=== PATIENT | male | born 1945 | race Caucasian/White ===

== ENCOUNTER 2017-11-17 19:54 | Inpatient (IN) | payer OTHER, MEDICARE ==
[2017-11-17] VITALS (7 sets, daily range): BP systolic 123–179; BP diastolic 75–122; PULSE 99–112; RESP 16–20; TEMP 97.8; O2SAT 90–100
[~2017-11-17] VITALS: Ht 172.7 cm; Wt 58.2 kg
[2017-11-17] MEDS ORDERED: SILD20TA11 PO (20:11)
--- NOTE | 2017-11-17 20:11 | PD ---
HPI Chief Complaint: Psychiatric Symptoms Time Seen by Provider: 19:58 Travel History International Travel<30 days: No Contact w/Intl Traveler<30days: No Traveled to known affect area: No History of Present Illness HPI The patient is a 72-year-old male who presents to the emergency department via EMS after an accidental overdose. According to EMS the patient took 8 her cassette 5 mg tablets at home earlier today and then an unknown amount of Suboxone from his roommate. The patient was then found lying in the bathroom on the ground, unresponsive, was administered Narcan 0.4 mg intravenously. Per EMS the patient awakened and was alert. He does admit to taking Percocet, however, states he did not take any Suboxone. The patient denies any suicidal ideation, states he was trying to obtain a bus from the [place]. He does have a history of chronic opiate use. Upon awakening the patient did ask EMS for more Percocet. Upon arrival the patient does complain of shortness of breath, does have a history of COPD and is on oxygen at home 1 L via nasal cannula. 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 He is a somewhat limited historian secondary to his shortness of breath. A Robbins act was not present upon arrival from the police who were "sidetracked "according to EMS. PFSH Past Medical History Narrative Medical CVA, chronic opiate use Past Surgical History Narrative Surgical Right arm surgery Social History Tobacco Use: Yes Substance Use: Yes Allergies-Medications (Allergen,Severity, Reaction): Coded Allergies: No Known Allergies (Unverified , 11/17/17) Reported Meds & Prescriptions Reported Meds & Active Scripts Active Reported Sildenafil 20 Mg Tab 20 Mg PO TID Review of Systems ROS Limitations: Poor Historian Except as stated in HPI: all other systems reviewed are Neg Cardiovascular: No: Chest Pain or Discomfort Respiratory: Positive: Cough, Shortness of Breath Gastrointestinal: Positive: Nausea, No: Vomiting, Abdominal Pain Musculoskeletal: Positive: Weakness Neurologic: Positive: Focal Abnormalities (Left upper extremity weakness from previous CVA) Physical Exam Narrative GENERAL: Awake, alert, 72-year-old male appears his stated age and appears in moderate respiratory distress. Thin and cachectic. SKIN: Focused skin assessment warm/dry. HEAD: Atraumatic. Normocephalic. EYES: Pupils equal and round. There is purulent drainage from the left eye with injection of the left conjunctival. ENT: No nasal bleeding or discharge. Dry mucous membranes. NECK: Trachea midline. No JVD. CARDIOVASCULAR: Regular, tachycardic with a heart rate of 110. RESPIRATORY: Tachypnea with a respiratory rate of 40. Rhonchi in all 4 lung dunn. GASTROINTESTINAL: Abdomen soft, non-tender, nondistended. No rebound tenderness. MUSCULOSKELETAL: Atrophy noted of the left upper extremity Genitourinary: Uncircumcised phallus. The patient had urinated on himself prior to arrival. NEUROLOGICAL: Awake and alert. Weakness with inability to move the left upper extremity. Limited range of motion of lower extremities bilaterally. He is able to raise his right upper extremity. Well-healed scar over the right forearm. PSYCHIATRIC: Appears slightly anxious. Data Data Last Documented VS Vital Signs Date Time Temp Pulse Resp B/P (MAP) Pulse Ox O2 Delivery O2 Flow Rate FiO2 11/17/17 21:30 97 100 11/17/17 21:25 Venturi Mask 15.00 11/17/17 20:06 110 11/17/17 20:06 97.8 11/17/17 20:00 20 Orders Orders Electrocardiogram (11/17/17 20:05) Complete Blood Count With Diff (11/17/17 20:05) Comprehensive Metabolic Panel (11/17/17 20:05) Prothrombin Time / Inr (Pt) (11/17/17 20:05) Act Partial Throm Time (Ptt) (11/17/17 20:05) Urinalysis - C+S If Indicated (11/17/17 20:05) Chest, Single Ap (11/17/17 20:05) Arterial Blood Gas (Abg) (11/17/17 20:05) Iv Access Insert/Monitor (11/17/17 20:05) Ecg Monitoring (11/17/17 20:05) Oximetry (11/17/17 20:05) Psych Screen (11/17/17 20:05) Sodium Chloride 0.9% Flush (Ns Flush) (11/17/17 20:15) Call Poison Control (11/17/17 20:05) Drug Screen, Random Urine (11/17/17 20:05) Alcohol (Ethanol) (11/17/17 20:05) Salicylates (Aspirin) (11/17/17 20:05) Tylenol (Acetaminophen) (11/17/17 20:05) Albuterol-Ipratropium Neb (Duoneb Neb) (11/17/17 20:15) Troponin I (11/17/17 20:05) Creatine Kinase (Cpk) (11/17/17 20:05) Cefepime Inj (Maxipime Inj) (11/17/17 20:30) Azithromycin Inj (Zithromax Inj) (11/17/17 20:30) B-Type Natriuretic Peptide (11/17/17 20:21) Ct Thorax/ Chest Wo Iv Contras (11/17/17 ) CKMB (11/17/17 20:03) CKMB% (11/17/17 20:03) Etomidate Inj (Amidate Inj) (11/17/17 21:17) Etomidate Inj (Amidate Inj) (11/17/17 21:30) Succinylcholine Inj (Quelicin Inj) (11/17/17 21:30) Propofol 1000 Mg/100 Ml Inj (Diprivan 10 (11/17/17 21:30) ^ Infusion (11/17/17 21:17) Propofol 500 Mg/50 Ml Inj (Diprivan 500 (11/17/17 21:18) Chest, Single Ap (11/17/17 ) Blood Culture (11/17/17 21:36) Lactic Acid (11/17/17 21:36) Sodium Chlor 0.9% 1000 Ml Inj (Ns 1000 M (11/17/17 21:45) Aspirin Supp (Aspirin Supp) (11/17/17 21:45) Labs Laboratory Tests Test 11/17/17 20:03 11/17/17 20:12 White Blood Count 13.4 TH/MM3 Red Blood Count 4.98 MIL/MM3 Hemoglobin 15.6 GM/DL Hematocrit 45.4 % Mean Corpuscular Volume 91.2 FL Mean Corpuscular Hemoglobin 31.4 PG Mean Corpuscular Hemoglobin Concent 34.4 % Red Cell Distribution Width 14.8 % Platelet Count 260 TH/MM3 Mean Platelet Volume 9.0 FL Neutrophils (%) (Auto) 87.4 % Lymphocytes (%) (Auto) 2.3 % Monocytes (%) (Auto) 9.8 % Eosinophils (%) (Auto) 0.3 % Basophils (%) (Auto) 0.2 % Neutrophils # (Auto) 11.7 TH/MM3 Lymphocytes # (Auto) 0.3 TH/MM3 Monocytes # (Auto) 1.3 TH/MM3 Eosinophils # (Auto) 0.0 TH/MM3 Basophils # (Auto) 0.0 TH/MM3 CBC Comment AUTO DIFF Differential Total Cells Counted 100 Neutrophils % (Manual) 85 % Band Neutrophils % 1 % Lymphocytes % 1 % Monocytes % 11 % Neutrophils # (Manual) 11.8 TH/MM3 Promyelocytes 2 % Differential Comment FINAL DIFF MANUAL Toxic Vacuolation PRESENT Platelet Estimate NORMAL Platelet Morphology Comment ENLARGED Prothrombin Time 12.3 SEC Prothromb Time International Ratio 1.2 RATIO Activated Partial Thromboplast Time 25.4 SEC Blood Urea Nitrogen 44 MG/DL Creatinine 0.91 MG/DL Random Glucose 124 MG/DL Total Protein 7.9 GM/DL Albumin 3.4 GM/DL Calcium Level 10.0 MG/DL Alkaline Phosphatase 122 U/L Aspartate Amino Transf (AST/SGOT) 320 U/L Alanine Aminotransferase (ALT/SGPT) 418 U/L Total Bilirubin 1.8 MG/DL Sodium Level 132 MEQ/L Potassium Level 3.3 MEQ/L Chloride Level 93 MEQ/L Carbon Dioxide Level 28.3 MEQ/L Anion Gap 11 MEQ/L Estimat Glomerular Filtration Rate 82 ML/MIN Total Creatine Kinase 1020 U/L Creatine Kinase MB 8.1 NG/ML Creatine Kinase MB % 0.8 % Troponin I 0.17 NG/ML B-Type Natriuretic Peptide 380 PG/ML Salicylates Level LESS THAN 1.7 MG/DL Acetaminophen Level LESS THAN 2.0 MCG/ML Ethyl Alcohol Level LESS THAN 3 MG/DL Blood Gas Puncture Site RT RADIAL Blood Gas Patient Temperature 98.6 Blood Gas HCO3 28 mmol/L Blood Gas Base Excess 4.7 mmol/L Blood Gas Oxygen Saturation 89 % Arterial Blood pH 7.49 Arterial Blood Partial Pressure CO2 37 mmHg Arterial Blood Partial Pressure O2 60 mmHG Arterial Blood Oxygen Content 20.0 Vol % Arterial Blood Carboxyhemoglobin 1.8 % Arterial Blood Methemoglobin 0.5 % Blood Gas Hemoglobin 16.0 G/DL Oxygen Delivery Device NASAL CANNULA Blood Gas Liter Flow 2 L/M MDM Medical Decision Making Medical Screen Exam Complete: Yes Emergency Medical Condition: Yes Medical Record Reviewed: Yes Interpretation(s) EKG reveals sinus tachycardia with a heart rate of 109. Left ventricular hypertrophy by voltage. Last Impressions Chest X-Ray 11/17/172004 Signed Impressions: Service Date/Time: Friday, November 17, 2017 20:11 - CONCLUSION: 1. Right-sided pneumonia, especially upper lobe. 2. Indeterminate radiopaque structure at the level of the thoracic inlet as above. Please correlate visually as to whether this may be overlying the patient. Otherwise, a coin or other foreign object may be in the esophagus. Aman Bermeo MD Chest CT 11/17/17 Signed Impressions: Service Date/Time: Friday, November 17, 2017 20:57 - CONCLUSION: 1. Foreign body at the level of the thoracic inlet, appears to be a coin within the esophagus. 2. Bilateral pneumonia. Please see above. Aman Bermeo MD Laboratory Tests Test 11/17/17 20:03 11/17/17 20:12 White Blood Count 13.4 TH/MM3 Red Blood Count 4.98 MIL/MM3 Hemoglobin 15.6 GM/DL Hematocrit 45.4 % Mean Corpuscular Volume 91.2 FL Mean Corpuscular Hemoglobin 31.4 PG Mean Corpuscular Hemoglobin Concent 34.4 % Red Cell Distribution Width 14.8 % Platelet Count 260 TH/MM3 Mean Platelet Volume 9.0 FL Neutrophils (%) (Auto) 87.4 % Lymphocytes (%) (Auto) 2.3 % Monocytes (%) (Auto) 9.8 % Eosinophils (%) (Auto) 0.3 % Basophils (%) (Auto) 0.2 % Neutrophils # (Auto) 11.7 TH/MM3 Lymphocytes # (Auto) 0.3 TH/MM3 Monocytes # (Auto) 1.3 TH/MM3 Eosinophils # (Auto) 0.0 TH/MM3 Basophils # (Auto) 0.0 TH/MM3 CBC Comment AUTO DIFF Differential Total Cells Counted 100 Neutrophils % (Manual) 85 % Band Neutrophils % 1 % Lymphocytes % 1 % Monocytes % 11 % Neutrophils # (Manual) 11.8 TH/MM3 Promyelocytes 2 % Differential Comment FINAL DIFF MANUAL Toxic Vacuolation PRESENT Platelet Estimate NORMAL Platelet Morphology Comment ENLARGED Prothrombin Time 12.3 SEC Prothromb Time International Ratio 1.2 RATIO Activated Partial Thromboplast Time 25.4 SEC Blood Urea Nitrogen 44 MG/DL Creatinine 0.91 MG/DL Random Glucose 124 MG/DL Total Protein 7.9 GM/DL Albumin 3.4 GM/DL Calcium Level 10.0 MG/DL Alkaline Phosphatase 122 U/L Aspartate Amino Transf (AST/SGOT) 320 U/L Alanine Aminotransferase (ALT/SGPT) 418 U/L Total Bilirubin 1.8 MG/DL Sodium Level 132 MEQ/L Potassium Level 3.3 MEQ/L Chloride Level 93 MEQ/L Carbon Dioxide Level 28.3 MEQ/L Anion Gap 11 MEQ/L Estimat Glomerular Filtration Rate 82 ML/MIN Total Creatine Kinase 1020 U/L Creatine Kinase MB 8.1 NG/ML Creatine Kinase MB % 0.8 % Troponin I 0.17 NG/ML Salicylates Level LESS THAN 1.7 MG/DL Acetaminophen Level LESS THAN 2.0 MCG/ML Ethyl Alcohol Level LESS THAN 3 MG/DL Blood Gas Puncture Site RT RADIAL Blood Gas Patient Temperature 98.6 Blood Gas HCO3 28 mmol/L Blood Gas Base Excess 4.7 mmol/L Blood Gas Oxygen Saturation 89 % Arterial Blood pH 7.49 Arterial Blood Partial Pressure CO2 37 mmHg Arterial Blood Partial Pressure O2 60 mmHG Arterial Blood Oxygen Content 20.0 Vol % Arterial Blood Carboxyhemoglobin 1.8 % Arterial Blood Methemoglobin 0.5 % Blood Gas Hemoglobin 16.0 G/DL Oxygen Delivery Device NASAL CANNULA Blood Gas Liter Flow 2 L/M Differential Diagnosis Differential diagnosis includes accidental overdose, intentional overdose, aspiration, pneumonia, pulmonary edema, congestive heart failure, bronchitis, COPD exacerbation, Tylenol toxicity. Narrative Course IV was established, labs are drawn and sent, and the patient was placed on cardiac telemetry monitoring and continuous pulse oximetry monitoring. The patient was administered duo nebs 2. ABG was obtained. Chest x-ray was obtained. EKG was ordered and interpreted. Chest x-ray reveals pneumonia in the right lung, possibly aspiration. A foreign body was also noted at the thoracic inlet, unsure if this was esophageal or tracheal. Therefore, CT of the thorax was obtained revealing a esophageal foreign body. I discussed the patient with the occupational therapy professor, Dr. Camilo. After discussion it was agreed the patient would be intubated prior to gastroenterology evaluation as he is having tachypnea, hypoxia, and is high risk patient with chronic COPD and oxygen dependency. Therefore, the patient was intubated using rapid sequence intubation with etomidate and succinylcholine. An 8.5 endotracheal tube was placed. The patient will be admitted to the intensive care unit, will require foreign body removal as well as treatment for the aspiration pneumonia and once he is extubated and stable with need psychiatry evaluation as he is a Robbins act. The patient did have what appeared to be aspiration pneumonia with hypoxia, however, he does have COPD and tracheal foreign body. I do not believe the patient is truly septic, he did have elevated troponin and CPK, CPK was greater than 1000 consistent with rhabdomyolysis. Blood culture and lactic acid were ordered. The patient was covered for pneumonia with cefepime and Zithromax. Patient will be admitted to the intensive care unit. The patient also received aspirin 300 mg suppository. Gastroenterology was paged at 10:46 PM in regards to esophageal foreign body. I am unsure if this is a coin versus some type of metallic battery. Therefore, GI was paged. I discussed the patient with Dr. Latham at 10:50 PM. Critical Care Narrative Aggregate critical care time was 45 minutes. Time to perform other separately billable procedures was not included in the critical care time. My time did not include minutes spent treating any other patients simultaneously or on activities that did not directly contribute to the patient's treatment. The services I provided to this patient were to treat and/or prevent clinically significant deterioration that could result in: Anoxia, hypoxia, aspiration, arrhythmia, . I provided critical care services requiring my management, as noted below: Chart data review, documentation time, medication orders and management, vital sign assessments/reviewing monitor data, ordering and reviewing lab tests, ordering and interpreting/reviewing x-rays and diagnostic studies, care of the patient and discussion of the patient with the admitting physicians. Procedures Procedure Narrative The patient was put in optimal position for the procedure. Rapid sequence intubation was initiated by me using 20 milligrams of etomidate IV and 100 milligrams of succinylcholine IV. The patient was intubated with a 8.5 cuffed endotracheal tube. Tube placement was confirmed by visualization of the tube and balloon passing through the cords, capnometry and subsequent chest x-ray. Breath sounds were equal and well aerated bilaterally postintubation. No breath sounds over stomach. Patient tolerated procedure well. Physician Communication Physician Communication I discussed the patient Dr. Camilo who agrees with admission to the intensive care unit. Diagnosis Primary Impression: Pneumonia Qualified Codes: J18.9 - Pneumonia, unspecified organism Additional Impressions: Hypoxia Rhabdomyolysis Qualified Codes: M62.82 - Rhabdomyolysis Esophageal foreign body Qualified Codes: T18.108A - Unspecified foreign body in esophagus causing other injury, initial encounter Admitting Information Admitting Physician Requests: Admit Condition: Serious Joe Zhu MD Nov 17, 2017 20:11
[2017-11-17] MEDS ORDERED: RESP: ALBUTEROL 2.5 MG/IPRATROPIUM 0.5 MG NEB (SCH) NEB ONE (20:15)
[2017-11-17] MEDS ORDERED: SODIUM CHLORIDE 0.9% FLUSH 10 ML FLUSH IVF PRN (20:15)
[2017-11-17] MEDS ORDERED: AZITHROMYCIN INJ 500 MG in SODIUM CHLOR 0.9% 250 ML INJ 250 ML IV ONE (20:30)
[2017-11-17] MEDS ORDERED: CEFEPIME INJ 2,000 MG in SODIUM CHLORIDE 0.9% INJ 100 ML IV ONE (20:30)
--- NOTE | 2017-11-17 20:30 | RADRPT ---
EXAM DATE/TIME: 11/17/2017 20:11 [facility] COMPARISON: No previous studies available for comparison. INDICATIONS : Pt brought in due to possible OD. Pt unresponsive but alert. MEDICAL HISTORY : None. SURGICAL HISTORY : None. ENCOUNTER: Initial ACUITY: 1 day PAIN SCORE: Non-responsive. LOCATION: Bilateral Stomach FINDINGS: There is diffuse infiltrate on the right, most severe in the upper lobe. Mild basilar atelectasis on the left. No definite pleural effusion or pneumothorax on either side. Heart size upper limits of normal. 2.1 cm densely opaque round structure projects over the central thoracic inlet region. It appears to be left of the trachea, could be in the esophagus. CONCLUSION: 1. Right-sided pneumonia, especially upper lobe. 2. Indeterminate radiopaque structure at the level of the thoracic inlet as above. Please correlate v isually as to whether this may be overlying the patient. Otherwise, a coin or other foreign object ma y be in the esophagus. Aman Bermeo MD on November 17, 2017 at 20:25 Board Certified Radiologist. This report was verified electronically.
[2017-11-17 20:51] LABS: AUTOMATED NEUTROPHIL # 11.7 TH/MM3 (1.8-7.7); BASOPHIL % 0.2 % (0.0-2.0); EOSINOPHIL % 0.3 % (0.0-4.0); HEMATOCRIT 45.4 % (39.0-51.0); HEMOGLOBIN 15.6 GM/DL (13.0-17.0); LYMPH % 2.3 % (9.0-44.0); LYMPHOCYTE # 0.3 TH/MM3 (1.0-4.8); MEAN CELL VOLUME 91.2 FL (80.0-100.0); MEAN CORPUSCULAR HEMOGLOBIN 31.4 PG (27.0-34.0); MEAN CORPUSCULAR HGB CONC 34.4 % (32.0-36.0); MONO % 9.8 % (0.0-8.0); MONOCYTE # 1.3 TH/MM3 (0-0.9); NEUT % 87.4 % (16.0-70.0); PLATELET COUNT 260 TH/MM3 (150-450); RED BLOOD COUNT 4.98 MIL/MM3 (4.50-5.90); RED CELL DISTRIBUTION WIDTH 14.8 % (11.6-17.2); WHITE BLOOD COUNT 13.4 TH/MM3 (4.0-11.0)
[2017-11-17 20:53] LABS: ALBUMIN 3.4 GM/DL (3.4-5.0); ALT (GPT) 418 U/L (12-78); AST (GOT) 320 U/L (15-37); BICARBONATE 28.3 MEQ/L (21.0-32.0); BLOOD UREA NITROGEN 44 MG/DL (7-18); CHLORIDE 93 MEQ/L (98-107); CREATININE 0.91 MG/DL (0.60-1.30); GLOMERULAR FILTRATION RATE 82 ML/MIN (>89); GLUCOSE,RANDOM 124 MG/DL (74-106); SODIUM (NA) 132 MEQ/L (136-145)
[2017-11-17 20:56] LABS: ACETAMINOPHEN LESS THAN 2.0 MCG/ML (10.0-30.0)
[2017-11-17 21:05] LABS: ALKALINE PHOSPHATASE 122 U/L (45-117); INTERNATIONAL NORMALIZED RATIO 1.2 RATIO; PROTHROMBIN TIME - PATIENT 12.3 SEC (9.8-11.6); TOTAL BILIRUBIN ADULT 1.8 MG/DL (0.2-1.0); TOTAL PROTEIN 7.9 GM/DL (6.4-8.2); TROPONIN I 0.17 NG/ML (0.02-0.05)
[2017-11-17] MEDS ORDERED: ETOMIDATE 40 MG/20 ML VIAL ONE (21:17)
[2017-11-17] MEDS ORDERED: PROPOFOL 500 MG/50 ML INJ 50 ML ONE (21:18)
--- NOTE | 2017-11-17 21:21 | RADRPT ---
EXAM DATE/TIME: 11/17/2017 20:57 [facility] COMPARISON: No previous studies available for comparison. INDICATIONS : Short of breath, evaluate for pneumonia. RADIATION DOSE: 8.64 CTDIvol (mGy) MEDICAL HISTORY : Chronic obstructive pulmonary disease. Cerebrovascular disease. SURGICAL HISTORY : Non-responsive. ENCOUNTER: Initial ACUITY: 1 day PAIN SCALE: Non-responsive LOCATION: chest TECHNIQUE: Volumetric scanning of the chest was performed. Using automated exposure control and adjustment of t he mA and/or kV according to patient size, radiation dose was kept as low as reasonably achievable to obtain optimal diagnostic quality images. DICOM format image data is available electronically for r eview and comparison. Follow-up recommendations for detected pulmonary nodules are based at a minimum on nodule size and pa tient risk factors according to Fleischner Society Guidelines. FINDINGS: Metallic foreign body seen at the level of the thoracic inlet and appears to be in the esophagus. Thi s is presumably a coin. Patchy diffuse pneumonia of both lungs, right worse than left. More extensive consolidation is seen i n the right upper lobe and also the superior segment of the right lower lobe. There is mild emphysema . No pleural effusion. No pneumothorax. Heart size within normal limits. No adenopathy demonstrated. CONCLUSION: 1. Foreign body at the level of the thoracic inlet, appears to be a coin within the esophagus. 2. Bilateral pneumonia. Please see above. Aman Bermeo MD on November 17, 2017 at 21:13 Board Certified Radiologist. This report was verified electronically.
[2017-11-17 21:27] LABS: BANDS 1 % (0-6); LYMPHOCYTES 1 % (9-44); MONOCYTES 11 % (0-8); NEUTROPHIL # MANUAL DIFF 11.8 TH/MM3 (1.8-7.7); POLYS (SEG NEUTROPHILS) 85 % (16-70); PROMYELOCYTES 2 % (0-0); TOXIC VACUOLATION PRESENT (NONE SEEN)
[2017-11-17] MEDS ORDERED: PROPOFOL 1000 MG/100 ML INJ 100 ML IV PRN (21:30)
[2017-11-17] MEDS ORDERED: SUCCINYLCHOLINE CHLORIDE 100 MG/5 ML SYRINGE IV PUSH ONE (21:30)
[2017-11-17] MEDS ORDERED: ETOMIDATE 20 MG/10 ML VIAL IV PUSH ONE (21:30)
[2017-11-17] MEDS ORDERED: SODIUM CHLOR 0.9% 1000 ML INJ 1,000 ML IV ONE (21:45)
[2017-11-17] MEDS ORDERED: ASPIRIN 300 MG SUPP RECTAL ONE (21:45)
--- NOTE | 2017-11-17 22:08 | RADRPT ---
EXAM DATE/TIME: 11/17/2017 21:36 [facility] COMPARISON: CT THORAX W/O CONTRAST, November 17, 2017, 20:57. CHEST SINGLE AP, November 17, 2017, 20:11. INDICATIONS : Post intubation. MEDICAL HISTORY : Unresponsive. SURGICAL HISTORY : Unresponsive. ENCOUNTER: Initial ACUITY: 1 day PAIN SCORE: Non-responsive. LOCATION: Bilateral chest FINDINGS: Patient is now intubated. Endotracheal tube tip is approximately 4 cm above the tuan. Patchy bilateral pneumonia again seen, most conspicuous in the right upper lobe. No large effusion de monstrated. No perceptible pneumothorax. Heart size stable, within normal limits. Disc shaped metallic foreign body at the level of the thoracic inlet unchanged. CONCLUSION: Endotracheal tube is appropriately positioned. Bilateral pneumonia persists. Foreign body in the esop hagus at the level of the thoracic inlet persists. Aman Bermeo MD on November 17, 2017 at 22:04 Board Certified Radiologist. This report was verified electronically.
[2017-11-17] MEDS ORDERED: ACETAMINOPHEN 325 MG TAB PO PRN (22:45)
[2017-11-17] MEDS ORDERED: RESP: ALBUTEROL 2.5 MG/IPRATROPIUM 0.5 MG NEB (PRN) INH (22:45)
[2017-11-17] MEDS ORDERED: CHLORHEXIDINE GLUCONATE 2 % 1 PACK (2 CLOTHS) TOP PRN (22:45)
[2017-11-17] MEDS ORDERED: LACTULOSE SYRUP 20 GM/30 ML CUP PO PRN (22:45)
[2017-11-17] MEDS ORDERED: ONDANSETRON HCL 4 MG/2 ML VIAL IV PUSH PRN (22:45)
[2017-11-17] MEDS ORDERED: BISACODYL 10 MG SUPP RECTAL PRN (22:45)
[2017-11-17] MEDS ORDERED: SODIUM CHLORIDE 0.9% FLUSH 10 ML FLUSH IV FLUSH PRN (22:45)
[2017-11-17] MEDS ORDERED: NURSING INFORMATION XX SCH (22:45)
[2017-11-17] MEDS ORDERED: MAGNESIUM HYDROXIDE SUSP 30 ML CUP PO PRN (22:45)
[2017-11-17] MEDS ORDERED: SENNOSIDES 8.6 MG TAB PO PRN (22:45)
[2017-11-17] MEDS ORDERED: MORPHINE SULFATE 2 MG/ML SYRINGE IV PUSH PRN (22:45)
[2017-11-17 23:12] LABS: AMORPHOUS SEDIMENT, URINE RARE; BILIRUBIN, URINE NEG (NEG); BLOOD, URINE MOD (NEG); GLUCOSE,URINE NEG (NEG); KETONE, URINE 10 mg/dL (NEG); MUCUS URINE FEW /lpf (OCC); NITRITE,URINE NEG (NEG); PH, URINE 5.5 (5.0-8.5); URINE COLOR LIGHT-YELLOW (YELLW/STRAW); URINE LEUKOCYTE ESTERASE NEG (NEG)
[2017-11-17] MEDS: SODIUM CHLOR 0.9% 1000 ML INJ 1,000 ML IV SCH (23:13)
[2017-11-17] MEDS: MIDAZOLAM HCL 2 MG/2 ML VIAL IV PUSH PRN (23:20)
--- NOTE | 2017-11-17 23:23 | EKG ---
Date Performed: 11/17/2017 Time Performed: 20:07:58 PTAGE: 72 years EKG: SINUS TACHYCARDIA RIGHT ATRIAL ENLARGEMENT POSSIBLE LEFT ATRIAL ENLARGEMENT POSSIBLE LEFT V ENTRICULAR HYPERTROPHY ABNORMAL ECG NO PREVIOUS TRACING DOCTOR: Sammy Bourgeois Interpretating Date/Time 11/17/2017 23:22:41
--- NOTE | 2017-11-17 23:28 | HHI.HP ---
HPI Service Critical Care Medicine Primary Care Physician Unknown Admission Diagnosis Aspiration pneumonia, hypoxia, rhabdomyolysis, tracheal foreign body Diagnosis: Travel History International Travel<30 Days: No Contact w/Intl Traveler <30 Da: No Traveled to Known Affected Are: No History of Present Illness 72-year-old male presents to the emergency department via EMS after an accidental overdose. According to EMS the patient took 8 Percocet 5 mg tablets at home earlier today and then an unknown amount of Suboxone from his roommate. The patient was then found lying in the bathroom on the ground, unresponsive, was administered Narcan 0.4 mg intravenously. Per EMS the patient awakened and was alert. In the emergency department he did admit to taking Percocet, however, states he did not take any Suboxone. The patient denies any suicidal ideation, states he was trying to obtain a buzz from the Percocet. He does have a history of chronic opiate use. Upon awakening the patient did ask EMS for more Percocet. Upon arrival the patient does complain of shortness of breath, does have a history of COPD and is on oxygen at home 1 L via nasal cannula. 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 In the emergency department he remained short of breath and the CT of the chest was obtained. This showed severe aspiration pneumonia and the foreign body, coin-like, in the esophagus. The patient was intubated for airway protection by ED attending with a GI consultation in place for upper endoscopy and foreign body removal. Review of Systems ROS Unobtainable patient sedated and intubated Past Family Social History Allergies: Coded Allergies: No Known Allergies (Unverified , 11/17/17) Past Medical History CVA Opioid abuse Past Surgical History None Reported Medications Reported Meds & Active Scripts Active Reported Sildenafil 20 Mg Tab 20 Mg PO TID Active Ordered Medications Current Medications Medications (Trade) Dose Ordered Sig/Nataly Route PRN Reason Start Time Stop Time Status Last Admin Dose Admin Sodium Chloride (NS Flush) 2 ml UNSCH PRN IVF FLUSH AFTER USING IV ACCESS 11/17/17 20:15 Sodium Chloride 1,000 ml @ 84 mls/hr [id number] IV 11/17/17 22:40 11/17/17 23:13 Sodium Chloride (NS Flush) 2 ml UNSCH PRN IV FLUSH FLUSH AFTER USING IV ACCESS 11/17/17 22:45 Sodium Chloride (NS Flush) 2 ml BID IV FLUSH 11/18/17 09:00 Acetaminophen (Tylenol) 650 mg Q6H PRN PO PAIN 1-5 AND/OR FEVER >101F 11/17/17 22:45 Morphine Sulfate (Morphine Inj) 2 mg Q2H PRN IV PUSH PAIN SCALE 6 TO 10 11/17/17 22:45 Famotidine (Pepcid Inj) 20 mg Q12HR IV PUSH 11/18/17 09:00 Famotidine (Pepcid) 20 mg Q12HR PO 11/18/17 09:00 Midazolam HCl (Versed Inj) 2 mg Q1H PRN IV PUSH SEDATION 11/17/17 22:45 Artificial Tears (Tears Naturale Opth Soln) 1 drop TID EACH EYE 11/18/17 09:00 Ondansetron HCl (Zofran Inj) 4 mg Q6H PRN IV PUSH NAUSEA OR VOMITING 11/17/17 22:45 Albuterol/ Ipratropium (Duoneb Neb) 1 ampule Q2HR NEB PRN INH WHEEZING 11/17/17 22:45 Miscellaneous Information ([facility] [place] [facility] [place] 1 [id number] XX 11/17/17 22:45 Chlorhexidine Gluconate (Chlorhexidine 2% Cloth) 3 pack Taper DAILY@04 TOP 11/18/17 04:00 11/14/18 03:59 Chlorhexidine Gluconate (Chlorhexidine 2% Cloth) 3 pack UNSCH PRN TOP HYGIENIC CARE 11/17/17 22:45 Senna/Docusate Sodium (Luisa-Colace) 1 tab BID PO 11/18/17 09:00 Magnesium Hydroxide (Milk Of Magnesia Liq) 30 ml Q12H PRN PO Mild constipation 11/17/17 22:45 Sennosides (Senokot) 17.2 mg Q12H PRN PO Moderate constipation 11/17/17 22:45 Bisacodyl (Dulcolax Supp) 10 mg DAILY PRN RECTAL SEVERE CONSITIPATION/ IF NPO 11/17/17 22:45 Lactulose (Lactulose Liq) 30 ml DAILY PRN PO SEVERE CONSITIPATION/ IF PO 11/17/17 22:45 Chlorhexidine Gluconate (Peridex 0.12% Liq) 15 ml BID@08,20 MT 11/18/17 08:00 Propofol 100 ml @ 1.53 mls/hr TITRATE PRN IV SEDATION 11/17/17 22:45 Family History Unobtainable patient sedated and intubated Social History Known history of opioid abuse, unable to obtain tobacco and alcohol status Physical Exam Vital Signs Vital Signs Date Time Temp Pulse Resp B/P (MAP) Pulse Ox O2 Delivery O2 Flow Rate FiO2 11/17/17 23:06 99 16 123/75 (91) 100 Ventilator 10.80 99 11/17/17 22:15 111 16 162/102 (122) 100 Ventilator 10.80 99 11/17/17 21:30 97 100 11/17/17 21:25 90 Venturi Mask 15.00 11/17/17 20:22 93 Nasal Cannula 3.00 11/17/17 20:06 110 179/122 (141) 11/17/17 20:06 97.8 11/17/17 20:00 112 20 90 Physical Exam GENERAL: Sedated and intubated, 72-year-old male appears his stated age and appears in moderate respiratory distress. Thin and cachectic. SKIN: Focused skin assessment warm/dry. HEAD: Atraumatic. Normocephalic. EYES: Pupils equal and round. There is purulent drainage from the left eye with injection of the left conjunctival. ENT: No nasal bleeding or discharge. Dry mucous membranes. NECK: Trachea midline. No JVD. CARDIOVASCULAR: Regular, tachycardic with a heart rate of 110. RESPIRATORY: Tachypnea with a respiratory rate of 40. Rhonchi in all 4 lung dunn. GASTROINTESTINAL: Abdomen soft, non-tender, nondistended. No rebound tenderness. MUSCULOSKELETAL: Atrophy noted of the left upper extremity Genitourinary: Uncircumcised phallus. The patient had urinated on himself prior to arrival. NEUROLOGICAL: Follows commands off sedation. Weakness with inability to move the left upper extremity. Limited range of motion of lower extremities bilaterally. He is able to raise his right upper extremity. Well-healed scar over the right forearm. Laboratory Laboratory Tests Test 11/17/17 20:00 11/17/17 20:03 11/17/17 20:12 11/17/17 22:59 Urine Color LIGHT-YELLOW Urine Turbidity CLEAR Urine pH 5.5 Urine Specific [place] 1.015 Urine Protein 30 Urine Glucose (UA) NEG Urine Ketones 10 Urine Occult Blood MOD Urine Nitrite NEG Urine Bilirubin NEG Urine Urobilinogen LESS THAN 2.0 Urine Leukocyte Esterase NEG Urine RBC 1 Urine WBC LESS THAN 1 Urine Amorphous Sediment RARE Urine Mucus FEW Microscopic Urinalysis Comment CULT NOT INDICATED Urine Opiates Screen NEG Urine Barbiturates Screen NEG Urine Amphetamines Screen NEG Urine Benzodiazepines Screen POS Urine Cocaine Screen POS Urine Cannabinoids Screen NEG White Blood Count 13.4 Red Blood Count 4.98 Hemoglobin 15.6 Hematocrit 45.4 Mean Corpuscular Volume 91.2 Mean Corpuscular Hemoglobin 31.4 Mean Corpuscular Hemoglobin Concent 34.4 Red Cell Distribution Width 14.8 Platelet Count 260 Mean Platelet Volume 9.0 Neutrophils (%) (Auto) 87.4 Lymphocytes (%) (Auto) 2.3 Monocytes (%) (Auto) 9.8 Eosinophils (%) (Auto) 0.3 Basophils (%) (Auto) 0.2 Neutrophils # (Auto) 11.7 Lymphocytes # (Auto) 0.3 Monocytes # (Auto) 1.3 Eosinophils # (Auto) 0.0 Basophils # (Auto) 0.0 CBC Comment AUTO DIFF Differential Total Cells Counted 100 Neutrophils % (Manual) 85 Band Neutrophils % 1 Lymphocytes % 1 Monocytes % 11 Neutrophils # (Manual) 11.8 Promyelocytes 2 Differential Comment FINAL DIFF MANUAL Toxic Vacuolation PRESENT Platelet Estimate NORMAL Platelet Morphology Comment ENLARGED Prothrombin Time 12.3 Prothromb Time International Ratio 1.2 Activated Partial Thromboplast Time 25.4 Blood Urea Nitrogen 44 Creatinine 0.91 Random Glucose 124 Total Protein 7.9 Albumin 3.4 Calcium Level 10.0 Alkaline Phosphatase 122 Aspartate Amino Transf (AST/SGOT) 320 Alanine Aminotransferase (ALT/SGPT) 418 Total Bilirubin 1.8 Sodium Level 132 Potassium Level 3.3 Chloride Level 93 Carbon Dioxide Level 28.3 Anion Gap 11 Estimat Glomerular Filtration Rate 82 Total Creatine Kinase 1020 Creatine Kinase MB 8.1 Creatine Kinase MB % 0.8 Troponin I 0.17 B-Type Natriuretic Peptide 380 Salicylates Level LESS THAN 1.7 Acetaminophen Level LESS THAN 2.0 Ethyl Alcohol Level LESS THAN 3 Blood Gas Puncture Site RT RADIAL Blood Gas Patient Temperature 98.6 Blood Gas HCO3 28 Blood Gas Base Excess 4.7 Blood Gas Oxygen Saturation 89 Arterial Blood pH 7.49 Arterial Blood Partial Pressure CO2 37 Arterial Blood Partial Pressure O2 60 Arterial Blood Oxygen Content 20.0 Arterial Blood Carboxyhemoglobin 1.8 Arterial Blood Methemoglobin 0.5 Blood Gas Hemoglobin 16.0 Oxygen Delivery Device NASAL CANNULA Blood Gas Liter Flow 2 Date/Time Source Procedure Growth Status 11/17/17 22:00 Blood Peripheral Aerobic Blood Culture Pending Received 11/17/17 22:00 Blood Peripheral Anaerobic Blood Culture Pending Received Result Diagram: 11/17/17200211/17/172002 Imaging Last 24 hours Impressions Chest X-Ray 11/17/172004 Signed Impressions: Service Date/Time: Friday, November 17, 2017 20:11 - CONCLUSION: 1. Right-sided pneumonia, especially upper lobe. 2. Indeterminate radiopaque structure at the level of the thoracic inlet as above. Please correlate visually as to whether this may be overlying the patient. Otherwise, a coin or other foreign object may be in the esophagus. Aman Bermeo MD Chest X-Ray 11/17/17 0000 Signed Impressions: Service Date/Time: Friday, November 17, 2017 21:36 - CONCLUSION: Endotracheal tube is appropriately positioned. Bilateral pneumonia persists. Foreign body in the esophagus at the level of the thoracic inlet persists. Aman Bermeo MD Chest CT 11/17/17 0000 Signed Impressions: Service Date/Time: Friday, November 17, 2017 20:57 - CONCLUSION: 1. Foreign body at the level of the thoracic inlet, appears to be a coin within the esophagus. 2. Bilateral pneumonia. Please see above. MD Zia Gardner VTE Risk Assessment Caprini VTE Risk Assessment: Mod/High Risk (score >= 2) Caprini Risk Assessment Model Point Value = 1 Point Value = 2 Point Value = 3 Point Value = 5 Age 41-60 Minor surgery BMI > 25 kg/m2 Swollen legs Varicose veins or History of unexplained or recurrent spontaneous Oral contraceptives or hormone replacement Sepsis (< 1 month) Serious lung disease, including pneumonia (< 1 month) Abnormal pulmonary function Acute myocardial infarction Congestive heart failure (< 1 month) History of inflammatory bowel disease Medical patient at bed rest Age 61-74 Arthroscopic surgery Major open surgery (> 45 min) Laparoscopic surgery (> 45 min) Malignancy Confined to bed (> 72 hours) Immobilizing plaster cast Central venous access Age >= 75 History of VTE Family history of VTE Factor V Leiden Prothrombin [id number] Lupus anticoagulant Anticardiolipin antibodies Elevated serum homocysteine Heparin-induced thrombocytopenia Other congenital or acquired thrombophilia Stroke (< 1 month) Elective arthroplasty Hip, pelvis, or leg fracture Acute spinal cord injury (< 1 month) Prophylaxis Regimen Total Risk Factor Score Risk Level Prophylaxis Regimen 0-1 Low Early ambulation 2 Moderate Order ONE of the following: *Sequential Compression Device (SCD) *Heparin 5000 units SQ BID 3-4 Higher Order ONE of the following medications: *Heparin 5000 units SQ TID *Enoxaparin/Lovenox 40 mg SQ daily (WT < 150 kg, CrCl > 30 mL/min) *Enoxaparin/Lovenox 30 mg SQ daily (WT < 150 kg, CrCl > 10-29 mL/min) *Enoxaparin/Lovenox 30 mg SQ BID (WT < 150 kg, CrCl > 30 mL/min) AND/OR *Sequential Compression Device (SCD) 5 or more Highest Order ONE of the following medications: *Heparin 5000 units SQ TID (Preferred with Epidurals) *Enoxaparin/Lovenox 40 mg SQ daily (WT < 150 kg, CrCl > 30 mL/min) *Enoxaparin/Lovenox 30 mg SQ daily (WT < 150 kg, CrCl > 10-29 mL/min) *Enoxaparin/Lovenox 30 mg SQ BID (WT < 150 kg, CrCl > 30 mL/min) AND *Sequential Compression Device (SCD) Assessment and Plan Assessment and Plan Respiratory failure -Intubated for airway protection -Attempt SBT and extubate post GI procedure -DuoNeb scheduled and as needed -Underlying severe emphysema Aspiration pneumonia/pneumatosis -No antibiotics at this time -DuoNeb scheduled and as needed -Wean off the vent as tolerated Foreign body in esophagus -GI consultation Percocet overdose -Supportive care -Intubated for airway protection -Monitor for withdrawal Elevated CPK -IV fluid hydration -Repeat level in a.m. DVT GI prophylaxis -Giovany's and SCDs -Early aggressive mobilization when extubated -Regular diet when extubated Critical Care: The total critical care time was 35 minutes. Time to perform other separately billable procedures was not included in the critical care time. Sivakumar Camilo MD Nov 17, 2017 11:28 pm
[2017-11-17] MEDS ORDERED: POTASSIUM CHLORIDE 25 MEQ EFFERVESCENT TAB PO PRN (23:30)
[2017-11-17] MEDS ORDERED: POTASSIUM CHLOR 40 MEQ PREMIX 100 ML IV PRN (23:30)
[2017-11-17] MEDS ORDERED: POTASSIUM PHOSPHATE MONOBASIC 500 MG TAB PO/TUBE PRN (23:30)
[2017-11-17] MEDS ORDERED: POTASSIUM PHOSPHATE INJ 30 MMOL in SODIUM CHLOR 0.9% 250 ML INJ 250 ML IV PRN (23:30)
[2017-11-17] MEDS ORDERED: MAGNESIUM SULFATE INJ 4 GM in SODIUM CHLORIDE 0.9% INJ 92 ML IV PRN (23:30)
[2017-11-17] MEDS ORDERED: MAGNESIUM OXIDE 400 MG TAB PO PRN (23:30)
[2017-11-17] MEDS ORDERED: SODIUM PHOSPHATE INJ 30 MMOL in SODIUM CHLOR 0.9% 250 ML INJ 240 ML IV PRN (23:30)
[2017-11-17] MEDS ORDERED: MAGNESIUM SULFATE INJ 2 GM in SODIUM CHLORIDE 0.9% INJ 96 ML IV PRN (23:30)
[2017-11-18] VITALS (18 sets, daily range): BP systolic 125–171; BP diastolic 68–90; PULSE 77–104; RESP 16–35; TEMP 97.8–99; O2SAT 98–100
[2017-11-18] MEDS ORDERED: OXYC1TAB13 PO (00:05)
[2017-11-18] MEDS: PROPOFOL 1000 MG/100 ML INJ 100 ML IV PRN ×2 (00:55→09:19)
[2017-11-18] MEDS: SODIUM CHLOR 0.9% 1000 ML INJ 1,000 ML IV SCH ×3 (01:01→11:07)
[2017-11-18] MEDS: POTASSIUM CHLOR 20 MEQ PREMIX 100 ML IV PRN ×2 (01:15→03:20)
[2017-11-18] MEDS: CHLORHEXIDINE GLUCONATE 2 % 1 PACK (2 CLOTHS) TOP SCH (04:00)
[2017-11-18 04:58] LABS: AUTOMATED NEUTROPHIL # 13.2 TH/MM3 (1.8-7.7); BASOPHIL % 0.3 % (0.0-2.0); EOSINOPHIL % 0.1 % (0.0-4.0); HEMATOCRIT 40.5 % (39.0-51.0); HEMOGLOBIN 13.7 GM/DL (13.0-17.0); LYMPH % 4.1 % (9.0-44.0); LYMPHOCYTE # 0.6 TH/MM3 (1.0-4.8); MEAN CELL VOLUME 92.7 FL (80.0-100.0); MEAN CORPUSCULAR HEMOGLOBIN 31.3 PG (27.0-34.0); MEAN CORPUSCULAR HGB CONC 33.8 % (32.0-36.0); MONO % 9.9 % (0.0-8.0); MONOCYTE # 1.5 TH/MM3 (0-0.9); NEUT % 85.6 % (16.0-70.0); PLATELET COUNT 222 TH/MM3 (150-450); RED BLOOD COUNT 4.36 MIL/MM3 (4.50-5.90); RED CELL DISTRIBUTION WIDTH 14.9 % (11.6-17.2); WHITE BLOOD COUNT 15.5 TH/MM3 (4.0-11.0)
--- NOTE | 2017-11-18 04:58 | RADRPT ---
EXAM DATE/TIME: 11/18/2017 03:31 [facility] COMPARISON: CHEST SINGLE AP, November 17, 2017, 20:11. CHEST SINGLE AP, November 17, 2017, 21:36. INDICATIONS : Shortness of breath, possible pulmonary disease. MEDICAL HISTORY : None. SURGICAL HISTORY : None. ENCOUNTER: Subsequent ACUITY: 2 days PAIN SCORE: Non-responsive. LOCATION: Bilateral chest FINDINGS: ET tube tip well above the tuan. Increasing patchy infiltrates in the right upper lobe. Stable el evation left hemidiaphragm and patchy left lower lung infiltrates. Heart size is normal. CONCLUSION: Increasing right upper lobe infiltrates and stable patchy infiltrates in the left lower lung. Oswaldo Alicea MD on November 18, 2017 at 4:55 Board Certified Radiologist. This report was verified electronically.
[2017-11-18 05:03] LABS: INTERNATIONAL NORMALIZED RATIO 1.2 RATIO; PROTHROMBIN TIME - PATIENT 12.3 SEC (9.8-11.6)
[2017-11-18 05:09] LABS: ALBUMIN 2.6 GM/DL (3.4-5.0); ALT (GPT) 321 U/L (12-78); AST (GOT) 217 U/L (15-37); BICARBONATE 25.9 MEQ/L (21.0-32.0); BLOOD UREA NITROGEN 36 MG/DL (7-18); CALCIUM 8.4 MG/DL (8.5-10.1); CHLORIDE 103 MEQ/L (98-107); CREATININE 0.85 MG/DL (0.60-1.30); GLOMERULAR FILTRATION RATE 89 ML/MIN (>89); GLUCOSE,RANDOM 87 MG/DL (74-106); MAGNESIUM 1.9 MG/DL (1.5-2.5); PHOSPHORUS 3.1 MG/DL (2.5-4.9); SODIUM (NA) 140 MEQ/L (136-145)
[2017-11-18 05:11] LABS: ALKALINE PHOSPHATASE 89 U/L (45-117); TOTAL BILIRUBIN ADULT 1.5 MG/DL (0.2-1.0); TOTAL PROTEIN 6.2 GM/DL (6.4-8.2)
[2017-11-18 05:45] LABS: BANDS 5 % (0-6); LYMPHOCYTES 2 % (9-44); MONOCYTES 9 % (0-8); NEUTROPHIL # MANUAL DIFF 13.8 TH/MM3 (1.8-7.7); POLYS (SEG NEUTROPHILS) 84 % (16-70)
[2017-11-18] MEDS ORDERED: AMPICILLIN-SULBACTAM INJ 3 GM VIAL IM SCH (06:30)
[2017-11-18] MEDS: RESP: ALBUTEROL 2.5 MG/IPRATROPIUM 0.5 MG NEB (SCH) NEB ×3 (08:08→19:50)
--- NOTE | 2017-11-18 08:46 | HHI.CCPN ---
Subjective Remarks/Hospital Course 11/17: 72-year-old male presents to the emergency department via EMS after an accidental overdose. According to EMS the patient took 8 Percocet 5 mg tablets at home earlier today and then an unknown amount of Suboxone from his roommate. The patient was then found lying in the bathroom on the ground, unresponsive, was administered Narcan 0.4 mg intravenously. Per EMS the patient awakened and was alert. In the emergency department he did admit to taking Percocet, however, states he did not take any Suboxone. The patient denies any suicidal ideation, states he was trying to obtain a buzz from the Percocet. He does have a history of chronic opiate use. Upon awakening the patient did ask EMS for more Percocet. Upon arrival the patient does complain of shortness of breath, does have a history of COPD and is on oxygen at home 1 L via nasal cannula. 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 In the emergency department he remained short of breath and the CT of the chest was obtained. This showed severe aspiration pneumonia and the foreign body, coin-like, in the esophagus. The patient was intubated for airway protection by ED attending with a GI consultation in place for upper endoscopy and foreign body removal. 11/18: No events overnight. Patient has been afebrile. Currently, he is intubated and sedated, on mechanical ventilation. No family present at bedside. ROS: Unobtainable, patient is intubated Objective Vital Signs Date Time Temp Pulse Resp B/P (MAP) Pulse Ox O2 Delivery O2 Flow Rate FiO2 11/18/17 06:00 87 11/18/17 04:00 98.8 25 126/73 (90) 100 11/18/17 04:00 40 11/17/17 23:06 Ventilator 10.80 Intake and Output 11/18/17 11/18/17 11/19/17 08:00 16:00 00:00 Intake Total 3123 ml Output Total 400 ml Balance 2723 ml Result Diagram: 11/18/17 0410 11/18/17 0410 Other Results Laboratory Tests Test 11/17/17 20:12 11/18/17 05:46 Blood Gas Puncture Site RT RADIAL RT RADIAL Blood Gas Patient Temperature 98.6 98.6 Blood Gas HCO3 28 mmol/L (22-26) 27 mmol/L (22-26) Blood Gas Base Excess 4.7 mmol/L (-2-2) 3.4 mmol/L (-2-2) Blood Gas Oxygen Saturation 89 % (90-100) 95 % (90-100) Arterial Blood pH 7.49 (7.380-7.420) 7.44 (7.380-7.420) Arterial Blood Partial Pressure CO2 37 mmHg (38-42) 40 mmHg (38-42) Arterial Blood Partial Pressure O2 60 mmHG (61-120) 99 mmHg (61-120) Arterial Blood Oxygen Content 20.0 Vol % (12.0-20.0) 17.0 Vol % (12.0-20.0) Arterial Blood Carboxyhemoglobin 1.8 % (0-4) 1.0 % (0-4) Arterial Blood Methemoglobin 0.5 % (0-2) 1.2 % (0-2) Blood Gas Hemoglobin 16.0 G/DL (12.0-16.0) 12.6 G/DL (12.0-16.0) Oxygen Delivery Device NASAL CANNULA VENTILATOR Blood Gas Liter Flow 2 L/M Blood Gas Ventilator Setting SEE COMMENTS Blood Gas Inspired Oxygen 40 % Imaging Last 24 hours Impressions Chest X-Ray 11/18/17 Signed Impressions: Service Date/Time: Saturday, November 18, 2017 03:31 - CONCLUSION: Increasing right upper lobe infiltrates and stable patchy infiltrates in the left lower lung. Oswaldo Alicea MD Chest X-Ray 11/17/172004 Signed Impressions: Service Date/Time: Friday, November 17, 2017 20:11 - CONCLUSION: 1. Right-sided pneumonia, especially upper lobe. 2. Indeterminate radiopaque structure at the level of the thoracic inlet as above. Please correlate visually as to whether this may be overlying the patient. Otherwise, a coin or other foreign object may be in the esophagus. Aman Bermeo MD Last 24 hours Impressions Chest X-Ray 11/17/172004 Signed Impressions: Service Date/Time: Friday, November 17, 2017 20:11 - CONCLUSION: 1. Right-sided pneumonia, especially upper lobe. 2. Indeterminate radiopaque structure at the level of the thoracic inlet as above. Please correlate visually as to whether this may be overlying the patient. Otherwise, a coin or other foreign object may be in the esophagus. Aman Bermeo MD Chest X-Ray 11/17/17 0000 Signed Impressions: Service Date/Time: Friday, November 17, 2017 21:36 - CONCLUSION: Endotracheal tube is appropriately positioned. Bilateral pneumonia persists. Foreign body in the esophagus at the level of the thoracic inlet persists. Aman Bermeo MD Chest CT 11/17/17 0000 Signed Impressions: Service Date/Time: Friday, November 17, 2017 20:57 - CONCLUSION: 1. Foreign body at the level of the thoracic inlet, appears to be a coin within the esophagus. 2. Bilateral pneumonia. Please see above. Aman Bermeo MD Objective Remarks GENERAL: Elderly gentleman, cachectic, intubated and sedated, ill-appearing. SKIN: Warm and dry. No rashes appreciated. HEAD: Atraumatic. Normocephalic. EYES: Pupils equal, small, sluggishly reactive. ENT: No nasal bleeding or discharge. Dry mucous membranes. Orally intubated NECK: Trachea midline. No JVD. CARDIOVASCULAR: Regular heart sounds no murmurs appreciated. RESPIRATORY: Coarse breath sounds bilateral. Good air entry. No wheezes. GASTROINTESTINAL: Abdomen soft, non-tender, nondistended. No rebound tenderness. Bowel sounds present. No hepatomegaly and no splenomegaly. MUSCULOSKELETAL: Atrophy noted of the left upper extremity. No edema. Peripheral pulses are present. Warm and well-perfused. NEUROLOGICAL: Intubated and sedated. Grimaces to pain. Does not open eyes to voice stimuli and he does not follow commands. A/P Assessment and Plan 1. Percocet overdose 2. Aspiration pneumonia 3. Acute respiratory failure, intubated for airway protection 4. Foreign body in the esophagus 5. Elevated CPK 6. Elevated liver enzymes 7. History of emphysema on home O2 1. Continue PRVC mode of ventilation at current settings. PIP is 19, patient is synchronized with the ventilator, no auto PEEP 2. Vent bundle and bronchodilators 3. GI consultation. Patient needs emergent EGD due to foreign body and risk for perforation. There is no family available for consent 4. Continue sedation with propofol and would perform sedation vacation postprocedure, with hope we can extubate patient today 5. Start Unasyn 6. Repeat acetaminophen level 7. Acute hepatitis profile. If liver enzymes will not trend down with check liver ultrasound 8. Psychiatry consult postextubation 9. Continue IV hydration but decrease rate to 125 mL's per hour 10. GI and DVT prophylaxis No family present at bedside. Addendum: patient was assessed multiple times post procedure, off sedation, very lethargic, difficult to arouse, tolerating CPAP 02/25. If more awake, we will extubate him tonight, if not in AM. Chance Wild MD Nov 18, 2017 08:46
[2017-11-18] MEDS: ARTIFICIAL TEARS OPTH SOLN 15 ML BTL EACH EYE SCH ×3 (09:00→16:38)
[2017-11-18] MEDS: SODIUM CHLORIDE 0.9% FLUSH 10 ML FLUSH IV FLUSH SCH ×2 (09:00→21:50)
[2017-11-18] MEDS ORDERED: FAMOTIDINE 20 MG TAB PO SCH (09:00)
[2017-11-18] MEDS: DOCUSATE SODIUM 50 MG/SENNA 8.6 MG TAB PO SCH ×2 (09:00→21:00)
[2017-11-18] MEDS: AMPICILLIN/SULBAC 3 GM/NS 100 ML IV SCH ×6 (09:20→17:35)
[2017-11-18] MEDS: FAMOTIDINE 20 MG/2 ML VIAL IV PUSH SCH ×2 (09:21→21:50)
[2017-11-18] MEDS: CHLORHEXIDINE 0.12% (ORAL KIT) 15 ML CUP MT SCH ×2 (09:22→21:50)
[2017-11-18] MEDS ORDERED: ROCURONIUM INJ 50 MG/5 ML SYRINGE IV PUSH ONE (12:00)
[2017-11-18] MEDS ORDERED: DO NOT ADM ANY ANTICOAGULANT DRUGS PRN (12:30)
--- NOTE | 2017-11-18 13:08 | PD.CONS ---
HPI History of Present Illness This is a 72 year old male was admitted to the hospital on 11/17/2017 with a possible accidental overdose. Drug screen was done on admission which was positive for benzos and cocaine. According to the record patient was found unresponsive in his bathroom and was given Narcan in the field. Patient did awaken and was alert and round to the hospital but does note a history of chronic opiate use. Chest CT was obtained secondary to shortness of breath noted in the emergency room and there seemed to be a coin like foreign body in the distal esophagus area. Patient was intubated to protect his airway and is currently being managed in the intensive care setting. Current hemoglobin 13.7 , WBC count 15.5, alkaline phosphatase now normal at 89. Bilirubin 1.5, initial LFTs noted was AST 320, ALT 418, now AST has decreased to 217, and ALT decreased to 322 on 11/18/2017. GI was consulted to evaluate foreign body in the esophagus area. Currently there is no family available most of the information being obtained is from the record. PFSH Past Medical History COPD Chronic opioid use History of CVA with left-sided weakness Past Surgical History According to the record right arm surgery Coded Allergies: No Known Allergies (Unverified , 11/17/17) Medications Administered Medications Medications (Trade) Dose Ordered Sig/Nataly Route PRN Reason Start Time Stop Time Status Last Admin Dose Admin Sodium Chloride 1,000 ml @ 125 mls/hr Q8H IV 11/17/17 22:40 11/18/17 11:07 Famotidine (Pepcid Inj) 20 mg Q12HR IV PUSH 11/18/17 09:00 11/18/17 09:21 Midazolam HCl (Versed Inj) 2 mg Q1H PRN IV PUSH SEDATION 11/17/17 22:45 11/17/17 23:20 Miscellaneous Information ([facility]) 1 [id number] XX 11/17/17 22:45 11/18/17 00:59 Chlorhexidine Gluconate (Chlorhexidine 2% Cloth) 3 pack Taper DAILY@04 TOP 11/18/17 04:00 11/14/18 03:59 11/18/17 04:00 Chlorhexidine Gluconate (Peridex 0.12% Liq) 15 ml BID@08,20 MT 11/18/17 08:00 11/18/17 09:22 Propofol 100 ml @ 1.53 mls/hr TITRATE PRN IV SEDATION 11/17/17 22:45 11/18/17 09:19 Albuterol/ Ipratropium (Duoneb Neb) 1 ampule Q6HR WHILE AWAKE NEB NEB 11/18/17 08:00 11/18/17 12:56 Potassium Chloride 100 ml @ 50 mls/hr Q2H PRN IV For Potassium 3.3 - 3.5 mEq/L 11/17/17 23:30 11/18/17 03:20 Ampicillin Sodium/ Sulbactam Sodium 3 gm/Sodium Chloride 100 ml @ 200 mls/hr Q6H IV 11/18/17 07:00 11/18/17 09:20 Family History Unknown Social History According to the record positive for tobacco and illicit drugs GI Exam Vitals I&O Vital Signs Date Time Temp Pulse Resp B/P (MAP) Pulse Ox O2 Delivery O2 Flow Rate FiO2 11/18/17 12:56 98 35 11/18/17 10:00 82 11/18/17 09:05 100 35 11/18/17 08:00 99.0 84 24 131/81 (98) 100 11/18/17 08:00 35 11/18/17 08:00 84 11/18/17 06:00 87 11/18/17 04:00 98.8 92 25 126/73 (90) 100 11/18/17 04:00 92 11/18/17 04:00 40 11/18/17 03:24 100 45 11/18/17 02:00 94 11/18/17 00:28 100 60 11/18/17 00:00 100 100 11/18/17 00:00 97.8 104 30 125/81 (96) 100 11/18/17 00:00 60 11/18/17 00:00 104 11/17/17 23:06 99 16 123/75 (91) 100 Ventilator 10.80 99 11/17/17 22:15 111 16 162/102 (122) 100 Ventilator 10.80 99 11/17/17 21:30 97 100 11/17/17 21:25 90 Venturi Mask 15.00 11/17/17 20:22 93 Nasal Cannula 3.00 11/17/17 20:06 110 179/122 (141) 11/17/17 20:06 97.8 11/17/17 20:00 112 20 90 I/O 11/17/17 11/17/17 11/17/17 11/18/17 11/18/17 11/18/17 07:00 15:00 23:00 07:00 15:00 23:00 Intake Total 3123 ml 728 ml Output Total 400 ml Balance 2723 ml 728 ml Intake Oral 0 ml IV Total 3123 ml 728 ml Output Urine Total 400 ml # Bowel Movements 0 Imaging Last Impressions Chest X-Ray 11/18/17 0000 Signed Impressions: Service Date/Time: Saturday, November 18, 2017 03:31 - CONCLUSION: Increasing right upper lobe infiltrates and stable patchy infiltrates in the left lower lung. Oswaldo Alicea MD Chest CT 11/17/17 0000 Signed Impressions: Service Date/Time: Friday, November 17, 2017 20:57 - CONCLUSION: 1. Foreign body at the level of the thoracic inlet, appears to be a coin within the esophagus. 2. Bilateral pneumonia. Please see above. Aman Bermeo MD Laboratory Test 11/17/17 20:00 11/17/17 20:03 11/17/17 20:12 11/17/17 22:59 Urine Color LIGHT-YELLOW Urine Turbidity CLEAR Urine pH 5.5 Urine Specific [place] 1.015 Urine Protein 30 mg/dL Urine Glucose (UA) NEG mg/dL Urine Ketones 10 mg/dL Urine Occult Blood MOD Urine Nitrite NEG Urine Bilirubin NEG Urine Urobilinogen LESS THAN 2.0 MG/DL Urine Leukocyte Esterase NEG Urine RBC 1 /hpf Urine WBC LESS THAN 1 /hpf Urine Amorphous Sediment RARE Urine Mucus FEW /lpf Microscopic Urinalysis Comment CULT NOT INDICATED Urine Opiates Screen NEG Urine Barbiturates Screen NEG Urine Amphetamines Screen NEG Urine Benzodiazepines Screen POS Urine Cocaine Screen POS Urine Cannabinoids Screen NEG White Blood Count 13.4 TH/MM3 Red Blood Count 4.98 MIL/MM3 Hemoglobin 15.6 GM/DL Hematocrit 45.4 % Mean Corpuscular Volume 91.2 FL Mean Corpuscular Hemoglobin 31.4 PG Mean Corpuscular Hemoglobin Concent 34.4 % Red Cell Distribution Width 14.8 % Platelet Count 260 TH/MM3 Mean Platelet Volume 9.0 FL Neutrophils (%) (Auto) 87.4 % Lymphocytes (%) (Auto) 2.3 % Monocytes (%) (Auto) 9.8 % Eosinophils (%) (Auto) 0.3 % Basophils (%) (Auto) 0.2 % Neutrophils # (Auto) 11.7 TH/MM3 Lymphocytes # (Auto) 0.3 TH/MM3 Monocytes # (Auto) 1.3 TH/MM3 Eosinophils # (Auto) 0.0 TH/MM3 Basophils # (Auto) 0.0 TH/MM3 CBC Comment AUTO DIFF Differential Total Cells Counted 100 Neutrophils % (Manual) 85 % Band Neutrophils % 1 % Lymphocytes % 1 % Monocytes % 11 % Neutrophils # (Manual) 11.8 TH/MM3 Promyelocytes 2 % Differential Comment FINAL DIFF MANUAL Toxic Vacuolation PRESENT Platelet Estimate NORMAL Platelet Morphology Comment ENLARGED Prothrombin Time 12.3 SEC Prothromb Time International Ratio 1.2 RATIO Activated Partial Thromboplast Time 25.4 SEC Blood Urea Nitrogen 44 MG/DL Creatinine 0.91 MG/DL Random Glucose 124 MG/DL Total Protein 7.9 GM/DL Albumin 3.4 GM/DL Calcium Level 10.0 MG/DL Alkaline Phosphatase 122 U/L Aspartate Amino Transf (AST/SGOT) 320 U/L Alanine Aminotransferase (ALT/SGPT) 418 U/L Total Bilirubin 1.8 MG/DL Sodium Level 132 MEQ/L Potassium Level 3.3 MEQ/L Chloride Level 93 MEQ/L Carbon Dioxide Level 28.3 MEQ/L Anion Gap 11 MEQ/L Estimat Glomerular Filtration Rate 82 ML/MIN Phosphorus Level 3.4 MG/DL Total Creatine Kinase 1020 U/L Creatine Kinase MB 8.1 NG/ML Creatine Kinase MB % 0.8 % Troponin I 0.17 NG/ML B-Type Natriuretic Peptide 380 PG/ML Salicylates Level LESS THAN 1.7 MG/DL Acetaminophen Level LESS THAN 2.0 MCG/ML Ethyl Alcohol Level LESS THAN 3 MG/DL Blood Gas Puncture Site RT RADIAL Blood Gas Patient Temperature 98.6 Blood Gas HCO3 28 mmol/L Blood Gas Base Excess 4.7 mmol/L Blood Gas Oxygen Saturation 89 % Arterial Blood pH 7.49 Arterial Blood Partial Pressure CO2 37 mmHg Arterial Blood Partial Pressure O2 60 mmHG Arterial Blood Oxygen Content 20.0 Vol % Arterial Blood Carboxyhemoglobin 1.8 % Arterial Blood Methemoglobin 0.5 % Blood Gas Hemoglobin 16.0 G/DL Oxygen Delivery Device NASAL CANNULA Blood Gas Liter Flow 2 L/M Lactic Acid Level 1.4 mmol/L Test 4/28/18 00:00 11/18/17 04:10 11/18/17 05:46 11/18/17 07:10 Nasal Screen MRSA (PCR) MRSA NOT DETECTED White Blood Count 15.5 TH/MM3 Red Blood Count 4.36 MIL/MM3 Hemoglobin 13.7 GM/DL Hematocrit 40.5 % Mean Corpuscular Volume 92.7 FL Mean Corpuscular Hemoglobin 31.3 PG Mean Corpuscular Hemoglobin Concent 33.8 % Red Cell Distribution Width 14.9 % Platelet Count 222 TH/MM3 Mean Platelet Volume 9.0 FL Neutrophils (%) (Auto) 85.6 % Lymphocytes (%) (Auto) 4.1 % Monocytes (%) (Auto) 9.9 % Eosinophils (%) (Auto) 0.1 % Basophils (%) (Auto) 0.3 % Neutrophils # (Auto) 13.2 TH/MM3 Lymphocytes # (Auto) 0.6 TH/MM3 Monocytes # (Auto) 1.5 TH/MM3 Eosinophils # (Auto) 0.0 TH/MM3 Basophils # (Auto) 0.0 TH/MM3 CBC Comment AUTO DIFF Differential Total Cells Counted 100 Neutrophils % (Manual) 84 % Band Neutrophils % 5 % Lymphocytes % 2 % Monocytes % 9 % Neutrophils # (Manual) 13.8 TH/MM3 Differential Comment FINAL DIFF MANUAL Platelet Estimate NORMAL Platelet Morphology Comment NORMAL Basophilic Stippling FAINT Prothrombin Time 12.3 SEC Prothromb Time International Ratio 1.2 RATIO Activated Partial Thromboplast Time 25.2 SEC Blood Urea Nitrogen 36 MG/DL Creatinine 0.85 MG/DL Random Glucose 87 MG/DL Total Protein 6.2 GM/DL Albumin 2.6 GM/DL Calcium Level 8.4 MG/DL Phosphorus Level 3.1 MG/DL Magnesium Level 1.9 MG/DL Alkaline Phosphatase 89 U/L Aspartate Amino Transf (AST/SGOT) 217 U/L Alanine Aminotransferase (ALT/SGPT) 321 U/L Total Bilirubin 1.5 MG/DL Sodium Level 140 MEQ/L Potassium Level 3.6 MEQ/L Chloride Level 103 MEQ/L Carbon Dioxide Level 25.9 MEQ/L Anion Gap 11 MEQ/L Estimat Glomerular Filtration Rate 89 ML/MIN Total Creatine Kinase 451 U/L Creatine Kinase MB 4.2 NG/ML Creatine Kinase MB % 0.9 % Blood Gas Puncture Site RT RADIAL Blood Gas Patient Temperature 98.6 Blood Gas HCO3 27 mmol/L Blood Gas Base Excess 3.4 mmol/L Blood Gas Oxygen Saturation 95 % Arterial Blood pH 7.44 Arterial Blood Partial Pressure CO2 40 mmHg Arterial Blood Partial Pressure O2 99 mmHg Arterial Blood Oxygen Content 17.0 Vol % Arterial Blood Carboxyhemoglobin 1.0 % Arterial Blood Methemoglobin 1.2 % Blood Gas Hemoglobin 12.6 G/DL Oxygen Delivery Device VENTILATOR Blood Gas Ventilator Setting SEE COMMENTS Blood Gas Inspired Oxygen 40 % Acetaminophen Level LESS THAN 2.0 MCG/ML Test 11/18/17 10:28 Potassium Level 4.0 MEQ/L Date/Time Source Procedure Growth Status 11/17/17 22:00 Blood Peripheral Aerobic Blood Culture - Preliminary NO GROWTH IN 1 DAY Resulted 11/17/17 22:00 Blood Peripheral Anaerobic Blood Culture - Preliminary NO GROWTH IN 1 DAY Resulted 11/18/17 06:00 Sputum Endotracheal Gram Stain Pending Received 11/18/17 06:00 Sputum Endotracheal Sputum Culture Pending Received Physical Examination HEENT normocephalic; atraumatic; pale NECK: Neck is supple, intubated CHEST: Chest diminished breath sounds mild rhonchi, ET tube intubated CARDIAC: Regular rate and rhythm ABDOMEN: Soft, nondistended, round, bowel sounds are present in all four quadrants. EXTREMITIES: Sedated for now, no obvious edema SKIN: Normal; no rash; no jaundice. 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 Patient does have a history of CVA with left-sided weakness. In the emergency room patient became short of breath CT of the chest was obtained and coin-like foreign body was seen in the distal esophagus area. GI was consulted for upper endoscopy and foreign body removal. Drug screen was positive for benzos and cocaine. Patient remains intubated to protect his airway until foreign body is removed. Plan EGD today for foreign body esophageal removal of possible coin, consent, GI lab notified PPI Monitor labs Monitor for any acute bleeding Further recommendations as follows Patient was seen per myself and Dr. Ng, note was written on his behalf Problem Qualifiers (1) Esophageal foreign body: Qualified Codes: T18.108A - Unspecified foreign body in esophagus causing other injury, initial encounter Pattie Stewart Nov 18, 2017 13:08
[2017-11-18] MEDS: MIDAZOLAM HCL 2 MG/2 ML VIAL IV PUSH PRN (23:17)
[2017-11-19] VITALS (17 sets, daily range): BP systolic 153–190; BP diastolic 83–100; PULSE 84–100; RESP 25–37; TEMP 98.4–99.4; O2SAT 92–100
[2017-11-19] MEDS: SODIUM CHLOR 0.9% 1000 ML INJ 1,000 ML IV SCH ×3 (00:59→18:00)
[2017-11-19] MEDS: AMPICILLIN/SULBAC 3 GM/NS 100 ML IV SCH ×8 (00:59→18:14)
[2017-11-19] MEDS: CHLORHEXIDINE 0.12% (ORAL KIT) 15 ML CUP MT SCH (08:00)
[2017-11-19] MEDS: RESP: ALBUTEROL 2.5 MG/IPRATROPIUM 0.5 MG NEB (SCH) NEB ×3 (08:20→19:29)
[2017-11-19] MEDS: DOCUSATE SODIUM 50 MG/SENNA 8.6 MG TAB PO SCH (08:56)
[2017-11-19] MEDS: ARTIFICIAL TEARS OPTH SOLN 15 ML BTL EACH EYE SCH ×3 (08:56→17:00)
--- NOTE | 2017-11-19 08:58 | HHI.CCPN ---
Subjective Remarks/Hospital Course 11/17: 72-year-old male presents to the emergency department via EMS after an accidental overdose. According to EMS the patient took 8 Percocet 5 mg tablets at home earlier today and then an unknown amount of Suboxone from his roommate. The patient was then found lying in the bathroom on the ground, unresponsive, was administered Narcan 0.4 mg intravenously. Per EMS the patient awakened and was alert. In the emergency department he did admit to taking Percocet, however, states he did not take any Suboxone. The patient denies any suicidal ideation, states he was trying to obtain a buzz from the Percocet. He does have a history of chronic opiate use. Upon awakening the patient did ask EMS for more Percocet. Upon arrival the patient does complain of shortness of breath, does have a history of COPD and is on oxygen at home 1 L via nasal cannula. 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 In the emergency department he remained short of breath and the CT of the chest was obtained. This showed severe aspiration pneumonia and the foreign body, coin-like, in the esophagus. The patient was intubated for airway protection by ED attending with a GI consultation in place for upper endoscopy and foreign body removal. 11/18: No events overnight. Patient has been afebrile. Currently, he is intubated and sedated, on mechanical ventilation. No family present at bedside. 11/19: Patient underwent EGD yesterday and per verbal report, he was found to have a nickel in his esophagus. Over the night, patient afebrile, with a T-max of 98.9 and adequate urine output. This a.m. he is off sedation, arousable, appropriate, following commands tolerating CPAP trial. ROS: Unobtainable, patient is intubated Objective Vital Signs Date Time Temp Pulse Resp B/P (MAP) Pulse Ox O2 Delivery O2 Flow Rate FiO2 11/19/17 08:22 97 Nasal Cannula 2.00 11/19/17 06:00 89 11/19/17 04:25 35 11/19/17 04:00 98.8 25 175/96 (122) Intake and Output 11/19/17 11/19/17 11/20/17 08:00 16:00 00:00 Intake Total 1318 ml Output Total 1350 ml Balance -32 ml Result Diagram: 11/18/17 0410 11/18/17 1028 Other Results Blood cultures and sputum culture pending Imaging Last 24 hours Impressions Chest X-Ray 11/18/17 0000 Signed Impressions: Service Date/Time: Saturday, November 18, 2017 03:31 - CONCLUSION: Increasing right upper lobe infiltrates and stable patchy infiltrates in the left lower lung. Oswaldo Alicea MD Chest X-Ray 11/17/172004 Signed Impressions: Service Date/Time: Friday, November 17, 2017 20:11 - CONCLUSION: 1. Right-sided pneumonia, especially upper lobe. 2. Indeterminate radiopaque structure at the level of the thoracic inlet as above. Please correlate visually as to whether this may be overlying the patient. Otherwise, a coin or other foreign object may be in the esophagus. Aman Bermeo MD Last 24 hours Impressions Chest X-Ray 11/17/172004 Signed Impressions: Service Date/Time: Friday, November 17, 2017 20:11 - CONCLUSION: 1. Right-sided pneumonia, especially upper lobe. 2. Indeterminate radiopaque structure at the level of the thoracic inlet as above. Please correlate visually as to whether this may be overlying the patient. Otherwise, a coin or other foreign object may be in the esophagus. Aman Bermeo MD Chest X-Ray 11/17/17 0000 Signed Impressions: Service Date/Time: Friday, November 17, 2017 21:36 - CONCLUSION: Endotracheal tube is appropriately positioned. Bilateral pneumonia persists. Foreign body in the esophagus at the level of the thoracic inlet persists. Aman Bermeo MD Chest CT 11/17/17 0000 Signed Impressions: Service Date/Time: Friday, November 17, 2017 20:57 - CONCLUSION: 1. Foreign body at the level of the thoracic inlet, appears to be a coin within the esophagus. 2. Bilateral pneumonia. Please see above. Aman Bermeo MD Objective Remarks General - elderly gentleman, intubated, easily arousable, in no distress HEENT - pupils equal, reactive, sclerae anicteric, neck supple, no nuchal rigidity, neck veins not distended, no carotid bruit, orally intubated CV - regular S1, S2, no murmurs Chest - clear b/l, good air entry, no wheezes Abdomen - soft, non-tender, non-distended, BS present, no hepatomegaly, no splenomegaly Skin - no rashes, no cyanosis Extremities - warm and well perfused, no edema, + peripheral pulses, no clubbing Neuro - arousable, follows commands, so extremities except left upper extremity which is chronically weak A/P Assessment and Plan 1. Percocet overdose 2. Aspiration pneumonia 3. Acute respiratory failure, intubated for airway protection -tolerated CPAP trial 4. Foreign body in the esophagus -extracted 5. Elevated CPK -resolving 6. Elevated liver enzymes -found to have hepatitis C 7. History of emphysema on home O2 1. Extubate 2. Appreciate GI consultation 3. Continue Unasyn for now 4. Psych consult 5. Swallow evaluation and advance diet as tolerated 6. IV hydration 7. GI and DVT prophylaxis 8. Check labs this a.m. No family present at bedside. Patient will do well postextubation we will transition his care to the hospitalist service. Please call back with any questions or if additional help is needed. Chance Wild MD Nov 19, 2017 08:58
[2017-11-19] MEDS: SODIUM CHLORIDE 0.9% FLUSH 10 ML FLUSH IV FLUSH SCH (09:00)
[2017-11-19] MEDS: FAMOTIDINE 20 MG/2 ML VIAL IV PUSH SCH (09:00)
[2017-11-19] MEDS: ENOXAPARIN SODIUM 40 MG/0.4 ML SYRINGE SQ SCH (09:01)
[2017-11-19 09:28] LABS: AUTOMATED NEUTROPHIL # 6.1 TH/MM3 (1.8-7.7); BASOPHIL # 0.1 TH/MM3 (0-0.2); BASOPHIL % 1.8 % (0.0-2.0); EOSINOPHIL # 0.1 TH/MM3 (0-0.4); EOSINOPHIL % 1.4 % (0.0-4.0); HEMATOCRIT 39.1 % (39.0-51.0); HEMOGLOBIN 13.2 GM/DL (13.0-17.0); LYMPH % 7.1 % (9.0-44.0); LYMPHOCYTE # 0.5 TH/MM3 (1.0-4.8); MEAN CORPUSCULAR HEMOGLOBIN 31.4 PG (27.0-34.0); MEAN CORPUSCULAR HGB CONC 33.7 % (32.0-36.0); MONO % 9.9 % (0.0-8.0); MONOCYTE # 0.8 TH/MM3 (0-0.9); NEUT % 79.8 % (16.0-70.0); PLATELET COUNT 218 TH/MM3 (150-450); RED CELL DISTRIBUTION WIDTH 15.2 % (11.6-17.2); WHITE BLOOD COUNT 7.6 TH/MM3 (4.0-11.0)
[2017-11-19 09:50] LABS: BICARBONATE 30.7 MEQ/L (21.0-32.0); CALCIUM 8.4 MG/DL (8.5-10.1); CREATININE 0.64 MG/DL (0.60-1.30); MAGNESIUM 1.7 MG/DL (1.5-2.5)
[2017-11-19] MEDS: POTASSIUM CHLOR 20 MEQ PREMIX 100 ML IV PRN ×5 (10:04→18:12)
[2017-11-19 10:15] LABS: BANDS 8 % (0-6); LYMPHOCYTES 13 % (9-44); METAMYELOCYTES 1 % (0-1); MONOCYTES 8 % (0-8); POLYS (SEG NEUTROPHILS) 70 % (16-70)
--- NOTE | 2017-11-19 12:15 | HHI.GIFU ---
Subjective Remarks Pt resting in bed. tolerating diet. Objective Vitals I&O Vital Signs Date Time Temp Pulse Resp B/P (MAP) Pulse Ox O2 Delivery O2 Flow Rate FiO2 11/19/17 10:00 84 11/19/17 08:22 97 Nasal Cannula 2.00 11/19/17 08:21 97 Nasal Cannula 2 11/19/17 08:20 95 Nasal Cannula 3.00 11/19/17 08:00 98.5 87 25 190/100 (130) 100 11/19/17 08:00 87 11/19/17 08:00 35 11/19/17 06:00 89 11/19/17 04:25 100 35 11/19/17 04:00 89 11/19/17 04:00 35 11/19/17 04:00 98.8 89 25 175/96 (122) 98 11/19/17 02:00 88 11/19/17 00:55 100 35 11/19/17 00:00 98.4 88 27 175/90 (118) 100 11/19/17 00:00 35 11/19/17 00:00 88 11/18/17 22:00 98 11/18/17 20:00 97.9 99 35 143/76 (98) 100 11/18/17 20:00 35 11/18/17 20:00 99 11/18/17 19:50 99 35 11/18/17 18:00 95 11/18/17 16:30 100 35 11/18/17 16:00 35 11/18/17 16:00 77 11/18/17 16:00 98.9 77 21 128/68 (88) 98 11/18/17 14:30 35 11/18/17 14:22 35 11/18/17 14:00 86 11/18/17 12:56 98 35 I/O 11/18/17 11/18/17 11/18/17 11/19/17 11/19/17 11/19/17 07:00 15:00 23:00 07:00 15:00 23:00 Intake Total 3123 ml 782 ml 1208 ml 1318 ml 90 ml Output Total 400 ml 750 ml 1350 ml Balance 2723 ml 782 ml 458 ml -32 ml 90 ml Intake Oral 0 ml IV Total 3123 ml 782 ml 1208 ml 1318 ml 90 ml Output Urine Total 400 ml 750 ml 1350 ml Stool Total 0 ml # Bowel Movements 0 Laboratory Laboratory Tests Test 11/19/17 03:24 11/19/17 08:50 Total Creatine Kinase 157 Hepatitis A IgM Antibody NONREACTIVE Hepatitis B Surface Antigen NONREACTIVE Hepatitis B Core IgM Antibody NONREACTIVE Hepatitis C IgG Antibody REACTIVE White Blood Count 7.6 Red Blood Count 4.20 Hemoglobin 13.2 Hematocrit 39.1 Mean Corpuscular Volume 93.0 Mean Corpuscular Hemoglobin 31.4 Mean Corpuscular Hemoglobin Concent 33.7 Red Cell Distribution Width 15.2 Platelet Count 218 Mean Platelet Volume 9.0 Neutrophils (%) (Auto) 79.8 Lymphocytes (%) (Auto) 7.1 Monocytes (%) (Auto) 9.9 Eosinophils (%) (Auto) 1.4 Basophils (%) (Auto) 1.8 Neutrophils # (Auto) 6.1 Lymphocytes # (Auto) 0.5 Monocytes # (Auto) 0.8 Eosinophils # (Auto) 0.1 Basophils # (Auto) 0.1 CBC Comment AUTO DIFF Differential Total Cells Counted 100 Neutrophils % (Manual) 70 Band Neutrophils % 8 Lymphocytes % 13 Monocytes % 8 Neutrophils # (Manual) 6.0 Metamyelocytes 1 Differential Comment FINAL DIFF MANUAL Platelet Estimate NORMAL Platelet Morphology Comment NORMAL Blood Urea Nitrogen 17 Creatinine 0.64 Random Glucose 79 Calcium Level 8.4 Magnesium Level 1.7 Sodium Level 144 Potassium Level 3.0 Chloride Level 105 Carbon Dioxide Level 30.7 Anion Gap 8 Estimat Glomerular Filtration Rate 123 Date/Time Source Procedure Growth Status 11/17/17 22:00 Blood Peripheral Aerobic Blood Culture - Preliminary NO GROWTH IN 2 DAYS Resulted 11/17/17 22:00 Blood Peripheral Anaerobic Blood Culture - Preliminary NO GROWTH IN 2 DAYS Resulted 11/18/17 06:00 Sputum Endotracheal Gram Stain - Final Resulted 11/18/17 06:00 Sputum Endotracheal Sputum Culture Pending Resulted Imaging Last Impressions Chest X-Ray 11/18/17 0000 Signed Impressions: Service Date/Time: Saturday, November 18, 2017 03:31 - CONCLUSION: Increasing right upper lobe infiltrates and stable patchy infiltrates in the left lower lung. Oswaldo Alicea MD Chest CT 11/17/17 0000 Signed Impressions: Service Date/Time: Friday, November 17, 2017 20:57 - CONCLUSION: 1. Foreign body at the level of the thoracic inlet, appears to be a coin within the esophagus. 2. Bilateral pneumonia. Please see above. Aman Bermeo MD Physical Exam HEENT: PERRL; normocephalic; atraumatic; no jaundice. CHEST: CTA, respirations shallow CARDIAC: RRR ABDOMEN: Soft, nondistended, nontender; no hepatosplenomegaly; bowel sounds are present in all four quadrants. EXTREMITIES: No clubbing, cyanosis, or edema. SKIN: Normal; no rash; no jaundice. 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 Patient does have a history of CVA with left-sided weakness. In the emergency room patient became short of breath CT of the chest was obtained and coin-like foreign body was seen in the distal esophagus area. GI was consulted for upper endoscopy and foreign body removal. Drug screen was positive for benzos and cocaine. Patient remains intubated to protect his airway until foreign body is removed. 11/19/17 s/p EGD and removal of lobito, revealed esophagitis, stricture. pt tolerating diet. Plan - diet per HAY STACKER and attending - BID protonix - do not swallow coins - GI will sign off. please reconsult if needed Patient was seen per myself and Dr. Ng, note was written on his behalf Problem Qualifiers (1) Esophageal foreign body: Qualified Codes: T18.108A - Unspecified foreign body in esophagus causing other injury, initial encounter Rosana Garcia Nov 19, 2017 12:15
[2017-11-20] VITALS (21 sets, daily range): BP systolic 109–189; BP diastolic 71–107; PULSE 81–111; RESP 20–38; TEMP 97.2–98.8; O2SAT 94–100
[2017-11-20] MEDS: DOCUSATE SODIUM 50 MG/SENNA 8.6 MG TAB PO SCH ×3 (00:37→20:32)
[2017-11-20] MEDS: PANTOPRAZOLE SOD 40 MG DELAYED RELEASE TAB PO SCH ×3 (00:37→20:32)
[2017-11-20] MEDS: SODIUM CHLOR 0.9% 1000 ML INJ 1,000 ML IV SCH ×4 (00:37→20:32)
[2017-11-20] MEDS: AMPICILLIN/SULBAC 3 GM/NS 100 ML IV SCH ×8 (00:38→17:41)
[2017-11-20] MEDS: SODIUM CHLORIDE 0.9% FLUSH 10 ML FLUSH IV FLUSH SCH ×3 (00:38→20:32)
[2017-11-20] MEDS: POTASSIUM CHLOR 20 MEQ PREMIX 100 ML IV PRN ×4 (05:46→12:21)
[2017-11-20] MEDS: CHLORHEXIDINE 0.12% (ORAL KIT) 15 ML CUP MT SCH ×2 (07:42→20:00)
[2017-11-20] MEDS: ARTIFICIAL TEARS OPTH SOLN 15 ML BTL EACH EYE SCH ×3 (07:43→15:02)
[2017-11-20 07:44] LABS: AUTOMATED NEUTROPHIL # 7.7 TH/MM3 (1.8-7.7); BASOPHIL % 0.3 % (0.0-2.0); EOSINOPHIL % 0.4 % (0.0-4.0); HEMATOCRIT 39.6 % (39.0-51.0); HEMOGLOBIN 13.6 GM/DL (13.0-17.0); LYMPH % 7.4 % (9.0-44.0); LYMPHOCYTE # 0.7 TH/MM3 (1.0-4.8); MEAN CELL VOLUME 91.8 FL (80.0-100.0); MEAN CORPUSCULAR HEMOGLOBIN 31.5 PG (27.0-34.0); MEAN CORPUSCULAR HGB CONC 34.3 % (32.0-36.0); MEAN PLATELET VOLUME 8.8 FL (7.0-11.0); MONO % 9.1 % (0.0-8.0); MONOCYTE # 0.8 TH/MM3 (0-0.9); NEUT % 82.8 % (16.0-70.0); PLATELET COUNT 214 TH/MM3 (150-450); RED BLOOD COUNT 4.32 MIL/MM3 (4.50-5.90); RED CELL DISTRIBUTION WIDTH 15.1 % (11.6-17.2); WHITE BLOOD COUNT 9.3 TH/MM3 (4.0-11.0)
[2017-11-20] MEDS: RESP: ALBUTEROL 2.5 MG/IPRATROPIUM 0.5 MG NEB (SCH) NEB ×3 (08:05→19:45)
[2017-11-20 08:10] LABS: ALBUMIN 2.5 GM/DL (3.4-5.0); AST (GOT) 94 U/L (15-37); BLOOD UREA NITROGEN 7 MG/DL (7-18); CALCIUM 8.1 MG/DL (8.5-10.1); CHLORIDE 93 MEQ/L (98-107); CREATININE 0.58 MG/DL (0.60-1.30); GLOMERULAR FILTRATION RATE 138 ML/MIN (>89); GLUCOSE,RANDOM 106 MG/DL (74-106); MAGNESIUM 1.3 MG/DL (1.5-2.5); SODIUM (NA) 134 MEQ/L (136-145)
[2017-11-20 08:14] LABS: ALKALINE PHOSPHATASE 80 U/L (45-117); ALT (GPT) 198 U/L (12-78); PHOSPHORUS 1.5 MG/DL (2.5-4.9); TOTAL BILIRUBIN ADULT 1.4 MG/DL (0.2-1.0); TOTAL PROTEIN 6.3 GM/DL (6.4-8.2)
[2017-11-20 08:29] LABS: BANDS 1 % (0-6); LYMPHOCYTES 7 % (9-44); MONOCYTES 9 % (0-8); MYELOCYTES 1 % (0-0); NEUTROPHIL # MANUAL DIFF 7.8 TH/MM3 (1.8-7.7); POLYS (SEG NEUTROPHILS) 82 % (16-70)
[2017-11-20 08:30] LABS: TOXIC GRANULATION 1+ (NORMAL)
[2017-11-20] MEDS: ENOXAPARIN SODIUM 40 MG/0.4 ML SYRINGE SQ SCH (09:00)
[2017-11-20] MEDS ORDERED: POTASSIUM CHLORIDE 20 MEQ CONTROLLED RELEASE TAB PO ONE (09:15)
[2017-11-20] MEDS: MAGNESIUM SULFATE 1 GM PREMIX 100 ML IV SCH ×2 (09:15→10:15)
[2017-11-20] MEDS: POTASSIUM PHOSPHATE MONOBASIC 500 MG TAB PO PRN ×2 (10:26→14:59)
--- NOTE | 2017-11-20 12:37 | PD.PSY.CON ---
Provisional Diagnosis Admission Date Nov 17, 2017 at 21:41 [place] I. Adjustment disorder with depressed mood vs substance-induced mood disorder vs major depressive disorder, recurrent, severe, cocaine use disorder [place]. Deferred History of Present Illness Service Psychiatry Consult Requested By Critical care Reason for Consult Suicidal attempt Primary Care Physician Unknown HPI The patient is a 72-year-old man, domiciled with a roommate in [facility], unknown psychiatric history, who presents to the emergency department via EMS after an accidental overdose. According to EMS the patient took 8 Percocet 5 mg tablets at home earlier today and then an unknown amount of Suboxone from his roommate. The patient was then found lying in the bathroom on the ground, unresponsive, was administered Narcan 0.4 mg intravenously. Per EMS the patient awakened and was alert. In the emergency department he did admit to taking Percocet, however, states he did not take any Suboxone. The patient denies any suicidal ideation, states he was trying to obtain a buzz from the Percocet. He does have a history of chronic opiate use. Upon awakening the patient did ask EMS for more Percocet. Upon arrival the patient does complain of shortness of breath, does have a history of COPD and is on oxygen at home 1 L via nasal cannula. 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 In the emergency department he remained short of breath and the CT of the chest was obtained. This showed severe aspiration pneumonia and the foreign body, coin-like, in the esophagus. The patient was intubated for airway protection by ED attending with a GI consultation in place for upper endoscopy and foreign body removal. Consulted to psychiatry to address suicidal attempt. However, on psychiatric evaluation the patient is poorly cooperative, he seems to be quite resistant and oppositional and no making much sense. Selectively answers some of my questions. For example, he tells me that he is domiciled in [facility] with a roommate. But does not answer if he tried to commit suicide and remain quiet and 100% silent when I asking about circumstances of recent overdose. Unfortunately, there is no collateral information available at this moment. The patient seems to be just oriented in person, disoriented in time and place. The patient is positive for benzodiazepines and cocaine which might indicate a potential substance-induced mood disorder. Review of Systems Psychiatric: COMPLAINS OF: Confusion, Suicidal Ideation Past Family Social History Coded Allergies: No Known Allergies (Unverified , 11/17/17) Reported Medications Oxycodone (Roxicodone) 5 Mg Tab, 5 MG PO Q4H, TAB 0 Refills 11/18/17 Sildenafil (Sildenafil) 20 Mg Tab, 20 MG PO TID for Pulm. arterial hypertension , #90 TAB 0 Refills 11/17/17 Current Medications Medications (Trade) Dose Ordered Sig/Nataly Route Start Time Stop Time Status Last Admin (NS Flush) 2 ml UNSCH PRN IVF 11/17/17 20:15 Sodium Chloride 1,000 ml @ 125 mls/hr Q8H IV 11/17/17 22:40 11/20/17 10:00 (NS Flush) 2 ml UNSCH PRN IV FLUSH 11/17/17 22:45 (NS Flush) 2 ml BID IV FLUSH 11/18/17 09:00 11/20/17 09:00 (Tylenol) 650 mg Q6H PRN PO 11/17/17 22:45 (Morphine Inj) 2 mg Q2H PRN IV PUSH 11/17/17 22:45 (Versed Inj) 2 mg Q1H PRN IV PUSH 11/17/17 22:45 11/18/17 23:17 (Tears Naturale Opth Soln) 1 drop TID EACH EYE 11/18/17 09:00 (Zofran Inj) 4 mg Q6H PRN IV PUSH 11/17/17 22:45 (Duoneb Neb) 1 ampule Q2HR NEB PRN INH 11/17/17 22:45 ([facility] Information) 1 Q361D XX 11/17/17 22:45 11/18/17 00:59 (Chlorhexidine 2% Cloth) 3 pack Taper DAILY@04 TOP 11/18/17 04:00 11/14/18 03:59 11/18/17 04:00 (Chlorhexidine 2% Cloth) 3 pack UNSCH PRN TOP 11/17/17 22:45 (Luisa-Colace) 1 tab BID PO 11/18/17 09:00 11/20/17 09:00 (Milk Of Magnesia Liq) 30 ml Q12H PRN PO 11/17/17 22:45 (Senokot) 17.2 mg Q12H PRN PO 11/17/17 22:45 (Dulcolax Supp) 10 mg DAILY PRN RECTAL 11/17/17 22:45 (Lactulose Liq) 30 ml DAILY PRN PO 11/17/17 22:45 (Peridex 0.12% Liq) 15 ml BID@08,20 MT 11/18/17 08:00 11/18/17 21:50 Propofol 100 ml @ 1.53 mls/hr TITRATE PRN IV 11/17/17 22:45 11/18/17 09:19 (Duoneb Neb) 1 ampule Q6HR WHILE AWAKE NEB NEB 11/18/17 08:00 11/20/17 08:05 Potassium Chloride 100 ml @ 50 mls/hr Q2H PRN IV 11/17/17 23:30 Potassium Chloride 100 ml @ 50 mls/hr Q2H PRN IV 11/17/17 23:30 11/20/17 12:21 (K-Lyte Cl Eff) 50 meq UNSCH PRN PO 11/17/17 23:30 Potassium Chloride 100 ml @ 25 mls/hr UNSCH PRN IV 11/17/17 23:30 Potassium Chloride 100 ml @ 50 mls/hr Q2H PRN IV 11/17/17 23:30 11/18/17 03:20 Magnesium Sulfate 4 gm/Sodium Chloride 100 ml @ 50 mls/hr UNSCH PRN IV 11/17/17 23:30 (Mag-Ox) 800 mg UNSCH PRN PO 11/17/17 23:30 Magnesium Sulfate 2 gm/Sodium Chloride 100 ml @ 50 mls/hr UNSCH PRN IV 11/17/17 23:30 (K-Phos) 2,000 mg Q4H PRN PO 11/17/17 23:30 11/20/17 10:26 Sodium Phosphate 30 mmol/Sodium Chloride 250 ml @ 42 mls/hr UNSCH PRN IV 11/17/17 23:30 (K-Phos) 2,000 mg UNSCH PRN PO/TUBE 11/17/17 23:30 Potassium Phosphate 30 mmol/ Sodium Chloride 260 ml @ 42 mls/hr UNSCH PRN IV 11/17/17 23:30 Ampicillin Sodium/ Sulbactam Sodium 3 gm/Sodium Chloride 100 ml @ 200 mls/hr Q6H IV 11/18/17 07:00 11/20/17 12:21 (Lovenox Inj) 40 mg Q24H SQ 11/19/17 09:00 11/20/17 09:00 (Protonix) 40 mg Q12HR PO 11/19/17 21:00 11/20/17 09:00 Physical Exam Vital Signs Vital Signs Date Time Temp Pulse Resp B/P (MAP) Pulse Ox O2 Delivery O2 Flow Rate FiO2 11/20/17 10:00 87 11/20/17 08:05 96 Nasal Cannula 2.00 11/20/17 08:00 98.1 33 162/96 (118) 11/19/17 08:00 35 I/O 11/20/17 11/20/17 11/21/17 08:00 16:00 00:00 Intake Total 1673 ml 1284 ml Output Total 5525 ml 1350 ml Balance -3852 ml -66 ml Lab Results Test 11/19/17 23:50 11/20/17 04:10 Potassium Level 3.1 MEQ/L 2.9 MEQ/L White Blood Count 9.3 TH/MM3 Red Blood Count 4.32 MIL/MM3 Hemoglobin 13.6 GM/DL Hematocrit 39.6 % Mean Corpuscular Volume 91.8 FL Mean Corpuscular Hemoglobin 31.5 PG Mean Corpuscular Hemoglobin Concent 34.3 % Red Cell Distribution Width 15.1 % Platelet Count 214 TH/MM3 Mean Platelet Volume 8.8 FL Neutrophils (%) (Auto) 82.8 % Lymphocytes (%) (Auto) 7.4 % Monocytes (%) (Auto) 9.1 % Eosinophils (%) (Auto) 0.4 % Basophils (%) (Auto) 0.3 % Neutrophils # (Auto) 7.7 TH/MM3 Lymphocytes # (Auto) 0.7 TH/MM3 Monocytes # (Auto) 0.8 TH/MM3 Eosinophils # (Auto) 0.0 TH/MM3 Basophils # (Auto) 0.0 TH/MM3 CBC Comment AUTO DIFF Differential Total Cells Counted 100 Neutrophils % (Manual) 82 % Band Neutrophils % 1 % Lymphocytes % 7 % Monocytes % 9 % Neutrophils # (Manual) 7.8 TH/MM3 Myelocytes 1 % Differential Comment FINAL DIFF MANUAL Toxic Granulation 1+ Platelet Estimate NORMAL Platelet Morphology Comment ENLARGED Blood Urea Nitrogen 7 MG/DL Creatinine 0.58 MG/DL Random Glucose 106 MG/DL Total Protein 6.3 GM/DL Albumin 2.5 GM/DL Calcium Level 8.1 MG/DL Phosphorus Level 1.5 MG/DL Magnesium Level 1.3 MG/DL Alkaline Phosphatase 80 U/L Aspartate Amino Transf (AST/SGOT) 94 U/L Alanine Aminotransferase (ALT/SGPT) 198 U/L Total Bilirubin 1.4 MG/DL Sodium Level 134 MEQ/L Chloride Level 93 MEQ/L Carbon Dioxide Level 31.0 MEQ/L Anion Gap 10 MEQ/L Estimat Glomerular Filtration Rate 138 ML/MIN Total Creatine Kinase 150 U/L Date/Time Source Procedure Growth Status 11/17/17 22:00 Blood Peripheral Aerobic Blood Culture - Preliminary NO GROWTH IN 3 DAYS Resulted 11/17/17 22:00 Blood Peripheral Anaerobic Blood Culture - Preliminary NO GROWTH IN 3 DAYS Resulted 11/18/17 06:00 Sputum Endotracheal Gram Stain - Final Resulted 11/18/17 06:00 Sputum Culture - Preliminary Klebsiella Oxytoca Staphylococcus Aureus Resulted Mental Status Examination Appearance: Appropriate Consciousness: Clouded Orientation: Person Motor Activity: Abnormal gait Language: Adequate Fund of Knowledge: Inadequate Attention and Concentration: Easily Distracted Memory: Impaired Mood: Oppositional Affect: Irritable Thought Process & Associations: Loose associations, Disorganized Suicidal Ideation: Yes Suicidal Plan: Yes Insight: Poor Judgment: Poor Assessment & Plan Problem List: (1) Adjustment disorder with depressed mood ICD Codes: F43.21 - Adjustment disorder with depressed mood Assessment & Plan: On psychiatric evaluation the patient is oppositional, irritable and resistant to answer questions regarding recent suicidal attempt. Patient seems to be quite confused, just oriented in person. He does not elaborate about circumstances and emotions behind recent suicidal attempt. There is no documentation of previous psychiatric history, hospitalization or suicide attempts. There is no collateral information available at this moment. At this moment is unclear if the patient overdosed accidentally or intentionally. Patient will remain on the [place] act until a full psychiatric evaluation will be performed. 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 Low dose of Haldol, 0.5 mg twice daily can be used for symptoms of delirium, Haldol 2 mg IM every 8 hours as needed aggressive behavior and agitation. Once patient is medically stable, please transfer to psychiatry. I will follow-up. Assessment & Plan Estimated LOS: Efren Hubbard MD Nov 20, 2017 12:37
[2017-11-20] MEDS ORDERED: HALOPERIDOL LACTATE 5 MG/ML AMP IM PRN (13:00)
[2017-11-20] MEDS ORDERED: LORazepam 2 MG TAB PO PRN (13:00)
[2017-11-20] MEDS: THIAMINE HCL 100 MG TAB PO SCH (13:00)
[2017-11-20] MEDS ORDERED: ONDANSETRON HCL 4 MG/2 ML VIAL IV PUSH PRN (13:00)
[2017-11-20] MEDS ORDERED: FLUMAZENIL 0.5 MG/5 ML VIAL IV PUSH PRN (13:00)
[2017-11-20] MEDS ORDERED: SODIUM CHLORIDE 0.9% FLUSH 10 ML FLUSH IV FLUSH PRN (13:00)
[2017-11-20] MEDS ORDERED: LORazepam 2 MG/ML VIAL IV PUSH PRN ×4 (13:00)
[2017-11-20] MEDS: MULTIVITAMINS/MINERALS THERAPEUTIC TAB PO SCH (13:00)
[2017-11-20] MEDS ORDERED: cloNIDine HCL 0.1 MG TAB PO PRN (13:00)
[2017-11-20] MEDS ORDERED: LORazepam 1 MG TAB PO PRN (13:00)
[2017-11-20] MEDS: FOLIC ACID 1 MG TAB PO SCH (13:00)
[2017-11-20] MEDS ORDERED: levETIRAcetam INJ 500 MG in SODIUM CHLORIDE 0.9% INJ 100 ML IV ONE ×2 (14:00→15:00)
--- NOTE | 2017-11-20 15:11 | MB ---
cc: Yuriy Land MD DATE: 11/20/2017 HISTORY OF PRESENT ILLNESS: A 72-year-old man came in with an accidental overdose, took 8 Percocet and Suboxone from his roommate, was found in the bathroom on the ground, unresponsive. Narcan was used and he woke up. He denied any suicide ideation. He does use chronic opiates. He asked for more Percocet from EMS when he woke up. He has a history of COPD and he is on 1 liter of nasal cannula oxygen at home. He has a history of previous stroke with left-sided weakness, mainly in the arm. He had aspiration pneumonia on a CT of the chest and a foreign body coin-like in the esophagus. He was subsequently intubated. He has since been extubated. MEDICINES AT HOME: Sildenafil. Today, he had some shaking, where he seemed to go into a grand mal seizure in the intensive care unit. EEG showed some right-sided sharps, and he has been started on Keppra. REVIEW OF SYSTEMS: He denies any seizure, but really, he is a little bit groggy and likely postictal and unable to give an adequate history, as he denied any stroke also. CURRENT MEDICATIONS: He is on the Keppra, folic acid, thiamine, Catapres, p.r.n. Ativan, Protonix, Lovenox, ampicillin, some potassium occasionally p.r.n., Versed p.r.n. PHYSICAL EXAMINATION: VITAL SIGNS: Afebrile, 86, 33, 148/85. NECK: There were no carotid bruits. HEART: Regular rhythm. I did not detect a murmur. NEUROLOGIC: Pupils are equal. He could see well to the right, not so well to the left. Face moves symmetrically. Tongue was midline. He is 0/5 in the left upper. He can move the left off the bed. The right lower extremity moves off the bed and he has normal strength in the right upper extremity. Toes are downgoing bilaterally. He had about 4 beats of left ankle clonus, 1 beat on the right down. He awakens, but is groggy. He is not aphasic. LABORATORY DATA: CBC essentially normal. Urine drug screen was positive for cocaine. Hep C IgG has been positive. UA was negative. Today's basic metabolic profile was normal except for a potassium of 2.9, sodium is 134. LFTs are elevated with ALT of 198 and AST of 94, but that is down as initially, it was 418. CPK is normal. Albumin is low at 2.5. Coags were normal. ABG has been essentially normal. IMPRESSION: New onset seizure, likely from the old stroke. He has been started on Keppra 1000 twice a day. We will check an MRI of the brain, a B12 level, thyroid, put him on seizure precautions. I will be following with you in the hospital. MD KURTIS Angel/GERSON , 02:52 PM , 03:11 PM
--- NOTE | 2017-11-20 16:26 | HHI.PR ---
Subjective Remarks 11/17: 72-year-old male presents to the emergency department via EMS after an accidental overdose. According to EMS the patient took 8 Percocet 5 mg tablets at home earlier today and then an unknown amount of Suboxone from his roommate. The patient was then found lying in the bathroom on the ground, unresponsive, was administered Narcan 0.4 mg intravenously. Per EMS the patient awakened and was alert. In the emergency department he did admit to taking Percocet, however, states he did not take any Suboxone. The patient denies any suicidal ideation, states he was trying to obtain a buzz from the Percocet. He does have a history of chronic opiate use. Upon awakening the patient did ask EMS for more Percocet. Upon arrival the patient does complain of shortness of breath, does have a history of COPD and is on oxygen at home 1 L via nasal cannula. 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 In the emergency department he remained short of breath and the CT of the chest was obtained. This showed severe aspiration pneumonia and the foreign body, coin-like, in the esophagus. The patient was intubated for airway protection by ED attending with a GI consultation in place for upper endoscopy and foreign body removal. 11/18: No events overnight. Patient has been afebrile. Currently, he is intubated and sedated, on mechanical ventilation. No family present at bedside. 11/19: Patient underwent EGD yesterday and per verbal report, he was found to have a nickel in his esophagus. Over the night, patient afebrile, with a T-max of 98.9 and adequate urine output. This a.m. he is off sedation, arousable, appropriate, following commands tolerating CPAP trial. 11-20 PATIENT NOTED TO HAVE SEIZURE ACTIVITY- SEEN BY RN- WILL LOAD KEPPRA AND GET MRIS HAS HAD EEG AND CONSULT WITH NEUROLOGY ALREADY MP RN AND PT PATIENT IS A POOR HISTORIAN MONITOR ICU [facility] NEUROLOGY FOR MRIS INCREASE ACTIVITY SEIZURE PRECAUTIONS Objective Vitals Vital Signs Date Time Temp Pulse Resp B/P (MAP) Pulse Ox O2 Delivery O2 Flow Rate FiO2 11/20/17 15:00 93 11/20/17 14:00 87 11/20/17 12:00 96 Nasal Cannula 4.00 11/20/17 12:00 86 11/20/17 12:00 97.2 86 33 148/85 (106) 94 11/20/17 10:00 87 11/20/17 08:05 96 Nasal Cannula 2.00 11/20/17 08:00 84 11/20/17 08:00 98.1 84 33 162/96 (118) 98 11/20/17 07:00 98 Room Air 11/20/17 06:00 81 11/20/17 04:00 89 11/20/17 04:00 97.9 97 24 109/71 (84) 98 11/20/17 02:00 88 11/20/17 00:00 101 11/20/17 00:00 98.8 93 30 183/85 (117) 96 11/19/17 22:00 100 11/19/17 20:00 100 11/19/17 20:00 93 Nasal Cannula 3.00 11/19/17 19:29 98 Nasal Cannula 2.00 11/19/17 18:00 89 I/O 11/19/17 11/19/17 11/19/17 11/20/17 11/20/17 11/20/17 07:00 15:00 23:00 07:00 15:00 23:00 Intake Total 1318 ml 196 ml 1396 ml 1573 ml 1889 ml Output Total 1350 ml 1518 ml 5525 ml 1650 ml Balance -32 ml 196 ml -122 ml -3952 ml 239 ml Intake Oral 600 ml 100 ml 400 ml IV Total 1318 ml 196 ml 796 ml 1473 ml 1489 ml Output Urine Total 1350 ml 1517 ml 5525 ml 1650 ml Stool Total 1 ml Result Diagram: 11/20/17 0410 11/20/17 0410 Other Results Laboratory Tests Test 11/17/17 20:00 11/17/17 20:03 11/17/17 20:12 11/17/17 22:59 Urine Color LIGHT-YELLOW Urine Turbidity CLEAR Urine pH 5.5 Urine Specific [place] 1.015 Urine Protein 30 mg/dL Urine Glucose (UA) NEG mg/dL Urine Ketones 10 mg/dL Urine Occult Blood MOD Urine Nitrite NEG Urine Bilirubin NEG Urine Urobilinogen LESS THAN 2.0 MG/DL Urine Leukocyte Esterase NEG Urine RBC 1 /hpf Urine WBC LESS THAN 1 /hpf Urine Amorphous Sediment RARE Urine Mucus FEW /lpf Microscopic Urinalysis Comment CULT NOT INDICATED Urine Opiates Screen NEG Urine Barbiturates Screen NEG Urine Amphetamines Screen NEG Urine Benzodiazepines Screen POS Urine Cocaine Screen POS Urine Cannabinoids Screen NEG White Blood Count 13.4 TH/MM3 Red Blood Count 4.98 MIL/MM3 Hemoglobin 15.6 GM/DL Hematocrit 45.4 % Mean Corpuscular Volume 91.2 FL Mean Corpuscular Hemoglobin 31.4 PG Mean Corpuscular Hemoglobin Concent 34.4 % Red Cell Distribution Width 14.8 % Platelet Count 260 TH/MM3 Mean Platelet Volume 9.0 FL Neutrophils (%) (Auto) 87.4 % Lymphocytes (%) (Auto) 2.3 % Monocytes (%) (Auto) 9.8 % Eosinophils (%) (Auto) 0.3 % Basophils (%) (Auto) 0.2 % Neutrophils # (Auto) 11.7 TH/MM3 Lymphocytes # (Auto) 0.3 TH/MM3 Monocytes # (Auto) 1.3 TH/MM3 Eosinophils # (Auto) 0.0 TH/MM3 Basophils # (Auto) 0.0 TH/MM3 CBC Comment AUTO DIFF Differential Total Cells Counted 100 Neutrophils % (Manual) 85 % Band Neutrophils % 1 % Lymphocytes % 1 % Monocytes % 11 % Neutrophils # (Manual) 11.8 TH/MM3 Promyelocytes 2 % Differential Comment FINAL DIFF MANUAL Toxic Vacuolation PRESENT Platelet Estimate NORMAL Platelet Morphology Comment ENLARGED Prothrombin Time 12.3 SEC Prothromb Time International Ratio 1.2 RATIO Activated Partial Thromboplast Time 25.4 SEC Blood Urea Nitrogen 44 MG/DL Creatinine 0.91 MG/DL Random Glucose 124 MG/DL Total Protein 7.9 GM/DL Albumin 3.4 GM/DL Calcium Level 10.0 MG/DL Alkaline Phosphatase 122 U/L Aspartate Amino Transf (AST/SGOT) 320 U/L Alanine Aminotransferase (ALT/SGPT) 418 U/L Total Bilirubin 1.8 MG/DL Sodium Level 132 MEQ/L Potassium Level 3.3 MEQ/L Chloride Level 93 MEQ/L Carbon Dioxide Level 28.3 MEQ/L Anion Gap 11 MEQ/L Estimat Glomerular Filtration Rate 82 ML/MIN Phosphorus Level 3.4 MG/DL Total Creatine Kinase 1020 U/L Creatine Kinase MB 8.1 NG/ML Creatine Kinase MB % 0.8 % Troponin I 0.17 NG/ML B-Type Natriuretic Peptide 380 PG/ML Salicylates Level LESS THAN 1.7 MG/DL Acetaminophen Level LESS THAN 2.0 MCG/ML Ethyl Alcohol Level LESS THAN 3 MG/DL Blood Gas Puncture Site RT RADIAL Blood Gas Patient Temperature 98.6 Blood Gas HCO3 28 mmol/L Blood Gas Base Excess 4.7 mmol/L Blood Gas Oxygen Saturation 89 % Arterial Blood pH 7.49 Arterial Blood Partial Pressure CO2 37 mmHg Arterial Blood Partial Pressure O2 60 mmHG Arterial Blood Oxygen Content 20.0 Vol % Arterial Blood Carboxyhemoglobin 1.8 % Arterial Blood Methemoglobin 0.5 % Blood Gas Hemoglobin 16.0 G/DL Oxygen Delivery Device NASAL CANNULA Blood Gas Liter Flow 2 L/M Lactic Acid Level 1.4 mmol/L Test 11/18/17 00:00 11/18/17 04:10 11/18/17 05:46 11/18/17 07:10 Nasal Screen MRSA (PCR) MRSA NOT DETECTED White Blood Count 15.5 TH/MM3 Red Blood Count 4.36 MIL/MM3 Hemoglobin 13.7 GM/DL Hematocrit 40.5 % Mean Corpuscular Volume 92.7 FL Mean Corpuscular Hemoglobin 31.3 PG Mean Corpuscular Hemoglobin Concent 33.8 % Red Cell Distribution Width 14.9 % Platelet Count 222 TH/MM3 Mean Platelet Volume 9.0 FL Neutrophils (%) (Auto) 85.6 % Lymphocytes (%) (Auto) 4.1 % Monocytes (%) (Auto) 9.9 % Eosinophils (%) (Auto) 0.1 % Basophils (%) (Auto) 0.3 % Neutrophils # (Auto) 13.2 TH/MM3 Lymphocytes # (Auto) 0.6 TH/MM3 Monocytes # (Auto) 1.5 TH/MM3 Eosinophils # (Auto) 0.0 TH/MM3 Basophils # (Auto) 0.0 TH/MM3 CBC Comment AUTO DIFF Differential Total Cells Counted 100 Neutrophils % (Manual) 84 % Band Neutrophils % 5 % Lymphocytes % 2 % Monocytes % 9 % Neutrophils # (Manual) 13.8 TH/MM3 Differential Comment FINAL DIFF MANUAL Platelet Estimate NORMAL Platelet Morphology Comment NORMAL Basophilic Stippling FAINT Prothrombin Time 12.3 SEC Prothromb Time International Ratio 1.2 RATIO Activated Partial Thromboplast Time 25.2 SEC Blood Urea Nitrogen 36 MG/DL Creatinine 0.85 MG/DL Random Glucose 87 MG/DL Total Protein 6.2 GM/DL Albumin 2.6 GM/DL Calcium Level 8.4 MG/DL Phosphorus Level 3.1 MG/DL Magnesium Level 1.9 MG/DL Alkaline Phosphatase 89 U/L Aspartate Amino Transf (AST/SGOT) 217 U/L Alanine Aminotransferase (ALT/SGPT) 321 U/L Total Bilirubin 1.5 MG/DL Sodium Level 140 MEQ/L Potassium Level 3.6 MEQ/L Chloride Level 103 MEQ/L Carbon Dioxide Level 25.9 MEQ/L Anion Gap 11 MEQ/L Estimat Glomerular Filtration Rate 89 ML/MIN Total Creatine Kinase 451 U/L Creatine Kinase MB 4.2 NG/ML Creatine Kinase MB % 0.9 % Blood Gas Puncture Site RT RADIAL Blood Gas Patient Temperature 98.6 Blood Gas HCO3 27 mmol/L Blood Gas Base Excess 3.4 mmol/L Blood Gas Oxygen Saturation 95 % Arterial Blood pH 7.44 Arterial Blood Partial Pressure CO2 40 mmHg Arterial Blood Partial Pressure O2 99 mmHg Arterial Blood Oxygen Content 17.0 Vol % Arterial Blood Carboxyhemoglobin 1.0 % Arterial Blood Methemoglobin 1.2 % Blood Gas Hemoglobin 12.6 G/DL Oxygen Delivery Device VENTILATOR Blood Gas Ventilator Setting SEE COMMENTS Blood Gas Inspired Oxygen 40 % Acetaminophen Level LESS THAN 2.0 MCG/ML Test 11/18/17 10:28 11/19/17 03:24 11/19/17 08:50 11/19/17 23:50 Potassium Level 4.0 MEQ/L 3.0 MEQ/L 3.1 MEQ/L Total Creatine Kinase 157 U/L Hepatitis A IgM Antibody NONREACTIVE Hepatitis B Surface Antigen NONREACTIVE Hepatitis B Core IgM Antibody NONREACTIVE Hepatitis C IgG Antibody REACTIVE White Blood Count 7.6 TH/MM3 Red Blood Count 4.20 MIL/MM3 Hemoglobin 13.2 GM/DL Hematocrit 39.1 % Mean Corpuscular Volume 93.0 FL Mean Corpuscular Hemoglobin 31.4 PG Mean Corpuscular Hemoglobin Concent 33.7 % Red Cell Distribution Width 15.2 % Platelet Count 218 TH/MM3 Mean Platelet Volume 9.0 FL Neutrophils (%) (Auto) 79.8 % Lymphocytes (%) (Auto) 7.1 % Monocytes (%) (Auto) 9.9 % Eosinophils (%) (Auto) 1.4 % Basophils (%) (Auto) 1.8 % Neutrophils # (Auto) 6.1 TH/MM3 Lymphocytes # (Auto) 0.5 TH/MM3 Monocytes # (Auto) 0.8 TH/MM3 Eosinophils # (Auto) 0.1 TH/MM3 Basophils # (Auto) 0.1 TH/MM3 CBC Comment AUTO DIFF Differential Total Cells Counted 100 Neutrophils % (Manual) 70 % Band Neutrophils % 8 % Lymphocytes % 13 % Monocytes % 8 % Neutrophils # (Manual) 6.0 TH/MM3 Metamyelocytes 1 % Differential Comment FINAL DIFF MANUAL Platelet Estimate NORMAL Platelet Morphology Comment NORMAL Blood Urea Nitrogen 17 MG/DL Creatinine 0.64 MG/DL Random Glucose 79 MG/DL Calcium Level 8.4 MG/DL Magnesium Level 1.7 MG/DL Sodium Level 144 MEQ/L Chloride Level 105 MEQ/L Carbon Dioxide Level 30.7 MEQ/L Anion Gap 8 MEQ/L Estimat Glomerular Filtration Rate 123 ML/MIN Test 11/20/17 04:10 White Blood Count 9.3 TH/MM3 Red Blood Count 4.32 MIL/MM3 Hemoglobin 13.6 GM/DL Hematocrit 39.6 % Mean Corpuscular Volume 91.8 FL Mean Corpuscular Hemoglobin 31.5 PG Mean Corpuscular Hemoglobin Concent 34.3 % Red Cell Distribution Width 15.1 % Platelet Count 214 TH/MM3 Mean Platelet Volume 8.8 FL Neutrophils (%) (Auto) 82.8 % Lymphocytes (%) (Auto) 7.4 % Monocytes (%) (Auto) 9.1 % Eosinophils (%) (Auto) 0.4 % Basophils (%) (Auto) 0.3 % Neutrophils # (Auto) 7.7 TH/MM3 Lymphocytes # (Auto) 0.7 TH/MM3 Monocytes # (Auto) 0.8 TH/MM3 Eosinophils # (Auto) 0.0 TH/MM3 Basophils # (Auto) 0.0 TH/MM3 CBC Comment AUTO DIFF Differential Total Cells Counted 100 Neutrophils % (Manual) 82 % Band Neutrophils % 1 % Lymphocytes % 7 % Monocytes % 9 % Neutrophils # (Manual) 7.8 TH/MM3 Myelocytes 1 % Differential Comment FINAL DIFF MANUAL Toxic Granulation 1+ Platelet Estimate NORMAL Platelet Morphology Comment ENLARGED Blood Urea Nitrogen 7 MG/DL Creatinine 0.58 MG/DL Random Glucose 106 MG/DL Total Protein 6.3 GM/DL Albumin 2.5 GM/DL Calcium Level 8.1 MG/DL Phosphorus Level 1.5 MG/DL Magnesium Level 1.3 MG/DL Alkaline Phosphatase 80 U/L Aspartate Amino Transf (AST/SGOT) 94 U/L Alanine Aminotransferase (ALT/SGPT) 198 U/L Total Bilirubin 1.4 MG/DL Sodium Level 134 MEQ/L Potassium Level 2.9 MEQ/L Chloride Level 93 MEQ/L Carbon Dioxide Level 31.0 MEQ/L Anion Gap 10 MEQ/L Estimat Glomerular Filtration Rate 138 ML/MIN Total Creatine Kinase 150 U/L Imaging Last Impressions Chest X-Ray 11/18/17 0000 Signed Impressions: Service Date/Time: Saturday, November 18, 2017 03:31 - CONCLUSION: Increasing right upper lobe infiltrates and stable patchy infiltrates in the left lower lung. Oswaldo Alicea MD Chest CT 11/17/17 0000 Signed Impressions: Service Date/Time: Friday, November 17, 2017 20:57 - CONCLUSION: 1. Foreign body at the level of the thoracic inlet, appears to be a coin within the esophagus. 2. Bilateral pneumonia. Please see above. Aman Bermeo MD Objective Remarks GENERAL: AWAKE AND ALERT CURRENTLY--IN NO ACUTE DISTRESS AT THIS TIME SKIN: Warm and dry. HEAD: Atraumatic. Normocephalic. EYES: Pupils equal and round. No scleral icterus. No injection or drainage. ENT: No nasal bleeding or discharge. Mucous membranes pink and moist.TONGUE MIDLINE NECK: Trachea midline. No JVD. SUPPLE CARDIOVASCULAR: Regular rate and rhythm. S1, S2 NO S3 OR S4 RESPIRATORY: No accessory muscle use. Clear to auscultation. Breath sounds equal bilaterally. GASTROINTESTINAL: Abdomen soft, non-tender, nondistended. Hepatic and splenic margins not palpable. MUSCULOSKELETAL: Extremities without clubbing, cyanosis, or edema. No obvious deformities. NEUROLOGICAL: Awake and alert. No obvious cranial nerve deficits. Motor grossly within normal limits. 4 out of 5 muscle strength in the arms and legs. Normal speech. LEFT UPPER EXTREMITY IS FLACCID PSYCHIATRIC: INAppropriate mood and affect; insight and judgment ABnormal. Procedures EEG Medications and IVs Current Medications Sodium Chloride (NS Flush) 2 ml UNSCH PRN IVF FLUSH AFTER USING IV ACCESS; Start 11/17/17 at 20:15 Albuterol/ Ipratropium (Duoneb Neb) 2 ampule ONCE ONCE NEB Last administered on 11/17/17at 20:22; Start 11/17/17 at 20:15; Stop 11/17/17 at 20:16; Status DC Cefepime HCl 2000 mg/Sodium Chloride 100 ml @ 200 mls/hr ONCE ONCE IV Last administered on 11/17/17 23:12; Start 11/17/17 at 20:30; Stop 11/17/17 at 20:59 ; Status DC Azithromycin 500 mg/Sodium Chloride 250 ml @ 250 mls/hr ONCE ONCE IV Last administered on 11/17/17at 22:13; Start 11/17/17 at 20:30; Stop 11/17/17 at 21:29 ; Status DC Etomidate (Amidate Inj) 40 mg STK-MED ONCE .ROUTE Last administered on at 21:47; Start 11/17/17 at 21:17; Stop 11/17/17 at 21:18; Status DC Etomidate (Amidate Inj) 20 mg ONCE ONCE IV PUSH Last administered on at 22:11; Start 11/17/17 at 21:30; Stop 11/17/17 at 21:31; Status DC Succinylcholine Chloride (Quelicin Inj) 100 mg ONCE ONCE IV PUSH Last administered on 11/17/17at 22:14; Start 11/17/17 at 21:30; Stop 11/17/17 at 21:31 ; Status DC Propofol 100 ml @ 0 mls/hr TITRATE PRN IV SEDATION Last administered on at 21:42; Start 11/17/17 at 21:30; Stop 11/17/17 at 22:55; Status DC Propofol 50 ml @ As Directed STK-MED ONCE .ROUTE ; Start 11/17/17 at 21:18; Stop 11/17/17 at 21:19; Status DC Sodium Chloride 1,000 ml @ 999 mls/hr BOLUS ONCE IV Last administered on 11/17at 22:10; Start 11/17/17 at 21:45; Stop 11/17/17 at 22:45; Status DC Aspirin (Aspirin Supp) 300 mg ONCE ONCE RECTAL Last administered on 11/17/17at 22:06; Start 11/17/17 at 21:45; Stop 11/17/17 at 21:46; Status DC Sodium Chloride 1,000 ml @ 125 mls/hr Q8H IV Last administered on 11/20/17at 14 :42; Start 11/17/17 at 22:40 Sodium Chloride (NS Flush) 2 ml UNSCH PRN IV FLUSH FLUSH AFTER USING IV ACCESS ; Start 11/17/17 at 22:45 Sodium Chloride (NS Flush) 2 ml BID IV FLUSH Last administered on 11/20/17at 09: 00; Start 11/18/17 at 09:00 Acetaminophen (Tylenol) 650 mg Q6H PRN PO PAIN 1-5 AND/OR FEVER >101F; Start at 22:45 Morphine Sulfate (Morphine Inj) 2 mg Q2H PRN IV PUSH PAIN SCALE 6 TO 10; Start 11/17/17 at 22:45 Famotidine (Pepcid Inj) 20 mg Q12HR IV PUSH Last administered on 11/19/17at 09: 00; Start 11/18/17 at 09:00; Stop 11/19/17 at 12:14; Status DC Famotidine (Pepcid) 20 mg Q12HR PO ; Start 11/18/17 at 09:00; Stop 11/18/17 at 09:00; Status DC Midazolam HCl (Versed Inj) 2 mg Q1H PRN IV PUSH SEDATION Last administered on at 23:17; Start 11/17/17 at 22:45 Artificial Tears (Tears Naturale Opth Soln) 1 drop TID EACH EYE ; Start at 09:00 Ondansetron HCl (Zofran Inj) 4 mg Q6H PRN IV PUSH NAUSEA OR VOMITING; Start at 22:45 Albuterol/ Ipratropium (Duoneb Neb) 1 ampule Q2HR NEB PRN INH WHEEZING; Start 11/17/17 at 22:45 Miscellaneous Information ([facility]) 1 [id number] Last administered on 11/18/17at 00:59; Start 11/17/17 at 22:45 Chlorhexidine Gluconate (Chlorhexidine 2% Cloth) 3 pack Taper DAILY@04 TOP Last administered on 11/18/17at 04:00; Start 11/18/17 at 04:00; Stop 11/14/18 at 03:59 Chlorhexidine Gluconate (Chlorhexidine 2% Cloth) 3 pack UNSCH PRN TOP HYGIENIC CARE; Start 11/17/17 at 22:45 Senna/Docusate Sodium (Luisa-Colace) 1 tab BID PO Last administered on at 09:00; Start 11/18/17 at 09:00 Magnesium Hydroxide (Milk Of Magnesia Liq) 30 ml Q12H PRN PO Mild constipation ; Start 11/17/17 at 22:45 Sennosides (Senokot) 17.2 mg Q12H PRN PO Moderate constipation; Start 11/17/17 at 22:45 Bisacodyl (Dulcolax Supp) 10 mg DAILY PRN RECTAL SEVERE CONSITIPATION/ IF NPO ; Start 11/17/17 at 22:45 Lactulose (Lactulose Liq) 30 ml DAILY PRN PO SEVERE CONSITIPATION/ IF PO; Start 11/17/17 at 22:45 Chlorhexidine Gluconate (Peridex 0.12% Liq) 15 ml BID@08,20 MT Last administered on 11/18/17at 21:50; Start 11/18/17 at 08:00 Propofol 100 ml @ 1.53 mls/hr TITRATE PRN IV SEDATION Last administered on at 09:19; Start 11/17/17 at 22:45 Albuterol/ Ipratropium (Duoneb Neb) 1 ampule Q6HR WHILE AWAKE NEB NEB Last administered on 11/20/17at 14:32; Start 11/18/17 at 08:00 Potassium Chloride 100 ml @ 50 mls/hr Q2H PRN IV For Potassium 2.8 - 3.2 mEq/L ; Start 11/17/17 at 23:30 Potassium Chloride 100 ml @ 50 mls/hr Q2H PRN IV For Potassium 2.8 - 3.2 mEq/ L Last administered on 11/20/17at 12:21; Start 11/17/17 at 23:30 Potassium Bicarb/ Potassium Chloride (K-Lyte Cl Eff) 50 meq UNSCH PRN PO For Potassium 3.3 - 3.5 mEq/L; Start 11/17/17 at 23:30 Potassium Chloride 100 ml @ 25 mls/hr UNSCH PRN IV For Potassium 3.3 - 3.5 mEq /L; Start 11/17/17 at 23:30 Potassium Chloride 100 ml @ 50 mls/hr Q2H PRN IV For Potassium 3.3 - 3.5 mEq/ L Last administered on 11/18/17at 03:20; Start 11/17/17 at 23:30 Magnesium Sulfate 4 gm/Sodium Chloride 100 ml @ 50 mls/hr UNSCH PRN IV For Magnesium 0.9 - 1.1 mg/dL; Start 11/17/17 at 23:30 Magnesium Oxide (Mag-Ox) 800 mg UNSCH PRN PO For Magnesium 1.2 - 1.6 mg/dL; Start 11/17/17 at 23:30 Magnesium Sulfate 2 gm/Sodium Chloride 100 ml @ 50 mls/hr UNSCH PRN IV For Magnesium 1.2 - 1.6 mg/dL; Start 11/17/17 at 23:30 Potassium Phosphate (K-Phos) 2,000 mg Q4H PRN PO For Phosphorus < 2.5 mg/dL Last administered on 11/20/17at 14:59; Start 11/17/17 at 23:30 Sodium Phosphate 30 mmol/Sodium Chloride 250 ml @ 42 mls/hr UNSCH PRN IV For Phosphorus < 2.5 mg/dL; Start 11/17/17 at 23:30 Potassium Phosphate (K-Phos) 2,000 mg UNSCH PRN PO/TUBE SEE LABEL COMMENTS; Start 11/17/17 at 23:30 Potassium Phosphate 30 mmol/ Sodium Chloride 260 ml @ 42 mls/hr UNSCH PRN IV SEE LABEL COMMENTS; Start 11/17/17 at 23:30 Ampicillin Sodium/ Sulbactam Sodium (Unasyn Inj) 3 gm Q6H IM ; Start 11/18/17 at 06:30; Status Cancel Ampicillin Sodium/ Sulbactam Sodium 3 gm/Sodium Chloride 100 ml @ 200 mls/hr Q6H IV Last administered on 11/20/17at 12:21; Start 11/18/17 at 07:00 Enoxaparin Sodium (Lovenox Inj) 40 mg Q24H SQ Last administered on 11/20/17at 09 :00; Start 11/19/17 at 09:00 Miscellaneous Information ([facility] [place] [facility]) ALL NURSING DEPARTME... UNSCH PRN .XX SEE LABEL COMMENTS; Start 11/18/17 at 12:30; Stop 11/19/17 at 12: 29; Status DC Pantoprazole Sodium (Protonix) 40 mg Q12HR PO Last administered on 11/20/17at 09 :00; Start 11/19/17 at 21:00 Magnesium Sulfate/ Dextrose 100 ml @ 100 mls/hr Q1H IV Last administered on at 10:15; Start 11/20/17 at 09:15; Stop 11/20/17 at 11:14; Status DC Potassium Chloride (KCl) 80 meq ONCE ONCE PO ; Start 11/20/17 at 09:15; Stop at 09:16; Status DC Sodium Chloride (NS Flush) 2 ml UNSCH PRN IV FLUSH FLUSH AFTER USING IV ACCESS ; Start 11/20/17 at 13:00; Status UNV Sodium Chloride (NS Flush) 2 ml BID IV FLUSH ; Start 11/20/17 at 21:00; Status UNV Folic Acid (Folate) 1 mg DAILY PO ; Start 11/20/17 at 13:00; Stop 11/25/17 at 12: 59 Thiamine HCl (Vitamin B1) 100 mg DAILY PO ; Start 11/20/17 at 13:00 Multivitamins/ Minerals Therapeutic (Theragran M Tab) 1 tab DAILY PO ; Start at 13:00; Stop 11/25/17 at 12:59 Ondansetron HCl (Zofran Inj) 4 mg Q6H PRN IV PUSH NAUSEA OR VOMITING; Start at 13:00; Status UNV Famotidine (Pepcid) 20 mg BID PO ; Start 11/20/17 at 21:00; Status UNV Clonidine (Catapres) 0.1 mg Q6H PRN PO SEE LABEL COMMENTS; Start 11/20/17 at 13 :00 Flumazenil (Romazicon Inj) 0.2 mg Q1M PRN IV PUSH SEE LABEL COMMENTS; Start at 13:00 Lorazepam (Ativan) 1 mg Q4H PRN PO CIWA 8 - 10; Start 11/20/17 at 13:00 Lorazepam (Ativan Inj) 1 mg Q4H PRN IV PUSH CIWA 8 - 10; Start 11/20/17 at 13: 00 Lorazepam (Ativan) 2 mg Q2H PRN PO CIWA 11-14; Start 11/20/17 at 13:00 Lorazepam (Ativan Inj) 2 mg Q2H PRN IV PUSH CIWA 11-14; Start 11/20/17 at 13:00 Lorazepam (Ativan Inj) 2 mg Q1H PRN IV PUSH CIWA 15-20; Start 11/20/17 at 13:00 Lorazepam (Ativan Inj) 2 mg Q15M PRN IV PUSH CIWA > 20; Start 11/20/17 at 13:00 Haloperidol Lactate (Haldol Inj) 2 mg Q15M PRN IM SEE LABEL COMMENTS; Start at 13:00 Rocuronium [place] (Zemuron Inj) 50 mg STK-MED ONCE IV PUSH ; Start 11/18/17 at 12:00; Stop 11/20/17 at 13:06; Status DC Levetriacetam 500 mg/Sodium Chloride 105 ml @ 420 mls/hr BOLUS ONCE IV Last administered on 11/20/17at 14:00; Start 11/20/17 at 14:00; Stop 11/20/17 at 14:14 ; Status DC Levetriacetam 500 mg/Sodium Chloride 105 ml @ 420 mls/hr Q12HR IV ; Start 11/20 at 21:00 Levetriacetam 500 mg/Sodium Chloride 105 ml @ 420 mls/hr BOLUS ONCE IV Last administered on 11/20/17at 15:00; Start 11/20/17 at 15:00; Stop 11/20/17 at 15:14 ; Status DC A/P Assessment and Plan 1. Percocet overdose 2. Aspiration pneumonia 3. Acute respiratory failure, intubated for airway protection -tolerated CPAP trial 4. Foreign body in the esophagus -extracted A PING 5. Elevated CPK -resolving 6. Elevated liver enzymes -found to have hepatitis C 7. History of emphysema on home O2 SEIZURE- SEEN ON EEG ALSO- LOAD AND START TAYLOR- MP RN AND PT AND NEUROLOGY HYPOKALEMIA WILL REPLACE HYPOMAGNESIA WILL REPLACE 1. Extubate 2. Appreciate GI consultation 3. Continue Unasyn for now 4. Psych consult 5. Swallow evaluation and advance diet as tolerated 6. IV hydration 7. GI and DVT prophylaxis 8. Check labs this kathleen VAZQUEZ FOR SEIZURE- MRIS DW RN AND PT PT AND OT AND [facility] Discharge Planning INCREASE ACTIVITY FOR MRIS Ho Vargas DO Nov 20, 2017 16:26
--- NOTE | 2017-11-20 19:23 | MG ---
cc: Yuriy Land MD EEG NUMBER: [id number] History of stroke and seizure. Recording does show some focal slowing over the right central head region with some sharp waves in that same region at the beginning, and that asymmetry continues throughout much of the recording. At times, some 5-6 Hz slowing is seen over that head region, though it really is more central than temporal. I do not see any spikes. No prolonged seizure activity is seen. Photic stimulation and hyperventilation were not performed. IMPRESSION: Some right central slowing and at times, some sharply contoured theta waves there, could be a seizure focus for the patient. MD KURTIS Angel/GERSON , 07:12 PM , 07:22 PM
[2017-11-20] MEDS ORDERED: MORPHINE SULFATE 4 MG/ML INJ IV PUSH PRN (20:15)
[2017-11-20] MEDS: levETIRAcetam INJ 500 MG in SODIUM CHLORIDE 0.9% INJ 100 ML IV SCH (20:32)
[2017-11-20 20:42] LABS: PHOSPHORUS 2.4 MG/DL (2.5-4.9)
[2017-11-20 20:49] LABS: FREE T4 0.98 NG/DL (0.76-1.46)
[2017-11-20] MEDS ORDERED: SODIUM CHLORIDE 0.9% FLUSH 10 ML FLUSH IV FLUSH SCH (21:00)
[2017-11-20] MEDS ORDERED: FAMOTIDINE 20 MG TAB PO SCH (21:00)
[2017-11-21] VITALS (21 sets, daily range): BP systolic 124–197; BP diastolic 74–99; PULSE 91–113; RESP 16–36; TEMP 98.4–100.6; O2SAT 94–100
[2017-11-21] MEDS: CHLORHEXIDINE GLUCONATE 2 % 1 PACK (2 CLOTHS) TOP SCH (01:28)
[2017-11-21] MEDS: AMPICILLIN/SULBAC 3 GM/NS 100 ML IV SCH ×6 (01:28→13:27)
[2017-11-21 03:53] LABS: AUTOMATED NEUTROPHIL # 9.8 TH/MM3 (1.8-7.7); BASOPHIL # 0.1 TH/MM3 (0-0.2); BASOPHIL % 0.6 % (0.0-2.0); EOSINOPHIL % 0.4 % (0.0-4.0); HEMATOCRIT 41.9 % (39.0-51.0); HEMOGLOBIN 14.2 GM/DL (13.0-17.0); LYMPH % 7.7 % (9.0-44.0); LYMPHOCYTE # 0.9 TH/MM3 (1.0-4.8); MEAN CELL VOLUME 90.8 FL (80.0-100.0); MEAN CORPUSCULAR HEMOGLOBIN 30.7 PG (27.0-34.0); MEAN CORPUSCULAR HGB CONC 33.8 % (32.0-36.0); MEAN PLATELET VOLUME 8.3 FL (7.0-11.0); MONO % 6.6 % (0.0-8.0); MONOCYTE # 0.8 TH/MM3 (0-0.9); NEUT % 84.7 % (16.0-70.0); PLATELET COUNT 251 TH/MM3 (150-450); RED BLOOD COUNT 4.62 MIL/MM3 (4.50-5.90); RED CELL DISTRIBUTION WIDTH 15.1 % (11.6-17.2); WHITE BLOOD COUNT 11.6 TH/MM3 (4.0-11.0)
[2017-11-21 04:34] LABS: ALBUMIN 2.6 GM/DL (3.4-5.0); ALKALINE PHOSPHATASE 80 U/L (45-117); ALT (GPT) 176 U/L (12-78); AST (GOT) 95 U/L (15-37); BICARBONATE 26.6 MEQ/L (21.0-32.0); BLOOD UREA NITROGEN 9 MG/DL (7-18); CALCIUM 7.7 MG/DL (8.5-10.1); CHLORIDE 93 MEQ/L (98-107); CREATININE 0.67 MG/DL (0.60-1.30); FREE T4 1.04 NG/DL (0.76-1.46); GLOMERULAR FILTRATION RATE 117 ML/MIN (>89); GLUCOSE,RANDOM 101 MG/DL (74-106); MAGNESIUM 1.5 MG/DL (1.5-2.5); PHOSPHORUS 3.5 MG/DL (2.5-4.9); SODIUM (NA) 131 MEQ/L (136-145); TOTAL BILIRUBIN ADULT 1.3 MG/DL (0.2-1.0); TOTAL PROTEIN 6.8 GM/DL (6.4-8.2)
[2017-11-21] MEDS: SODIUM CHLOR 0.9% 1000 ML INJ 1,000 ML IV SCH ×2 (04:44→18:00)
[2017-11-21] MEDS: POTASSIUM CHLOR 20 MEQ PREMIX 100 ML IV PRN (05:02)
[2017-11-21] MEDS ORDERED: POTASSIUM CHLORIDE INJ 20 MEQ in SODIUM CHLORIDE 0.9% INJ 100 ML IV PRN (05:30)
--- NOTE | 2017-11-21 07:29 | HHI.PR ---
Subjective Remarks obtunded Objective Vital Signs Date Time Temp Pulse Resp B/P (MAP) Pulse Ox O2 Delivery O2 Flow Rate FiO2 11/21/17 06:00 101 11/21/17 05:00 99 36 157/94 (115) 95 11/21/17 04:30 108 34 170/97 (121) 94 11/21/17 04:00 109 11/21/17 04:00 100.6 109 36 149/92 (111) 97 11/21/17 03:30 111 34 146/96 (113) 96 11/21/17 03:00 106 35 144/85 (104) 96 11/21/17 02:30 109 34 155/95 (115) 96 11/21/17 02:00 112 34 163/96 (118) 97 11/21/17 02:00 112 11/21/17 01:30 109 35 165/96 (119) 96 11/21/17 01:00 112 35 163/99 (120) 97 11/21/17 00:30 99.0 110 36 172/99 (123) 97 11/21/17 00:00 107 35 168/98 (121) 96 11/21/17 00:00 107 11/20/17 23:30 111 35 178/107 (130) 95 11/20/17 23:00 104 33 166/98 (120) 94 11/20/17 23:00 107 11/20/17 22:30 109 37 177/102 (127) 96 11/20/17 22:00 109 11/20/17 22:00 109 38 176/103 (127) 96 11/20/17 21:30 108 37 180/105 (130) 96 11/20/17 21:00 104 37 189/97 (127) 95 11/20/17 20:30 104 34 96 11/20/17 20:00 103 11/20/17 20:00 98.8 103 35 175/98 (123) 100 11/20/17 19:45 97 Nasal Cannula 3.00 11/20/17 19:00 96 Nasal Cannula 4.00 11/20/17 18:00 91 11/20/17 16:00 98.2 83 20 140/78 (98) 99 11/20/17 16:00 83 11/20/17 15:00 93 11/20/17 14:00 87 11/20/17 12:00 96 Nasal Cannula 4.00 11/20/17 12:00 86 11/20/17 12:00 97.2 86 33 148/85 (106) 94 11/20/17 10:00 87 11/20/17 08:05 96 Nasal Cannula 2.00 11/20/17 08:00 84 11/20/17 08:00 98.1 84 33 162/96 (118) 98 I/O 11/20/17 11/20/17 11/20/17 11/21/17 11/21/17 11/21/17 07:00 15:00 23:00 07:00 15:00 23:00 Intake Total 1573 ml 1889 ml 2074 ml 1647 ml Output Total 5525 ml 1650 ml 2150 ml Balance -3952 ml 239 ml 2074 ml -503 ml Intake Oral 100 ml 400 ml 0 ml IV Total 1473 ml 1489 ml 2074 ml 1647 ml Output Urine Total 5525 ml 1650 ml 2150 ml # Voids 4 # Bowel Movements 2 0 Result Diagram: 11/21/17 0322 11/21/17 0322 Objective Remarks obtunded sp 4mg ativan inc rr eyes to r Assessment and Plan Assessment and Plan imp check cxr abg dc sedatives mri recheck eeg notify med team of changes Yuriy Land MD November 21, 2017 07:28
[2017-11-21] MEDS ORDERED: FUROSEMIDE 40 MG/4 ML VIAL ONE (07:50)
[2017-11-21] MEDS: RESP: ALBUTEROL 2.5 MG/IPRATROPIUM 0.5 MG NEB (SCH) NEB ×3 (08:00→23:53)
[2017-11-21] MEDS: CHLORHEXIDINE 0.12% (ORAL KIT) 15 ML CUP MT SCH ×3 (08:00→20:50)
[2017-11-21] MEDS: levETIRAcetam INJ 500 MG in SODIUM CHLORIDE 0.9% INJ 100 ML IV SCH ×3 (08:44→20:50)
[2017-11-21] MEDS ORDERED: FUROSEMIDE 40 MG/4 ML VIAL IV PUSH ONE (08:45)
[2017-11-21] MEDS: SODIUM CHLORIDE 0.9% FLUSH 10 ML FLUSH IV FLUSH SCH ×2 (08:49→21:00)
[2017-11-21] MEDS: FOLIC ACID 1 MG TAB PO SCH (09:00)
[2017-11-21] MEDS: DOCUSATE SODIUM 50 MG/SENNA 8.6 MG TAB PO SCH ×3 (09:00→20:51)
[2017-11-21] MEDS: MULTIVITAMINS/MINERALS THERAPEUTIC TAB PO SCH (09:00)
[2017-11-21] MEDS: THIAMINE HCL 100 MG TAB PO SCH (09:00)
[2017-11-21] MEDS: PANTOPRAZOLE SOD 40 MG DELAYED RELEASE TAB PO SCH ×2 (09:00→20:50)
[2017-11-21] MEDS: ARTIFICIAL TEARS OPTH SOLN 15 ML BTL EACH EYE SCH ×5 (09:00→18:00)
--- NOTE | 2017-11-21 10:07 | RADRPT ---
EXAM DATE/TIME: 11/21/2017 09:45 [facility] COMPARISON: No previous studies available for comparison. INDICATIONS : Clear for MRI MEDICAL HISTORY : Chronic obstructive pulmonary disease. Chronic obstructive pulmonary disease. CVA SURGICAL HISTORY : unobtainable ENCOUNTER: Subsequent ACUITY: 1 day PAIN SCORE: Non-responsive. LOCATION: Bilateral abdomen FINDINGS: Supine view of the abdomen was performed. The abdominal bowel gas pattern is normal. No abnormal ma sses, calcifications, or organomegaly is seen. Solitary hemoclip in the left hypogastric region. Va scular calcifications in the right pelvis. Mild curvature of the lumbar spine convex to the right.. CONCLUSION: No contraindication to MRI seen. Oswaldo Alicea MD on November 21, 2017 at 10:04 Board Certified Radiologist. This report was verified electronically.
--- NOTE | 2017-11-21 10:09 | RADRPT ---
EXAM DATE/TIME: 11/21/2017 09:47 [facility] COMPARISON: No previous studies available for comparison. INDICATIONS : Clear for MRI MEDICAL HISTORY : Chronic obstructive pulmonary disease. Emphysema. CVA SURGICAL HISTORY : unobtainable ENCOUNTER: Subsequent ACUITY: 1 day PAIN SCORE: Non-responsive. LOCATION: Bilateral skull FINDINGS: A two view examination of the skull demonstrates no evidence of fracture. The pituitary fossa is nor mal in configuration. No radiopaque foreign bodies are seen. CONCLUSION: No contraindication to MRI seen. Oswaldo Alicea MD on November 21, 2017 at 10:07 Board Certified Radiologist. This report was verified electronically.
--- NOTE | 2017-11-21 10:09 | RADRPT ---
EXAM DATE/TIME: 11/21/2017 09:40 [facility] COMPARISON: CHEST SINGLE AP, November 18, 2017, 3:31. INDICATIONS : Short of breath. MEDICAL HISTORY : Emphysema. Chronic obstructive pulmonary disease. CVA. SURGICAL HISTORY : Unable to obtain. ENCOUNTER: Subsequent ACUITY: 4 - 6 days PAIN SCORE: Non-responsive. LOCATION: chest FINDINGS: Persistent but slightly improved interstitial infiltrates in the right upper and left lower lung. No new infiltrates seen. The heart is normal in size. Mild elevation left hemidiaphragm. On the late ral view, there is mild blunting of the posterior costophrenic angle on the left side suggesting poss ible pleural effusion. CONCLUSION: Improving interstitial infiltrates. Possible small left pleural effusion. Oswaldo Alicea MD on November 21, 2017 at 10:06 Board Certified Radiologist. This report was verified electronically.
[2017-11-21] MEDS ORDERED: GADODIAMIDE PF 287 MG/ML 20 ML VIAL (for RAD MRI) IVCONTRAST ONE (10:30)
[2017-11-21] MEDS ORDERED: GADODIAMIDE PF 287 MG/ML 5 ML VIAL (for RAD MRI) IVCONTRAST ONE (10:31)
[2017-11-21] MEDS ORDERED: LABETALOL HCL 100 MG/20 ML VIAL IV PUSH PRN (10:45)
[2017-11-21] MEDS ORDERED: LEVOTHYROXINE SODIUM 100 MCG VIAL IV PUSH ONE (10:45)
[2017-11-21] MEDS ORDERED: ENALAPRILAT 1.25 MG/ML VIAL IV PUSH PRN (10:45)
--- NOTE | 2017-11-21 10:52 | RADRPT ---
EXAM DATE/TIME: 11/21/2017 10:11 [facility] COMPARISON: No previous studies available for comparison. INDICATIONS : Altered mental status. Patient found down with possible OD. CONTRAST: 12 cc Omniscan (gadodiamide) IV MEDICAL HISTORY : Prior CVA SURGICAL HISTORY : coil removed from throat ENCOUNTER: Subsequent ACUITY: 4-6 days PAIN SCORE: Nonresponsive. LOCATION: cranial TECHNIQUE: Multiplanar, multisequence MRI of the brain was performed both prior to and following the administrat ion of paramagnetic contrast. FINDINGS: The examination is abnormal demonstrating a prominent right sided subdural hematoma extending from lo w convexity to right convexity and frontal to parietal region, measuring up to 1.4 cm in width. Ther e is mixed signal within this hematoma having areas of T2 shortening and prolongation, with the predo minant component of T2 shortening. There is effacement of the adjacent sulci and there is midline sh ift towards the left measuring 8 mm. There are scattered areas of T2 prolongation in the supratentorial white matter. On the postcontrast images, no abnormal areas of intra-axial enhancement. No focal areas of restricted diffusion in the supratentorial brain. In the left central cerebellum, there is a small focal area of restricted dif fusion without signal abnormality on the other pulse sequences. There is some enhancement of the dur a along the surface of the right hemisphere. The posterior fossa structures are grossly intact. CONCLUSION: 1. Evidence of chronic subdural hematoma on the right side measuring up to 1.4 cm in width and with 8 mm midline shift towards the left. 2. Scattered nonspecific white matter signal change. No focal abnormal areas of enhancement. 3. Small focal area of restricted diffusion in the left posterior medial cerebellar hemisphere sugges ting an acute infarction; however, no signal abnormality is seen in this area on any of the other pul se sequences. Oswaldo Alicea MD on November 21, 2017 at 10:43 Board Certified Radiologist. This report was verified electronically.
[2017-11-21] MEDS ORDERED: MANNITOL INJ 100 ML ONE (11:59)
[2017-11-21] MEDS ORDERED: ETOMIDATE 40 MG/20 ML VIAL ONE (11:59)
[2017-11-21] MEDS ORDERED: LACTATED RINGER'S 1000 ML INJ 1,000 ML IV ONE (12:00)
[2017-11-21] MEDS ORDERED: LIDOCAINE HCL 1% PF 5 ML SYRINGE OTHER ONE (12:00)
[2017-11-21] MEDS ORDERED: MANNITOL 12.5 GM/50 ML VIAL IV ONE (12:00)
[2017-11-21] MEDS ORDERED: ROCURONIUM INJ 50 MG/5 ML VIAL IV ONE (12:00)
[2017-11-21] MEDS ORDERED: ROCURONIUM INJ 50 MG/5 ML SYRINGE IV PUSH ONE (12:00)
[2017-11-21] MEDS ORDERED: EPINEPHrine HCL (1:1000) 1 MG/ML VIAL IV ONE (12:00)
[2017-11-21] MEDS ORDERED: PHENYLEPHRINE HCL 10 MG/ML VIAL IV ONE (12:00)
[2017-11-21] MEDS ORDERED: DEXAMETHASONE SOD PHOS 4 MG/ML VIAL IV ONE (12:00)
[2017-11-21] MEDS ORDERED: SUCCINYLCHOLINE CHLORIDE 200 MG/10 ML VIAL ONE (12:00)
[2017-11-21] MEDS ORDERED: NORMOSOL R INJ 1,000 ML IV ONE (12:00)
[2017-11-21] MEDS: THIAMINE INJ 100 MG in SODIUM CHLORIDE 0.9% INJ 100 ML IV SCH (12:00)
[2017-11-21] MEDS ORDERED: PROPOFOL 200 MG/20 ML AMP IV ONE (12:00)
[2017-11-21] MEDS ORDERED: PHENYLEPH/NS 1000 MCG/10 ML SYR IV ONE (12:00)
[2017-11-21] MEDS ORDERED: SODIUM CHLOR 0.9% 250 ML INJ 250 ML IV ONE (12:00)
[2017-11-21] MEDS ORDERED: ePHEDrine/NS 25 MG/5 ML SYRINGE IV ONE (12:00)
[2017-11-21] MEDS ORDERED: ETOMIDATE 20 MG/10 ML VIAL IV PUSH ONE (12:00)
[2017-11-21] MEDS ORDERED: SUCCINYLCHOLINE CHLORIDE 100 MG/5 ML SYRINGE IV PUSH ONE ×2 (12:00→13:15)
[2017-11-21] MEDS ORDERED: PROPOFOL 500 MG/50 ML INJ 50 ML ONE (12:05)
--- NOTE | 2017-11-21 12:21 | PD.PROCEDR ---
Procedure Note Procedure Endotracheal Intubation Diagnosis: Altered mental status/encephalopathy Indications: Altered mental status Consent: Emergent Anesthesia: See Mar Description of the Procedure: The patient was positioned in the sniffing position. Pre-oxygenation was performed using a 100% BVM. Anesthesia was induced via rapid sequence. A glide scope 4 was used for laryngoscopy and a Grade 2 view was obtained. A 8.0 cuffed endotracheal tube was inserted atraumatically through the vocal cords. Confirmation of correct endotracheal tube placement was made by equal and bilateral breath sounds and colorimetric CO2 detection. The endotracheal tube was secured at 20 cm at the teeth. There were no immediate complications noted. The patient remained hemodynamically stable throughout the procedure. A chest x-ray has been ordered. I personally performed the procedure. Anamika Griggs MD November 21, 2017 12:21
[2017-11-21] MEDS ORDERED: MICROFIBRILLAR COLLAGEN HEMOSTAT 70 X 35 MM BANDAGE ONE (12:27)
[2017-11-21] MEDS ORDERED: ceFAZolin INJ 1,000 MG VIAL ONE (12:28)
[2017-11-21] MEDS ORDERED: GELFOAM SIZE 100 ONE ×2 (12:28→12:29)
[2017-11-21] MEDS ORDERED: THROMBIN (TOPICAL) 5,000 UNIT VIAL ONE (12:28)
[2017-11-21] MEDS ORDERED: LIDOCAINE 1%/EPINEPHrine 1:100,000 SOLN 30 ML VIAL ONE (12:28)
[2017-11-21] MEDS ORDERED: GENTAMICIN SULFATE 80 MG/2 ML VIAL ONE (12:29)
--- NOTE | 2017-11-21 12:38 | RADRPT ---
EXAM DATE/TIME: 11/21/2017 12:19 [facility] COMPARISON: CHEST PA & LAT, November 21, 2017, 9:40. CHEST SINGLE AP, November 18, 2017, 3:31. INDICATIONS : Status post intubation. Respiratory failure.. MEDICAL HISTORY : prior CVA SURGICAL HISTORY : coil removed from his throat. ENCOUNTER: Initial ACUITY: 4 - 6 days PAIN SCORE: Non-responsive. LOCATION: Bilateral chest FINDINGS: A single AP supine portable view of the chest was obtained and demonstrates interval placement of an endotracheal tube with the tip approximately 5 cm above the tuan. A nasogastric tube has been place d and the tip is in the mid stomach. Mild hazy opacity remains in the right upper lobe which appears mildly improved. There are no new confluent infiltrates or effusions. The heart size remains at the u pper limits of normal with no perihilar edema. There is mild blunting of left costophrenic angle agai n noted. The patient is rotated to the left and there are multiple overlying electrocardiogram leads. CONCLUSION: 1. Interval intubation and placement of nasogastric tube. 2. Mild improvement in right upper lobe infiltrate. Lenin Kelley MD on November 21, 2017 at 12:35 Board Certified Radiologist. This report was verified electronically.
[2017-11-21] MEDS ORDERED: SODIUM CHLOR 0.9% 250 ML INJ 250 ML ONE (12:42)
[2017-11-21] MEDS ORDERED: VANCOMYCIN HCL 1000 MG VIAL ONE (12:42)
[2017-11-21] MEDS ORDERED: ceFAZolin 2 GM PREMIX 50 ML ONE (12:42)
--- NOTE | 2017-11-21 12:55 | HHI.CCPN ---
Subjective Remarks/Hospital Course 11/17: 72-year-old male presents to the emergency department via EMS after an accidental overdose. According to EMS the patient took 8 Percocet 5 mg tablets at home earlier today and then an unknown amount of Suboxone from his roommate. The patient was then found lying in the bathroom on the ground, unresponsive, was administered Narcan 0.4 mg intravenously. Per EMS the patient awakened and was alert. In the emergency department he did admit to taking Percocet, however, states he did not take any Suboxone. The patient denies any suicidal ideation, states he was trying to obtain a buzz from the Percocet. He does have a history of chronic opiate use. Upon awakening the patient did ask EMS for more Percocet. Upon arrival the patient does complain of shortness of breath, does have a history of COPD and is on oxygen at home 1 L via nasal cannula. 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 In the emergency department he remained short of breath and the CT of the chest was obtained. This showed severe aspiration pneumonia and the foreign body, coin-like, in the esophagus. The patient was intubated for airway protection by ED attending with a GI consultation in place for upper endoscopy and foreign body removal. 11/18: No events overnight. Patient has been afebrile. Currently, he is intubated and sedated, on mechanical ventilation. No family present at bedside. 11/19: Patient underwent EGD yesterday and per verbal report, he was found to have a nickel in his esophagus. Over the night, patient afebrile, with a T-max of 98.9 and adequate urine output. This a.m. he is off sedation, arousable, appropriate, following commands tolerating CPAP trial. Reconsult [facility] 11/21: Patient completely obtunded not responding to commands. Contacted by neurology secondary to brain imaging studies revealing chronic subdural with a midline shift and an acute infarct. Patient emergently intubated, see procedure note. 25 g of mannitol given. Chest x-ray pending. Objective Vital Signs Date Time Temp Pulse Resp B/P (MAP) Pulse Ox O2 Delivery O2 Flow Rate FiO2 11/21/17 10:00 94 Nasal Cannula 2.00 11/21/17 06:00 101 11/21/17 05:00 36 157/94 (115) 11/21/17 04:00 100.6 11/19/17 08:00 35 Intake and Output 11/21/17 11/21/17 11/22/17 08:00 16:00 00:00 Intake Total 1647 ml Output Total 2150 ml Balance -503 ml Result Diagram: 11/21/17 0322 11/21/17 0322 Imaging Last 24 hours Impressions Chest X-Ray 11/18/17 Signed Impressions: Service Date/Time: Saturday, November 18, 2017 03:31 - CONCLUSION: Increasing right upper lobe infiltrates and stable patchy infiltrates in the left lower lung. Oswaldo Alicea MD Chest X-Ray 11/17/172004 Signed Impressions: Service Date/Time: Friday, November 17, 2017 20:11 - CONCLUSION: 1. Right-sided pneumonia, especially upper lobe. 2. Indeterminate radiopaque structure at the level of the thoracic inlet as above. Please correlate visually as to whether this may be overlying the patient. Otherwise, a coin or other foreign object may be in the esophagus. Aman Bermeo MD Last 24 hours Impressions Chest X-Ray 11/17/172004 Signed Impressions: Service Date/Time: Friday, November 17, 2017 20:11 - CONCLUSION: 1. Right-sided pneumonia, especially upper lobe. 2. Indeterminate radiopaque structure at the level of the thoracic inlet as above. Please correlate visually as to whether this may be overlying the patient. Otherwise, a coin or other foreign object may be in the esophagus. Aman Bermeo MD Chest X-Ray 11/17/17 Signed Impressions: Service Date/Time: Friday, November 17, 2017 21:36 - CONCLUSION: Endotracheal tube is appropriately positioned. Bilateral pneumonia persists. Foreign body in the esophagus at the level of the thoracic inlet persists. Aman Bermeo MD Chest CT 11/17/17 Signed Impressions: Service Date/Time: Friday, November 17, 2017 20:57 - CONCLUSION: 1. Foreign body at the level of the thoracic inlet, appears to be a coin within the esophagus. 2. Bilateral pneumonia. Please see above. Aman Bermeo MD Objective Remarks General -Critically ill-appearing elderly gentleman, clearly obtunded, nonresponsive HEENT - pupils equal, reactive, sclerae anicteric, neck supple, no nuchal rigidity, neck veins not distended, no carotid bruit CV - regular S1, S2, no murmurs Chest - B/L chest excursion, good air entry, no wheezes. Bilateral breath sounds clear to auscultation Abdomen - soft, non-tender, non-distended, BS present, no hepatomegaly, no splenomegaly Skin - no rashes, no cyanosis Extremities - warm and well perfused, no edema, + peripheral pulses, no clubbing Neuro -patient obtunded nonresponsive immediately prior to intubation Urinary Catheter: Yes A/P Problem List: (1) Acute respiratory failure with hypoxia and hypercapnia ICD Code: J96.01 - Acute respiratory failure with hypoxia; J96.02 - Acute respiratory failure with hypercapnia (2) Subdural hematoma ICD Code: I62.00 - Nontraumatic subdural hemorrhage, unspecified Assessment and Plan Assessment This is a 72-year-old male with a chronic subdural hematoma with progressive encephalopathy and deterioration in mental status. In mid imaging studies performed this a.m. revealed chronic subdural hematoma on the right with 8 mm midline shift , and acute left posterior cerebellar infarct. Discussed with Dr. Land plan for emergent right craniotomy with Dr. Rose for right frontal temporal parietal craniotomy with evacuation of subdural hematoma. Plan by systems: Neurologic: Right chronic subdural hematoma with 8 mm midline shift Acute left posterior side cerebellar acute infarct Percocet overdose Neuro checks per ICU protocol Propofol infusion to maintain ventilator synchrony Initial GCS upon presentation less than 8, intubated emergently secondary to increased intracranial pressure and protection of airway Minimize sedation 25 g mannitol IV now Initiate 2% normal saline at 20 cc/ hr Neurology following-Dr. Land Neurosurgery consulted- Dr. Rose Plan for right craniotomy with evacuation of subdural hematoma Respiratory: Acute hypoxemic and hypercarbic respiratory failure Home O2 dependent Maintain O2 sat greater than 92 % Continuous monitoring of end-tidal CO2 to 30 mm Hg Ventilator bundle Duo nebs every 6 hours scheduled, and every 2 hours as needed Cardiovascular: Maintain MAP greater than 65mm HG Telemetry sinus rhythm/sinus tach Renal: Maintain kinney -- Strict I/Os FEN/GI: Electrolyte abnormality Elevated liver enzymes Rhabdomyolysis Maintain n.p.o. except meds Insert OGT Protonix GI prophylaxis Bowel regimen Zofran for nausea Monitor creatinine kinase levels Noted sodium level is 134->131 today initiate 2% normal saline IVF's Heme/ID: Aspiration pneumonia Hepatitis C Monitor CBC, liver enzyme Obtain cultures if clinically indicated Type and screen Obtain you Unasyn for now Endocrine: Glucose monitoring per ICU protocol, low-dose regimen -- SSI Prophylaxis: GI Prophylaxis Protonix DVT Prophylaxis -- SCDs Hold anticoagulation patient scheduled for surgery defer to neurosurgery with resumption of anticoagulation Lines: Peripheral IVs 2. Central line if indicated Dispo: my billing statement This patient remains critically ill with one or more organ systems which are or may become a threat to life. I have spent in excess of 37 minutes discontinuously in the care and management of this patient. This time is exclusive of procedures, and includes, but is not limited to, evaluation of the patient, review of the medical record, discussions with family, consultants, nursing staff, or respiratory therapy, and documentation in the medical record. Unable to contact family patient is scheduled for emergent craniotomy with evacuation of subdural hematoma. Social work consult to locate family. Physician Anamika Prasad MD November 21, 2017 12:55
[2017-11-21] MEDS: MULTIVITAMIN INJ 10 ML, FOLIC ACID INJ 1 MG in SODIUM CHLORID 0.9% 500 ML INJ 500 ML IV SCH (13:00)
[2017-11-21] MEDS ORDERED: RESP: ALBUTEROL 2.5 MG/IPRATROPIUM 0.5 MG NEB (PRN) INH (13:00)
[2017-11-21] MEDS ORDERED: levETIRAcetam 500 MG/5 ML VIAL IV ONE (13:15)
[2017-11-21] MEDS: SODIUM CHLORIDE 23.4% INJ 188 MEQ in SODIUM CHLOR 0.9% 1000 ML INJ 1,000 ML IV SCH (13:20)
[2017-11-21] MEDS: PROPOFOL 1000 MG/100 ML INJ 100 ML IV PRN (13:28)
--- NOTE | 2017-11-21 13:46 | PD.CONS ---
(Rodríguez Rose MD) HPI Consult Requested By Primary Care Physician Unknown History of Present Illness This is a 72-year-old male presents to the emergency department via EMS after an accidental overdose. According to EMS the patient took 8 Percocet 5 mg tablets at home earlier today and then an unknown amount of Suboxone from his roommate. The patient was then found lying in the bathroom on the ground, unresponsive, was administered Narcan. Per EMS the patient awakened and was alert. In the emergency department he did admit to taking Percocet, however, states he did not take any Suboxone. The patient denies any suicidal ideation, states he was trying to obtain a buzz from the Percocet. He does have a history of chronic opiate use. Upon awakening the patient did ask EMS for more Percocet. Upon arrival the patient does complain of shortness of breath, does have a history of COPD and is on oxygen at home 1 L via nasal cannula. 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 In the emergency department he remained short of breath and the CT of the chest was obtained. This showed severe aspiration pneumonia and the foreign body, coin-like, in the esophagus. The patient was intubated for airway protection. He underwent an upper endoscopy and foreign body removal. Today the patient was comatose, minimally responsive. MRI showed a large subdural hematoma with mass effect and midline shift (Rodríguez Rose MD) Service Neurosurgery Consult Requested By Dr. aLnd Reason for Consult Subdural Hematoma History of Present Illness Mr. Dalton 72-year-old male who had presented to the emergency department via EMS after an accidental overdose of Percocet on 11/17/17. The patient was then found lying in the bathroom on the ground, unresponsive, was administered Narcan 0.4 mg intravenously. Per EMS the patient awakened and was alert. He has a history of chronic opiate use. 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 He was also found with severe aspiration pneumonia and a foreign body in the esophagus removed by GI. This morning he became completely obtunded and not responding to commands. 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 Patient now intubated, 25 g of mannitol has been given. Emergent neurosurgical evaluation requested. (Trisha Carlisle) Review of Systems Unobtainable patient sedated and intubated (Rodríguez Rose MD) ROS Limitations: Intubated (Trisha Carlisle) Past Family Social History Allergies: Coded Allergies: No Known Allergies (Unverified , 11/17/17) Past Medical History Unobtainable patient sedated and intubated Past Surgical History Unobtainable patient sedated and intubated Active Ordered Medications Current Medications Sodium Chloride (NS Flush) 2 ml UNSCH PRN IVF FLUSH AFTER USING IV ACCESS; Start 11/17/17 at 20:15 Albuterol/ Ipratropium (Duoneb Neb) 2 ampule ONCE ONCE NEB Last administered on 11/17/17at 20:22; Start 11/17/17 at 20:15; Stop 11/17/17 at 20:16; Status DC Cefepime HCl 2000 mg/Sodium Chloride 100 ml @ 200 mls/hr ONCE ONCE IV Last administered on 11/17/17at 23:12; Start 11/17/17 at 20:30; Stop 11/17/17 at 20:59 ; Status DC Azithromycin 500 mg/Sodium Chloride 250 ml @ 250 mls/hr ONCE ONCE IV Last administered on 11/17/17at 22:13; Start 11/17/17 at 20:30; Stop 11/17/17 at 21:29 ; Status DC Etomidate (Amidate Inj) 40 mg STK-MED ONCE .ROUTE Last administered on at 21:47; Start 11/17/17 at 21:17; Stop 11/17/17 at 21:18; Status DC Etomidate (Amidate Inj) 20 mg ONCE ONCE IV PUSH Last administered on at 22:11; Start 11/17/17 at 21:30; Stop 11/17/17 at 21:31; Status DC Succinylcholine Chloride (Quelicin Inj) 100 mg ONCE ONCE IV PUSH Last administered on 11/17/17at 22:14; Start 11/17/17 at 21:30; Stop 11/17/17 at 21:31 ; Status DC Propofol 100 ml @ 0 mls/hr TITRATE PRN IV SEDATION Last administered on at 21:42; Start 11/17/17 at 21:30; Stop 11/17/17 at 22:55; Status DC Propofol 50 ml @ As Directed STK-MED ONCE .ROUTE ; Start 11/17/17 at 21:18; Stop 11/17/17 at 21:19; Status DC Sodium Chloride 1,000 ml @ 999 mls/hr BOLUS ONCE IV Last administered on 11/17at 22:10; Start 11/17/17 at 21:45; Stop 11/17/17 at 22:45; Status DC Aspirin (Aspirin Supp) 300 mg ONCE ONCE RECTAL Last administered on 11/17/17at 22:06; Start 11/17/17 at 21:45; Stop 11/17/17 at 21:46; Status DC Sodium Chloride 1,000 ml @ 125 mls/hr Q8H IV Last administered on 11/21/17at 04: 44; Start 11/17/17 at 22:40 Sodium Chloride (NS Flush) 2 ml UNSCH PRN IV FLUSH FLUSH AFTER USING IV ACCESS ; Start 11/17/17 at 22:45 Sodium Chloride (NS Flush) 2 ml BID IV FLUSH Last administered on 11/21/17at 08: 49; Start 11/18/17 at 09:00 Acetaminophen (Tylenol) 650 mg Q6H PRN PO PAIN 1-5 AND/OR FEVER >101F; Start at 22:45 Morphine Sulfate (Morphine Inj) 2 mg Q2H PRN IV PUSH PAIN SCALE 6 TO 10; Start 11/17/17 at 22:45; Stop 11/20/17 at 20:07; Status DC Famotidine (Pepcid Inj) 20 mg Q12HR IV PUSH Last administered on 11/19/17at 09: 00; Start 11/18/17 at 09:00; Stop 11/19/17 at 12:14; Status DC Famotidine (Pepcid) 20 mg Q12HR PO ; Start 11/18/17 at 09:00; Stop 11/18/17 at 09:00; Status DC Midazolam HCl (Versed Inj) 2 mg Q1H PRN IV PUSH SEDATION Last administered on at 23:17; Start 11/17/17 at 22:45; Stop 11/21/17 at 07:28; Status DC Artificial Tears (Tears Naturale Opth Soln) 1 drop TID EACH EYE ; Start at 09:00 Ondansetron HCl (Zofran Inj) 4 mg Q6H PRN IV PUSH NAUSEA OR VOMITING; Start at 22:45 Albuterol/ Ipratropium (Duoneb Neb) 1 ampule Q2HR NEB PRN INH WHEEZING; Start 11/17/17 at 22:45 Miscellaneous Information ([facility] [place] [facility]) 1 Q361D XX Last administered on 11/18/17at 00:59; Start 11/17/17 at 22:45 Chlorhexidine Gluconate (Chlorhexidine 2% Cloth) 3 pack Taper DAILY@04 TOP Last administered on 11/21/17at 01:28; Start 11/18/17 at 04:00; Stop 11/14/18 at 03:59 Chlorhexidine Gluconate (Chlorhexidine 2% Cloth) 3 pack UNSCH PRN TOP HYGIENIC CARE; Start 11/17/17 at 22:45 Senna/Docusate Sodium (Luisa-Colace) 1 tab BID PO Last administered on at 09:00; Start 11/18/17 at 09:00 Magnesium Hydroxide (Milk Of Magnesia Liq) 30 ml Q12H PRN PO Mild constipation ; Start 11/17/17 at 22:45 Sennosides (Senokot) 17.2 mg Q12H PRN PO Moderate constipation; Start 11/17/17 at 22:45 Bisacodyl (Dulcolax Supp) 10 mg DAILY PRN RECTAL SEVERE CONSITIPATION/ IF NPO ; Start 11/17/17 at 22:45 Lactulose (Lactulose Liq) 30 ml DAILY PRN PO SEVERE CONSITIPATION/ IF PO; Start 11/17/17 at 22:45 Chlorhexidine Gluconate (Peridex 0.12% Liq) 15 ml BID@08,20 MT Last administered on 11/18/17at 21:50; Start 11/18/17 at 08:00 Propofol 100 ml @ 1.53 mls/hr TITRATE PRN IV SEDATION Last administered on 11/21at 13:28; Start 11/17/17 at 22:45; Stop 11/21/17 at 15:52; Status DC Albuterol/ Ipratropium (Duoneb Neb) 1 ampule Q6HR WHILE AWAKE NEB NEB Last administered on 11/21/17at 11:23; Start 11/18/17 at 08:00; Stop 11/21/17 at 17:59; Status DC Potassium Chloride 100 ml @ 50 mls/hr Q2H PRN IV For Potassium 2.8 - 3.2 mEq/L ; Start 11/17/17 at 23:30 Potassium Chloride 100 ml @ 50 mls/hr Q2H PRN IV For Potassium 2.8 - 3.2 mEq/ L Last administered on 11/20/17at 12:21; Start 11/17/17 at 23:30 Potassium Bicarb/ Potassium Chloride (K-Lyte Cl Eff) 50 meq UNSCH PRN PO For Potassium 3.3 - 3.5 mEq/L; Start 11/17/17 at 23:30 Potassium Chloride 100 ml @ 25 mls/hr UNSCH PRN IV For Potassium 3.3 - 3.5 mEq /L; Start 11/17/17 at 23:30 Potassium Chloride 100 ml @ 50 mls/hr Q2H PRN IV For Potassium 3.3 - 3.5 mEq/ L Last administered on 11/21/17at 05:02; Start 11/17/17 at 23:30; Stop 11/21/17 at 05:24; Status DC Magnesium Sulfate 4 gm/Sodium Chloride 100 ml @ 50 mls/hr UNSCH PRN IV For Magnesium 0.9 - 1.1 mg/dL; Start 11/17/17 at 23:30 Magnesium Oxide (Mag-Ox) 800 mg UNSCH PRN PO For Magnesium 1.2 - 1.6 mg/dL; Start 11/17/17 at 23:30 Magnesium Sulfate 2 gm/Sodium Chloride 100 ml @ 50 mls/hr UNSCH PRN IV For Magnesium 1.2 - 1.6 mg/dL Last administered on 11/21/17at 11:54; Start 11/17/17 at 23:30 Potassium Phosphate (K-Phos) 2,000 mg Q4H PRN PO For Phosphorus < 2.5 mg/dL Last administered on 11/20/17at 14:59; Start 11/17/17 at 23:30 Sodium Phosphate 30 mmol/Sodium Chloride 250 ml @ 42 mls/hr UNSCH PRN IV For Phosphorus < 2.5 mg/dL Last administered on 11/20/17at 21:44; Start 11/17/17 at 23:30 Potassium Phosphate (K-Phos) 2,000 mg UNSCH PRN PO/TUBE SEE LABEL COMMENTS; Start 11/17/17 at 23:30 Potassium Phosphate 30 mmol/ Sodium Chloride 260 ml @ 42 mls/hr UNSCH PRN IV SEE LABEL COMMENTS; Start 11/17/17 at 23:30 Ampicillin Sodium/ Sulbactam Sodium (Unasyn Inj) 3 gm Q6H IM ; Start 11/18/17 at 06:30; Status Cancel Ampicillin Sodium/ Sulbactam Sodium 3 gm/Sodium Chloride 100 ml @ 200 mls/hr Q6H IV Last administered on 11/21/17at 13:27; Start 11/18/17 at 07:00; Stop at 17:59; Status DC Enoxaparin Sodium (Lovenox Inj) 40 mg Q24H SQ Last administered on 11/20/17at 09 :00; Start 11/19/17 at 09:00; Stop 11/21/17 at 13:31; Status DC Miscellaneous Information ([facility] [place] [facility]) ALL NURSING DEPARTME... UNSCH PRN .XX SEE LABEL COMMENTS; Start 11/18/17 at 12:30; Stop 11/19/17 at 12: 29; Status DC Pantoprazole Sodium (Protonix) 40 mg Q12HR PO Last administered on 11/20/17at 09 :00; Start 11/19/17 at 21:00 Magnesium Sulfate/ Dextrose 100 ml @ 100 mls/hr Q1H IV Last administered on at 10:15; Start 11/20/17 at 09:15; Stop 11/20/17 at 11:14; Status DC Potassium Chloride (KCl) 80 meq ONCE ONCE PO ; Start 11/20/17 at 09:15; Stop at 09:16; Status DC Sodium Chloride (NS Flush) 2 ml UNSCH PRN IV FLUSH FLUSH AFTER USING IV ACCESS ; Start 11/20/17 at 13:00; Status UNV Sodium Chloride (NS Flush) 2 ml BID IV FLUSH ; Start 11/20/17 at 21:00; Status UNV Folic Acid (Folate) 1 mg DAILY PO ; Start 11/20/17 at 13:00; Stop 11/25/17 at 12: 59 Thiamine HCl (Vitamin B1) 100 mg DAILY PO ; Start 11/20/17 at 13:00 Multivitamins/ Minerals Therapeutic (Theragran M Tab) 1 tab DAILY PO ; Start at 13:00; Stop 11/25/17 at 12:59 Ondansetron HCl (Zofran Inj) 4 mg Q6H PRN IV PUSH NAUSEA OR VOMITING; Start at 13:00; Status UNV Famotidine (Pepcid) 20 mg BID PO ; Start 11/20/17 at 21:00; Status UNV Clonidine (Catapres) 0.1 mg Q6H PRN PO SEE LABEL COMMENTS; Start 11/20/17 at 13 :00 Flumazenil (Romazicon Inj) 0.2 mg Q1M PRN IV PUSH SEE LABEL COMMENTS; Start at 13:00 Lorazepam (Ativan) 1 mg Q4H PRN PO CIWA 8 - 10; Start 11/20/17 at 13:00; Stop 11/21/17 at 07:28; Status DC Lorazepam (Ativan Inj) 1 mg Q4H PRN IV PUSH CIWA 8 - 10; Start 11/20/17 at 13: 00; Stop 11/21/17 at 07:28; Status DC Lorazepam (Ativan) 2 mg Q2H PRN PO CIWA 11-14; Start 11/20/17 at 13:00; Stop at 07:28; Status DC Lorazepam (Ativan Inj) 2 mg Q2H PRN IV PUSH CIWA 11-14 Last administered on at 18:47; Start 11/20/17 at 13:00; Stop 11/21/17 at 07:28; Status DC Lorazepam (Ativan Inj) 2 mg Q1H PRN IV PUSH CIWA 15-20 Last administered on at 17:42; Start 11/20/17 at 13:00; Stop 11/21/17 at 07:28; Status DC Lorazepam (Ativan Inj) 2 mg Q15M PRN IV PUSH CIWA > 20; Start 11/20/17 at 13:00 ; Stop 11/21/17 at 07:28; Status DC Haloperidol Lactate (Haldol Inj) 2 mg Q15M PRN IM SEE LABEL COMMENTS; Start at 13:00; Stop 11/21/17 at 07:28; Status DC Rocuronium [place] (Zemuron Inj) 50 mg STK-MED ONCE IV PUSH ; Start 11/18/17 at 12:00; Stop 11/20/17 at 13:06; Status DC Levetriacetam 500 mg/Sodium Chloride 105 ml @ 420 mls/hr BOLUS ONCE IV Last administered on 11/20/17at 14:00; Start 11/20/17 at 14:00; Stop 11/20/17 at 14:14 ; Status DC Levetriacetam 500 mg/Sodium Chloride 105 ml @ 420 mls/hr Q12HR IV Last administered on 11/21/17at 08:44; Start 11/20/17 at 21:00 Levetriacetam 500 mg/Sodium Chloride 105 ml @ 420 mls/hr BOLUS ONCE IV Last administered on 11/20/17at 15:00; Start 11/20/17 at 15:00; Stop 11/20/17 at 15:14 ; Status DC Morphine Sulfate (Morphine Inj) 2 mg Q2H PRN IV PUSH PAIN SCALE 6 TO 10; Start 11/20/17 at 20:15; Stop 11/21/17 at 07:28; Status DC Potassium Chloride 20 meq/ Sodium Chloride 110 ml @ 50 mls/hr Q2H PRN IV For Potassium 3.3 - 3.5 mEq/L Last administered on 11/21/17at 06:43; Start 11/21/17 at 05:30 Furosemide (Lasix Inj) 40 mg STK-MED ONCE .ROUTE ; Start 11/21/17 at 07:50; Stop 11/21/17 at 07:51; Status DC Furosemide (Lasix Inj) 40 mg NOW ONCE IV PUSH Last administered on 11/21/17at 08 :45; Start 11/21/17 at 08:45; Stop 11/21/17 at 08:46; Status DC Gadodiamide (Omniscan Pf Inj) 20 ml STK-MED ONCE IVCONTRAST ; Start 11/21/17 at 10:30; Stop 11/21/17 at 10:31; Status DC Gadodiamide (Omniscan Pf Inj) 12 ml STK-MED ONCE IVCONTRAST ; Start 11/21/17 at 10:31; Stop 11/21/17 at 10:32; Status DC Levothyroxine Sodium (Synthroid Inj) 25 mcg ONCE ONCE IV PUSH ; Start 11/21/17 at 10:45; Stop 11/21/17 at 11:54; Status DC Levothyroxine Sodium (Synthroid Inj) 25 mcg DAILY@06 IV PUSH ; Start 11/22/17 at 06:00 Multivitamins 10 ml/Folic Acid 1 mg/Sodium Chloride 510.2 ml @ 125 mls/hr Q24H IV ; Start 11/21/17 at 13:00; Stop 11/26/17 at 12:59 Thiamine HCl 100 mg/Sodium Chloride 101 ml @ 100 mls/hr Q24H IV ; Start at 12:00; Stop 11/24/17 at 11:59 Enalaprilat (Vasotec Inj) 1.25 mg Q6H PRN IV PUSH SEE LABEL COMMENTS; Start 11/21/17 at 10:45 Labetalol HCl (Trandate Inj) 10 mg Q6H PRN IV PUSH SEE LABEL COMMENTS; Start at 10:45 Hydralazine HCl (Apresoline Inj) 10 mg Q6H PRN IV PUSH SEE LABEL COMMENTS; Start 11/21/17 at 10:45 Mannitol 100 ml @ As Directed STK-MED ONCE .ROUTE ; Start 11/21/17 at 11:59; Stop 11/21/17 at 12:00; Status DC Etomidate (Amidate Inj) 40 mg STK-MED ONCE .ROUTE ; Start 11/21/17 at 11:59; Stop 11/21/17 at 12:00; Status DC Succinylcholine Chloride (Quelicin Inj) 200 mg STK-MED ONCE .ROUTE ; Start at 12:00; Stop 11/21/17 at 12:01; Status DC Etomidate (Amidate Inj) 20 mg ONCE ONCE IV PUSH Last administered on 11/21/17at 12:00; Start 11/21/17 at 12:00; Stop 11/21/17 at 13:00; Status DC Succinylcholine Chloride (Quelicin Inj) 120 mg ONCE ONCE IV PUSH ; Start at 12:00; Stop 11/21/17 at 12:01; Status Cancel Rocuronium Avoca (Zemuron Inj) 50 mg BOLUS ONCE IV ; Start 11/21/17 at 12:00; Stop 11/21/17 at 13:00; Status DC Propofol 100 ml @ 1.815 mls/ hr TITRATE PRN IV SEDATION; Start 11/21/17 at 12: 00 Mannitol (Mannitol Inj) 25 gm ONCE ONCE IV Last administered on 11/21/17at 12:30 ; Start 11/21/17 at 12:00; Stop 11/21/17 at 13:00; Status DC Fentanyl Citrate (fentaNYL INJ) 100 mcg ONCE ONCE IV PUSH Last administered on 11/21/17at 12:00; Start 11/21/17 at 12:00; Stop 11/21/17 at 13:00; Status DC Propofol 50 ml @ As Directed STK-MED ONCE .ROUTE ; Start 11/21/17 at 12:05; Stop 11/21/17 at 12:06; Status DC Fentanyl Citrate (fentaNYL INJ) 100 mcg STK-MED ONCE .ROUTE ; Start 11/21/17 at 12:09; Stop 11/21/17 at 12:10; Status DC Microfibriller Collagen Hemostat (Avitene Bandage) 1 bandage STK-MED ONCE .ROUTE Last administered on 11/21/17at 15:04; Start 11/21/17 at 12:27; Stop at 12:28; Status DC Lidocaine/ Epinephrine (Xylocaine-Epi 1%-1:100,000 Inj) 30 ml STK-MED ONCE .ROUTE Last administered on 11/21/17at 15:04; Start 11/21/17 at 12:28; Stop at 12:29; Status DC Cefazolin Sodium (Ancef Inj) 1,000 mg STK-MED ONCE .ROUTE ; Start 11/21/17 at 12: 28; Stop 11/21/17 at 12:29; Status DC Thrombin (Thrombin Top Soln) 10,000 units STK-MED ONCE .ROUTE Last administered on 11/21/17at 15:04; Start 11/21/17 at 12:28; Stop 11/21/17 at 12:29; Status DC Gelatin (Gelfoam 100 Top) 1 foam STK-MED ONCE .ROUTE Last administered on at 15:04; Start 11/21/17 at 12:28; Stop 11/21/17 at 12:29; Status DC Gentamicin Sulfate (Gentamicin Inj) 240 mg STK-MED ONCE .ROUTE Last administered on 11/21/17at 15:04; Start 11/21/17 at 12:29; Stop 11/21/17 at 12:30; Status DC Gelatin (Gelfoam 100 Top) 1 foam STK-MED ONCE .ROUTE ; Start 11/21/17 at 12:29; Stop 11/21/17 at 12:30; Status DC Vancomycin HCl (Vancomycin Inj) 1,000 mg STK-MED ONCE .ROUTE Last administered on 11/21/17at 14:55; Start 11/21/17 at 12:42; Stop 11/21/17 at 12:43; Status DC Cefazolin Sodium/ Dextrose 50 ml @ As Directed STK-MED ONCE .ROUTE ; Start at 12:42; Stop 11/21/17 at 12:43; Status DC Sodium Chloride 250 ml @ As Directed STK-MED ONCE .ROUTE ; Start 11/21/17 at 12: 42; Stop 11/21/17 at 12:43; Status DC Sodium Chloride 188 meq/Sodium Chloride 1,047 ml @ 20 mls/hr Q24H IV Last administered on 11/21/17at 13:20; Start 11/21/17 at 13:00 Fentanyl Citrate 250 ml @ 5 mls/hr TITRATE PRN IV SEDATION; Start 11/21/17 at 13 :00 Artificial Tears (Tears Naturale Opth Soln) 1 drop TID EACH EYE ; Start 11/21/17 at 13:00 Albuterol/ Ipratropium (Duoneb Neb) 1 ampule Q6HR NEB INH Last administered on 11/21/17at 16:00; Start 11/21/17 at 16:00; Stop 11/21/17 at 18:48; Status DC Albuterol/ Ipratropium (Duoneb Neb) 1 ampule Q2HR NEB PRN INH WHEEZING; Start 11/21/17 at 13:00 Senna/Docusate Sodium (Luisa-Colace) 1 tab BID PO ; Start 11/21/17 at 21:00 Succinylcholine Chloride (Quelicin Inj) 120 mg ONCE ONCE IV PUSH Last administered on 11/21/17at 12:00; Start 11/21/17 at 13:15; Stop 11/21/17 at 13:19; Status DC Chlorhexidine Gluconate (Peridex 0.12% Liq) 15 ml BID@08,20 MT ; Start 11/21/17 at 20:00 Levetriacetam (Keppra Inj) 1,000 mg STK-MED ONCE IV ; Start 11/21/17 at 13:15; Stop 11/21/17 at 13:16; Status DC Potassium Chloride/Sodium Chloride 1,000 ml @ 100 mls/hr Q10H IV ; Start at 15:00 Cefazolin Sodium/ Dextrose 50 ml @ 100 mls/hr Q8H IV ; Start 11/21/17 at 16:00; Stop 11/21/17 at 18:52; Status DC Levetriacetam 500 mg/Sodium Chloride 105 ml @ 400 mls/hr Q12H IV Last administered on 11/21/17at 18:28; Start 11/21/17 at 18:00 Bisacodyl (Dulcolax Supp) 10 mg DAILY PRN RECTAL CONSTIPATION; Start 11/21/17 at 15:00 Docusate Sodium (Colace) 100 mg BID PO ; Start 11/21/17 at 21:00 Pantoprazole Sodium (Protonix) 40 mg DAILY PO ; Start 11/22/17 at 09:00 Pantoprazole Sodium (Protonix Inj) 40 mg DAILY IVP ; Start 11/22/17 at 09:00 Ondansetron HCl (Zofran Inj) 4 mg Q6H PRN IV PUSH NAUSEA OR VOMITING; Start 11/21/17 at 15:00 Calcium Gluconate (Calcium Gluconate Inj) 1 gm UNSCH PRN IV SEE LABEL COMMENTS ; Start 11/21/17 at 15:00 Potassium Chloride 100 ml @ 50 mls/hr UNSCH PRN IV POTASSIUM LESS THAN 4; Start 11/21/17 at 15:00 Magnesium Sulfate 4 gm/Sodium Chloride 108 ml @ 108 mls/hr UNSCH PRN IV MAGNESIUM LESS THAN 2; Start 11/21/17 at 15:00 Acetaminophen/ Hydrocodone Bitart (Temple 10-325 Mg) 1 tab Q4H PRN PO PAIN SCALE 1 TO 5; Start 11/21/17 at 15:00 Acetaminophen/ Hydrocodone Bitart (Temple 10-325 Mg) 2 tab Q4H PRN PO PAIN SCALE 6 TO 10; Start 11/21/17 at 15:00 Morphine Sulfate (Morphine Inj) 2 mg Q2H PRN IV PUSH PAIN SCALE 1 TO 6; Start 11/21/17 at 15:00 Morphine Sulfate (Morphine Inj) 4 mg Q2H PRN IV PUSH PAIN SCALE 7 TO 10; Start 11/21/17 at 15:00 Acetaminophen (Tylenol) 650 mg Q4H PRN PO TEMPERATURE > 101.5 F; Start 11/21/17 at 15:00 Bacitracin (Baciguent Oint) 15 applic STK-MED ONCE .ROUTE ; Start 11/21/17 at 15: 56; Stop 11/21/17 at 15:57; Status DC Phenylephrine HCl (Neosynephrine Inj) 40 mg STK-MED ONCE .ROUTE ; Start 11/21/17 at 16:34; Stop 11/21/17 at 16:35; Status DC Phenylephrine HCl (Neosynephrine Inj) 30 mg STK-MED ONCE .ROUTE ; Start 11/21/17 at 16:40; Stop 11/21/17 at 16:41; Status DC Midazolam HCl (Versed Inj) 2 mg STK-MED ONCE .ROUTE ; Start 11/21/17 at 16:58; Stop 11/21/17 at 16:59; Status DC Fentanyl Citrate (fentaNYL INJ) 200 mcg STK-MED ONCE .ROUTE ; Start 11/21/17 at 16:58; Stop 11/21/17 at 16:59; Status DC Miscellaneous Information ([facility] [place] [facility]) ALL NURSING DEPARTME... UNSCH PRN .XX SEE LABEL COMMENTS; Start 11/21/17 at 16:29; Stop 11/22/17 at 16:28 Cefepime HCl 2000 mg/Sodium Chloride 100 ml @ 200 mls/hr Q12H IV ; Start at 21:00 Albuterol/ Ipratropium (Duoneb Neb) 1 ampule Q6HR WHILE AWAKE NEB NEB ; Start 11/21/17 at 20:00 Ceftriaxone Sodium 2000 mg/ Sodium Chloride 100 ml @ 200 mls/hr Q24H IV ; Start 11/21/17 at 20:00 Family History Unobtainable patient sedated and intubated Social History Unobtainable patient sedated and intubated (Rodríguez Rose MD) Past Medical History Per EMR CVA Opioid abuse Past Surgical History None Reported Medications per EMR Active Ordered Medications Current Medications Medications (Trade) Dose Ordered Sig/Nataly Route PRN Reason Start Time Stop Time Status Last Admin Dose Admin Sodium Chloride (NS Flush) 2 ml UNSCH PRN IVF FLUSH AFTER USING IV ACCESS 11/17/17 20:15 Sodium Chloride 1,000 ml @ 125 mls/hr Q8H IV 11/17/17 22:40 11/21/17 04:44 Sodium Chloride (NS Flush) 2 ml UNSCH PRN IV FLUSH FLUSH AFTER USING IV ACCESS 11/17/17 22:45 Sodium Chloride (NS Flush) 2 ml BID IV FLUSH 11/18/17 09:00 11/21/17 08:49 Acetaminophen (Tylenol) 650 mg Q6H PRN PO PAIN 1-5 AND/OR FEVER >101F 11/17/17 22:45 Artificial Tears (Tears Naturale Opth Soln) 1 drop TID EACH EYE 11/18/17 09:00 Ondansetron HCl (Zofran Inj) 4 mg Q6H PRN IV PUSH NAUSEA OR VOMITING 11/17/17 22:45 Albuterol/ Ipratropium (Duoneb Neb) 1 ampule Q2HR NEB PRN INH WHEEZING 11/17/17 22:45 Miscellaneous Information ([facility] [facility]) 1 Q361D XX 11/17/17 22:45 11/18/17 00:59 Chlorhexidine Gluconate (Chlorhexidine 2% Cloth) 3 pack Taper DAILY@04 TOP 11/18/17 04:00 11/14/18 03:59 11/21/17 01:28 Chlorhexidine Gluconate (Chlorhexidine 2% Cloth) 3 pack UNSCH PRN TOP HYGIENIC CARE 11/17/17 22:45 Senna/Docusate Sodium (Luisa-Colace) 1 tab BID PO 11/18/17 09:00 11/20/17 09:00 Magnesium Hydroxide (Milk Of Magnesia Liq) 30 ml Q12H PRN PO Mild constipation 11/17/17 22:45 Sennosides (Senokot) 17.2 mg Q12H PRN PO Moderate constipation 11/17/17 22:45 Bisacodyl (Dulcolax Supp) 10 mg DAILY PRN RECTAL SEVERE CONSITIPATION/ IF NPO 11/17/17 22:45 Lactulose (Lactulose Liq) 30 ml DAILY PRN PO SEVERE CONSITIPATION/ IF PO 11/17/17 22:45 Chlorhexidine Gluconate (Peridex 0.12% Liq) 15 ml BID@08,20 MT 11/18/17 08:00 11/18/17 21:50 Albuterol/ Ipratropium (Duoneb Neb) 1 ampule Q6HR WHILE AWAKE NEB NEB 11/18/17 08:00 11/21/17 11:23 Potassium Chloride 100 ml @ 50 mls/hr Q2H PRN IV For Potassium 2.8 - 3.2 mEq/L 11/17/17 23:30 Potassium Chloride 100 ml @ 50 mls/hr Q2H PRN IV For Potassium 2.8 - 3.2 mEq/L 11/17/17 23:30 11/20/17 12:21 Potassium Bicarb/ Potassium Chloride (K-Lyte Cl Eff) 50 meq UNSCH PRN PO For Potassium 3.3 - 3.5 mEq/L 11/17/17 23:30 Potassium Chloride 100 ml @ 25 mls/hr UNSCH PRN IV For Potassium 3.3 - 3.5 mEq/L 11/17/17 23:30 Magnesium Sulfate 4 gm/Sodium Chloride 100 ml @ 50 mls/hr UNSCH PRN IV For Magnesium 0.9 - 1.1 mg/dL 11/17/17 23:30 Magnesium Oxide (Mag-Ox) 800 mg UNSCH PRN PO For Magnesium 1.2 - 1.6 mg/dL 11/17/17 23:30 Magnesium Sulfate 2 gm/Sodium Chloride 100 ml @ 50 mls/hr UNSCH PRN IV For Magnesium 1.2 - 1.6 mg/dL 11/17/17 23:30 11/21/17 11:54 Potassium Phosphate (K-Phos) 2,000 mg Q4H PRN PO For Phosphorus < 2.5 mg/dL 11/17/17 23:30 11/20/17 14:59 Sodium Phosphate 30 mmol/Sodium Chloride 250 ml @ 42 mls/hr UNSCH PRN IV For Phosphorus < 2.5 mg/dL 11/17/17 23:30 11/20/17 21:44 Potassium Phosphate (K-Phos) 2,000 mg UNSCH PRN PO/TUBE SEE LABEL COMMENTS 11/17/17 23:30 Potassium Phosphate 30 mmol/ Sodium Chloride 260 ml @ 42 mls/hr UNSCH PRN IV SEE LABEL COMMENTS 11/17/17 23:30 Ampicillin Sodium/ Sulbactam Sodium 3 gm/Sodium Chloride 100 ml @ 200 mls/hr Q6H IV 11/18/17 07:00 11/21/17 13:27 Pantoprazole Sodium (Protonix) 40 mg Q12HR PO 11/19/17 21:00 11/20/17 09:00 Folic Acid (Folate) 1 mg DAILY PO 11/20/17 13:00 11/25/17 12:59 Thiamine HCl (Vitamin B1) 100 mg DAILY PO 11/20/17 13:00 Multivitamins/ Minerals Therapeutic (Theragran M Tab) 1 tab DAILY PO 11/20/17 13:00 11/25/17 12:59 Clonidine (Catapres) 0.1 mg Q6H PRN PO SEE LABEL COMMENTS 11/20/17 13:00 Flumazenil (Romazicon Inj) 0.2 mg Q1M PRN IV PUSH SEE LABEL COMMENTS 11/20/17 13:00 Levetriacetam 500 mg/Sodium Chloride 105 ml @ 420 mls/hr Q12HR IV 11/20/17 21:00 11/21/17 08:44 Potassium Chloride 20 meq/ Sodium Chloride 110 ml @ 50 mls/hr Q2H PRN IV For Potassium 3.3 - 3.5 mEq/L 11/21/17 05:30 11/21/17 06:43 Levothyroxine Sodium (Synthroid Inj) 25 mcg DAILY@06 IV PUSH 11/22/17 06:00 Multivitamins 10 ml/Folic Acid 1 mg/Sodium Chloride 510.2 ml @ 125 mls/hr Q24H IV 11/21/17 13:00 11/26/17 12:59 Thiamine HCl 100 mg/Sodium Chloride 101 ml @ 100 mls/hr Q24H IV 11/21/17 12:00 11/24/17 11:59 Enalaprilat (Vasotec Inj) 1.25 mg Q6H PRN IV PUSH SEE LABEL COMMENTS 11/21/17 10:45 Labetalol HCl (Trandate Inj) 10 mg Q6H PRN IV PUSH SEE LABEL COMMENTS 11/21/17 10:45 Hydralazine HCl (Apresoline Inj) 10 mg Q6H PRN IV PUSH SEE LABEL COMMENTS 11/21/17 10:45 Propofol 100 ml @ 1.815 mls/ hr TITRATE PRN IV SEDATION 11/21/17 12:00 Sodium Chloride 188 meq/Sodium Chloride 1,047 ml @ 20 mls/hr Q24H IV 11/21/17 13:00 11/21/17 13:20 Fentanyl Citrate 250 ml @ 5 mls/hr TITRATE PRN IV SEDATION 11/21/17 13:00 Artificial Tears (Tears Naturale Opth Soln) 1 drop TID EACH EYE 11/21/17 13:00 Albuterol/ Ipratropium (Duoneb Neb) 1 ampule Q6HR NEB INH 11/21/17 16:00 Albuterol/ Ipratropium (Duoneb Neb) 1 ampule Q2HR NEB PRN INH WHEEZING 11/21/17 13:00 Senna/Docusate Sodium (Luisa-Colace) 1 tab BID PO 11/21/17 21:00 Chlorhexidine Gluconate (Peridex 0.12% Liq) 15 ml BID@08,20 MT 11/21/17 20:00 Potassium Chloride/Sodium Chloride 1,000 ml @ 100 mls/hr Q10H IV 11/21/17 15:00 Cefazolin Sodium/ Dextrose 50 ml @ 100 mls/hr Q8H IV 11/21/17 15:00 11/22/17 07:29 UNV Levetriacetam 500 mg/Sodium Chloride 105 ml @ 400 mls/hr Q12H IV 11/21/17 18:00 Bisacodyl (Dulcolax Supp) 10 mg DAILY PRN RECTAL CONSTIPATION 11/21/17 15:00 Docusate Sodium (Colace) 100 mg BID PO 11/21/17 21:00 Pantoprazole Sodium (Protonix) 40 mg DAILY PO 11/22/17 09:00 Pantoprazole Sodium (Protonix Inj) 40 mg DAILY IVP 11/22/17 09:00 Ondansetron HCl (Zofran Inj) 4 mg Q6H PRN IV PUSH NAUSEA OR VOMITING 11/21/17 15:00 Calcium Gluconate (Calcium Gluconate Inj) 1 gm UNSCH PRN IV SEE LABEL COMMENTS 11/21/17 15:00 Potassium Chloride 100 ml @ 50 mls/hr UNSCH PRN IV POTASSIUM LESS THAN 4 11/21/17 15:00 Magnesium Sulfate 4 gm/Sodium Chloride 108 ml @ 108 mls/hr UNSCH PRN IV MAGNESIUM LESS THAN 2 11/21/17 15:00 Acetaminophen/ Hydrocodone Bitart (Temple 10-325 Mg) 1 tab Q4H PRN PO PAIN SCALE 1 TO 5 11/21/17 15:00 Acetaminophen/ Hydrocodone Bitart (Temple 10-325 Mg) 2 tab Q4H PRN PO PAIN SCALE 6 TO 10 11/21/17 15:00 Morphine Sulfate (Morphine Inj) 2 mg Q2H PRN IV PUSH PAIN SCALE 1 TO 6 11/21/17 15:00 Morphine Sulfate (Morphine Inj) 4 mg Q2H PRN IV PUSH PAIN SCALE 7 TO 10 11/21/17 15:00 Acetaminophen (Tylenol) 650 mg Q4H PRN PO TEMPERATURE > 101.5 F 11/21/17 15:00 Family History cannot obtain, pt intubated Social History cannot obtain, but reports of opioid abuse (Trisha Carlisle) Physical Exam Vital Signs Vital Signs Date Time Temp Pulse Resp B/P (MAP) Pulse Ox O2 Delivery O2 Flow Rate FiO2 11/21/17 10:00 94 Nasal Cannula 2.00 11/21/17 06:00 101 11/21/17 05:00 99 36 157/94 (115) 95 11/21/17 04:30 108 34 170/97 (121) 94 11/21/17 04:00 109 11/21/17 04:00 100.6 109 36 149/92 (111) 97 11/21/17 03:30 111 34 146/96 (113) 96 11/21/17 03:00 106 35 144/85 (104) 96 11/21/17 02:30 109 34 155/95 (115) 96 11/21/17 02:00 112 34 163/96 (118) 97 11/21/17 02:00 112 11/21/17 01:30 109 35 165/96 (119) 96 11/21/17 01:00 112 35 163/99 (120) 97 11/21/17 00:30 99.0 110 36 172/99 (123) 97 11/21/17 00:00 107 35 168/98 (121) 96 11/21/17 00:00 107 11/20/17 23:30 111 35 178/107 (130) 95 11/20/17 23:00 104 33 166/98 (120) 94 11/20/17 23:00 107 11/20/17 22:30 109 37 177/102 (127) 96 11/20/17 22:00 109 11/20/17 22:00 109 38 176/103 (127) 96 11/20/17 21:30 108 37 180/105 (130) 96 11/20/17 21:00 104 37 189/97 (127) 95 11/20/17 20:30 104 34 96 11/20/17 20:00 103 11/20/17 20:00 98.8 103 35 175/98 (123) 100 11/20/17 19:45 97 Nasal Cannula 3.00 11/20/17 19:00 96 Nasal Cannula 4.00 11/20/17 18:00 91 11/20/17 16:00 98.2 83 20 140/78 (98) 99 11/20/17 16:00 83 11/20/17 15:00 93 11/20/17 14:00 87 Physical Exam The patient is intubated and sedated. Minimally responsive to painful stimulii Cranial Nerves: Pupils equal, round, reactive to light. Eyes appear conjugated. There was no nystagmus, no papilledema. Face musculature appeared symmetrical at rest. Face sensation, olfaction, visual dunn, and hearing cannot be adequately assessed due to his neurological condition. The patient has a corneal reflex. He has a gag reflex. The sternocleidomastoid and trapezius are symmetrical. Cervical Spine: His neck is soft, supple, without nuchal rigidity. Motor: Minimal response to pain Reflexes: Deep tendon reflexes are 1+ and symmetrical in the biceps, triceps, and brachioradialis, bilaterally, in the upper extremities. In the lower extremities, the patellar and ankles are 1+, bilaterally. There is a bilateral plantar flexion response. There is no clonus Sensory: On examination there is minimal response to painful stimuli Cerebellar: Examination cannot be adequately assessed due to the patient's neurological condition. Lungs clear heart. regular rhythm and rate Abdomen soft, benign Skin warm and dry Laboratory Laboratory Tests Test 11/20/17 19:23 11/21/17 03:22 11/21/17 12:27 Potassium Level 4.8 3.4 4.5 Phosphorus Level 2.4 3.5 White Blood Count 11.6 Red Blood Count 4.62 Hemoglobin 14.2 Hematocrit 41.9 Mean Corpuscular Volume 90.8 Mean Corpuscular Hemoglobin 30.7 Mean Corpuscular Hemoglobin Concent 33.8 Red Cell Distribution Width 15.1 Platelet Count 251 Mean Platelet Volume 8.3 Neutrophils (%) (Auto) 84.7 Lymphocytes (%) (Auto) 7.7 Monocytes (%) (Auto) 6.6 Eosinophils (%) (Auto) 0.4 Basophils (%) (Auto) 0.6 Neutrophils # (Auto) 9.8 Lymphocytes # (Auto) 0.9 Monocytes # (Auto) 0.8 Eosinophils # (Auto) 0.0 Basophils # (Auto) 0.1 CBC Comment DIFF FINAL Differential Comment Erythrocyte Sedimentation Rate 28 Blood Urea Nitrogen 9 Creatinine 0.67 Random Glucose 101 Total Protein 6.8 Albumin 2.6 Calcium Level 7.7 Magnesium Level 1.5 Alkaline Phosphatase 80 Aspartate Amino Transf (AST/SGOT) 95 Alanine Aminotransferase (ALT/SGPT) 176 Total Bilirubin 1.3 Sodium Level 131 Chloride Level 93 Carbon Dioxide Level 26.6 Anion Gap 11 Estimat Glomerular Filtration Rate 117 Total Creatine Kinase 97 Free Thyroxine 1.04 Thyroid Stimulating Hormone 3rd Gen 13.800 Rapid Plasma Reagin NON-REACTIVE Date/Time Source Procedure Growth Status 11/17/17 22:00 Blood Peripheral Aerobic Blood Culture - Preliminary NO GROWTH IN 4 DAYS Resulted 11/17/17 22:00 Blood Peripheral Anaerobic Blood Culture - Preliminary NO GROWTH IN 4 DAYS Resulted 11/18/17 06:00 Sputum Endotracheal Gram Stain - Final Complete 11/18/17 06:00 Sputum Culture - Final Klebsiella Oxytoca Staphylococcus Aureus Complete (Rodríguez Rose MD) Result Diagram: 11/21/17 0322 11/21/17 1227 Attending Statement I reviewed his radiological studies Brain MRI 11/21/17 8310 Signed Impressions: Service Date/Time: Tuesday, November 21, 2017 10:11 - CONCLUSION: 1. 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 2. Scattered nonspecific white matter signal change. No focal abnormal areas of enhancement. 3. Small focal area of restricted diffusion in the left posterior medial cerebellar hemisphere suggesting an acute infarction; however, no signal abnormality is seen in this area on any of the other pulse sequences. Oswaldo Alicea MD Skull X-Ray 11/21/17 0000 Signed Impressions: Service Date/Time: Tuesday, November 21, 2017 09:47 - CONCLUSION: No contraindication to MRI seen. Oswaldo Alicea MD Chest X-Ray 11/21/17 0000 Signed Impressions: Service Date/Time: Tuesday, November 21, 2017 12:19 - CONCLUSION: 1. Interval intubation and placement of nasogastric tube. 2. Mild improvement in right upper lobe infiltrate. Lenin Kelley MD Chest X-Ray 11/21/17 Signed Impressions: Service Date/Time: Tuesday, November 21, 2017 09:40 - CONCLUSION: Improving interstitial infiltrates. Possible small left pleural effusion. Oswaldo Alicea MD Abdomen X-Ray 11/21/17 0000 Signed Impressions: Service Date/Time: Tuesday, November 21, 2017 09:45 - CONCLUSION: No contraindication to MRI seen. Oswaldo Alicea MD Severe traumatic brain injury, neuro checks in a serial fashion. An emergency decompressive craniotomy is indicated in attempt to save his life. A follow-up CT of the head will be obtained in 24-48 hours. Placement of an intracranial pressure monitor via ventriculostomy is indicated as recommended by the [place] [employer] of neurological surgeons. This patient is in a truly critical condition at risk for neurological deterioration. If he developed worsening, he may need to go to the operating room for an emergency surgical intervention in an attempt to save his life Hyperosmolar treatment with hyperosmotic solutions Keppra for seizure prophylaxis Monitor end tidal PCO2 He is at a very debilitated condition and at very high surgical risk. no family available for counseling Full mechanical ventilation. Aggressive pulmonary toilette, nasotracheal suction , and breathing treatments with nebulizers. Nutrition. NPO Renal. monitor closely urine output, BUN and creatinine Wasserman in place. Monitor intake and output. Monitor electrolyte. Replace electrolytes as indicate per ICU electrolyte replacement protocol. HEME: Monitor CBC ENDO: Acute hyperglycemia Monitor glucose every 6 hours and administer low-dose insulin sliding scale as needed No family contact available. Patient is critically ill with severe TBI requiring emergent therapy for intracerebral hypertension to prevent herniation Point Value = 1 Point Value = 2 Point Value = 3 Point Value = 5 Age 41-60 Minor surgery BMI > 25 kg/m2 Swollen legs Varicose veins or History of unexplained or recurrent spontaneous Oral contraceptives or hormone replacement Sepsis (< 1 month) Serious lung disease, including pneumonia (< 1 month) Abnormal pulmonary function Acute myocardial infarction Congestive heart failure (< 1 month) History of inflammatory bowel disease Medical patient at bed rest Age 61-74 Arthroscopic surgery Major open surgery (> 45 min) Laparoscopic surgery (> 45 min) Malignancy Confined to bed (> 72 hours) Immobilizing plaster cast Central venous access Age >= 75 History of VTE Family history of VTE Factor V Leiden Prothrombin [id number] Lupus anticoagulant Anticardiolipin antibodies Elevated serum homocysteine Heparin-induced thrombocytopenia Other congenital or acquired thrombophilia Stroke (< 1 month) Elective arthroplasty Hip, pelvis, or leg fracture Acute spinal cord injury (< 1 month) Giovany manley and SCD's for DVT prophylaxis. Further recommendations will depend on his clinical evaluation and radiological studies (Rodríguez Rose MD) Rodríguez Rose MD November 21, 2017 13:46 Trisha Carlisle November 21, 2017 16:52
[2017-11-21] MEDS ORDERED: CALCIUM GLUCONATE 10% 1 GM/10 ML VIAL IV PRN (15:00)
[2017-11-21] MEDS ORDERED: MAGNESIUM SULFATE INJ 4 GM in SODIUM CHLORIDE 0.9% INJ 100 ML IV PRN (15:00)
[2017-11-21] MEDS ORDERED: MORPHINE SULFATE 4 MG/ML INJ IV PUSH PRN ×2 (15:00)
[2017-11-21] MEDS ORDERED: ONDANSETRON HCL 4 MG/2 ML VIAL IV PUSH PRN (15:00)
[2017-11-21] MEDS: NS + KCL 20 MEQ INJ 1,000 ML IV SCH (15:00)
[2017-11-21] MEDS ORDERED: ACETAMINOPHEN 325 MG TAB PO PRN (15:00)
[2017-11-21] MEDS ORDERED: BISACODYL 10 MG SUPP RECTAL PRN (15:00)
[2017-11-21] MEDS ORDERED: POTASSIUM CHLOR 20 MEQ PREMIX 100 ML IV PRN (15:00)
[2017-11-21] MEDS ORDERED: BACITRACIN TOP OINT 15 GM TUBE ONE (15:56)
[2017-11-21] MEDS ORDERED: RESP: ALBUTEROL 2.5 MG/IPRATROPIUM 0.5 MG NEB (SCH) INH (16:00)
[2017-11-21] MEDS ORDERED: ceFAZolin 2 GM PREMIX 50 ML IV SCH (16:00)
--- NOTE | 2017-11-21 16:27 | PD.OP ---
Operative Report Date of Surgery: November 21, 2017 Preoperative Diagnosis: Right hemispheric acute subdural hematoma Postoperative Diagnosis: Right hemispheric acute subdural hematoma Procedure: Right frontaltemporalparietal craniotomy with evacuation of subdural hematoma Anesthesia: general endotracheal Surgeon: Rodríguez Rose Tinsmith Helper(s): Cassia Warner Operation and Findings: INDICATIONS FOR THE PROCEDURE mr Dalton is an 72 year old adult male who was brought to [facility] and developed acute mental status changes. MRI brain showed a large right sided acute subdural hematoma with mass effect, midline shift of 0.8cm and radiological evidence of herniation A surgical decompression was indicated as recommended by the Trauma Comm[employer] of [place] [employer]geon[employer] in an attempt to save the patient 's life DETAILS OF THE SURGICAL PROCEDURE The patient was endotracheally intubated and mechanically ventilated. A Wasserman catheter, bilateral RENEE hose and sequential compression devices were placed and kept throughout the procedure. The patient was positioned supine on a 3080 table over a soft mattress. The eyes were tapped shut after ointment was applied by the anesthesiologist to prevent corneal abrasion. A Ramiro hug kell was placed over the exposed lower body to maintain control of the core body temperature. The head was placed on a gel doughnut. All pressure points were carefully padded with egg crate mattress. The frontotemporal parietal area was shaved, prepped and draped in the usual sterile fashion. A standard inverted question masoud incision was outlined on the scalp and infiltrated with 1% lidocaine with epinephrine. The skin incision was made with a #10 blade down to the level of the periosteum in the right frontoparietal region and to the temporalis fascia in the temporal region. Sebastian clips were applied to the scalp. Using a Bovie, the temporalis fascia and muscle were incised and a subperiosteal dissection was performed reflecting the scalp flap anteriorly. The scalp was covered with a moist sponge and held in position using fish hooks. The TPS drill was brought to the field and a bur hole was made in the temporal region using the craniotome attachment. Then, using the footplate attachment, a large frontotemporoparietal craniotomy flap was elevated. The dura was bulging, very tense with severe pressure and an underlying dark coloration related to the acute subdural hematoma. The dura was opened with a 15 blade and metzembaun scissors and a large subdural hematoma was found, causing significant mass effect. The hematoma was evacuated by gentle irrigation and sent to the lab for histologic analysis. The bleeding was controlled using the bipolar private investigator surveillance. Then the incision was irrigated with saline solution. The dural edges were tacked to the bone. The craniotomy flap was then repositioned and secured in place using Striker plates and screws. A 7 millimeter Miguel Angel-Ramsay drain was then left in the subdural and one in the subgaleal space and externalized through a separate stab incision. The incision was then closed in layers. 0 Vicryl in interrupted sutures were used to close the temporalis fascia. The galea was closed with interrupted 3- 0 Vicryl. Jackson were applied to the skin. The drains were secured with a 3- 0 nylon. At the end of the procedure, the sponge, needle and instrument counts were all correct. Estimated blood loss was less than 70 cc. No blood transfusion was given. No intraoperative complications occurred. The patient received prophylactic antibiotics. The patient was then transferred to the recovery room in stable condition. Rodríguez Rose MD November 21, 2017 16:27
[2017-11-21] MEDS ORDERED: DO NOT ADM ANY ANTICOAGULANT DRUGS PRN (16:29)
--- NOTE | 2017-11-21 16:29 | PD.OP ---
Operative Report Date of Surgery: November 21, 2017 Preoperative Diagnosis: Right acute subdural hematoma Postoperative Diagnosis: Right acute subdural hematoma Procedure: Left frontal bur hole with placement of an intracranial pressure monitor. Anesthesia: general Surgeon: Rodríguez Rose Clinical Informatics Spec(s): CODI Operation and Findings: INDICATIONS FOR THE PROCEDURE Mr Dalton is an 72 year old adult male who was brought to [facility] and developed acute mental status changes. MRI brain showed a large right sided acute subdural hematoma with mass effect, midline shift of 0.8cm and radiological evidence of herniation A surgical decompression was indicated as recommended by the Trauma Commitee of [place] [employer] of Neurological Surgeonbs in an attempt to save the patient 's life DETAILS OF THE SURGICAL PROCEDURE The left frontal area was shaved, prepped and draped in the usual sterile fashion. An entry point was selected behind the hairline, approximately 30 mm lateral to the midline. The incision was infiltrated with 1% lidocaine with epinephrine 1:100,000 dilution. A small incision was made with a 15 blade down to the level of the periosteum. Using a twist drill a ash hole was made. The dura was opened with a blunt stylet, and a [place] bolt was secured to the bone. A fiberoptic transducer was calibrated according to the laundry agent's instructions, and advanced into the parenchyma of the frontal lobe through the bolt. An intracranial pressure of 5 mmHg was achieved with a good waveform. A Betadine sterile dressing was applied. The patient tolerated the procedure well. There were no intraoperative complications. Blood loss was minimal. Rodríguez Rose MD November 21, 2017 16:29
[2017-11-21] MEDS ORDERED: PHENYLEPHRINE HCL 10 MG/ML VIAL ONE ×2 (16:34→16:40)
[2017-11-21] MEDS ORDERED: MIDAZOLAM HCL 2 MG/2 ML VIAL ONE (16:58)
[2017-11-21 17:22] LABS: AUTOMATED NEUTROPHIL # 12.7 TH/MM3 (1.8-7.7); EOSINOPHIL % 0.2 % (0.0-4.0); HEMATOCRIT 37.9 % (39.0-51.0); HEMOGLOBIN 12.8 GM/DL (13.0-17.0); LYMPH % 6.9 % (9.0-44.0); MEAN CELL VOLUME 92.2 FL (80.0-100.0); MEAN CORPUSCULAR HGB CONC 33.6 % (32.0-36.0); MEAN PLATELET VOLUME 8.2 FL (7.0-11.0); MONO % 7.5 % (0.0-8.0); MONOCYTE # 1.1 TH/MM3 (0-0.9); NEUT % 85.4 % (16.0-70.0); PLATELET COUNT 260 TH/MM3 (150-450); RED BLOOD COUNT 4.11 MIL/MM3 (4.50-5.90); WHITE BLOOD COUNT 14.9 TH/MM3 (4.0-11.0)
--- NOTE | 2017-11-21 17:35 | RADRPT ---
EXAM DATE/TIME: 11/21/2017 16:55 [place] COMPARISON: CHEST SINGLE AP, November 21, 2017, 12:19. INDICATIONS : Central line placement. MEDICAL HISTORY : None. SURGICAL HISTORY : None. ENCOUNTER: Subsequent ACUITY: 1 week PAIN SCORE: 0/10 LOCATION: Bilateral chest FINDINGS: Stable ETT and NGT. Interval placement of left subclavian central line with tip at the caval junction . There is a new small subpulmonic pneumothorax on the left. Persistent right upper lobe infiltrate. Cardiomediastinal contours are stable. Remainder of the exam is unchanged. CONCLUSION: 1. Left subclavian central line in good position. 2. New left-sided small subpulmonic pneumothorax. 3. Persistent right upper lobe infiltrate. Nolan Alva MD on November 21, 2017 at 17:31 Board Certified Radiologist. This report was verified electronically.
[2017-11-21 17:45] LABS: BICARBONATE 27.9 MEQ/L (21.0-32.0); CALCIUM 6.9 MG/DL (8.5-10.1); CREATININE 0.84 MG/DL (0.60-1.30)
[2017-11-21 18:03] LABS: CALCIUM-PROTEIN CORRECTED 7.5 MG/DL (8.5-10.1); TOTAL PROTEIN 5.9 GM/DL (6.4-8.2)
--- NOTE | 2017-11-21 18:05 | MB ---
cc: Yuriy Land MD DATE: 11/21/2017 Repeat EEG. Right subdural with history of seizures. Recording shows some left hemisphere 3 Hz slowing, what could be described as some attenuation of the background on the right. No seizure activity is seen. No epileptiform activity is noted. Photic stimulation is performed without significant posterior driving. IMPRESSION: Some slowing in the left hemisphere. No seizure activity was noted. MD KURTIS Angel/GERSON , 05:57 PM , 06:05 PM
[2017-11-21 18:16] LABS: BANDS 3 % (0-6); LYMPHOCYTES 9 % (9-44); METAMYELOCYTES 1 % (0-1); MONOCYTES 1 % (0-8); NEUTROPHIL # MANUAL DIFF 13.4 TH/MM3 (1.8-7.7); POLYS (SEG NEUTROPHILS) 83 % (16-70); PROMYELOCYTES 3 % (0-0); TOXIC GRANULATION 1+ (NORMAL)
[2017-11-21 18:42] LABS: HEMOGLOBIN A1C 5.5 % (4.3-6.0)
[2017-11-21] MEDS: CEFEPIME INJ 2,000 MG in SODIUM CHLORIDE 0.9% INJ 100 ML IV SCH (20:50)
[2017-11-21] MEDS: cefTRIAXone INJ 2,000 MG in SODIUM CHLORIDE 0.9% INJ 100 ML IV SCH (20:50)
[2017-11-21] MEDS: DOCUSATE SODIUM 100 MG CAP PO SCH (20:51)
[2017-11-22] VITALS (18 sets, daily range): BP systolic 102–146; BP diastolic 54–65; PULSE 56–105; RESP 18–22; TEMP 97.6–98.8; O2SAT 97–100
[2017-11-22] MEDS: PROPOFOL 1000 MG/100 ML INJ 100 ML IV PRN (00:26)
[2017-11-22] MEDS: NS + KCL 20 MEQ INJ 1,000 ML IV SCH ×2 (01:00→20:53)
[2017-11-22] MEDS: fentaNYL DRIP 250 ML IV PRN ×2 (01:05→22:05)
[2017-11-22] MEDS: SODIUM CHLOR 0.9% 1000 ML INJ 1,000 ML IV SCH ×2 (02:00→10:00)
[2017-11-22] MEDS: CHLORHEXIDINE GLUCONATE 2 % 1 PACK (2 CLOTHS) TOP SCH (04:00)
[2017-11-22 05:17] LABS: AUTOMATED NEUTROPHIL # 14.6 TH/MM3 (1.8-7.7); BASOPHIL % 0.1 % (0.0-2.0); HEMOGLOBIN 12.4 GM/DL (13.0-17.0); LYMPH % 4.4 % (9.0-44.0); LYMPHOCYTE # 0.7 TH/MM3 (1.0-4.8); MEAN CELL VOLUME 91.7 FL (80.0-100.0); MEAN CORPUSCULAR HEMOGLOBIN 30.7 PG (27.0-34.0); MEAN CORPUSCULAR HGB CONC 33.5 % (32.0-36.0); MEAN PLATELET VOLUME 8.5 FL (7.0-11.0); MONO % 6.8 % (0.0-8.0); MONOCYTE # 1.1 TH/MM3 (0-0.9); NEUT % 88.7 % (16.0-70.0); PLATELET COUNT 246 TH/MM3 (150-450); RED BLOOD COUNT 4.03 MIL/MM3 (4.50-5.90); RED CELL DISTRIBUTION WIDTH 14.8 % (11.6-17.2); WHITE BLOOD COUNT 16.5 TH/MM3 (4.0-11.0)
[2017-11-22 05:40] LABS: ALBUMIN 2.2 GM/DL (3.4-5.0); ALT (GPT) 153 U/L (12-78); AST (GOT) 104 U/L (15-37); BICARBONATE 25.1 MEQ/L (21.0-32.0); BLOOD UREA NITROGEN 22 MG/DL (7-18); CALCIUM 7.6 MG/DL (8.5-10.1); CHLORIDE 107 MEQ/L (98-107); CREATININE 0.74 MG/DL (0.60-1.30); GLOMERULAR FILTRATION RATE 104 ML/MIN (>89); GLUCOSE,RANDOM 131 MG/DL (74-106); PHOSPHORUS 3.3 MG/DL (2.5-4.9); SODIUM (NA) 140 MEQ/L (136-145)
[2017-11-22 05:42] LABS: ALKALINE PHOSPHATASE 61 U/L (45-117); TOTAL BILIRUBIN ADULT 0.6 MG/DL (0.2-1.0)
[2017-11-22] MEDS: levETIRAcetam INJ 500 MG in SODIUM CHLORIDE 0.9% INJ 100 ML IV SCH ×4 (06:00→18:22)
[2017-11-22] MEDS: LEVOTHYROXINE SODIUM 100 MCG VIAL IV PUSH SCH (06:30)
[2017-11-22 06:43] LABS: BANDS 2 % (0-6); LYMPHOCYTES 1 % (9-44); METAMYELOCYTES 2 % (0-1); MONOCYTES 4 % (0-8); MYELOCYTES 1 % (0-0); NEUTROPHIL # MANUAL DIFF 15.7 TH/MM3 (1.8-7.7); POLYS (SEG NEUTROPHILS) 90 % (16-70)
--- NOTE | 2017-11-22 07:41 | HHI.PR ---
Subjective Remarks post op intubated fully sedated with bolt Objective Vital Signs Date Time Temp Pulse Resp B/P (MAP) Pulse Ox O2 Delivery O2 Flow Rate FiO2 11/22/17 06:00 72 11/22/17 04:00 98.8 70 18 118/65 (82) 100 11/22/17 04:00 86 11/22/17 04:00 60 11/22/17 03:14 100 40 11/22/17 02:00 86 11/22/17 00:00 60 11/22/17 00:00 105 11/22/17 00:00 98.8 105 22 146/57 (86) 99 11/21/17 23:53 100 50 11/21/17 22:00 91 11/21/17 20:00 98.5 91 20 137/74 (95) 100 11/21/17 20:00 60 11/21/17 20:00 91 11/21/17 19:00 95 Mechanical Ventilator 60 11/21/17 18:00 98.4 96 16 124/81 (95) 98 11/21/17 18:00 98.4 96 16 124/81 (95) 98 11/21/17 18:00 96 11/21/17 17:30 96 50 11/21/17 17:00 97.9 93 16 145/81 (102) 98 Mechanical Ventilator 100 11/21/17 16:45 99 14 101/65 (77) 98 Mechanical Ventilator 100 11/21/17 16:40 93 145/81 11/21/17 16:34 94 100/61 11/21/17 16:29 97.9 94 14 100/61 (74) 94 Mechanical Ventilator 100 11/21/17 12:16 98 100 11/21/17 12:00 99.8 113 35 142/85 (104) 94 11/21/17 12:00 113 11/21/17 11:45 100 11/21/17 10:00 94 Nasal Cannula 2.00 11/21/17 10:00 103 11/21/17 08:00 100.1 105 35 197/99 (131) 95 11/21/17 08:00 105 11/21/17 08:00 95 2.00 I/O 11/21/17 11/21/17 11/21/17 11/22/17 11/22/17 11/22/17 07:00 15:00 23:00 07:00 15:00 23:00 Intake Total 1647 ml 1300 ml 30 ml Output Total 2150 ml 2600 ml 700 ml 1225 ml Balance -503 ml -2600 ml 600 ml -1195 ml Intake Oral 0 ml IV Total 1647 ml Other 1300 ml 30 ml Output Urine Total 2150 ml 2600 ml 900 ml Drainage Total 250 ml 325 ml Estimated Blood Loss 50 ml Other 400 ml # Bowel Movements 0 0 Result Diagram: 11/22/17 04411/[id number]/17439 Objective Remarks was moving ble acc to nurse eyes rolled back bilat Assessment and Plan Assessment and Plan imp mri large subdural with midline shift now postop defer to [facility] on Yuriy Meadows MD November 22, 2017 07:41
[2017-11-22] MEDS: CHLORHEXIDINE 0.12% (ORAL KIT) 15 ML CUP MT SCH ×4 (08:00→20:55)
[2017-11-22] MEDS: RESP: ALBUTEROL 2.5 MG/IPRATROPIUM 0.5 MG NEB (SCH) NEB ×3 (08:46→20:53)
[2017-11-22] MEDS: ARTIFICIAL TEARS OPTH SOLN 15 ML BTL EACH EYE SCH ×6 (09:00→18:22)
[2017-11-22] MEDS: PANTOPRAZOLE SOD 40 MG DELAYED RELEASE TAB PO SCH ×3 (09:00→20:55)
[2017-11-22] MEDS: DOCUSATE SODIUM 50 MG/SENNA 8.6 MG TAB PO SCH ×4 (09:00→21:00)
[2017-11-22] MEDS: DOCUSATE SODIUM 100 MG CAP PO SCH ×2 (09:00→20:55)
[2017-11-22] MEDS: MULTIVITAMINS/MINERALS THERAPEUTIC TAB PO SCH (09:11)
[2017-11-22] MEDS: THIAMINE HCL 100 MG TAB PO SCH (09:11)
[2017-11-22] MEDS: FOLIC ACID 1 MG TAB PO SCH (09:11)
[2017-11-22] MEDS: CEFEPIME INJ 2,000 MG in SODIUM CHLORIDE 0.9% INJ 100 ML IV SCH ×2 (09:16→22:05)
[2017-11-22] MEDS: PANTOPRAZOLE SODIUM 40 MG VIAL IVP SCH (09:16)
[2017-11-22] MEDS: SODIUM CHLORIDE 0.9% FLUSH 10 ML FLUSH IV FLUSH SCH ×2 (09:16→20:55)
--- NOTE | 2017-11-22 10:13 | HHI.NSPN ---
(Trisha Carlisle) Note Status Status: Progress Note (Trisha Carlisle) Interval History Interval History Mr. Dalton 72-year-old male who had presented to the emergency department via EMS after an accidental overdose of Percocet on 11/17/17. The patient was then found lying in the bathroom on the ground, unresponsive, was administered Narcan 0.4 mg intravenously. Per EMS the patient awakened and was alert. He has a history of chronic opiate use. 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 He was also found with severe aspiration pneumonia and a foreign body in the esophagus removed by GI. This morning he became completely obtunded and not responding to commands. 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 Patient now intubated, 25 g of mannitol has been given. Emergent neurosurgical evaluation requested. 11/22: Status post emergent right frontotemporoparietal craniotomy for evacuation of subdural hematoma, with placement of intracranial pressure monitor yesterday. Patient currently is intubated and sedated. ICPs low. (Trisha Carlisle) Labs, Micro, & Vital Signs Results Date Time Temp Pulse Resp B/P (MAP) Pulse Ox O2 Delivery O2 Flow Rate FiO2 11/22/17 08:46 99 30 11/22/17 06:00 72 11/22/17 04:00 98.8 70 18 118/65 (82) 100 11/22/17 04:00 86 11/22/17 04:00 60 11/22/17 03:14 100 40 11/22/17 02:00 86 11/22/17 00:00 60 11/22/17 00:00 105 11/22/17 00:00 98.8 105 22 146/57 (86) 99 11/21/17 23:53 100 50 11/21/17 22:00 91 11/21/17 20:00 98.5 91 20 137/74 (95) 100 11/21/17 20:00 60 11/21/17 20:00 91 11/21/17 19:00 95 Mechanical Ventilator 60 11/21/17 18:00 98.4 96 16 124/81 (95) 98 11/21/17 18:00 98.4 96 16 124/81 (95) 98 11/21/17 18:00 96 11/21/17 17:30 96 50 11/21/17 17:00 97.9 93 16 145/81 (102) 98 Mechanical Ventilator 100 11/21/17 16:45 99 14 101/65 (77) 98 Mechanical Ventilator 100 11/21/17 16:40 93 145/81 11/21/17 16:34 94 100/61 11/21/17 16:29 97.9 94 14 100/61 (74) 94 Mechanical Ventilator 100 11/21/17 12:16 98 100 11/21/17 12:00 99.8 113 35 142/85 (104) 94 11/21/17 12:00 113 11/21/17 11:45 100 11/23/17 07:00 Intake Total 100 ml Balance 100 ml Constitutional Vital Signs Date Time Temp Pulse Resp B/P (MAP) Pulse Ox O2 Delivery O2 Flow Rate FiO2 11/22/17 08:46 99 30 11/22/17 06:00 72 11/22/17 04:00 98.8 70 18 118/65 (82) 100 11/22/17 04:00 86 11/22/17 04:00 60 11/22/17 03:14 100 40 11/22/17 02:00 86 11/22/17 00:00 60 11/22/17 00:00 105 11/22/17 00:00 98.8 105 22 146/57 (86) 99 11/21/17 23:53 100 50 11/21/17 22:00 91 11/21/17 20:00 98.5 91 20 137/74 (95) 100 11/21/17 20:00 60 11/21/17 20:00 91 11/21/17 19:00 95 Mechanical Ventilator 60 11/21/17 18:00 98.4 96 16 124/81 (95) 98 11/21/17 18:00 98.4 96 16 124/81 (95) 98 11/21/17 18:00 96 11/21/17 17:30 96 50 11/21/17 17:00 97.9 93 16 145/81 (102) 98 Mechanical Ventilator 100 11/21/17 16:45 99 14 101/65 (77) 98 Mechanical Ventilator 100 11/21/17 16:40 93 145/81 11/21/17 16:34 94 100/61 11/21/17 16:29 97.9 94 14 100/61 (74) 94 Mechanical Ventilator 100 11/21/17 12:16 98 100 11/21/17 12:00 99.8 113 35 142/85 (104) 94 11/21/17 12:00 113 11/21/17 11:45 100 11/23/17 07:00 Intake Total 100 ml Balance 100 ml (Trisha Carlisle) Physical Exam Mr. Dalton is intubated and sedated. Incision clean and dry with head dressing in place. FRITZ drains 2 with moderate serosanguineous drainage. Left ICP monitor, ICPs -15 Cranial Nerves: Pupils equal. Slight upward gaze. Cervical Spine: soft, supple, without nuchal rigidity. Motor: No response to upper extremities, mild withdrawals to both feet with stimuli Reflexes: Bilateral Babinski response Cerebellar: cannot be adequately assessed due to the patient's clinical condition (Trisha Carlisle) Medications Current Medications Current Medications Medications (Trade) Dose Ordered Sig/Nataly Route PRN Reason Start Time Stop Time Status Last Admin Dose Admin Sodium Chloride (NS Flush) 2 ml UNSCH PRN IVF FLUSH AFTER USING IV ACCESS 11/17/17 20:15 Sodium Chloride 1,000 ml @ 125 mls/hr Q8H IV 11/17/17 22:40 11/21/17 04:44 Sodium Chloride (NS Flush) 2 ml UNSCH PRN IV FLUSH FLUSH AFTER USING IV ACCESS 11/17/17 22:45 Sodium Chloride (NS Flush) 2 ml BID IV FLUSH 11/18/17 09:00 11/22/17 09:16 Acetaminophen (Tylenol) 650 mg Q6H PRN PO PAIN 1-5 AND/OR FEVER >101F 11/17/17 22:45 Artificial Tears (Tears Naturale Opth Soln) 1 drop TID EACH EYE 11/18/17 09:00 Ondansetron HCl (Zofran Inj) 4 mg Q6H PRN IV PUSH NAUSEA OR VOMITING 11/17/17 22:45 Albuterol/ Ipratropium (Duoneb Neb) 1 ampule Q2HR NEB PRN INH WHEEZING 11/17/17 22:45 Miscellaneous Information ([facility] [place] Nursing Information) 1 [id number] XX 11/17/17 22:45 11/18/17 00:59 Chlorhexidine Gluconate (Chlorhexidine 2% Cloth) 3 pack Taper DAILY@04 TOP 11/18/17 04:00 11/14/18 03:59 11/22/17 04:00 Chlorhexidine Gluconate (Chlorhexidine 2% Cloth) 3 pack UNSCH PRN TOP HYGIENIC CARE 11/17/17 22:45 Senna/Docusate Sodium (Luisa-Colace) 1 tab BID PO 11/18/17 09:00 11/22/17 09:11 Magnesium Hydroxide (Milk Of Magnesia Liq) 30 ml Q12H PRN PO Mild constipation 11/17/17 22:45 Sennosides (Senokot) 17.2 mg Q12H PRN PO Moderate constipation 11/17/17 22:45 Bisacodyl (Dulcolax Supp) 10 mg DAILY PRN RECTAL SEVERE CONSITIPATION/ IF NPO 11/17/17 22:45 Lactulose (Lactulose Liq) 30 ml DAILY PRN PO SEVERE CONSITIPATION/ IF PO 11/17/17 22:45 Chlorhexidine Gluconate (Peridex 0.12% Liq) 15 ml BID@08,20 MT 11/18/17 08:00 11/21/17 20:00 Potassium Chloride 100 ml @ 50 mls/hr Q2H PRN IV For Potassium 2.8 - 3.2 mEq/L 11/17/17 23:30 Potassium Chloride 100 ml @ 50 mls/hr Q2H PRN IV For Potassium 2.8 - 3.2 mEq/L 11/17/17 23:30 11/20/17 12:21 Potassium Bicarb/ Potassium Chloride (K-Lyte Cl Eff) 50 meq UNSCH PRN PO For Potassium 3.3 - 3.5 mEq/L 11/17/17 23:30 Potassium Chloride 100 ml @ 25 mls/hr UNSCH PRN IV For Potassium 3.3 - 3.5 mEq/L 11/17/17 23:30 Magnesium Sulfate 4 gm/Sodium Chloride 100 ml @ 50 mls/hr UNSCH PRN IV For Magnesium 0.9 - 1.1 mg/dL 11/17/17 23:30 Magnesium Oxide (Mag-Ox) 800 mg UNSCH PRN PO For Magnesium 1.2 - 1.6 mg/dL 11/17/17 23:30 Magnesium Sulfate 2 gm/Sodium Chloride 100 ml @ 50 mls/hr UNSCH PRN IV For Magnesium 1.2 - 1.6 mg/dL 11/17/17 23:30 11/21/17 11:54 Potassium Phosphate (K-Phos) 2,000 mg Q4H PRN PO For Phosphorus < 2.5 mg/dL 11/17/17 23:30 11/20/17 14:59 Sodium Phosphate 30 mmol/Sodium Chloride 250 ml @ 42 mls/hr UNSCH PRN IV For Phosphorus < 2.5 mg/dL 11/17/17 23:30 11/20/17 21:44 Potassium Phosphate (K-Phos) 2,000 mg UNSCH PRN PO/TUBE SEE LABEL COMMENTS 11/17/17 23:30 Potassium Phosphate 30 mmol/ Sodium Chloride 260 ml @ 42 mls/hr UNSCH PRN IV SEE LABEL COMMENTS 11/17/17 23:30 Pantoprazole Sodium (Protonix) 40 mg Q12HR PO 11/19/17 21:00 11/21/17 20:50 Folic Acid (Folate) 1 mg DAILY PO 11/20/17 13:00 11/25/17 12:59 11/22/17 09:11 Thiamine HCl (Vitamin B1) 100 mg DAILY PO 11/20/17 13:00 11/22/17 09:11 Multivitamins/ Minerals Therapeutic (Theragran M Tab) 1 tab DAILY PO 11/20/17 13:00 11/25/17 12:59 11/22/17 09:11 Clonidine (Catapres) 0.1 mg Q6H PRN PO SEE LABEL COMMENTS 11/20/17 13:00 Flumazenil (Romazicon Inj) 0.2 mg Q1M PRN IV PUSH SEE LABEL COMMENTS 11/20/17 13:00 Levetriacetam 500 mg/Sodium Chloride 105 ml @ 420 mls/hr Q12HR IV 11/20/17 21:00 11/21/17 20:50 Potassium Chloride 20 meq/ Sodium Chloride 110 ml @ 50 mls/hr Q2H PRN IV For Potassium 3.3 - 3.5 mEq/L 11/21/17 05:30 11/21/17 06:43 Levothyroxine Sodium (Synthroid Inj) 25 mcg DAILY@06 IV PUSH 11/22/17 06:00 11/22/17 06:30 Multivitamins 10 ml/Folic Acid 1 mg/Sodium Chloride 510.2 ml @ 125 mls/hr Q24H IV 11/21/17 13:00 11/26/17 12:59 Thiamine HCl 100 mg/Sodium Chloride 101 ml @ 100 mls/hr Q24H IV 11/21/17 12:00 11/24/17 11:59 Enalaprilat (Vasotec Inj) 1.25 mg Q6H PRN IV PUSH SEE LABEL COMMENTS 11/21/17 10:45 Labetalol HCl (Trandate Inj) 10 mg Q6H PRN IV PUSH SEE LABEL COMMENTS 11/21/17 10:45 Hydralazine HCl (Apresoline Inj) 10 mg Q6H PRN IV PUSH SEE LABEL COMMENTS 11/21/17 10:45 Propofol 100 ml @ 1.815 mls/ hr TITRATE PRN IV SEDATION 11/21/17 12:00 11/22/17 00:26 Sodium Chloride 188 meq/Sodium Chloride 1,047 ml @ 20 mls/hr Q24H IV 11/21/17 13:00 11/21/17 13:20 Fentanyl Citrate 250 ml @ 5 mls/hr TITRATE PRN IV SEDATION 11/21/17 13:00 11/22/17 01:05 Artificial Tears (Tears Naturale Opth Soln) 1 drop TID EACH EYE 11/21/17 13:00 11/22/17 09:00 Albuterol/ Ipratropium (Duoneb Neb) 1 ampule Q2HR NEB PRN INH WHEEZING 11/21/17 13:00 Senna/Docusate Sodium (Luisa-Colace) 1 tab BID PO 11/21/17 21:00 Chlorhexidine Gluconate (Peridex 0.12% Liq) 15 ml BID@08,20 MT 11/21/17 20:00 11/22/17 08:52 Potassium Chloride/Sodium Chloride 1,000 ml @ 100 mls/hr Q10H IV 11/21/17 15:00 11/22/17 01:00 Levetriacetam 500 mg/Sodium Chloride 105 ml @ 400 mls/hr Q12H IV 11/21/17 18:00 11/22/17 06:29 Bisacodyl (Dulcolax Supp) 10 mg DAILY PRN RECTAL CONSTIPATION 11/21/17 15:00 Docusate Sodium (Colace) 100 mg BID PO 11/21/17 21:00 Pantoprazole Sodium (Protonix) 40 mg DAILY PO 11/22/17 09:00 Pantoprazole Sodium (Protonix Inj) 40 mg DAILY IVP 11/22/17 09:00 11/22/17 09:16 Ondansetron HCl (Zofran Inj) 4 mg Q6H PRN IV PUSH NAUSEA OR VOMITING 11/21/17 15:00 Calcium Gluconate (Calcium Gluconate Inj) 1 gm UNSCH PRN IV SEE LABEL COMMENTS 11/21/17 15:00 Potassium Chloride 100 ml @ 50 mls/hr UNSCH PRN IV POTASSIUM LESS THAN 4 11/21/17 15:00 Magnesium Sulfate 4 gm/Sodium Chloride 108 ml @ 108 mls/hr UNSCH PRN IV MAGNESIUM LESS THAN 2 11/21/17 15:00 Acetaminophen/ Hydrocodone Bitart ([place] 10-325 Mg) 1 tab Q4H PRN PO PAIN SCALE 1 TO 5 11/21/17 15:00 Acetaminophen/ Hydrocodone Bitart ([place] 10-325 Mg) 2 tab Q4H PRN PO PAIN SCALE 6 TO 10 11/21/17 15:00 Morphine Sulfate (Morphine Inj) 2 mg Q2H PRN IV PUSH PAIN SCALE 1 TO 6 11/21/17 15:00 Morphine Sulfate (Morphine Inj) 4 mg Q2H PRN IV PUSH PAIN SCALE 7 TO 10 11/21/17 15:00 Acetaminophen (Tylenol) 650 mg Q4H PRN PO TEMPERATURE > 101.5 F 11/21/17 15:00 Miscellaneous Information ([facility] [place] Nursing Information) ALL NURSING DEPARTME... UNSCH PRN .XX SEE LABEL COMMENTS 11/21/17 16:29 11/22/17 16:28 Cefepime HCl 2000 mg/Sodium Chloride 100 ml @ 200 mls/hr Q12H IV 11/21/17 21:00 11/22/17 09:16 Albuterol/ Ipratropium (Duoneb Neb) 1 ampule Q6HR WHILE AWAKE NEB NEB 11/21/17 20:00 11/22/17 08:46 Ceftriaxone Sodium 2000 mg/ Sodium Chloride 100 ml @ 200 mls/hr Q24H IV 11/21/17 20:00 11/21/17 20:50 (Trisha Carlisle) Medical Decision Making MDM Remarks 72-year-old male presented initially for opioid overdose, Decline in mental status with MRI showing large right subdural hygroma with 8 mm midline shift Status post emergent right craniotomy for evacuation of large subdural hygroma, placement of ICP monitor on 11/21/2017 (Trisha Carlisle) Plan Plan Remarks Continue ICP monitoring Serial neuro checks for follow-up CT brain now Critical care management nonchemical DVT prophylaxis Seizure prophylaxis GI prophylaxis (Trisha Carlisle) Attending Statement The exam, history, and the medical decision-making described in the above note were completed with the assistance of the mid-level provider. I reviewed and agree with the findings presented. I attest that I had a [id number] encounter with the patient on the same day, and personally performed and documented my assessment and findings in the medical record. (Rodríguez Rose MD) Trisha Carlisle November 22, 2017 10:13 Rodríguez Rose MD November 24, 2017 16:00
--- NOTE | 2017-11-22 11:48 | RADRPT ---
EXAM DATE/TIME: 11/22/2017 11:10 [facility] COMPARISON: MRI BRAIN W & W/O CONTRAST, November 21, 2017, 10:11. INDICATIONS : Evaluate bleed RADIATION DOSE: 44 CTDIvol (mGy) MEDICAL HISTORY : Cerebrovascular disease. Bleed SURGICAL HISTORY : Craniotomy. ENCOUNTER: Initial ACUITY: 2 days PAIN SCALE: Non-responsive LOCATION: cranial TECHNIQUE: Multiple contiguous axial images were obtained of the head. Using automated exposure control and adj ustment of the mA and/or kV according to patient size, radiation dose was kept as low as reasonably a chievable to obtain optimal diagnostic quality images. DICOM format image data is available electro nically for review and comparison. FINDINGS: There has been interval right frontoparietal craniotomy. Skin kaycee are along the scalp and 2 surgi helen drains are present on the right. A left frontal ICP monitor is present. There is high density ext ra-axial collection on the right in a frontal temporal region measuring up to a maximal thickness of 16 mm. It contains a small amount of air. The drains extend along the periphery of this collection. T he remaining extra-axial collection is no longer present. There is a local mass effect on the right f rontal lobe with 2 mm of [id number] midline shift, decreased from 8 mm on the prior study. Ventric les are normal in size. No transtentorial herniation is present. There is a focal area of low density in the left cerebellum measuring 5 mm corresponding with the area of restricted diffusion documented on prior MRI. CONCLUSION: 1. Decreased volume of right subdural blood products with a residual extra-axial blood products remai odalys. The surgical drains extend along the margin of this extra-axial collection. 2. The extra-axial blood products have local mass effect and result in 2 mm of [id number]-pixw midline shift, decreased from the prior study when it measured 8 mm. 3. Focal edema in the left cerebellum likely representing cytotoxic edema in the area of previously d ocumented recent ischemia. Aman Roman MD on November 22, 2017 at 11:41 Board Certified Radiologist. This report was verified electronically.
[2017-11-22] MEDS: THIAMINE INJ 100 MG in SODIUM CHLORIDE 0.9% INJ 100 ML IV SCH (11:59)
[2017-11-22] MEDS: MULTIVITAMIN INJ 10 ML, FOLIC ACID INJ 1 MG in SODIUM CHLORID 0.9% 500 ML INJ 500 ML IV SCH (12:42)
[2017-11-22] MEDS: SODIUM CHLORIDE 23.4% INJ 188 MEQ in SODIUM CHLOR 0.9% 1000 ML INJ 1,000 ML IV SCH (12:43)
--- NOTE | 2017-11-22 13:19 | HHI.CCPN ---
Subjective Remarks/Hospital Course 11/17: 72-year-old male presents to the emergency department via EMS after an accidental overdose. According to EMS the patient took 8 Percocet 5 mg tablets at home earlier today and then an unknown amount of Suboxone from his roommate. The patient was then found lying in the bathroom on the ground, unresponsive, was administered Narcan 0.4 mg intravenously. Per EMS the patient awakened and was alert. In the emergency department he did admit to taking Percocet, however, states he did not take any Suboxone. The patient denies any suicidal ideation, states he was trying to obtain a buzz from the Percocet. He does have a history of chronic opiate use. Upon awakening the patient did ask EMS for more Percocet. Upon arrival the patient does complain of shortness of breath, does have a history of COPD and is on oxygen at home 1 L via nasal cannula. 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 In the emergency department he remained short of breath and the CT of the chest was obtained. This showed severe aspiration pneumonia and the foreign body, coin-like, in the esophagus. The patient was intubated for airway protection by ED attending with a GI consultation in place for upper endoscopy and foreign body removal. 11/18: No events overnight. Patient has been afebrile. Currently, he is intubated and sedated, on mechanical ventilation. No family present at bedside. 11/19: Patient underwent EGD yesterday and per verbal report, he was found to have a nickel in his esophagus. Over the night, patient afebrile, with a T-max of 98.9 and adequate urine output. This a.m. he is off sedation, arousable, appropriate, following commands tolerating CPAP trial. Reconsult [facility] 11/21: Patient completely obtunded not responding to commands. Contacted by neurology secondary to brain imaging studies revealing chronic subdural with a midline shift and an acute infarct. Patient emergently intubated, see procedure note. 25 g of mannitol given. Chest x-ray pending. 11/22: Remains sedated, orally intubated on mechanical ventilation. Underwent left-sided craniectomy on 11/[address] Rose. Objective Vital Signs Date Time Temp Pulse Resp B/P (MAP) Pulse Ox O2 Delivery O2 Flow Rate FiO2 11/22/17 11:30 98 30 11/22/17 06:00 72 11/22/17 04:00 98.8 18 118/65 (82) 11/21/17 19:00 Mechanical Ventilator 11/21/17 10:00 2.00 Intake and Output 11/22/17 11/22/17 11/23/17 08:00 16:00 00:00 Intake Total 30 ml 100 ml Output Total 1225 ml Balance -1195 ml 100 ml Result Diagram: 11/22/17 0440 11/22/17 0440 Other Results Laboratory Tests Test 11/21/17 14:30 11/21/17 17:40 Blood Gas Puncture Site ART LINE Blood Gas Patient Temperature 98.6 98.6 Blood Gas HCO3 27 mmol/L (22-26) 25 mmol/L (22-26) Blood Gas Base Excess 2.9 mmol/L (-2-2) 0.8 mmol/L (-2-2) Blood Gas Oxygen Saturation 97 % (90-100) 90 % (90-100) Arterial Blood pH 7.42 (7.380-7.420) 7.42 (7.380-7.420) Arterial Blood Partial Pressure CO2 43 mmHg (38-42) 39 mmHg (38-42) Arterial Blood Partial Pressure O2 190 mmHg (61-120) 67 mmHg (61-120) Arterial Blood Oxygen Content 21.4 Vol % (12.0-20.0) 17.3 Vol % (12.0-20.0) Arterial Blood Carboxyhemoglobin 1.0 % (0-4) 1.6 % (0-4) Arterial Blood Methemoglobin 1.1 % (0-2) 0.8 % (0-2) Blood Gas Hemoglobin 15.5 G/DL (12.0-16.0) 13.7 G/DL (12.0-16.0) Oxygen Delivery Device VENTILATOR VENTILATOR Blood Gas Inspired Oxygen 59 % 50 % Blood Gas Ventilator Setting AC,18,500,PEEP5 Imaging Last 24 hours Impressions Chest X-Ray 11/18/17 0000 Signed Impressions: Service Date/Time: Saturday, November 18, 2017 03:31 - CONCLUSION: Increasing right upper lobe infiltrates and stable patchy infiltrates in the left lower lung. Oswaldo Alicea MD Chest X-Ray 11/17/172004 Signed Impressions: Service Date/Time: Friday, November 17, 2017 20:11 - CONCLUSION: 1. Right-sided pneumonia, especially upper lobe. 2. Indeterminate radiopaque structure at the level of the thoracic inlet as above. Please correlate visually as to whether this may be overlying the patient. Otherwise, a coin or other foreign object may be in the esophagus. Aman Bermeo MD Last 24 hours Impressions Chest X-Ray 11/17/172004 Signed Impressions: Service Date/Time: Friday, November 17, 2017 20:11 - CONCLUSION: 1. Right-sided pneumonia, especially upper lobe. 2. Indeterminate radiopaque structure at the level of the thoracic inlet as above. Please correlate visually as to whether this may be overlying the patient. Otherwise, a coin or other foreign object may be in the esophagus. Aman Bermeo MD Chest X-Ray 11/17/17 0000 Signed Impressions: Service Date/Time: Friday, November 17, 2017 21:36 - CONCLUSION: Endotracheal tube is appropriately positioned. Bilateral pneumonia persists. Foreign body in the esophagus at the level of the thoracic inlet persists. Aman Bermeo MD Chest CT 11/17/17 0000 Signed Impressions: Service Date/Time: Friday, November 17, 2017 20:57 - CONCLUSION: 1. Foreign body at the level of the thoracic inlet, appears to be a coin within the esophagus. 2. Bilateral pneumonia. Please see above. Aman Bermeo MD Objective Remarks General -Critically ill-appearing elderly gentleman, clearly obtunded, nonresponsive HEENT -dressing over the craniectomy site noted, FRITZ drains 2 with serosanguineous drainage. pupils equal, reactive, sclerae anicteric, neck supple , no nuchal rigidity, neck veins not distended, no carotid bruit CV - regular S1, S2, no murmurs Chest - B/L chest excursion, good air entry, no wheezes. Bilateral breath sounds clear to auscultation Abdomen - soft, non-tender, non-distended, BS present, no hepatomegaly, no splenomegaly Skin - no rashes, no cyanosis Extremities - warm and well perfused, no edema, + peripheral pulses, no clubbing Neuro -sedated, orally intubated on mechanical ventilation. Pupils equal reacting to light A/P Problem List: (1) Acute respiratory failure with hypoxia and hypercapnia ICD Code: J96.01 - Acute respiratory failure with hypoxia; J96.02 - Acute respiratory failure with hypercapnia (2) Subdural hematoma ICD Code: I62.00 - Nontraumatic subdural hemorrhage, unspecified Assessment and Plan Assessment This is a 72-year-old male with a chronic subdural hematoma with progressive encephalopathy and deterioration in mental status. In mid imaging studies performed this a.m. revealed chronic subdural hematoma on the right with 8 mm midline shift , and acute left posterior cerebellar infarct. Status post emergent right frontotemporoparietal craniotomy with Dr. Rose with evacuation of subdural hematoma. Plan by systems: Neurologic: Right chronic subdural hematoma with 8 mm midline shift Acute left posterior side cerebellar acute infarct Percocet overdose Neuro checks per ICU protocol Propofol infusion to maintain ventilator synchrony Initial GCS upon presentation less than 8, intubated emergently secondary to increased intracranial pressure and protection of airway Minimize sedation 25 g mannitol IV on 5/2 2% normal saline at 20 cc/ hr Neurology following-Dr. Land Neurosurgery consulted- Dr. Rose s/p right frontotemporoparietal craniotomy with evacuation of subdural hematoma Respiratory: Acute hypoxemic and hypercarbic respiratory failure Home O2 dependent Maintain O2 sat greater than 92 % Continuous monitoring of end-tidal CO2 to 30 mm Hg Ventilator bundle Duo nebs every 6 hours scheduled, and every 2 hours as needed Cardiovascular: Maintain MAP greater than 65mm HG Telemetry sinus rhythm/sinus tach Renal: Maintain kinney -- Strict I/Os FEN/GI: Electrolyte abnormality Elevated liver enzymes Rhabdomyolysis Start tube feeds and advance to goal as tolerated Insert OGT Protonix GI prophylaxis Bowel regimen Zofran for nausea Monitor creatinine kinase levels Noted sodium level is 134->131 today initiate 2% normal saline IVF's Heme/ID: Aspiration pneumonia Hepatitis C Monitor CBC, liver enzyme Obtain cultures if clinically indicated Type and screen Unasyn IV Endocrine: Glucose monitoring per ICU protocol, low-dose regimen -- SSI Prophylaxis: GI Prophylaxis Protonix DVT Prophylaxis -- SCDs Hold lovenox till cleared by neurosurgery Lines: Peripheral IVs 2. Central line if indicated Dispo: my billing statement This patient remains critically ill with one or more organ systems which are or may become a threat to life. I have spent in excess of 30 minutes discontinuously in the care and management of this patient. This time is exclusive of procedures, and includes, but is not limited to, evaluation of the patient, review of the medical record, discussions with family, consultants, nursing staff, or respiratory therapy, and documentation in the medical record. Unable to contact family patient is scheduled for emergent craniotomy with evacuation of subdural hematoma. Social work consult to locate family. Stef Griffin MD November 22, 2017 13:19
[2017-11-22] MEDS: cefTRIAXone INJ 2,000 MG in SODIUM CHLORIDE 0.9% INJ 100 ML IV SCH (20:54)
[2017-11-23] VITALS (16 sets, daily range): BP systolic 105–158; BP diastolic 45–85; PULSE 52–88; RESP 18–24; TEMP 97–97.7; O2SAT 93–100
[2017-11-23] MEDS: CHLORHEXIDINE GLUCONATE 2 % 1 PACK (2 CLOTHS) TOP SCH (04:00)
[2017-11-23] MEDS: LEVOTHYROXINE SODIUM 100 MCG VIAL IV PUSH SCH (05:35)
[2017-11-23] MEDS: levETIRAcetam INJ 500 MG in SODIUM CHLORIDE 0.9% INJ 100 ML IV SCH ×2 (05:35→18:15)
[2017-11-23 05:38] LABS: AUTOMATED NEUTROPHIL # 13.1 TH/MM3 (1.8-7.7); BASOPHIL % 0.3 % (0.0-2.0); EOSINOPHIL # 0.1 TH/MM3 (0-0.4); EOSINOPHIL % 0.7 % (0.0-4.0); HEMATOCRIT 32.1 % (39.0-51.0); HEMOGLOBIN 10.6 GM/DL (13.0-17.0); LYMPH % 5.8 % (9.0-44.0); LYMPHOCYTE # 0.9 TH/MM3 (1.0-4.8); MEAN CELL VOLUME 91.9 FL (80.0-100.0); MEAN CORPUSCULAR HEMOGLOBIN 30.4 PG (27.0-34.0); MEAN CORPUSCULAR HGB CONC 33.1 % (32.0-36.0); MEAN PLATELET VOLUME 8.6 FL (7.0-11.0); MONO % 7.2 % (0.0-8.0); MONOCYTE # 1.1 TH/MM3 (0-0.9); PLATELET COUNT 227 TH/MM3 (150-450); RED CELL DISTRIBUTION WIDTH 15.4 % (11.6-17.2); WHITE BLOOD COUNT 15.2 TH/MM3 (4.0-11.0)
[2017-11-23 05:59] LABS: AST (GOT) 90 U/L (15-37); BICARBONATE 24.9 MEQ/L (21.0-32.0); BLOOD UREA NITROGEN 24 MG/DL (7-18); CALCIUM 7.9 MG/DL (8.5-10.1); CHLORIDE 114 MEQ/L (98-107); CREATININE 0.76 MG/DL (0.60-1.30); GLOMERULAR FILTRATION RATE 101 ML/MIN (>89); GLUCOSE,RANDOM 97 MG/DL (74-106); SODIUM (NA) 145 MEQ/L (136-145)
[2017-11-23 06:04] LABS: ALKALINE PHOSPHATASE 55 U/L (45-117); ALT (GPT) 137 U/L (12-78); PHOSPHORUS 1.6 MG/DL (2.5-4.9); TOTAL BILIRUBIN ADULT 0.5 MG/DL (0.2-1.0); TOTAL PROTEIN 5.5 GM/DL (6.4-8.2)
[2017-11-23] MEDS: CHLORHEXIDINE 0.12% (ORAL KIT) 15 ML CUP MT SCH ×4 (08:00→20:00)
[2017-11-23] MEDS: RESP: ALBUTEROL 2.5 MG/IPRATROPIUM 0.5 MG NEB (SCH) NEB ×3 (08:47→20:23)
[2017-11-23 08:57] LABS: BANDS 1 % (0-6); LYMPHOCYTES 3 % (9-44); METAMYELOCYTES 2 % (0-1); MONOCYTES 1 % (0-8); MYELOCYTES 2 % (0-0); NEUTROPHIL # MANUAL DIFF 14.6 TH/MM3 (1.8-7.7); POLYS (SEG NEUTROPHILS) 91 % (16-70)
[2017-11-23] MEDS: DOCUSATE SODIUM 100 MG CAP PO SCH ×2 (09:00→21:00)
[2017-11-23] MEDS: ARTIFICIAL TEARS OPTH SOLN 15 ML BTL EACH EYE SCH ×6 (09:00→17:23)
[2017-11-23] MEDS: DOCUSATE SODIUM 50 MG/SENNA 8.6 MG TAB PO SCH ×4 (09:00→21:49)
[2017-11-23] MEDS: SODIUM CHLORIDE 0.9% FLUSH 10 ML FLUSH IV FLUSH SCH ×2 (09:00→21:00)
[2017-11-23] MEDS: PANTOPRAZOLE SOD 40 MG DELAYED RELEASE TAB PO SCH ×3 (09:00→21:50)
[2017-11-23] MEDS: NS + KCL 20 MEQ INJ 1,000 ML IV SCH ×2 (09:06→17:23)
[2017-11-23] MEDS: THIAMINE HCL 100 MG TAB PO SCH (09:29)
[2017-11-23] MEDS: CEFEPIME INJ 2,000 MG in SODIUM CHLORIDE 0.9% INJ 100 ML IV SCH ×2 (09:29→21:51)
[2017-11-23] MEDS: FOLIC ACID 1 MG TAB PO SCH (09:29)
[2017-11-23] MEDS: MULTIVITAMINS/MINERALS THERAPEUTIC TAB PO SCH (09:29)
[2017-11-23] MEDS: PANTOPRAZOLE SODIUM 40 MG VIAL IVP SCH (09:31)
--- NOTE | 2017-11-23 10:32 | HHI.NSPN ---
(Trisha Carlisle) Note Status Status: Progress Note (Trisha Carlisle) Interval History Interval History Mr. Dalton 72-year-old male who had presented to the emergency department via EMS after an accidental overdose of Percocet on 11/17/17. The patient was then found lying in the bathroom on the ground, unresponsive, was administered Narcan 0.4 mg intravenously. Per EMS the patient awakened and was alert. He has a history of chronic opiate use. 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 He was also found with severe aspiration pneumonia and a foreign body in the esophagus removed by GI. This morning he became completely obtunded and not responding to commands. 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 Patient now intubated, 25 g of mannitol has been given. Emergent neurosurgical evaluation requested. 11/22: Status post emergent right frontotemporoparietal craniotomy for evacuation of subdural hematoma, with placement of intracranial pressure monitor yesterday. Patient currently is intubated and sedated. ICPs low. 11/23: Intubated, minimally sedated, eyes open, moving spontaneously. ICPs stable. (Trisha Carlisle) Labs, Micro, & Vital Signs Results Date Time Temp Pulse Resp B/P (MAP) Pulse Ox O2 Delivery O2 Flow Rate FiO2 11/23/17 08:41 98 30 11/23/17 08:41 98 30 11/23/17 08:26 97 Ventilator 30 11/23/17 08:26 97 30 11/23/17 08:00 97.0 61 22 105/55 (72) 98 11/23/17 08:00 30 11/23/17 07:00 98 Mechanical Ventilator 30 11/23/17 06:00 63 11/23/17 04:27 98 30 11/23/17 04:00 30 11/23/17 04:00 97.7 61 20 110/58 (75) 98 11/23/17 04:00 61 11/23/17 02:42 99 30 11/23/17 02:00 52 11/23/17 00:00 54 11/23/17 00:00 97.7 54 20 124/60 (81) 100 11/23/17 00:00 30 11/22/17 23:26 100 30 11/22/17 23:26 100 30 11/22/17 23:26 100 30 11/22/17 22:00 61 11/22/17 20:53 99 30 11/22/17 20:00 56 11/22/17 20:00 97.7 56 18 111/57 (75) 100 11/22/17 20:00 30 11/22/17 19:00 100 Mechanical Ventilator 30 11/22/17 18:00 56 11/22/17 16:01 100 30 11/22/17 16:00 30 11/22/17 16:00 97.6 60 18 130/60 (83) 100 Automatic Cuff 11/22/17 16:00 60 11/22/17 14:00 56 11/22/17 12:00 59 11/22/17 12:00 30 11/22/17 12:00 97.6 59 18 137/59 (85) 100 Automatic Cuff 11/22/17 11:30 98 30 11/22/17 11:30 97 100 Constitutional Vital Signs Date Time Temp Pulse Resp B/P (MAP) Pulse Ox O2 Delivery O2 Flow Rate FiO2 11/23/17 08:41 98 30 11/23/17 08:41 98 30 11/23/17 08:26 97 Ventilator 30 11/23/17 08:26 97 30 11/23/17 08:00 97.0 61 22 105/55 (72) 98 11/23/17 08:00 30 11/23/17 07:00 98 Mechanical Ventilator 30 11/23/17 06:00 63 11/23/17 04:27 98 30 11/23/17 04:00 30 11/23/17 04:00 97.7 61 20 110/58 (75) 98 11/23/17 04:00 61 11/23/17 02:42 99 30 11/23/17 02:00 52 11/23/17 00:00 54 11/23/17 00:00 97.7 54 20 124/60 (81) 100 11/23/17 00:00 30 11/22/17 23:26 100 30 11/22/17 23:26 100 30 11/22/17 23:26 100 30 11/22/17 22:00 61 11/22/17 20:53 99 30 11/22/17 20:00 56 11/22/17 20:00 97.7 56 18 111/57 (75) 100 11/22/17 20:00 30 11/22/17 19:00 100 Mechanical Ventilator 30 11/22/17 18:00 56 11/22/17 16:01 100 30 11/22/17 16:00 30 11/22/17 16:00 97.6 60 18 130/60 (83) 100 Automatic Cuff 11/22/17 16:00 60 11/22/17 14:00 56 11/22/17 12:00 59 11/22/17 12:00 30 11/22/17 12:00 97.6 59 18 137/59 (85) 100 Automatic Cuff 11/22/17 11:30 98 30 11/22/17 11:30 97 100 (Trisha Carlisle) Review of Systems ROS Limitations: Intubated (Trisha Carlisle) Physical Exam Mr. Dalton is intubated and minimally sedated. Neuro: awake, eyes open, grimacing. not following commands for testing Incision clean and dry with head dressing in place. FRITZ drains 2 with moderate serosanguineous drainage. Left ICP monitor, ICPs low. Cranial Nerves: Pupils equal. Cervical Spine: soft, supple Motor: moves right arm and both legs spontaneously, appears flaccid left arm. not following for testing. Reflexes: Bilateral Babinski response Cerebellar: cannot be adequately assessed due to the patient's clinical condition (Trisha Carlisle) Medications Current Medications Current Medications Medications (Trade) Dose Ordered Sig/Nataly Route PRN Reason Start Time Stop Time Status Last Admin Dose Admin Sodium Chloride (NS Flush) 2 ml UNSCH PRN IVF FLUSH AFTER USING IV ACCESS 11/17/17 20:15 Sodium Chloride (NS Flush) 2 ml UNSCH PRN IV FLUSH FLUSH AFTER USING IV ACCESS 11/17/17 22:45 Sodium Chloride (NS Flush) 2 ml BID IV FLUSH 11/18/17 09:00 11/23/17 09:00 Acetaminophen (Tylenol) 650 mg Q6H PRN PO PAIN 1-5 AND/OR FEVER >101F 11/17/17 22:45 Artificial Tears (Tears Naturale Opth Soln) 1 drop TID EACH EYE 11/18/17 09:00 11/23/17 09:00 Ondansetron HCl (Zofran Inj) 4 mg Q6H PRN IV PUSH NAUSEA OR VOMITING 11/17/17 22:45 Albuterol/ Ipratropium (Duoneb Neb) 1 ampule Q2HR NEB PRN INH WHEEZING 11/17/17 22:45 Miscellaneous Information ([facility] [facility] 1 [id number] XX 11/17/17 22:45 11/18/17 00:59 Chlorhexidine Gluconate (Chlorhexidine 2% Cloth) Taper DAILY@04 TOP 11/18/17 04:00 11/14/18 03:59 11/22/17 04:00 Chlorhexidine Gluconate (Chlorhexidine 2% Cloth) 3 pack UNSCH PRN TOP HYGIENIC CARE 11/17/17 22:45 Senna/Docusate Sodium (Luisa-Colace) 1 tab BID PO 11/18/17 09:00 11/23/17 09:29 Magnesium Hydroxide (Milk Of Magnesia Liq) 30 ml Q12H PRN PO Mild constipation 11/17/17 22:45 Sennosides (Senokot) 17.2 mg Q12H PRN PO Moderate constipation 11/17/17 22:45 Bisacodyl (Dulcolax Supp) 10 mg DAILY PRN RECTAL SEVERE CONSITIPATION/ IF NPO 11/17/17 22:45 Lactulose (Lactulose Liq) 30 ml DAILY PRN PO SEVERE CONSITIPATION/ IF PO 11/17/17 22:45 Chlorhexidine Gluconate (Peridex 0.12% Liq) 15 ml BID@08,20 MT 11/18/17 08:00 11/23/17 08:00 Potassium Chloride 100 ml @ 50 mls/hr Q2H PRN IV For Potassium 2.8 - 3.2 mEq/L 11/17/17 23:30 Potassium Chloride 100 ml @ 50 mls/hr Q2H PRN IV For Potassium 2.8 - 3.2 mEq/L 11/17/17 23:30 11/20/17 12:21 Potassium Bicarb/ Potassium Chloride (K-Lyte Cl Eff) 50 meq UNSCH PRN PO For Potassium 3.3 - 3.5 mEq/L 11/17/17 23:30 Potassium Chloride 100 ml @ 25 mls/hr UNSCH PRN IV For Potassium 3.3 - 3.5 mEq/L 11/17/17 23:30 Magnesium Sulfate 4 gm/Sodium Chloride 100 ml @ 50 mls/hr UNSCH PRN IV For Magnesium 0.9 - 1.1 mg/dL 11/17/17 23:30 Magnesium Oxide (Mag-Ox) 800 mg UNSCH PRN PO For Magnesium 1.2 - 1.6 mg/dL 11/17/17 23:30 Magnesium Sulfate 2 gm/Sodium Chloride 100 ml @ 50 mls/hr UNSCH PRN IV For Magnesium 1.2 - 1.6 mg/dL 11/17/17 23:30 11/21/17 11:54 Potassium Phosphate (K-Phos) 2,000 mg Q4H PRN PO For Phosphorus < 2.5 mg/dL 11/17/17 23:30 11/20/17 14:59 Sodium Phosphate 30 mmol/Sodium Chloride 250 ml @ 42 mls/hr UNSCH PRN IV For Phosphorus < 2.5 mg/dL 11/17/17 23:30 11/20/17 21:44 Potassium Phosphate (K-Phos) 2,000 mg UNSCH PRN PO/TUBE SEE LABEL COMMENTS 11/17/17 23:30 Potassium Phosphate 30 mmol/ Sodium Chloride 260 ml @ 42 mls/hr UNSCH PRN IV SEE LABEL COMMENTS 11/17/17 23:30 Pantoprazole Sodium (Protonix) 40 mg Q12HR PO 11/19/17 21:00 11/22/17 20:55 Folic Acid (Folate) 1 mg DAILY PO 11/20/17 13:00 11/25/17 12:59 11/23/17 09:29 Thiamine HCl (Vitamin B1) 100 mg DAILY PO 11/20/17 13:00 11/23/17 09:29 Multivitamins/ Minerals Therapeutic (Theragran M Tab) 1 tab DAILY PO 11/20/17 13:00 11/25/17 12:59 11/23/17 09:29 Clonidine (Catapres) 0.1 mg Q6H PRN PO SEE LABEL COMMENTS 11/20/17 13:00 Flumazenil (Romazicon Inj) 0.2 mg Q1M PRN IV PUSH SEE LABEL COMMENTS 11/20/17 13:00 Potassium Chloride 20 meq/ Sodium Chloride 110 ml @ 50 mls/hr Q2H PRN IV For Potassium 3.3 - 3.5 mEq/L 11/21/17 05:30 11/21/17 06:43 Levothyroxine Sodium (Synthroid Inj) 25 mcg DAILY@06 IV PUSH 11/22/17 06:00 11/23/17 05:35 Multivitamins 10 ml/Folic Acid 1 mg/Sodium Chloride 510.2 ml @ 125 mls/hr Q24H IV 11/21/17 13:00 11/26/17 12:59 11/22/17 12:42 Thiamine HCl 100 mg/Sodium Chloride 101 ml @ 100 mls/hr Q24H IV 11/21/17 12:00 11/24/17 11:59 11/22/17 11:59 Enalaprilat (Vasotec Inj) 1.25 mg Q6H PRN IV PUSH SEE LABEL COMMENTS 11/21/17 10:45 Labetalol HCl (Trandate Inj) 10 mg Q6H PRN IV PUSH SEE LABEL COMMENTS 11/21/17 10:45 Hydralazine HCl (Apresoline Inj) 10 mg Q6H PRN IV PUSH SEE LABEL COMMENTS 11/21/17 10:45 Propofol 100 ml @ 1.815 mls/ hr TITRATE PRN IV SEDATION 11/21/17 12:00 11/22/17 00:26 Fentanyl Citrate 250 ml @ 5 mls/hr TITRATE PRN IV SEDATION 11/21/17 13:00 11/22/17 22:05 Artificial Tears (Tears Naturale Opth Soln) 1 drop TID EACH EYE 11/21/17 13:00 11/22/17 18:22 Albuterol/ Ipratropium (Duoneb Neb) 1 ampule Q2HR NEB PRN INH WHEEZING 11/21/17 13:00 Senna/Docusate Sodium (Luisa-Colace) 1 tab BID PO 11/21/17 21:00 Chlorhexidine Gluconate (Peridex 0.12% Liq) 15 ml BID@08,20 MT 11/21/17 20:00 11/22/17 20:55 Potassium Chloride/Sodium Chloride 1,000 ml @ 100 mls/hr Q10H IV 11/21/17 15:00 11/23/17 09:06 Docusate Sodium (Colace) 100 mg BID PO 11/21/17 21:00 Pantoprazole Sodium (Protonix) 40 mg DAILY PO 11/22/17 09:00 Pantoprazole Sodium (Protonix Inj) 40 mg DAILY IVP 11/22/17 09:00 11/23/17 09:31 Calcium Gluconate (Calcium Gluconate Inj) 1 gm UNSCH PRN IV SEE LABEL COMMENTS 11/21/17 15:00 Potassium Chloride 100 ml @ 50 mls/hr UNSCH PRN IV POTASSIUM LESS THAN 4 11/21/17 15:00 Magnesium Sulfate 4 gm/Sodium Chloride 108 ml @ 108 mls/hr UNSCH PRN IV MAGNESIUM LESS THAN 2 11/21/17 15:00 Acetaminophen/ Hydrocodone Bitart ([place] 10-325 Mg) 1 tab Q4H PRN PO PAIN SCALE 1 TO 5 11/21/17 15:00 Acetaminophen/ Hydrocodone Bitart ([place] 10-325 Mg) 2 tab Q4H PRN PO PAIN SCALE 6 TO 10 11/21/17 15:00 Morphine Sulfate (Morphine Inj) 2 mg Q2H PRN IV PUSH PAIN SCALE 1 TO 6 11/21/17 15:00 Morphine Sulfate (Morphine Inj) 4 mg Q2H PRN IV PUSH PAIN SCALE 7 TO 10 11/21/17 15:00 Acetaminophen (Tylenol) 650 mg Q4H PRN PO TEMPERATURE > 101.5 F 11/21/17 15:00 Cefepime HCl 2000 mg/Sodium Chloride 100 ml @ 200 mls/hr Q12H IV 11/21/17 21:00 11/23/17 09:29 Albuterol/ Ipratropium (Duoneb Neb) 1 ampule Q6HR WHILE AWAKE NEB NEB 11/21/17 20:00 11/23/17 08:47 Ceftriaxone Sodium 2000 mg/ Sodium Chloride 100 ml @ 200 mls/hr Q24H IV 11/21/17 20:00 11/22/17 20:54 Levetriacetam 500 mg/Sodium Chloride 105 ml @ 420 mls/hr Q12H IV 11/22/17 06:00 11/23/17 05:35 (Trisha Carlisle) Medical Decision Making MDM Remarks 72-year-old male presented initially for opioid overdose, Decline in mental status with MRI showing large right subdural hygroma with 8 mm midline shift Status post emergent right craniotomy for evacuation of large subdural hygroma, placement of ICP monitor on 11/21/2017, ICPs stable, ICP removed 11/23 f/u CT Brain 11/22 with residual right SDH, improved midline shift to now 2 mm from 8 mm (Trisha Carlisle) Plan Plan Remarks ICP monitor dc'ed by Dr. Rose cont neuro checks ok to wean vent to extubate from NRS standpoint per Dr. Rose change dressing cont FRITZ draining critical care management nonchemical DVT prophylaxis Seizure prophylaxis GI prophylaxis (Trisha Carlisle) Attending Statement The exam, history, and the medical decision-making described in the above note were completed with the assistance of the mid-level provider. I reviewed and agree with the findings presented. I attest that I had a [id number] encounter with the patient on the same day, and personally performed and documented my assessment and findings in the medical record. (Rodríguez Rose MD) Trisha Carlisle November 23, 2017 10:32 Rodríguez Rose MD November 24, 2017 16:05
[2017-11-23] MEDS ORDERED: ADENOSINE IV SOLN 3 MG/ML 2 ML VIAL ONE (12:16)
[2017-11-23] MEDS ORDERED: MAGNESIUM SULFATE 1 GM PREMIX 100 ML ONE (12:25)
[2017-11-23] MEDS ORDERED: AMIODARONE HCL 150 MG/3 ML VIAL ONE (12:25)
[2017-11-23] MEDS ORDERED: CALCIUM CHLORIDE 10% SOLN 1 GRAM/10 ML SYR ONE ×2 (12:25→12:27)
[2017-11-23] MEDS ORDERED: PHENYLEPHRINE HCL 10 MG/ML VIAL ONE (12:32)
[2017-11-23] MEDS: THIAMINE INJ 100 MG in SODIUM CHLORIDE 0.9% INJ 100 ML IV SCH (12:45)
[2017-11-23] MEDS ORDERED: AMIODARONE INJ 150 MG in DEXTROSE 5% IN WATER 100ML INJ 100 ML IV ONE ×2 (13:03)
[2017-11-23] MEDS ORDERED: AMIODARONE INJ 450 MG in DEXTROSE 5% IN WATE(EXCEL) INJ 241 ML IV PRN ×2 (13:13)
[2017-11-23] MEDS: MULTIVITAMIN INJ 10 ML, FOLIC ACID INJ 1 MG in SODIUM CHLORID 0.9% 500 ML INJ 500 ML IV SCH (13:14)
[2017-11-23] MEDS ORDERED: ADENOSINE IV SOLN 3 MG/ML 2 ML VIAL IV PUSH ONE (13:15)
[2017-11-23] MEDS ORDERED: CALCIUM CHLORIDE 10% SOLN 1 GRAM/10 ML SYR IV PUSH ONE (13:15)
[2017-11-23] MEDS ORDERED: PHENYLEPHRINE INJ 40 MG in DEXTROSE 5% IN WATE 500 ML INJ 496 ML IV PRN ×2 (13:15)
[2017-11-23] MEDS ORDERED: CALCIUM GLUCONATE INJ 1 GM in SODIUM CHLORIDE 0.9% INJ 100 ML IV ONE (13:15)
[2017-11-23] MEDS ORDERED: MAGNESIUM SULFATE 1 GM PREMIX 100 ML IV ONE (13:15)
[2017-11-23] MEDS ORDERED: TERBUTALINE INJ 1 MG/ML AMP SQ PRN (13:15)
[2017-11-23] MEDS ORDERED: CALCIUM CHLORIDE INJ 1 GM in SODIUM CHLORIDE 0.9% INJ 100 ML IV ONE (13:15)
[2017-11-23] MEDS: PROPOFOL 1000 MG/100 ML INJ 100 ML IV PRN ×2 (13:18→22:05)
--- NOTE | 2017-11-23 13:21 | HHI.CCPN ---
Subjective Remarks/Hospital Course 11/17: 72-year-old male presents to the emergency department via EMS after an accidental overdose. According to EMS the patient took 8 Percocet 5 mg tablets at home earlier today and then an unknown amount of Suboxone from his roommate. The patient was then found lying in the bathroom on the ground, unresponsive, was administered Narcan 0.4 mg intravenously. Per EMS the patient awakened and was alert. In the emergency department he did admit to taking Percocet, however, states he did not take any Suboxone. The patient denies any suicidal ideation, states he was trying to obtain a buzz from the Percocet. He does have a history of chronic opiate use. Upon awakening the patient did ask EMS for more Percocet. Upon arrival the patient does complain of shortness of breath, does have a history of COPD and is on oxygen at home 1 L via nasal cannula. 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 In the emergency department he remained short of breath and the CT of the chest was obtained. This showed severe aspiration pneumonia and the foreign body, coin-like, in the esophagus. The patient was intubated for airway protection by ED attending with a GI consultation in place for upper endoscopy and foreign body removal. 11/18: No events overnight. Patient has been afebrile. Currently, he is intubated and sedated, on mechanical ventilation. No family present at bedside. 11/19: Patient underwent EGD yesterday and per verbal report, he was found to have a nickel in his esophagus. Over the night, patient afebrile, with a T-max of 98.9 and adequate urine output. This a.m. he is off sedation, arousable, appropriate, following commands tolerating CPAP trial. Reconsult [facility] 11/21: Patient completely obtunded not responding to commands. Contacted by neurology secondary to brain imaging studies revealing chronic subdural with a midline shift and an acute infarct. Patient emergently intubated, see procedure note. 25 g of mannitol given. Chest x-ray pending. 11/22: Remains sedated, orally intubated on mechanical ventilation. Underwent craniectomy on 11/[address] Rose. 11/23: Sedated, orally intubated on mechanical ventilation. Gets agitated unenlightening sedation. Heart rate went up to 200s on stopping sedation. Given adenosine which revealed underlying atrial fibrillation. Patient was loaded with amiodarone and started on amiodarone drip. He converted to sinus rhythm. He was also given IV calcium chloride as well as magnesium sulfate IV piggyback. Objective Vital Signs Date Time Temp Pulse Resp B/P (MAP) Pulse Ox O2 Delivery O2 Flow Rate FiO2 11/23/17 12:00 97.6 88 24 158/85 (109) 98 11/23/17 12:00 30 11/23/17 08:26 Ventilator 11/21/17 10:00 2.00 Intake and Output 11/23/17 11/23/17 11/24/17 08:00 16:00 00:00 Intake Total 1205 ml Output Total 620 ml Balance -620 ml 1205 ml Result Diagram: 11/23/17 0520 11/23/17 0520 Other Results Laboratory Tests Test 11/22/17 14:26 11/23/17 03:31 Blood Gas Puncture Site ART LINE ART LINE Blood Gas Patient Temperature 98.6 98.6 Blood Gas HCO3 24 mmol/L (22-26) 21 mmol/L (22-26) Blood Gas Base Excess -0.8 mmol/L (-2-2) -2.4 mmol/L (-2-2) Blood Gas Oxygen Saturation 93 % (90-100) 95 % (90-100) Arterial Blood pH 7.38 (7.380-7.420) 7.42 (7.380-7.420) Arterial Blood Partial Pressure CO2 41 mmHg (38-42) 34 mmHg (38-42) Arterial Blood Partial Pressure O2 82 mmHg (61-120) 86 mmHg (61-120) Arterial Blood Oxygen Content 21.6 Vol % (12.0-20.0) 13.5 Vol % (12.0-20.0) Arterial Blood Carboxyhemoglobin 1.4 % (0-4) 1.6 % (0-4) Arterial Blood Methemoglobin 0.7 % (0-2) 0.8 % (0-2) Blood Gas Hemoglobin 16.5 G/DL (12.0-16.0) 10.1 G/DL (12.0-16.0) Oxygen Delivery Device VENTILATOR VENT Blood Gas Ventilator Setting AC/18/500/+5/ SEE COMMENTS Blood Gas Inspired Oxygen 30 % 30 % Imaging Last 24 hours Impressions Chest X-Ray 11/18/17 0000 Signed Impressions: Service Date/Time: Saturday, November 18, 2017 03:31 - CONCLUSION: Increasing right upper lobe infiltrates and stable patchy infiltrates in the left lower lung. Oswaldo Alicea MD Chest X-Ray 11/17/172004 Signed Impressions: Service Date/Time: Friday, November 17, 2017 20:11 - CONCLUSION: 1. Right-sided pneumonia, especially upper lobe. 2. Indeterminate radiopaque structure at the level of the thoracic inlet as above. Please correlate visually as to whether this may be overlying the patient. Otherwise, a coin or other foreign object may be in the esophagus. Aman Bermeo MD Last 24 hours Impressions Chest X-Ray 11/17/172004 Signed Impressions: Service Date/Time: Friday, November 17, 2017 20:11 - CONCLUSION: 1. Right-sided pneumonia, especially upper lobe. 2. Indeterminate radiopaque structure at the level of the thoracic inlet as above. Please correlate visually as to whether this may be overlying the patient. Otherwise, a coin or other foreign object may be in the esophagus. Aman Bermeo MD Chest X-Ray 11/17/17 Signed Impressions: Service Date/Time: Friday, November 17, 2017 21:36 - CONCLUSION: Endotracheal tube is appropriately positioned. Bilateral pneumonia persists. Foreign body in the esophagus at the level of the thoracic inlet persists. Aman Bermeo MD Chest CT 11/17/17 Signed Impressions: Service Date/Time: Friday, November 17, 2017 20:57 - CONCLUSION: 1. Foreign body at the level of the thoracic inlet, appears to be a coin within the esophagus. 2. Bilateral pneumonia. Please see above. Aman Bermeo MD Objective Remarks General -Critically ill-appearing elderly gentleman, clearly obtunded, nonresponsive HEENT -dressing over the craniectomy site noted, FRITZ drains 2 with serosanguineous drainage. pupils equal, reactive, sclerae anicteric, neck supple , no nuchal rigidity, neck veins not distended, no carotid bruit CV - regular S1, S2, no murmurs Chest - B/L chest excursion, good air entry, no wheezes. Bilateral breath sounds clear to auscultation Abdomen - soft, non-tender, non-distended, BS present, no hepatomegaly, no splenomegaly Skin - no rashes, no cyanosis Extremities - warm and well perfused, no edema, + peripheral pulses, no clubbing Neuro -sedated, orally intubated on mechanical ventilation. Pupils equal reacting to light A/P Problem List: (1) Acute respiratory failure with hypoxia and hypercapnia ICD Code: J96.01 - Acute respiratory failure with hypoxia; J96.02 - Acute respiratory failure with hypercapnia (2) Subdural hematoma ICD Code: I62.00 - Nontraumatic subdural hemorrhage, unspecified Assessment and Plan Assessment This is a 72-year-old male with a chronic subdural hematoma with progressive encephalopathy and deterioration in mental status. Imaging studies. revealed chronic subdural hematoma on the right with 8 mm midline shift , and acute left posterior cerebellar infarct. Status post emergent right frontotemporoparietal craniotomy with Dr. Rose with evacuation of subdural hematoma. Plan by systems: Neurologic: Right chronic subdural hematoma with 8 mm midline shift Acute left posterior side cerebellar acute infarct Percocet overdose Neuro checks per ICU protocol Propofol/ fentanyl infusion to maintain ventilator synchrony Initial GCS upon presentation less than 8, intubated emergently secondary to increased intracranial pressure and protection of airway Minimize sedation 25 g mannitol IV on 5/2 2% normal saline at 20 cc/ hr Neurology following-Dr. Land Neurosurgery consulted- Dr. Rose s/p right frontotemporoparietal craniotomy with evacuation of subdural hematoma Respiratory: Acute hypoxemic and hypercarbic respiratory failure Home O2 dependent Maintain O2 sat greater than 92 % Ventilator bundle. Daily CPAP trials. Await improvement in neurologic status prior to deciding extubation. Duo nebs every 6 hours scheduled, and every 2 hours as needed Cardiovascular: Maintain MAP greater than 65mm HG Telemetry sinus rhythm/sinus tach Renal: Maintain kinney -- Strict I/Os FEN/GI: Electrolyte abnormality Elevated liver enzymes Rhabdomyolysis Continue tube feeds and advance to goal as tolerated Protonix GI prophylaxis Bowel regimen Zofran for nausea Monitor creatinine kinase levels Noted sodium level is 134->131 today initiate 2% normal saline IVF's Heme/ID: Aspiration pneumonia Hepatitis C Monitor CBC, liver enzyme Obtain cultures if clinically indicated Type and screen Unasyn IV Endocrine: Glucose monitoring per ICU protocol, low-dose regimen -- SSI Prophylaxis: GI Prophylaxis Protonix DVT Prophylaxis -- SCDs Hold lovenox till cleared by neurosurgery Lines: Peripheral IVs 2. Central line if indicated Dispo: my billing statement This patient remains critically ill with one or more organ systems which are or may become a threat to life. I have spent in excess of 30 minutes discontinuously in the care and management of this patient. This time is exclusive of procedures, and includes, but is not limited to, evaluation of the patient, review of the medical record, discussions with family, consultants, nursing staff, or respiratory therapy, and documentation in the medical record. Unable to contact family patient is scheduled for emergent craniotomy with evacuation of subdural hematoma. Social work consult to locate family. Stef Griffin MD November 23, 2017 13:20
[2017-11-23] MEDS: AMIODARONE INJ 450 MG in SODIUM CHLOR 0.9% (EXCEL) INJ 241 ML IV PRN ×2 (13:36→21:52)
--- NOTE | 2017-11-23 14:40 | EKG ---
Date Performed: 11/22/2017 Time Performed: 11:43:52 PTAGE: 72 years EKG: SINUS BRADYCARDIA ST ELEVATION, PROBABLY EARLY REPOLARIZATION BORDERLINE ECG PREVIOUS TRACING : 11/17/2017 20.07 Since the prior tracing, there is a little more ST elevatio n in the lateral leads and resolution of the sinus tachycardia. Criteria for right atiral enlargment and possible right atrial strain are no longer evident. Clinical correlation advised. DOCTOR: Gosia Holly Interpretating Date/Time 11/23/2017 14:39:32
[2017-11-23] MEDS: cefTRIAXone INJ 2,000 MG in SODIUM CHLORIDE 0.9% INJ 100 ML IV SCH (21:51)
[2017-11-24] VITALS (19 sets, daily range): BP systolic 108–125; BP diastolic 46–50; PULSE 50–76; RESP 18–19; TEMP 97.7–98.6; O2SAT 93–100
[2017-11-24] MEDS: NS + KCL 20 MEQ INJ 1,000 ML IV SCH ×2 (03:00→12:51)
[2017-11-24] MEDS: fentaNYL DRIP 250 ML IV PRN ×2 (03:56→19:54)
[2017-11-24] MEDS: CHLORHEXIDINE GLUCONATE 2 % 1 PACK (2 CLOTHS) TOP SCH (04:00)
[2017-11-24] MEDS: levETIRAcetam INJ 500 MG in SODIUM CHLORIDE 0.9% INJ 100 ML IV SCH ×2 (06:51→18:09)
[2017-11-24] MEDS: LEVOTHYROXINE SODIUM 100 MCG VIAL IV PUSH SCH (06:51)
[2017-11-24] MEDS: PANTOPRAZOLE SOD 40 MG DELAYED RELEASE TAB PO SCH ×2 (07:48)
[2017-11-24] MEDS: ARTIFICIAL TEARS OPTH SOLN 15 ML BTL EACH EYE SCH ×5 (08:14→18:09)
[2017-11-24] MEDS: SODIUM CHLORIDE 0.9% FLUSH 10 ML FLUSH IV FLUSH SCH ×2 (08:14→21:00)
[2017-11-24] MEDS: CEFEPIME INJ 2,000 MG in SODIUM CHLORIDE 0.9% INJ 100 ML IV SCH ×2 (08:14→19:54)
[2017-11-24] MEDS: CHLORHEXIDINE 0.12% (ORAL KIT) 15 ML CUP MT SCH ×2 (08:14→20:00)
[2017-11-24] MEDS: PANTOPRAZOLE SODIUM 40 MG VIAL IVP SCH (08:15)
[2017-11-24] MEDS: THIAMINE HCL 100 MG TAB PO SCH (08:15)
[2017-11-24] MEDS: DOCUSATE SODIUM 100 MG CAP PO SCH ×2 (08:15→19:54)
[2017-11-24] MEDS: FOLIC ACID 1 MG TAB PO SCH (08:15)
[2017-11-24] MEDS: DOCUSATE SODIUM 50 MG/SENNA 8.6 MG TAB PO SCH (08:15)
[2017-11-24] MEDS: MULTIVITAMINS/MINERALS THERAPEUTIC TAB PO SCH (08:22)
[2017-11-24] MEDS: RESP: ALBUTEROL 2.5 MG/IPRATROPIUM 0.5 MG NEB (SCH) NEB ×3 (09:03→20:02)
--- NOTE | 2017-11-24 09:54 | HHI.PR ---
Subjective Remarks post op intubated Objective Vital Signs Date Time Temp Pulse Resp B/P (MAP) Pulse Ox O2 Delivery O2 Flow Rate FiO2 11/24/17 09:04 98 30 11/24/17 09:04 99 Ventilator 30 11/24/17 08:00 98.6 54 18 123/50 (74) 100 11/24/17 08:00 60 11/24/17 08:00 30 11/24/17 07:00 100 Mechanical Ventilator 30 11/24/17 06:00 56 11/24/17 04:01 93 30 11/24/17 04:00 55 11/24/17 04:00 97.8 55 18 125/49 (74) 97 11/24/17 04:00 30 11/24/17 02:00 55 11/24/17 00:34 99 30 11/24/17 00:00 98.0 57 18 108/48 (68) 97 11/24/17 00:00 30 11/24/17 00:00 57 11/23/17 22:00 30 11/23/17 22:00 57 11/23/17 21:52 69 140/56 11/23/17 20:30 100 30 11/23/17 20:00 Mechanical Ventilator 11/23/17 20:00 97.5 68 21 132/54 (80) 98 11/23/17 20:00 75 11/23/17 16:24 100 30 11/23/17 16:00 97.5 60 18 112/45 (67) 100 11/23/17 16:00 30 11/23/17 14:29 30 11/23/17 13:36 75 97/51 11/23/17 13:24 93 30 11/23/17 12:30 180 70/54 11/23/17 12:00 97.6 88 24 158/85 (109) 98 11/23/17 12:00 30 I/O 11/23/17 11/23/17 11/23/17 11/24/17 11/24/17 11/24/17 07:00 15:00 23:00 07:00 15:00 23:00 Intake Total 1409 ml 100 ml 90 ml Output Total 620 ml 995 ml 805 ml Balance -620 ml 1409 ml -895 ml -715 ml IV Total 1409 ml Tube Irrigant 100 ml 90 ml Output Urine Total 450 ml 900 ml 600 ml Drainage Total 170 ml 95 ml 205 ml # Bowel Movements 0 0 Result Diagram: 11/23/1751911/23/17519 Objective Remarks awake leftue flaccid moving left side looked around off sedative on vent Assessment and Plan Assessment and Plan imp mri large subdural with midline shift now postop defer to nusu on keppra went into afib last noc acc to nurse small acute cva on mri this will need to be worked out long chain beamer rx looks much better Yuriy Land MD November 24, 2017 09:54
[2017-11-24] MEDS: PROPOFOL 1000 MG/100 ML INJ 100 ML IV PRN ×2 (10:03→19:53)
[2017-11-24 10:24] LABS: AUTOMATED NEUTROPHIL # 10.9 TH/MM3 (1.8-7.7); BASOPHIL % 0.3 % (0.0-2.0); EOSINOPHIL # 0.3 TH/MM3 (0-0.4); EOSINOPHIL % 2.4 % (0.0-4.0); HEMATOCRIT 27.9 % (39.0-51.0); HEMOGLOBIN 9.5 GM/DL (13.0-17.0); LYMPH % 5.4 % (9.0-44.0); LYMPHOCYTE # 0.7 TH/MM3 (1.0-4.8); MEAN CELL VOLUME 93.1 FL (80.0-100.0); MEAN CORPUSCULAR HEMOGLOBIN 31.8 PG (27.0-34.0); MEAN CORPUSCULAR HGB CONC 34.2 % (32.0-36.0); MONO % 6.1 % (0.0-8.0); MONOCYTE # 0.8 TH/MM3 (0-0.9); NEUT % 85.8 % (16.0-70.0); PLATELET COUNT 192 TH/MM3 (150-450); RED BLOOD COUNT 2.99 MIL/MM3 (4.50-5.90); RED CELL DISTRIBUTION WIDTH 15.2 % (11.6-17.2); WHITE BLOOD COUNT 12.7 TH/MM3 (4.0-11.0)
[2017-11-24 10:37] LABS: ALBUMIN 2.1 GM/DL (3.4-5.0); AST (GOT) 69 U/L (15-37); BICARBONATE 21.1 MEQ/L (21.0-32.0); BLOOD UREA NITROGEN 19 MG/DL (7-18); CALCIUM 8.1 MG/DL (8.5-10.1); CHLORIDE 115 MEQ/L (98-107); CREATININE 0.72 MG/DL (0.60-1.30); GLOMERULAR FILTRATION RATE 107 ML/MIN (>89); GLUCOSE,RANDOM 74 MG/DL (74-106); SODIUM (NA) 146 MEQ/L (136-145)
[2017-11-24 10:38] LABS: ALT (GPT) 105 U/L (12-78)
[2017-11-24 10:40] LABS: ALKALINE PHOSPHATASE 51 U/L (45-117); TOTAL BILIRUBIN ADULT 0.5 MG/DL (0.2-1.0); TOTAL PROTEIN 5.2 GM/DL (6.4-8.2)
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
[2017-11-24] MEDS: AMIODARONE INJ 450 MG in SODIUM CHLOR 0.9% (EXCEL) INJ 241 ML IV PRN (12:52)
[2017-11-24] MEDS: MULTIVITAMIN INJ 10 ML, FOLIC ACID INJ 1 MG in SODIUM CHLORID 0.9% 500 ML INJ 500 ML IV SCH (12:54)
--- NOTE | 2017-11-24 13:48 | HHI.NSPN ---
(Trisha Carlisle) Note Status Status: Progress Note (Trisha Carlisle) Interval History Interval History Mr. Dalton 72-year-old male who had presented to the emergency department via EMS after an accidental overdose of Percocet on 11/17/17. The patient was then found lying in the bathroom on the ground, unresponsive, was administered Narcan 0.4 mg intravenously. Per EMS the patient awakened and was alert. He has a history of chronic opiate use. 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 He was also found with severe aspiration pneumonia and a foreign body in the esophagus removed by GI. This morning he became completely obtunded and not responding to commands. 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 Patient now intubated, 25 g of mannitol has been given. Emergent neurosurgical evaluation requested. 11/22: Status post emergent right frontotemporoparietal craniotomy for evacuation of subdural hematoma, with placement of intracranial pressure monitor yesterday. Patient currently is intubated and sedated. ICPs low. 11/23: Intubated, minimally sedated, eyes open, moving spontaneously. ICPs stable. 11/24: Remains intubated and currently sedated. No changes to neuro checks overnight. (Trisha Carlisle) Labs, Micro, & Vital Signs Results Date Time Temp Pulse Resp B/P (MAP) Pulse Ox O2 Delivery O2 Flow Rate FiO2 11/24/17 12:52 51 113/48 11/24/17 12:00 50 11/24/17 12:00 30 11/24/17 12:00 98.5 51 18 114/46 (68) 100 11/24/17 11:30 100 30 11/24/17 10:00 51 11/24/17 09:04 98 30 11/24/17 09:04 99 Ventilator 30 11/24/17 08:00 98.6 54 18 123/50 (74) 100 11/24/17 08:00 60 11/24/17 08:00 30 11/24/17 07:00 100 Mechanical Ventilator 30 11/24/17 06:00 56 11/24/17 04:01 93 30 11/24/17 04:00 55 11/24/17 04:00 97.8 55 18 125/49 (74) 97 11/24/17 04:00 30 11/24/17 02:00 55 11/24/17 00:34 99 30 11/24/17 00:00 98.0 57 18 108/48 (68) 97 11/24/17 00:00 30 11/24/17 00:00 57 11/23/17 22:00 30 11/23/17 22:00 57 11/23/17 21:52 69 140/56 11/23/17 20:30 100 30 11/23/17 20:00 Mechanical Ventilator 11/23/17 20:00 97.5 68 21 132/54 (80) 98 11/23/17 20:00 75 11/23/17 16:24 100 30 11/23/17 16:00 97.5 60 18 112/45 (67) 100 11/23/17 16:00 30 11/23/17 14:29 30 Constitutional Vital Signs Date Time Temp Pulse Resp B/P (MAP) Pulse Ox O2 Delivery O2 Flow Rate FiO2 11/24/17 12:52 51 113/48 11/24/17 12:00 50 11/24/17 12:00 30 11/24/17 12:00 98.5 51 18 114/46 (68) 100 11/24/17 11:30 100 30 11/24/17 10:00 51 11/24/17 09:04 98 30 11/24/17 09:04 99 Ventilator 30 11/24/17 08:00 98.6 54 18 123/50 (74) 100 11/24/17 08:00 60 11/24/17 08:00 30 11/24/17 07:00 100 Mechanical Ventilator 30 11/24/17 06:00 56 11/24/17 04:01 93 30 11/24/17 04:00 55 11/24/17 04:00 97.8 55 18 125/49 (74) 97 11/24/17 04:00 30 11/24/17 02:00 55 11/24/17 00:34 99 30 11/24/17 00:00 98.0 57 18 108/48 (68) 97 11/24/17 00:00 30 11/24/17 00:00 57 11/23/17 22:00 30 11/23/17 22:00 57 11/23/17 21:52 69 140/56 11/23/17 20:30 100 30 11/23/17 20:00 Mechanical Ventilator 11/23/17 20:00 97.5 68 21 132/54 (80) 98 11/23/17 20:00 75 11/23/17 16:24 100 30 11/23/17 16:00 97.5 60 18 112/45 (67) 100 11/23/17 16:00 30 11/23/17 14:29 30 (Trisha Carlisle) Review of Systems ROS Limitations: Intubated (Trisha Carlisle) Physical Exam Mr. Dalton is intubated and currently moderately sedated. Neuro: Minimally opens eyes, grimacing. not following commands for testing Incision clean and dry with head dressing in place. FRITZ drains [address] to suction. Cranial Nerves: Pupils equal. Mild upward gaze. Cervical Spine: soft, supple Motor: moves right arm and both legs spontaneously, appears flaccid left arm. not following for testing. Reflexes: Bilateral Babinski response Cerebellar: cannot be adequately assessed due to the patient's clinical condition (Trisha Carlisle) Medications Current Medications Current Medications Medications (Trade) Dose Ordered Sig/Nataly Route PRN Reason Start Time Stop Time Status Last Admin Dose Admin Sodium Chloride (NS Flush) 2 ml UNSCH PRN IV FLUSH FLUSH AFTER USING IV ACCESS 11/17/17 22:45 Sodium Chloride (NS Flush) 2 ml BID IV FLUSH 11/18/17 09:00 11/24/17 08:14 Acetaminophen (Tylenol) 650 mg Q6H PRN PO PAIN 1-5 AND/OR FEVER >101F 11/17/17 22:45 Artificial Tears (Tears Naturale Opth Soln) 1 drop TID EACH EYE 11/18/17 09:00 11/24/17 12:43 Ondansetron HCl (Zofran Inj) 4 mg Q6H PRN IV PUSH NAUSEA OR VOMITING 11/17/17 22:45 Miscellaneous Information ([facility] [place] [facility]) 1 [id number] XX 11/17/17 22:45 11/18/17 00:59 Chlorhexidine Gluconate (Chlorhexidine 2% Cloth) Taper DAILY@04 TOP 11/18/17 04:00 11/14/18 03:59 11/22/17 04:00 Chlorhexidine Gluconate (Chlorhexidine 2% Cloth) 3 pack UNSCH PRN TOP HYGIENIC CARE 11/17/17 22:45 Magnesium Hydroxide (Milk Of Magnesia Liq) 30 ml Q12H PRN PO Mild constipation 11/17/17 22:45 Sennosides (Senokot) 17.2 mg Q12H PRN PO Moderate constipation 11/17/17 22:45 Bisacodyl (Dulcolax Supp) 10 mg DAILY PRN RECTAL SEVERE CONSITIPATION/ IF NPO 11/17/17 22:45 Lactulose (Lactulose Liq) 30 ml DAILY PRN PO SEVERE CONSITIPATION/ IF PO 11/17/17 22:45 Potassium Chloride 100 ml @ 50 mls/hr Q2H PRN IV For Potassium 2.8 - 3.2 mEq/L 11/17/17 23:30 Potassium Chloride 100 ml @ 50 mls/hr Q2H PRN IV For Potassium 2.8 - 3.2 mEq/L 11/17/17 23:30 11/20/17 12:21 Potassium Bicarb/ Potassium Chloride (K-Lyte Cl Eff) 50 meq UNSCH PRN PO For Potassium 3.3 - 3.5 mEq/L 11/17/17 23:30 Potassium Chloride 100 ml @ 25 mls/hr UNSCH PRN IV For Potassium 3.3 - 3.5 mEq/L 11/17/17 23:30 Magnesium Sulfate 4 gm/Sodium Chloride 100 ml @ 50 mls/hr UNSCH PRN IV For Magnesium 0.9 - 1.1 mg/dL 11/17/17 23:30 Magnesium Oxide (Mag-Ox) 800 mg UNSCH PRN PO For Magnesium 1.2 - 1.6 mg/dL 11/17/17 23:30 Magnesium Sulfate 2 gm/Sodium Chloride 100 ml @ 50 mls/hr UNSCH PRN IV For Magnesium 1.2 - 1.6 mg/dL 11/17/17 23:30 11/21/17 11:54 Potassium Phosphate (K-Phos) 2,000 mg Q4H PRN PO For Phosphorus < 2.5 mg/dL 11/17/17 23:30 11/20/17 14:59 Sodium Phosphate 30 mmol/Sodium Chloride 250 ml @ 42 mls/hr UNSCH PRN IV For Phosphorus < 2.5 mg/dL 11/17/17 23:30 11/20/17 21:44 Potassium Phosphate (K-Phos) 2,000 mg UNSCH PRN PO/TUBE SEE LABEL COMMENTS 11/17/17 23:30 Potassium Phosphate 30 mmol/ Sodium Chloride 260 ml @ 42 mls/hr UNSCH PRN IV SEE LABEL COMMENTS 11/17/17 23:30 Pantoprazole Sodium (Protonix) 40 mg Q12HR PO 11/19/17 21:00 11/23/17 21:50 Folic Acid (Folate) 1 mg DAILY PO 11/20/17 13:00 11/25/17 12:59 11/24/17 08:15 Thiamine HCl (Vitamin B1) 100 mg DAILY PO 11/20/17 13:00 11/24/17 08:15 Multivitamins/ Minerals Therapeutic (Theragran M Tab) 1 tab DAILY PO 11/20/17 13:00 11/25/17 12:59 11/24/17 08:22 Clonidine (Catapres) 0.1 mg Q6H PRN PO SEE LABEL COMMENTS 11/20/17 13:00 Flumazenil (Romazicon Inj) 0.2 mg Q1M PRN IV PUSH SEE LABEL COMMENTS 11/20/17 13:00 Potassium Chloride 20 meq/ Sodium Chloride 110 ml @ 50 mls/hr Q2H PRN IV For Potassium 3.3 - 3.5 mEq/L 11/21/17 05:30 11/21/17 06:43 Levothyroxine Sodium (Synthroid Inj) 25 mcg DAILY@06 IV PUSH 11/22/17 06:00 11/24/17 06:51 Multivitamins 10 ml/Folic Acid 1 mg/Sodium Chloride 510.2 ml @ 125 mls/hr Q24H IV 11/21/17 13:00 11/26/17 12:59 11/24/17 12:54 Enalaprilat (Vasotec Inj) 1.25 mg Q6H PRN IV PUSH SEE LABEL COMMENTS 11/21/17 10:45 Labetalol HCl (Trandate Inj) 10 mg Q6H PRN IV PUSH SEE LABEL COMMENTS 11/21/17 10:45 Hydralazine HCl (Apresoline Inj) 10 mg Q6H PRN IV PUSH SEE LABEL COMMENTS 11/21/17 10:45 Propofol 100 ml @ 1.815 mls/ hr TITRATE PRN IV SEDATION 11/21/17 12:00 11/24/17 10:03 Fentanyl Citrate 250 ml @ 5 mls/hr TITRATE PRN IV SEDATION 11/21/17 13:00 11/24/17 03:56 Artificial Tears (Tears Naturale Opth Soln) 1 drop TID EACH EYE 11/21/17 13:00 11/23/17 17:23 Albuterol/ Ipratropium (Duoneb Neb) 1 ampule Q2HR NEB PRN INH WHEEZING 11/21/17 13:00 Senna/Docusate Sodium (Luisa-Colace) 1 tab BID PO 11/21/17 21:00 11/24/17 08:15 Chlorhexidine Gluconate (Peridex 0.12% Liq) 15 ml BID@08,20 MT 11/21/17 20:00 11/24/17 08:14 Potassium Chloride/Sodium Chloride 1,000 ml @ 100 mls/hr Q10H IV 11/21/17 15:00 11/24/17 12:51 Docusate Sodium (Colace) 100 mg BID PO 11/21/17 21:00 Pantoprazole Sodium (Protonix) 40 mg DAILY PO 11/22/17 09:00 Pantoprazole Sodium (Protonix Inj) 40 mg DAILY IVP 11/22/17 09:00 11/24/17 08:15 Calcium Gluconate (Calcium Gluconate Inj) 1 gm UNSCH PRN IV SEE LABEL COMMENTS 11/21/17 15:00 Potassium Chloride 100 ml @ 50 mls/hr UNSCH PRN IV POTASSIUM LESS THAN 4 11/21/17 15:00 Magnesium Sulfate 4 gm/Sodium Chloride 108 ml @ 108 mls/hr UNSCH PRN IV MAGNESIUM LESS THAN 2 11/21/17 15:00 Acetaminophen/ Hydrocodone Bitart ([place] 10-325 Mg) 1 tab Q4H PRN PO PAIN SCALE 1 TO 5 11/21/17 15:00 Acetaminophen/ Hydrocodone Bitart ([place] 10-325 Mg) 2 tab Q4H PRN PO PAIN SCALE 6 TO 10 11/21/17 15:00 Morphine Sulfate (Morphine Inj) 2 mg Q2H PRN IV PUSH PAIN SCALE 1 TO 6 11/21/17 15:00 Morphine Sulfate (Morphine Inj) 4 mg Q2H PRN IV PUSH PAIN SCALE 7 TO 10 11/21/17 15:00 Acetaminophen (Tylenol) 650 mg Q4H PRN PO TEMPERATURE > 101.5 F 11/21/17 15:00 Cefepime HCl 2000 mg/Sodium Chloride 100 ml @ 200 mls/hr Q12H IV 11/21/17 21:00 11/24/17 08:14 Albuterol/ Ipratropium (Duoneb Neb) 1 ampule Q6HR WHILE AWAKE NEB NEB 11/21/17 20:00 11/24/17 09:03 Ceftriaxone Sodium 2000 mg/ Sodium Chloride 100 ml @ 200 mls/hr Q24H IV 11/21/17 20:00 11/23/17 21:51 Levetriacetam 500 mg/Sodium Chloride 105 ml @ 420 mls/hr Q12H IV 11/22/17 06:00 11/24/17 06:51 Phenylephrine HCl 40 mg/Dextrose 500 ml @ 30 mls/hr TITRATE PRN IV Blood pressure management 11/23/17 13:15 Terbutaline Sulfate (Brethine Inj) 1 mg UNSCH PRN SQ For Extravasation 11/23/17 13:15 Amiodarone HCl 450 mg/Sodium Chloride 250 ml @ 33.33 mls/ hr Q7H31M PRN IV Per Protocol 11/23/17 13:30 11/24/17 12:52 (Trisha Carlisle) Medical Decision Making MDM Remarks 72-year-old male presented initially for opioid overdose, Decline in mental status with MRI showing large right subdural hygroma with 8 mm midline shift Status post emergent right craniotomy for evacuation of large subdural hygroma, placement of ICP monitor on 11/21/2017, ICPs stable, ICP monitor removed 11/23/17 f/u CT Brain 11/22 with residual right SDH, improved midline shift to now 2 mm from 8 mm (Trisha Carlisle) Plan Plan Remarks cont neuro checks ok to wean vent to extubate from NRS standpoint per Dr. Rose change dressing daily, cont FRITZ draining 2 to suction due to residual subdural hematoma, Repeat CT head Monday critical care management nonchemical DVT prophylaxis Seizure prophylaxis GI prophylaxis (Trisha Carlisle) Attending Statement The exam, history, and the medical decision-making described in the above note were completed with the assistance of the mid-level provider. I reviewed and agree with the findings presented. I attest that I had a [id number] encounter with the patient on the same day, and personally performed and documented my assessment and findings in the medical record. (Rodríguez Rose MD) Trisha Carlisle November 24, 2017 13:48 Rodríguez Rose MD November 24, 2017 16:11
[2017-11-24 16:38] LABS: ANA PATTERN DIFFUSE
[2017-11-24] MEDS: cefTRIAXone INJ 2,000 MG in SODIUM CHLORIDE 0.9% INJ 100 ML IV SCH (19:54)
[2017-11-25] VITALS (19 sets, daily range): BP systolic 109–147; BP diastolic 47–60; PULSE 55–82; RESP 14–22; TEMP 98.2–99; O2SAT 97–100
[2017-11-25] MEDS: PROPOFOL 1000 MG/100 ML INJ 100 ML IV PRN (03:11)
[2017-11-25] MEDS: CHLORHEXIDINE GLUCONATE 2 % 1 PACK (2 CLOTHS) TOP SCH ×2 (04:00→19:30)
[2017-11-25] MEDS: LEVOTHYROXINE SODIUM 100 MCG VIAL IV PUSH SCH (04:52)
[2017-11-25] MEDS: levETIRAcetam INJ 500 MG in SODIUM CHLORIDE 0.9% INJ 100 ML IV SCH ×2 (04:53→17:24)
[2017-11-25] MEDS: NS + KCL 20 MEQ INJ 1,000 ML IV SCH ×2 (04:53→07:31)
[2017-11-25] MEDS: AMIODARONE INJ 450 MG in SODIUM CHLOR 0.9% (EXCEL) INJ 241 ML IV PRN ×2 (04:55→20:11)
[2017-11-25 05:50] LABS: AUTOMATED NEUTROPHIL # 7.8 TH/MM3 (1.8-7.7); BASOPHIL % 0.5 % (0.0-2.0); EOSINOPHIL # 0.3 TH/MM3 (0-0.4); EOSINOPHIL % 2.9 % (0.0-4.0); HEMATOCRIT 27.3 % (39.0-51.0); LYMPH % 8.1 % (9.0-44.0); LYMPHOCYTE # 0.8 TH/MM3 (1.0-4.8); MEAN CORPUSCULAR HEMOGLOBIN 30.6 PG (27.0-34.0); MEAN CORPUSCULAR HGB CONC 32.8 % (32.0-36.0); MEAN PLATELET VOLUME 9.3 FL (7.0-11.0); MONO % 6.9 % (0.0-8.0); MONOCYTE # 0.7 TH/MM3 (0-0.9); NEUT % 81.6 % (16.0-70.0); PLATELET COUNT 213 TH/MM3 (150-450); RED BLOOD COUNT 2.93 MIL/MM3 (4.50-5.90); RED CELL DISTRIBUTION WIDTH 15.7 % (11.6-17.2); WHITE BLOOD COUNT 9.6 TH/MM3 (4.0-11.0)
[2017-11-25 06:05] LABS: ALBUMIN 1.8 GM/DL (3.4-5.0); ALT (GPT) 91 U/L (12-78); AST (GOT) 59 U/L (15-37); BICARBONATE 24.7 MEQ/L (21.0-32.0); BLOOD UREA NITROGEN 17 MG/DL (7-18); CALCIUM 7.6 MG/DL (8.5-10.1); CHLORIDE 116 MEQ/L (98-107); CREATININE 0.77 MG/DL (0.60-1.30); GLOMERULAR FILTRATION RATE 99 ML/MIN (>89); GLUCOSE,RANDOM 89 MG/DL (74-106); SODIUM (NA) 147 MEQ/L (136-145)
[2017-11-25 06:07] LABS: ALKALINE PHOSPHATASE 52 U/L (45-117); TOTAL BILIRUBIN ADULT 0.3 MG/DL (0.2-1.0)
[2017-11-25] MEDS: ARTIFICIAL TEARS OPTH SOLN 15 ML BTL EACH EYE SCH ×3 (07:30→16:20)
[2017-11-25] MEDS: CHLORHEXIDINE 0.12% (ORAL KIT) 15 ML CUP MT SCH ×2 (07:30→19:52)
[2017-11-25] MEDS: SODIUM CHLORIDE 0.9% FLUSH 10 ML FLUSH IV FLUSH SCH ×2 (07:30→19:51)
[2017-11-25] MEDS: RESP: ALBUTEROL 2.5 MG/IPRATROPIUM 0.5 MG NEB (SCH) NEB ×3 (08:01→20:33)
[2017-11-25] MEDS: CEFEPIME INJ 2,000 MG in SODIUM CHLORIDE 0.9% INJ 100 ML IV SCH ×2 (08:27→21:45)
[2017-11-25] MEDS: THIAMINE HCL 100 MG TAB PO SCH (08:27)
[2017-11-25] MEDS: DOCUSATE SODIUM 100 MG CAP PO SCH ×2 (08:27→19:51)
[2017-11-25] MEDS: MULTIVITAMINS/MINERALS THERAPEUTIC TAB PO SCH (08:27)
[2017-11-25] MEDS: FOLIC ACID 1 MG TAB PO SCH (08:27)
[2017-11-25] MEDS: PANTOPRAZOLE SODIUM 40 MG VIAL IVP SCH (08:27)
--- NOTE | 2017-11-25 09:22 | HHI.NSPN ---
(Kiel Corral) History Chief Complaint: subdural hemorrhage. Pt sedated and intubated. (Kiel Corral) Interval History Mr. Dalton 72-year-old male who had presented to the emergency department via EMS after an accidental overdose of Percocet on 11/17/17. The patient was then found lying in the bathroom on the ground, unresponsive, was administered Narcan 0.4 mg intravenously. Per EMS the patient awakened and was alert. He has a history of chronic opiate use. 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 He was also found with severe aspiration pneumonia and a foreign body in the esophagus removed by GI. This morning he became completely obtunded and not responding to commands. 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 Patient now intubated, 25 g of mannitol has been given. Emergent neurosurgical evaluation requested. 11/22: Status post emergent right frontotemporoparietal craniotomy for evacuation of subdural hematoma, with placement of intracranial pressure monitor yesterday. Patient currently is intubated and sedated. ICPs low. 11/23: Intubated, minimally sedated, eyes open, moving spontaneously. ICPs stable. 11/24: Remains intubated and currently sedated. No changes to neuro checks overnight. 11/25: Pt opens eyes slightly to command. He doesn't cooperate well for exam. Pupils 3mm Bilaterally. He is sedated on Diprivan and Fentanyl drips. (Kiel Corral) System Review Comments Not able to obtain given clinical condition. (Kiel Corral) Exam Results Vital Signs Date Time Temp Pulse Resp B/P (MAP) Pulse Ox O2 Delivery O2 Flow Rate FiO2 11/25/17 09:00 30 11/25/17 08:03 98 11/25/17 08:00 66 11/25/17 08:00 98.7 19 110/48 (68) 11/25/17 07:00 Mechanical Ventilator 11/21/17 10:00 2.00 Intake and Output 11/25/17 11/25/17 11/26/17 08:00 16:00 00:00 Intake Total 567 ml Output Total 1025 ml Balance -458 ml (Kiel Corral) Physical Examination General: Pt sedated and intubated in ICU with stable vitals. Eyes: Pupils 3mm bilaterally. Sclera anicteric. Resp: Intubated Pressure controlled. Rate 18. Peep 5. FiO2 30%. CTA bilaterally. Heart: NSR no murmurs Abd: Soft positive bs. Skin: Head bandaged. FRITZ drains in place. 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 Moves RLE spontaneously more than LLE. Not following with LUE. Neuro: Pt sedated on Diprivan and Fentanyl drips. He opens eyes slightly to voice. He tries not to cooperate for pupil exam. Pupils 3mm bilaterally reactive bilaterally. (Kiel Corral) Lab, Micro, Other Results Last Impressions Head CT 11/22/17 0000 Signed Impressions: Service Date/Time: Wednesday, November 22, 2017 11:10 - CONCLUSION: 1. Decreased volume of right subdural blood products with a residual extra-axial blood products remaining. The surgical drains extend along the margin of this extra-axial collection. 2. The extra-axial blood products have local mass effect and result in 2 mm of [id number] midline shift, decreased from the prior study when it measured 8 mm. 3. Focal edema in the left cerebellum likely representing cytotoxic edema in the area of previously documented recent ischemia. Aman Roman MD Brain MRI 11/21/17 0727 Signed Impressions: Service Date/Time: Tuesday, November 21, 2017 10:11 - CONCLUSION: 1. 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 2. Scattered nonspecific white matter signal change. No focal abnormal areas of enhancement. 3. Small focal area of restricted diffusion in the left posterior medial cerebellar hemisphere suggesting an acute infarction; however, no signal abnormality is seen in this area on any of the other pulse sequences. Oswaldo Alicea MD Skull X-Ray 11/21/17 0000 Signed Impressions: Service Date/Time: Tuesday, November 21, 2017 09:47 - CONCLUSION: No contraindication to MRI seen. Oswaldo Alicea MD Chest X-Ray 11/21/17 0000 Signed Impressions: Service Date/Time: Tuesday, November 21, 2017 16:55 - CONCLUSION: 1. Left subclavian central line in good position. 2. New left-sided small subpulmonic pneumothorax. 3. Persistent right upper lobe infiltrate. Nolan Alva MD Abdomen X-Ray 11/21/17 0000 Signed Impressions: Service Date/Time: Tuesday, November 21, 2017 09:45 - CONCLUSION: No contraindication to MRI seen. Oswaldo Alicea MD Chest CT 11/17/17 0000 Signed Impressions: Service Date/Time: Friday, November 17, 2017 20:57 - CONCLUSION: 1. Foreign body at the level of the thoracic inlet, appears to be a coin within the esophagus. 2. Bilateral pneumonia. Please see above. Aman Bermeo MD Laboratory Tests Test 11/24/17 09:50 11/25/17 05:00 White Blood Count 12.7 TH/MM3 9.6 TH/MM3 Red Blood Count 2.99 MIL/MM3 2.93 MIL/MM3 Hemoglobin 9.5 GM/DL 9.0 GM/DL Hematocrit 27.9 % 27.3 % Mean Corpuscular Volume 93.1 FL 93.0 FL Mean Corpuscular Hemoglobin 31.8 PG 30.6 PG Mean Corpuscular Hemoglobin Concent 34.2 % 32.8 % Red Cell Distribution Width 15.2 % 15.7 % Platelet Count 192 TH/MM3 213 TH/MM3 Mean Platelet Volume 9.0 FL 9.3 FL Neutrophils (%) (Auto) 85.8 % 81.6 % Lymphocytes (%) (Auto) 5.4 % 8.1 % Monocytes (%) (Auto) 6.1 % 6.9 % Eosinophils (%) (Auto) 2.4 % 2.9 % Basophils (%) (Auto) 0.3 % 0.5 % Neutrophils # (Auto) 10.9 TH/MM3 7.8 TH/MM3 Lymphocytes # (Auto) 0.7 TH/MM3 0.8 TH/MM3 Monocytes # (Auto) 0.8 TH/MM3 0.7 TH/MM3 Eosinophils # (Auto) 0.3 TH/MM3 0.3 TH/MM3 Basophils # (Auto) 0.0 TH/MM3 0.0 TH/MM3 CBC Comment DIFF FINAL DIFF FINAL Differential Comment Blood Urea Nitrogen 19 MG/DL 17 MG/DL Creatinine 0.72 MG/DL 0.77 MG/DL Random Glucose 74 MG/DL 89 MG/DL Total Protein 5.2 GM/DL 5.0 GM/DL Albumin 2.1 GM/DL 1.8 GM/DL Calcium Level 8.1 MG/DL 7.6 MG/DL Alkaline Phosphatase 51 U/L 52 U/L Aspartate Amino Transf (AST/SGOT) 69 U/L 59 U/L Alanine Aminotransferase (ALT/SGPT) 105 U/L 91 U/L Total Bilirubin 0.5 MG/DL 0.3 MG/DL Sodium Level 146 MEQ/L 147 MEQ/L Potassium Level 4.0 MEQ/L 4.0 MEQ/L Chloride Level 115 MEQ/L 116 MEQ/L Carbon Dioxide Level 21.1 MEQ/L 24.7 MEQ/L Anion Gap 10 MEQ/L 6 MEQ/L Estimat Glomerular Filtration Rate 107 ML/MIN 99 ML/MIN (Kiel Corral) Medical Decision Making Impression and Plan A: 72 y/o M presented initially for opioid overdose, Decline in mental status with MRI showing large right subdural hygroma with 8 mm midline shift Status post emergent right craniotomy for evacuation of large subdural hygroma, placement of ICP monitor on 11/21/2017, ICPs stable, ICP monitor removed 11/23/17 f/u CT Brain 11/22 with residual right SDH, improved midline shift to now 2 mm from 8 mm P: cont neuro checks ok to wean vent to extubate from NRS standpoint per Dr. Rose change dressing daily, cont FRITZ draining 2 to suction due to residual subdural hematoma, Repeat CT head Monday critical care management nonchemical DVT prophylaxis Seizure prophylaxis GI prophylaxis (Kiel Corral) Attending Statement The exam, history, and the medical decision-making described in the above note were completed with the assistance of the mid-level provider. I reviewed and agree with the findings presented. I attest that I had a [id number] encounter with the patient on the same day, and personally performed and documented my assessment and findings in the medical record. (Leonard Shah MD) Kiel Corral November 25, 2017 09:22 Leonard Shah MD November 25, 2017 12:04
--- NOTE | 2017-11-25 10:13 | HHI.PR ---
Subjective Remarks post op intubated Objective Vital Signs Date Time Temp Pulse Resp B/P (MAP) Pulse Ox O2 Delivery O2 Flow Rate FiO2 11/25/17 09:00 30 11/25/17 08:03 98 30 11/25/17 08:00 30 11/25/17 08:00 66 11/25/17 08:00 98.7 65 19 110/48 (68) 100 11/25/17 07:00 100 Mechanical Ventilator 30 11/25/17 06:00 62 11/25/17 04:55 62 108/58 11/25/17 04:04 100 30 11/25/17 04:00 98.4 55 18 125/53 (77) 100 11/25/17 04:00 30 11/25/17 04:00 55 11/25/17 02:00 65 11/25/17 01:01 100 30 11/25/17 00:00 30 11/25/17 00:00 56 11/25/17 00:00 98.4 56 18 109/47 (67) 98 11/24/17 22:00 62 11/24/17 20:02 100 30 11/24/17 20:00 98.0 60 19 108/47 (67) 98 11/24/17 20:00 Mechanical Ventilator 11/24/17 20:00 52 11/24/17 20:00 30 11/24/17 18:00 61 11/24/17 16:32 100 30 11/24/17 16:00 55 11/24/17 16:00 30 11/24/17 16:00 97.7 55 18 123/48 (73) 98 11/24/17 14:00 76 11/24/17 12:52 51 113/48 11/24/17 12:00 50 11/24/17 12:00 30 11/24/17 12:00 98.5 51 18 114/46 (68) 100 11/24/17 11:30 100 30 I/O 11/24/17 11/24/17 11/24/17 11/25/17 11/25/17 11/25/17 07:00 15:00 23:00 07:00 15:00 23:00 Intake Total 90 ml 205 ml 1233 ml 567 ml Output Total 805 ml 1150 ml 1025 ml Balance -715 ml 205 ml 83 ml -458 ml IV Total 205 ml 1103 ml Tube Feeding 130 ml 507 ml Tube Irrigant 90 ml 60 ml Output Urine Total 600 ml 1000 ml 900 ml Drainage Total 205 ml 150 ml 125 ml # Bowel Movements 0 1 0 Result Diagram: 11/25/17 0500 11/25/17 0500 Objective Remarks awake leftue flaccid moves ble well not follow commands on vent Assessment and Plan Assessment and Plan imp mri large subdural with midline shift now postop defer to [facility] on keppra went into afib last noc acc to nurse small acute cva on mri this will need to be worked out 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
--- NOTE | 2017-11-25 13:12 | HHI.CCPN ---
Subjective Remarks/Hospital Course 11/17: 72-year-old male presents to the emergency department via EMS after an accidental overdose. According to EMS the patient took 8 Percocet 5 mg tablets at home earlier today and then an unknown amount of Suboxone from his roommate. The patient was then found lying in the bathroom on the ground, unresponsive, was administered Narcan 0.4 mg intravenously. Per EMS the patient awakened and was alert. In the emergency department he did admit to taking Percocet, however, states he did not take any Suboxone. The patient denies any suicidal ideation, states he was trying to obtain a buzz from the Percocet. He does have a history of chronic opiate use. Upon awakening the patient did ask EMS for more Percocet. Upon arrival the patient does complain of shortness of breath, does have a history of COPD and is on oxygen at home 1 L via nasal cannula. 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 In the emergency department he remained short of breath and the CT of the chest was obtained. This showed severe aspiration pneumonia and the foreign body, coin-like, in the esophagus. The patient was intubated for airway protection by ED attending with a GI consultation in place for upper endoscopy and foreign body removal. 11/18: No events overnight. Patient has been afebrile. Currently, he is intubated and sedated, on mechanical ventilation. No family present at bedside. 11/19: Patient underwent EGD yesterday and per verbal report, he was found to have a nickel in his esophagus. Over the night, patient afebrile, with a T-max of 98.9 and adequate urine output. This a.m. he is off sedation, arousable, appropriate, following commands tolerating CPAP trial. Reconsult [facility] 11/21: Patient completely obtunded not responding to commands. Contacted by neurology secondary to brain imaging studies revealing chronic subdural with a midline shift and an acute infarct. Patient emergently intubated, see procedure note. 25 g of mannitol given. Chest x-ray pending. 11/22: Remains sedated, orally intubated on mechanical ventilation. Underwent craniectomy on 11/[address] Rose. 11/23: Sedated, orally intubated on mechanical ventilation. Gets agitated unenlightening sedation. Heart rate went up to 200s on stopping sedation. Given adenosine which revealed underlying atrial fibrillation. Patient was loaded with amiodarone and started on amiodarone drip. He converted to sinus rhythm. He was also given IV calcium chloride as well as magnesium sulfate IV piggyback. 11/24: Remains sedated/encephalopathic, orally intubated on mechanical ventilation. On amiodarone GTT. 11/25: Patient wakes up easily follows commands on the right upper extremity. Will place on CPAP and get weaning parameters. According to the notes okay with neurosurgery for weaning to extubation. Check chest x-ray today IV Lasix 40 mg 1 ordered Objective Vital Signs Date Time Temp Pulse Resp B/P (MAP) Pulse Ox O2 Delivery O2 Flow Rate FiO2 11/25/17 12:23 97 30 11/25/17 12:00 98.2 66 14 110/48 (68) 11/25/17 07:00 Mechanical Ventilator 11/21/17 10:00 2.00 Intake and Output 11/25/17 11/25/17 11/26/17 08:00 16:00 00:00 Intake Total 567 ml Output Total 1025 ml Balance -458 ml Result Diagram: 11/25/17 0500 11/25/17 0500 Imaging Last 24 hours Impressions Chest X-Ray 11/18/17 0000 Signed Impressions: Service Date/Time: Saturday, November 18, 2017 03:31 - CONCLUSION: Increasing right upper lobe infiltrates and stable patchy infiltrates in the left lower lung. Oswaldo Alicea MD Chest X-Ray 11/17/172004 Signed Impressions: Service Date/Time: Friday, November 17, 2017 20:11 - CONCLUSION: 1. Right-sided pneumonia, especially upper lobe. 2. Indeterminate radiopaque structure at the level of the thoracic inlet as above. Please correlate visually as to whether this may be overlying the patient. Otherwise, a coin or other foreign object may be in the esophagus. Aman Bermeo MD Last 24 hours Impressions Chest X-Ray 11/17/172004 Signed Impressions: Service Date/Time: Friday, November 17, 2017 20:11 - CONCLUSION: 1. Right-sided pneumonia, especially upper lobe. 2. Indeterminate radiopaque structure at the level of the thoracic inlet as above. Please correlate visually as to whether this may be overlying the patient. Otherwise, a coin or other foreign object may be in the esophagus. Aman Bermeo MD Chest X-Ray 11/17/17 0000 Signed Impressions: Service Date/Time: Friday, November 17, 2017 21:36 - CONCLUSION: Endotracheal tube is appropriately positioned. Bilateral pneumonia persists. Foreign body in the esophagus at the level of the thoracic inlet persists. Aman Bermeo MD Chest CT 11/17/17 0000 Signed Impressions: Service Date/Time: Friday, November 17, 2017 20:57 - CONCLUSION: 1. Foreign body at the level of the thoracic inlet, appears to be a coin within the esophagus. 2. Bilateral pneumonia. Please see above. Aman Bermeo MD Objective Remarks General -Critically ill-appearing elderly gentleman, clearly obtunded, nonresponsive HEENT -dressing over the craniectomy site noted, FRITZ drains 2 with serosanguineous drainage. pupils equal, reactive, sclerae anicteric, neck supple , no nuchal rigidity, neck veins not distended, no carotid bruit CV - regular S1, S2, no murmurs Chest - B/L chest excursion, good air entry, no wheezes. Bilateral breath sounds clear to auscultation Abdomen - soft, non-tender, non-distended, BS present, no hepatomegaly, no splenomegaly Skin - no rashes, no cyanosis Extremities - warm and well perfused, no edema, + peripheral pulses, no clubbing Neuro -sedated, orally intubated on mechanical ventilation. Pupils equal reacting to light. On sedation hold patient does follow commands on the right UE and appears to: Bilateral lower extremity. Did not move or follow on left upper extremity Urinary Catheter: Yes Assessment to: Continue Vascular Central Line Catheter: Yes Assessment to: Continue A/P Problem List: (1) Acute respiratory failure with hypoxia and hypercapnia ICD Code: J96.01 - Acute respiratory failure with hypoxia; J96.02 - Acute respiratory failure with hypercapnia (2) Subdural hematoma ICD Code: I62.00 - Nontraumatic subdural hemorrhage, unspecified Assessment and Plan Assessment This is a 72-year-old male with a chronic subdural hematoma with progressive encephalopathy and deterioration in mental status. Imaging studies. revealed chronic subdural hematoma on the right with 8 mm midline shift , and acute left posterior cerebellar infarct. Status post emergent right frontotemporoparietal craniotomy with Dr. Rose with evacuation of subdural hematoma. Plan by systems: Neurologic: Right chronic subdural hematoma with 8 mm midline shift Acute left posterior side cerebellar acute infarct Percocet overdose Neuro checks per ICU protocol Propofol/ fentanyl infusion to maintain ventilator synchrony. Hold sedation for weaning trial Initial GCS upon presentation less than 8, intubated emergently secondary to increased intracranial pressure and protection of airway 25 g mannitol IV on 5/2 2% normal saline at 20 cc/ hr Neurology following-Dr. Land Neurosurgery - Dr. Rose s/p right frontotemporoparietal craniotomy with evacuation of subdural hematoma Respiratory: Acute hypoxemic and hypercarbic respiratory failure Home O2 dependent Maintain O2 sat greater than 92 % Ventilator bundle. Daily CPAP trials. Good weaning parameters and ABG Duo nebs every 6 hours scheduled, and every 2 hours as needed Check chest x-ray today Cardiovascular: Maintain MAP greater than 65mm HG Telemetry sinus rhythm/sinus tach IV Lasix 40 mg 1 Discontinue IV fluid Renal: Maintain kinney -- Strict I/Os FEN/GI: Electrolyte abnormality Elevated liver enzymes Rhabdomyolysis Continue tube feeds and advance to goal as tolerated-hold for weaning trial Protonix GI prophylaxis Bowel regimen Zofran for nausea Monitor creatinine kinase levels Noted sodium level is 134->131 today initiate 2% normal saline IVF's Heme/ID: Aspiration pneumonia Hepatitis C Monitor CBC, liver enzyme Obtain cultures if clinically indicated Type and screen Unasyn IV Endocrine: Glucose monitoring per ICU protocol, low-dose regimen -- SSI Prophylaxis: GI Prophylaxis Protonix DVT Prophylaxis -- SCDs Hold lovenox till cleared by neurosurgery Lines: Peripheral IVs 2. Central line if indicated This patient remains critically ill with one or more organ systems which are or may become a threat to life. I have spent in excess of 30 minutes discontinuously in the care and management of this patient. This time is exclusive of procedures. Inez Newton MD November 25, 2017 13:11
--- NOTE | 2017-11-25 13:46 | RADRPT ---
EXAM DATE/TIME: 11/25/2017 13:17 [facility] COMPARISON: CHEST SINGLE AP, November 21, 2017, 16:55. INDICATIONS : Shortness of breath. MEDICAL HISTORY : None. SURGICAL HISTORY : None. ENCOUNTER: Initial ACUITY: 4 - 6 days PAIN SCORE: Non-responsive. LOCATION: Bilateral chest FINDINGS: Single AP view of the chest. Endotracheal tube nasogastric tube, left subclavian central venous poonam ter remain in place. Persistent small left pneumothorax. Increased bilateral interstitial opacity in the lungs and increased hazy opacity at the left lung base. Blunting of the left costophrenic sulcus. Skin folds also again seen on the left. CONCLUSION: 1. Persistent small left pneumothorax. 2. New left lung base consolidation and small pleural effusion. 3. Mild bilateral interstitial opacity indicating mild pulmonary edema. Adriano Blair MD on November 25, 2017 at 13:41 Board Certified Radiologist. This report was verified electronically.
[2017-11-25] MEDS: MULTIVITAMIN INJ 10 ML, FOLIC ACID INJ 1 MG in SODIUM CHLORID 0.9% 500 ML INJ 500 ML IV SCH (13:59)
[2017-11-25] MEDS ORDERED: FUROSEMIDE 40 MG/4 ML VIAL IV PUSH ONE (14:00)
[2017-11-25] MEDS: DEXMEDETOMIDINE INJ 200 MCG in SODIUM CHLORIDE 0.9% INJ 50 ML IV PRN ×2 (15:45→19:52)
[2017-11-25] MEDS ORDERED: NOREPINEPHRINE INJ 4 MG in SODIUM CHLOR 0.9% 250 ML INJ 246 ML IV PRN (17:15)
[2017-11-25] MEDS ORDERED: ALBUMIN 25% INJ 100 ML IV ONE (17:15)
[2017-11-25] MEDS ORDERED: TERBUTALINE INJ 1 MG/ML AMP SQ PRN (17:15)
[2017-11-25] MEDS: fentaNYL DRIP 250 ML IV PRN (17:28)
[2017-11-25] MEDS: cefTRIAXone INJ 2,000 MG in SODIUM CHLORIDE 0.9% INJ 100 ML IV SCH (19:52)
[2017-11-26] VITALS (20 sets, daily range): BP systolic 118–146; BP diastolic 52–76; PULSE 52–66; RESP 14–18; TEMP 97.9–98.9; O2SAT 97–100
[2017-11-26] MEDS: DEXMEDETOMIDINE INJ 200 MCG in SODIUM CHLORIDE 0.9% INJ 50 ML IV PRN (01:12)
[2017-11-26] MEDS: LEVOTHYROXINE SODIUM 100 MCG VIAL IV PUSH SCH (06:25)
[2017-11-26] MEDS: levETIRAcetam INJ 500 MG in SODIUM CHLORIDE 0.9% INJ 100 ML IV SCH ×2 (06:25→17:24)
--- NOTE | 2017-11-26 06:45 | RADRPT ---
EXAM DATE/TIME: 11/26/2017 05:13 [facility] COMPARISON: CT BRAIN W/O CONTRAST, November 22, 2017, 11:10. INDICATIONS : Follow up subdural. RADIATION DOSE: 66.34 CTDIvol (mGy) MEDICAL HISTORY : Cerebrovascular disease. Subdural SURGICAL HISTORY : Craniotomy. ENCOUNTER: Subsequent ACUITY: 4 - 6 days PAIN SCALE: Non-responsive LOCATION: cranial TECHNIQUE: Multiple contiguous axial images were obtained of the head. Using automated exposure control and adj ustment of the mA and/or kV according to patient size, radiation dose was kept as low as reasonably a chievable to obtain optimal diagnostic quality images. DICOM format image data is available electro nically for review and comparison. FINDINGS: Subdural drains remain in place on the right. Hemorrhagic collection remains with stable size and leslie earance, thickness of about 14 mm. Underlying brain shows patchy edema. There is stable moderate comp ression of the right lateral ventricle and slight subfalcine shift which appears to be improving. Mil d effacement of the paramesencephalic cisterns on the right. Interval removal of an ICP bolt from the left frontal region leaving some minimal pneumocephalus and edema and punctate contusion in the high convexity left frontal region. CONCLUSION: Slight improvement in right hemispheric brain swelling. Interval removal of a left frontal ICP bolt with some parenchymal changes in the high convexity left frontal region. Aman Vazquez MD on November 26, 2017 at 6:39 Board Certified Radiologist. This report was verified electronically.
[2017-11-26 06:52] LABS: AUTOMATED NEUTROPHIL # 8.5 TH/MM3 (1.8-7.7); BASOPHIL # 0.1 TH/MM3 (0-0.2); BASOPHIL % 0.6 % (0.0-2.0); EOSINOPHIL # 0.2 TH/MM3 (0-0.4); EOSINOPHIL % 1.8 % (0.0-4.0); HEMATOCRIT 29.4 % (39.0-51.0); HEMOGLOBIN 10.1 GM/DL (13.0-17.0); LYMPH % 7.6 % (9.0-44.0); LYMPHOCYTE # 0.8 TH/MM3 (1.0-4.8); MEAN CELL VOLUME 91.2 FL (80.0-100.0); MEAN CORPUSCULAR HEMOGLOBIN 31.3 PG (27.0-34.0); MEAN CORPUSCULAR HGB CONC 34.3 % (32.0-36.0); MEAN PLATELET VOLUME 9.3 FL (7.0-11.0); MONO % 7.4 % (0.0-8.0); MONOCYTE # 0.8 TH/MM3 (0-0.9); NEUT % 82.6 % (16.0-70.0); PLATELET COUNT 275 TH/MM3 (150-450); RED BLOOD COUNT 3.22 MIL/MM3 (4.50-5.90); RED CELL DISTRIBUTION WIDTH 15.1 % (11.6-17.2); WHITE BLOOD COUNT 10.3 TH/MM3 (4.0-11.0)
[2017-11-26 07:26] LABS: ALBUMIN 2.3 GM/DL (3.4-5.0); ALKALINE PHOSPHATASE 60 U/L (45-117); ALT (GPT) 77 U/L (12-78); AST (GOT) 43 U/L (15-37); BICARBONATE 26.8 MEQ/L (21.0-32.0); BLOOD UREA NITROGEN 14 MG/DL (7-18); CALCIUM 8.1 MG/DL (8.5-10.1); CHLORIDE 106 MEQ/L (98-107); CREATININE 0.82 MG/DL (0.60-1.30); GLOMERULAR FILTRATION RATE 92 ML/MIN (>89); GLUCOSE,RANDOM 138 MG/DL (74-106); SODIUM (NA) 141 MEQ/L (136-145); TOTAL BILIRUBIN ADULT 0.5 MG/DL (0.2-1.0); TOTAL PROTEIN 5.8 GM/DL (6.4-8.2)
[2017-11-26] MEDS: RESP: ALBUTEROL 2.5 MG/IPRATROPIUM 0.5 MG NEB (SCH) NEB ×3 (07:44→23:25)
[2017-11-26] MEDS: CHLORHEXIDINE 0.12% (ORAL KIT) 15 ML CUP MT SCH ×2 (08:00→19:22)
[2017-11-26] MEDS: ARTIFICIAL TEARS OPTH SOLN 15 ML BTL EACH EYE SCH ×3 (08:08→15:22)
[2017-11-26] MEDS: SODIUM CHLORIDE 0.9% FLUSH 10 ML FLUSH IV FLUSH SCH ×2 (08:08→20:31)
[2017-11-26] MEDS: DOCUSATE SODIUM 100 MG CAP PO SCH ×2 (09:00→20:23)
[2017-11-26] MEDS: PANTOPRAZOLE SODIUM 40 MG VIAL IVP SCH (09:00)
[2017-11-26] MEDS: CEFEPIME INJ 2,000 MG in SODIUM CHLORIDE 0.9% INJ 100 ML IV SCH ×2 (09:00→20:31)
[2017-11-26] MEDS: THIAMINE HCL 100 MG TAB PO SCH (09:00)
[2017-11-26] MEDS: fentaNYL DRIP 250 ML IV PRN (09:12)
--- NOTE | 2017-11-26 10:12 | HHI.NSPN ---
(Kiel Corral) History Chief Complaint: subdural hemorrhage. Pt sedated and intubated. (Kiel Corral) Interval History Mr. Dalton 72-year-old male who had presented to the emergency department via EMS after an accidental overdose of Percocet on 11/17/17. The patient was then found lying in the bathroom on the ground, unresponsive, was administered Narcan 0.4 mg intravenously. Per EMS the patient awakened and was alert. He has a history of chronic opiate use. 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 He was also found with severe aspiration pneumonia and a foreign body in the esophagus removed by GI. This morning he became completely obtunded and not responding to commands. 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 Patient now intubated, 25 g of mannitol has been given. Emergent neurosurgical evaluation requested. 11/22: Status post emergent right frontotemporoparietal craniotomy for evacuation of subdural hematoma, with placement of intracranial pressure monitor yesterday. Patient currently is intubated and sedated. ICPs low. 11/23: Intubated, minimally sedated, eyes open, moving spontaneously. ICPs stable. 11/24: Remains intubated and currently sedated. No changes to neuro checks overnight. 11/25: Pt opens eyes slightly to command. He doesn't cooperate well for exam. Pupils 3mm Bilaterally. He is sedated on Diprivan and Fentanyl drips. 11/26: Pt opens eyes better today to voice. He follows commands on right side. Left hemiparesis. Intubated on CPAP. He is on Diprivan and Fentanyl drips. (Kiel Corral) System Review Comments Not able to obtain given clinical condition. (Kiel Corral) Exam Results Vital Signs Date Time Temp Pulse Resp B/P (MAP) Pulse Ox O2 Delivery O2 Flow Rate FiO2 11/26/17 09:10 99 30 11/26/17 08:00 56 11/26/17 08:00 98.8 18 135/60 (85) 11/26/17 07:00 Mechanical Ventilator Intake and Output 11/26/17 11/26/17 11/27/17 08:00 16:00 00:00 Intake Total 678 ml Output Total 2100 ml Balance -1422 ml (Kiel Corral) Physical Examination General: Pt sedated and intubated in ICU with stable vitals. Eyes: Pupils 2mm bilaterally. Sclera anicteric. Resp: Intubated CPAP. CTA bilaterally. Heart: NSR no murmurs Abd: Soft positive bs. OG TFs at 60ml/hr. Skin: Head bandaged. FRITZ drains in place. Muscle: construction representative right hand to command. Moves RLE spontaneously more than LLE. Not following with LUE. Neuro: Pt sedated on Diprivan and Fentanyl drips. He opens eyes slightly to voice. Pupils 2mm bilaterally reactive bilaterally. (Kiel Corral) Lab, Micro, Other Results Last Impressions Head CT 11/26/17 0000 Signed Impressions: Service Date/Time: Sunday, November 26, 2017 05:13 - CONCLUSION: Slight improvement in right hemispheric brain swelling. Interval removal of a left frontal ICP bolt with some parenchymal changes in the high convexity left frontal region. Aman Vazquez MD Chest X-Ray 11/25/17 0000 Signed Impressions: Service Date/Time: Saturday, November 25, 2017 13:17 - CONCLUSION: 1. Persistent small left pneumothorax. 2. New left lung base consolidation and small pleural effusion. 3. Mild bilateral interstitial opacity indicating mild pulmonary edema. Adriano Blair MD Brain MRI 11/21/17 0727 Signed Impressions: Service Date/Time: Tuesday, November 21, 2017 10:11 - CONCLUSION: 1. 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 2. Scattered nonspecific white matter signal change. No focal abnormal areas of enhancement. 3. Small focal area of restricted diffusion in the left posterior medial cerebellar hemisphere suggesting an acute infarction; however, no signal abnormality is seen in this area on any of the other pulse sequences. Oswaldo Alicea MD Skull X-Ray 11/21/17 0000 Signed Impressions: Service Date/Time: Tuesday, November 21, 2017 09:47 - CONCLUSION: No contraindication to MRI seen. Oswaldo Alicea MD Abdomen X-Ray 11/21/17 0000 Signed Impressions: Service Date/Time: Tuesday, November 21, 2017 09:45 - CONCLUSION: No contraindication to MRI seen. Oswaldo Alicea MD Chest CT 11/17/17 0000 Signed Impressions: Service Date/Time: Friday, November 17, 2017 20:57 - CONCLUSION: 1. Foreign body at the level of the thoracic inlet, appears to be a coin within the esophagus. 2. Bilateral pneumonia. Please see above. Aman Bermeo MD Laboratory Tests Test 11/26/17 06:00 White Blood Count 10.3 TH/MM3 Red Blood Count 3.22 MIL/MM3 Hemoglobin 10.1 GM/DL Hematocrit 29.4 % Mean Corpuscular Volume 91.2 FL Mean Corpuscular Hemoglobin 31.3 PG Mean Corpuscular Hemoglobin Concent 34.3 % Red Cell Distribution Width 15.1 % Platelet Count 275 TH/MM3 Mean Platelet Volume 9.3 FL Neutrophils (%) (Auto) 82.6 % Lymphocytes (%) (Auto) 7.6 % Monocytes (%) (Auto) 7.4 % Eosinophils (%) (Auto) 1.8 % Basophils (%) (Auto) 0.6 % Neutrophils # (Auto) 8.5 TH/MM3 Lymphocytes # (Auto) 0.8 TH/MM3 Monocytes # (Auto) 0.8 TH/MM3 Eosinophils # (Auto) 0.2 TH/MM3 Basophils # (Auto) 0.1 TH/MM3 CBC Comment DIFF FINAL Differential Comment Blood Urea Nitrogen 14 MG/DL Creatinine 0.82 MG/DL Random Glucose 138 MG/DL Total Protein 5.8 GM/DL Albumin 2.3 GM/DL Calcium Level 8.1 MG/DL Alkaline Phosphatase 60 U/L Aspartate Amino Transf (AST/SGOT) 43 U/L Alanine Aminotransferase (ALT/SGPT) 77 U/L Total Bilirubin 0.5 MG/DL Sodium Level 141 MEQ/L Potassium Level 3.2 MEQ/L Chloride Level 106 MEQ/L Carbon Dioxide Level 26.8 MEQ/L Anion Gap 8 MEQ/L Estimat Glomerular Filtration Rate 92 ML/MIN (Kiel Corral) Medical Decision Making Impression and Plan A: 72 y/o M presented initially for opioid overdose, Decline in mental status with MRI showing large right subdural hygroma with 8 mm midline shift Status post emergent right craniotomy for evacuation of large subdural hygroma, placement of ICP monitor on 11/21/2017, ICPs stable, ICP monitor removed 11/23/17 f/u CT Brain 11/22 with residual right SDH, improved midline shift to now 2 mm from 8 mm P: cont neuro checks ok to wean vent to extubate from NRS standpoint per Dr. Rose change dressing daily, cont FRITZ draining 2 to suction due to residual subdural hematoma, critical care management nonchemical DVT prophylaxis Seizure prophylaxis GI prophylaxis (Kiel Corral) Attending Statement The exam, history, and the medical decision-making described in the above note were completed with the assistance of the mid-level provider. I reviewed and agree with the findings presented. I attest that I had a [id number] encounter with the patient on the same day, and personally performed and documented my assessment and findings in the medical record. (Leonard Shah MD) Kiel Corral November 26, 2017 10:12 Leonard Shah MD November 26, 2017 16:32
[2017-11-26] MEDS: POTASSIUM CHLOR 40 MEQ PREMIX 100 ML IV PRN (10:51)
--- NOTE | 2017-11-26 11:04 | HHI.CCPN ---
Subjective Remarks/Hospital Course 11/17: 72-year-old male presents to the emergency department via EMS after an accidental overdose. According to EMS the patient took 8 Percocet 5 mg tablets at home earlier today and then an unknown amount of Suboxone from his roommate. The patient was then found lying in the bathroom on the ground, unresponsive, was administered Narcan 0.4 mg intravenously. Per EMS the patient awakened and was alert. In the emergency department he did admit to taking Percocet, however, states he did not take any Suboxone. The patient denies any suicidal ideation, states he was trying to obtain a buzz from the Percocet. He does have a history of chronic opiate use. Upon awakening the patient did ask EMS for more Percocet. Upon arrival the patient does complain of shortness of breath, does have a history of COPD and is on oxygen at home 1 L via nasal cannula. 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 In the emergency department he remained short of breath and the CT of the chest was obtained. This showed severe aspiration pneumonia and the foreign body, coin-like, in the esophagus. The patient was intubated for airway protection by ED attending with a GI consultation in place for upper endoscopy and foreign body removal. 11/18: No events overnight. Patient has been afebrile. Currently, he is intubated and sedated, on mechanical ventilation. No family present at bedside. 11/19: Patient underwent EGD yesterday and per verbal report, he was found to have a nickel in his esophagus. Over the night, patient afebrile, with a T-max of 98.9 and adequate urine output. This a.m. he is off sedation, arousable, appropriate, following commands tolerating CPAP trial. Reconsult [facility] 11/21: Patient completely obtunded not responding to commands. Contacted by neurology secondary to brain imaging studies revealing chronic subdural with a midline shift and an acute infarct. Patient emergently intubated, see procedure note. 25 g of mannitol given. Chest x-ray pending. 11/22: Remains sedated, orally intubated on mechanical ventilation. Underwent craniectomy on 11/[address] Rose. 11/23: Sedated, orally intubated on mechanical ventilation. Gets agitated unenlightening sedation. Heart rate went up to 200s on stopping sedation. Given adenosine which revealed underlying atrial fibrillation. Patient was loaded with amiodarone and started on amiodarone drip. He converted to sinus rhythm. He was also given IV calcium chloride as well as magnesium sulfate IV piggyback. 11/24: Remains sedated/encephalopathic, orally intubated on mechanical ventilation. On amiodarone GTT. 11/25: Patient wakes up easily follows commands on the right upper extremity. Will place on CPAP and get weaning parameters. According to the notes okay with neurosurgery for weaning to extubation. Check chest x-ray today IV Lasix 40 mg 1 ordered 11/26: Awake, following commands with right upper extremity. Orally intubated on mechanical ventilation. Objective Vital Signs Date Time Temp Pulse Resp B/P (MAP) Pulse Ox O2 Delivery O2 Flow Rate FiO2 11/26/17 10:00 58 11/26/17 09:10 99 30 11/26/17 08:00 98.8 18 135/60 (85) 11/26/17 07:00 Mechanical Ventilator Intake and Output 11/26/17 11/26/17 11/27/17 08:00 16:00 00:00 Intake Total 678 ml Output Total 2100 ml Balance -1422 ml Result Diagram: 11/26/17 0600 11/26/17 0600 Imaging Last 24 hours Impressions Chest X-Ray 11/18/17 0000 Signed Impressions: Service Date/Time: Saturday, November 18, 2017 03:31 - CONCLUSION: Increasing right upper lobe infiltrates and stable patchy infiltrates in the left lower lung. Oswaldo Alicea MD Chest X-Ray 11/17/172004 Signed Impressions: Service Date/Time: Friday, November 17, 2017 20:11 - CONCLUSION: 1. Right-sided pneumonia, especially upper lobe. 2. Indeterminate radiopaque structure at the level of the thoracic inlet as above. Please correlate visually as to whether this may be overlying the patient. Otherwise, a coin or other foreign object may be in the esophagus. Aman Bermeo MD Last 24 hours Impressions Chest X-Ray 11/17/172004 Signed Impressions: Service Date/Time: Friday, November 17, 2017 20:11 - CONCLUSION: 1. Right-sided pneumonia, especially upper lobe. 2. Indeterminate radiopaque structure at the level of the thoracic inlet as above. Please correlate visually as to whether this may be overlying the patient. Otherwise, a coin or other foreign object may be in the esophagus. Aman Bermeo MD Chest X-Ray 11/17/17 0000 Signed Impressions: Service Date/Time: Friday, November 17, 2017 21:36 - CONCLUSION: Endotracheal tube is appropriately positioned. Bilateral pneumonia persists. Foreign body in the esophagus at the level of the thoracic inlet persists. Aman Bermeo MD Chest CT 11/17/17 0000 Signed Impressions: Service Date/Time: Friday, November 17, 2017 20:57 - CONCLUSION: 1. Foreign body at the level of the thoracic inlet, appears to be a coin within the esophagus. 2. Bilateral pneumonia. Please see above. Aman Bermeo MD Objective Remarks General -elderly male, orally intubated on mechanical ventilation, laying in bed not in any acute distress HEENT -dressing over the craniotomy site noted, FRITZ drains 2 with serosanguineous drainage. pupils equal, reactive, sclerae anicteric, neck supple , no nuchal rigidity, neck veins not distended, no carotid bruit CV - regular S1, S2, no murmurs Chest - B/L chest excursion, good air entry, no wheezes. Bilateral breath sounds clear to auscultation Abdomen - soft, non-tender, non-distended, BS present, no hepatomegaly, no splenomegaly Skin - no rashes, no cyanosis Extremities - warm and well perfused, no edema, + peripheral pulses, no clubbing Neuro -awakens easily off sedation,, orally intubated on mechanical ventilation. Pupils equal reacting to light. On sedation hold patient does follow commands on the right UE and appears to: Bilateral lower extremity. Did not move or follow on left upper extremity A/P Problem List: (1) Acute respiratory failure with hypoxia and hypercapnia ICD Code: J96.01 - Acute respiratory failure with hypoxia; J96.02 - Acute respiratory failure with hypercapnia (2) Subdural hematoma ICD Code: I62.00 - Nontraumatic subdural hemorrhage, unspecified Assessment and Plan Assessment This is a 72-year-old male with a chronic subdural hematoma with progressive encephalopathy and deterioration in mental status. Imaging studies. revealed chronic subdural hematoma on the right with 8 mm midline shift , and acute left posterior cerebellar infarct. Status post emergent right frontotemporoparietal craniotomy with Dr. Rose with evacuation of subdural hematoma. Plan by systems: Neurologic: Right chronic subdural hematoma with 8 mm midline shift Acute left posterior side cerebellar acute infarct Percocet overdose Neuro checks per ICU protocol Propofol/ fentanyl infusion to maintain ventilator synchrony. Hold sedation for weaning trial Initial GCS upon presentation less than 8, intubated emergently secondary to increased intracranial pressure and protection of airway 25 g mannitol IV on 11/22 Off 2% normal saline Neurology following-Dr. Land Neurosurgery - Dr. Rose s/p right frontotemporoparietal craniotomy with evacuation of subdural hematoma Respiratory: Acute hypoxemic and hypercarbic respiratory failure Home O2 dependent Maintain O2 sat greater than 92 % Ventilator bundle. Daily CPAP trials. Good weaning parameters and ABG, will order extubation Duo nebs every 6 hours scheduled, and every 2 hours as needed Check chest x-ray today Cardiovascular: Maintain MAP greater than 65mm HG Telemetry sinus rhythm/sinus tach IV Lasix 40 mg 1 on 11/25 Discontinue IV fluid Renal: Maintain kinney -- Strict I/Os FEN/GI: Electrolyte abnormality Elevated liver enzymes Rhabdomyolysis Continue tube feeds and advance to goal as tolerated-hold for weaning trial Protonix GI prophylaxis Bowel regimen Zofran for nausea Monitor creatinine kinase levels Noted sodium level is 134->131 today initiate 2% normal saline IVF's Heme/ID: Aspiration pneumonia Hepatitis C Monitor CBC, liver enzyme Obtain cultures if clinically indicated Type and screen Unasyn IV Endocrine: Glucose monitoring per ICU protocol, low-dose regimen -- SSI Prophylaxis: GI Prophylaxis Protonix DVT Prophylaxis -- SCDs Hold lovenox till cleared by neurosurgery Lines: Peripheral IVs 2. Central line if indicated Stef Griffin MD November 26, 2017 11:04
[2017-11-26] MEDS ORDERED: NOREPINEPHRINE-DEXTROSE DRIP 0 ML IV ONE (17:24)
[2017-11-26] MEDS: cefTRIAXone INJ 2,000 MG in SODIUM CHLORIDE 0.9% INJ 100 ML IV SCH (19:28)
[2017-11-27] VITALS (14 sets, daily range): BP systolic 132–169; BP diastolic 67–80; PULSE 58–68; RESP 14–27; TEMP 97.6–98.7; O2SAT 97–100
[2017-11-27] MEDS: DEXMEDETOMIDINE INJ 200 MCG in SODIUM CHLORIDE 0.9% INJ 50 ML IV PRN ×3 (00:45→15:34)
[2017-11-27] MEDS: CHLORHEXIDINE GLUCONATE 2 % 1 PACK (2 CLOTHS) TOP SCH (04:00)
[2017-11-27] MEDS: LEVOTHYROXINE SODIUM 100 MCG VIAL IV PUSH SCH (05:28)
[2017-11-27] MEDS: levETIRAcetam INJ 500 MG in SODIUM CHLORIDE 0.9% INJ 100 ML IV SCH ×2 (05:28→17:52)
[2017-11-27] MEDS: CHLORHEXIDINE 0.12% (ORAL KIT) 15 ML CUP MT SCH ×2 (08:00→20:00)
[2017-11-27] MEDS: RESP: ALBUTEROL 2.5 MG/IPRATROPIUM 0.5 MG NEB (SCH) NEB ×3 (08:00→20:48)
[2017-11-27] MEDS: ARTIFICIAL TEARS OPTH SOLN 15 ML BTL EACH EYE SCH ×3 (09:00→17:52)
--- NOTE | 2017-11-27 09:06 | HHI.NSPN ---
(Trisha Carlisle) Note Status Status: Progress Note (Tirsha Carlisle) Interval History Interval History Mr. Dalton 72-year-old male who had presented to the emergency department via EMS after an accidental overdose of Percocet on 11/17/17. The patient was then found lying in the bathroom on the ground, unresponsive, was administered Narcan 0.4 mg intravenously. Per EMS the patient awakened and was alert. He has a history of chronic opiate use. 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 He was also found with severe aspiration pneumonia and a foreign body in the esophagus removed by GI. This morning he became completely obtunded and not responding to commands. 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 Patient now intubated, 25 g of mannitol has been given. Emergent neurosurgical evaluation requested. 11/22: Status post emergent right frontotemporoparietal craniotomy for evacuation of subdural hematoma, with placement of intracranial pressure monitor yesterday. Patient currently is intubated and sedated. ICPs low. 11/23: Intubated, minimally sedated, eyes open, moving spontaneously. ICPs stable. 11/24: Remains intubated and currently sedated. No changes to neuro checks overnight. 11/27: Extubated over the weekend, drowsy but awake follows simple commands. Follow-up CT brain completed yesterday. (Trisha Carlisle) Labs, Micro, & Vital Signs Results Date Time Temp Pulse Resp B/P (MAP) Pulse Ox O2 Delivery O2 Flow Rate FiO2 11/27/17 08:21 100 Nasal Cannula 2.00 11/27/17 06:00 60 11/27/17 04:00 64 11/27/17 04:00 98.2 64 18 140/77 (98) 100 11/27/17 02:00 58 11/27/17 00:00 98.1 66 14 132/67 (88) 100 11/27/17 00:00 66 11/26/17 23:25 99 Nasal Cannula 2.00 11/26/17 22:00 54 11/26/17 20:00 58 11/26/17 20:00 97.9 58 18 141/76 (97) 100 11/26/17 19:00 100 Nasal Cannula 2.00 11/26/17 18:00 59 11/26/17 17:28 58 131/50 11/26/17 17:15 100 Nasal Cannula 2.00 11/26/17 17:15 99 Nasal Cannula 3.00 11/26/17 17:10 99 Nasal Cannula 3 11/26/17 16:00 30 11/26/17 16:00 98.9 56 14 138/55 (82) 99 11/26/17 16:00 58 11/26/17 15:38 99 30 11/26/17 14:00 66 11/26/17 12:00 98.4 66 16 146/54 (84) 99 11/26/17 12:00 30 11/26/17 12:00 64 11/26/17 11:45 97 30 11/26/17 10:00 58 11/26/17 09:10 99 30 Constitutional Vital Signs Date Time Temp Pulse Resp B/P (MAP) Pulse Ox O2 Delivery O2 Flow Rate FiO2 11/27/17 08:21 100 Nasal Cannula 2.00 11/27/17 06:00 60 11/27/17 04:00 64 11/27/17 04:00 98.2 64 18 140/77 (98) 100 11/27/17 02:00 58 11/27/17 00:00 98.1 66 14 132/67 (88) 100 11/27/17 00:00 66 11/26/17 23:25 99 Nasal Cannula 2.00 11/26/17 22:00 54 11/26/17 20:00 58 11/26/17 20:00 97.9 58 18 141/76 (97) 100 11/26/17 19:00 100 Nasal Cannula 2.00 11/26/17 18:00 59 11/26/17 17:28 58 131/50 11/26/17 17:15 100 Nasal Cannula 2.00 11/26/17 17:15 99 Nasal Cannula 3.00 11/26/17 17:10 99 Nasal Cannula 3 11/26/17 16:00 30 11/26/17 16:00 98.9 56 14 138/55 (82) 99 11/26/17 16:00 58 11/26/17 15:38 99 30 11/26/17 14:00 66 11/26/17 12:00 98.4 66 16 146/54 (84) 99 11/26/17 12:00 30 11/26/17 12:00 64 11/26/17 11:45 97 30 11/26/17 10:00 58 11/26/17 09:10 99 30 (Trisha Carlisle) Review of Systems ROS Limitations: Clinical Condition (Trisha Carlisle) Physical Exam Mr. Dalton is awake appears mildly drowsy. Neuro: awake, oriented to name. follwed few simple commands. CN: pupils equal. gross EOMs intact. Facial appears symmetric at rest. Incision healing well without evidence of infection. FRITZ drains #2 with moderate serosanguineous drainage, #1 with minimal clot like drainage, placed both to suction. Cervical Spine: soft, supple Motor: moves right arm and bilateral lower extremity to command, flaccid left arm Reflexes: Bilateral Babinski response Cerebellar: cannot be adequately assessed due to the patient's clinical condition (Trisha Carlisle) Medications Current Medications Current Medications Medications (Trade) Dose Ordered Sig/Nataly Route PRN Reason Start Time Stop Time Status Last Admin Dose Admin Sodium Chloride (NS Flush) 2 ml UNSCH PRN IV FLUSH FLUSH AFTER USING IV ACCESS 11/17/17 22:45 Sodium Chloride (NS Flush) 2 ml BID IV FLUSH 11/18/17 09:00 11/26/17 20:31 Acetaminophen (Tylenol) 650 mg Q6H PRN PO PAIN 1-5 AND/OR FEVER >101F 11/17/17 22:45 Ondansetron HCl (Zofran Inj) 4 mg Q6H PRN IV PUSH NAUSEA OR VOMITING 11/17/17 22:45 Miscellaneous Information ([facility] Nursing Information) 1 [id number] XX 11/17/17 22:45 11/18/17 00:59 Chlorhexidine Gluconate (Chlorhexidine 2% Cloth) Taper DAILY@04 TOP 11/18/17 04:00 11/14/18 03:59 11/22/17 04:00 Chlorhexidine Gluconate (Chlorhexidine 2% Cloth) 3 pack UNSCH PRN TOP HYGIENIC CARE 11/17/17 22:45 Magnesium Hydroxide (Milk Of Magnesia Liq) 30 ml Q12H PRN PO Mild constipation 11/17/17 22:45 Sennosides (Senokot) 17.2 mg Q12H PRN PO Moderate constipation 11/17/17 22:45 Bisacodyl (Dulcolax Supp) 10 mg DAILY PRN RECTAL SEVERE CONSITIPATION/ IF NPO 11/17/17 22:45 Lactulose (Lactulose Liq) 30 ml DAILY PRN PO SEVERE CONSITIPATION/ IF PO 11/17/17 22:45 Potassium Chloride 100 ml @ 50 mls/hr Q2H PRN IV For Potassium 2.8 - 3.2 mEq/L 11/17/17 23:30 11/26/17 10:51 Potassium Chloride 100 ml @ 50 mls/hr Q2H PRN IV For Potassium 2.8 - 3.2 mEq/L 11/17/17 23:30 11/20/17 12:21 Potassium Bicarb/ Potassium Chloride (K-Lyte Cl Eff) 50 meq UNSCH PRN PO For Potassium 3.3 - 3.5 mEq/L 11/17/17 23:30 Potassium Chloride 100 ml @ 25 mls/hr UNSCH PRN IV For Potassium 3.3 - 3.5 mEq/L 11/17/17 23:30 Magnesium Sulfate 4 gm/Sodium Chloride 100 ml @ 50 mls/hr UNSCH PRN IV For Magnesium 0.9 - 1.1 mg/dL 11/17/17 23:30 Magnesium Oxide (Mag-Ox) 800 mg UNSCH PRN PO For Magnesium 1.2 - 1.6 mg/dL 11/17/17 23:30 Magnesium Sulfate 2 gm/Sodium Chloride 100 ml @ 50 mls/hr UNSCH PRN IV For Magnesium 1.2 - 1.6 mg/dL 11/17/17 23:30 11/21/17 11:54 Potassium Phosphate (K-Phos) 2,000 mg Q4H PRN PO For Phosphorus < 2.5 mg/dL 11/17/17 23:30 11/20/17 14:59 Sodium Phosphate 30 mmol/Sodium Chloride 250 ml @ 42 mls/hr UNSCH PRN IV For Phosphorus < 2.5 mg/dL 11/17/17 23:30 11/20/17 21:44 Potassium Phosphate (K-Phos) 2,000 mg UNSCH PRN PO/TUBE SEE LABEL COMMENTS 11/17/17 23:30 Potassium Phosphate 30 mmol/ Sodium Chloride 260 ml @ 42 mls/hr UNSCH PRN IV SEE LABEL COMMENTS 11/17/17 23:30 Thiamine HCl (Vitamin B1) 100 mg DAILY PO 11/20/17 13:00 11/26/17 09:00 Clonidine (Catapres) 0.1 mg Q6H PRN PO SEE LABEL COMMENTS 11/20/17 13:00 Flumazenil (Romazicon Inj) 0.2 mg Q1M PRN IV PUSH SEE LABEL COMMENTS 11/20/17 13:00 Potassium Chloride 20 meq/ Sodium Chloride 110 ml @ 50 mls/hr Q2H PRN IV For Potassium 3.3 - 3.5 mEq/L 11/21/17 05:30 11/21/17 06:43 Levothyroxine Sodium (Synthroid Inj) 25 mcg DAILY@06 IV PUSH 11/22/17 06:00 11/27/17 05:28 Enalaprilat (Vasotec Inj) 1.25 mg Q6H PRN IV PUSH SEE LABEL COMMENTS 11/21/17 10:45 Labetalol HCl (Trandate Inj) 10 mg Q6H PRN IV PUSH SEE LABEL COMMENTS 11/21/17 10:45 Hydralazine HCl (Apresoline Inj) 10 mg Q6H PRN IV PUSH SEE LABEL COMMENTS 11/21/17 10:45 Propofol 100 ml @ 1.815 mls/ hr TITRATE PRN IV SEDATION 11/21/17 12:00 11/25/17 03:11 Artificial Tears (Tears Naturale Opth Soln) 1 drop TID EACH EYE 11/21/17 13:00 11/25/17 12:37 Albuterol/ Ipratropium (Duoneb Neb) 1 ampule Q2HR NEB PRN INH WHEEZING 11/21/17 13:00 Chlorhexidine Gluconate (Peridex 0.12% Liq) 15 ml BID@08,20 MT 11/21/17 20:00 11/27/17 08:00 Docusate Sodium (Colace) 100 mg BID PO 11/21/17 21:00 11/26/17 09:00 Pantoprazole Sodium (Protonix Inj) 40 mg DAILY IVP 11/22/17 09:00 11/26/17 09:00 Calcium Gluconate (Calcium Gluconate Inj) 1 gm UNSCH PRN IV SEE LABEL COMMENTS 11/21/17 15:00 Potassium Chloride 100 ml @ 50 mls/hr UNSCH PRN IV POTASSIUM LESS THAN 4 11/21/17 15:00 Magnesium Sulfate 4 gm/Sodium Chloride 108 ml @ 108 mls/hr UNSCH PRN IV MAGNESIUM LESS THAN 2 11/21/17 15:00 Acetaminophen/ Hydrocodone Bitart (Wallace 10-325 Mg) 1 tab Q4H PRN PO PAIN SCALE 1 TO 5 11/21/17 15:00 Acetaminophen/ Hydrocodone Bitart (Wallace 10-325 Mg) 2 tab Q4H PRN PO PAIN SCALE 6 TO 10 11/21/17 15:00 Morphine Sulfate (Morphine Inj) 2 mg Q2H PRN IV PUSH PAIN SCALE 1 TO 6 11/21/17 15:00 Morphine Sulfate (Morphine Inj) 4 mg Q2H PRN IV PUSH PAIN SCALE 7 TO 10 11/21/17 15:00 Acetaminophen (Tylenol) 650 mg Q4H PRN PO TEMPERATURE > 101.5 F 11/21/17 15:00 Cefepime HCl 2000 mg/Sodium Chloride 100 ml @ 200 mls/hr Q12H IV 11/21/17 21:00 11/26/17 20:31 Ceftriaxone Sodium 2000 mg/ Sodium Chloride 100 ml @ 200 mls/hr Q24H IV 11/21/17 20:00 11/26/17 19:28 Levetriacetam 500 mg/Sodium Chloride 105 ml @ 420 mls/hr Q12H IV 11/22/17 06:00 11/27/17 05:28 Phenylephrine HCl 40 mg/Dextrose 500 ml @ 30 mls/hr TITRATE PRN IV Blood pressure management 11/23/17 13:15 Terbutaline Sulfate (Brethine Inj) 1 mg UNSCH PRN SQ For Extravasation 11/23/17 13:15 Dexmedetomidine HCl 200 mcg/ Sodium Chloride 52 ml @ 3.36 mls/hr TITRATE PRN IV SEDATION 11/25/17 15:30 11/27/17 08:24 Fentanyl Citrate 250 ml @ 5 mls/hr TITRATE PRN IV SEDATION 11/25/17 17:15 11/26/17 09:12 Albuterol/ Ipratropium (Duoneb Neb) 1 ampule Q6HR WHILE AWAKE NEB NEB 11/25/17 20:00 11/27/17 08:00 Norepinephrine Bitartrate 4 mg/ Sodium Chloride 250 ml @ 7.5 mls/hr TITRATE PRN IV Blood pressure management 11/25/17 17:15 11/26/17 17:28 Terbutaline Sulfate (Brethine Inj) 1 mg UNSCH PRN SQ For Extravasation 11/25/17 17:15 Amiodarone HCl (Cordarone) 400 mg DAILY OG-TUBE 11/27/17 09:00 (Trisha Carlisle) Medical Decision Making MDM Remarks 72-year-old male presented initially for opioid overdose, Decline in mental status with MRI showing large right subdural hygroma with 8 mm midline shift Status post emergent right craniotomy for evacuation of large subdural hygroma, placement of ICP monitor on 11/21/2017, ICPs stable, ICP monitor removed 11/23/17 f/u CT Brain 11/22 with residual right SDH, improved midline shift to now 2 mm from 8 mm. f/u CT Brain 11/26 with stable residual right SDH with mild mass effect (Trisha Carlisle) Plan Plan Remarks f/u CT Brain 11/26 reviewed cont neuro checks cont JPs to suction today per Dr. Rose, luann nursing to milk FRITZ drains to promote drainage cont therapy nonchemical dvt prophylaxis with SCDs and TEDs GI prophylaxis (Trisha Carlisle) Attending Statement The exam, history, and the medical decision-making described in the above note were completed with the assistance of the mid-level provider. I reviewed and agree with the findings presented. I attest that I had a [id number] encounter with the patient on the same day, and personally performed and documented my assessment and findings in the medical record. (Rodríguez Rose MD) Trisha Carlisle November 27, 2017 09:06 Rodríguez Rose MD December 01, 2017 16:28
[2017-11-27] MEDS: CEFEPIME INJ 2,000 MG in SODIUM CHLORIDE 0.9% INJ 100 ML IV SCH ×2 (10:45→23:02)
[2017-11-27] MEDS: PANTOPRAZOLE SODIUM 40 MG VIAL IVP SCH (10:46)
[2017-11-27] MEDS: SODIUM CHLORIDE 0.9% FLUSH 10 ML FLUSH IV FLUSH SCH ×2 (10:46→21:00)
[2017-11-27] MEDS: AMIODARONE 200 MG TAB OG-TUBE SCH (10:46)
[2017-11-27] MEDS: THIAMINE HCL 100 MG TAB PO SCH (10:46)
[2017-11-27] MEDS: DOCUSATE SODIUM 100 MG CAP PO SCH ×2 (10:47→21:00)
[2017-11-27] MEDS: ACETAMINOPHEN/HYDROcodone 325 MG/10 MG TAB PO PRN (10:47)
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
[2017-11-27] MEDS: cefTRIAXone INJ 2,000 MG in SODIUM CHLORIDE 0.9% INJ 100 ML IV SCH (20:26)
[2017-11-28] VITALS (13 sets, daily range): BP systolic 130–169; BP diastolic 48–82; PULSE 68–87; RESP 18–24; TEMP 97.4–98.1; O2SAT 94–100
[2017-11-28] MEDS: CHLORHEXIDINE GLUCONATE 2 % 1 PACK (2 CLOTHS) TOP SCH (04:00)
[2017-11-28] MEDS: DEXMEDETOMIDINE INJ 200 MCG in SODIUM CHLORIDE 0.9% INJ 50 ML IV PRN (04:11)
[2017-11-28] MEDS: hydrALAZINE HCL 20 MG/ML VIAL IV PUSH PRN ×2 (04:15→13:31)
[2017-11-28] MEDS: levETIRAcetam INJ 500 MG in SODIUM CHLORIDE 0.9% INJ 100 ML IV SCH ×2 (05:52→17:54)
[2017-11-28] MEDS: LEVOTHYROXINE SODIUM 100 MCG VIAL IV PUSH SCH (05:54)
[2017-11-28] MEDS: CHLORHEXIDINE 0.12% (ORAL KIT) 15 ML CUP MT SCH ×2 (08:00→20:19)
[2017-11-28] MEDS: RESP: ALBUTEROL 2.5 MG/IPRATROPIUM 0.5 MG NEB (SCH) NEB ×3 (08:25→19:59)
[2017-11-28] MEDS: PANTOPRAZOLE SODIUM 40 MG VIAL IVP SCH (09:00)
[2017-11-28] MEDS: DOCUSATE SODIUM 100 MG CAP PO SCH ×2 (09:00→20:19)
[2017-11-28] MEDS: AMIODARONE 200 MG TAB OG-TUBE SCH (09:00)
[2017-11-28] MEDS: THIAMINE HCL 100 MG TAB PO SCH (09:00)
[2017-11-28] MEDS: ARTIFICIAL TEARS OPTH SOLN 15 ML BTL EACH EYE SCH ×3 (09:00→17:59)
[2017-11-28] MEDS: CEFEPIME INJ 2,000 MG in SODIUM CHLORIDE 0.9% INJ 100 ML IV SCH ×2 (09:00→20:19)
[2017-11-28] MEDS: SODIUM CHLORIDE 0.9% FLUSH 10 ML FLUSH IV FLUSH SCH ×2 (09:00→20:19)
--- NOTE | 2017-11-28 11:04 | HHI.PR ---
Subjective Remarks Follow-up subdural hematoma, respiratory failure, pneumonia. Per nursing, no events reported overnight. Still on Precedex drip for agitation. Patient denies complaints at this time. Objective Vitals Vital Signs Date Time Temp Pulse Resp B/P (MAP) Pulse Ox O2 Delivery O2 Flow Rate FiO2 11/28/17 08:25 95 Nasal Cannula 3.00 11/28/17 08:00 72 11/28/17 08:00 98.1 72 22 137/68 (91) 96 11/28/17 07:00 96 Nasal Cannula 2.00 11/28/17 04:00 74 11/28/17 04:00 97.4 74 18 152/82 (105) 99 11/28/17 02:00 68 11/28/17 00:00 97.7 76 18 162/79 (106) 99 11/28/17 00:00 76 11/27/17 22:00 68 11/27/17 20:49 97 Nasal Cannula 3.00 11/27/17 20:00 97.9 64 27 150/73 (98) 97 11/27/17 20:00 64 11/27/17 19:00 97 Nasal Cannula 2.00 11/27/17 18:00 62 11/27/17 16:00 59 11/27/17 16:00 98.7 59 21 169/70 (103) 100 11/27/17 14:00 60 11/27/17 12:06 12 11/27/17 12:00 98.1 64 18 135/69 (91) 97 11/27/17 12:00 64 I/O 11/27/17 11/27/17 11/27/17 11/28/17 11/28/17 11/28/17 07:00 15:00 23:00 07:00 15:00 23:00 Output Total 1840 ml 1640 ml Balance -1840 ml -1640 ml Output Urine Total 1750 ml 1500 ml Drainage Total 90 ml 140 ml # Bowel Movements 0 Result Diagram: 11/26/17 0600 11/26/175 Imaging Last Impressions Head CT 11/26/17 0000 Signed Impressions: Service Date/Time: Sunday, November 26, 2017 05:13 - CONCLUSION: Slight improvement in right hemispheric brain swelling. Interval removal of a left frontal ICP bolt with some parenchymal changes in the high convexity left frontal region. Aman Vazquez MD Chest X-Ray 11/25/17 0000 Signed Impressions: Service Date/Time: Saturday, November 25, 2017 13:17 - CONCLUSION: 1. Persistent small left pneumothorax. 2. New left lung base consolidation and small pleural effusion. 3. Mild bilateral interstitial opacity indicating mild pulmonary edema. Adriano Blair MD Brain MRI 11/21/17 0727 Signed Impressions: Service Date/Time: Tuesday, November 21, 2017 10:11 - CONCLUSION: 1. 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 2. Scattered nonspecific white matter signal change. No focal abnormal areas of enhancement. 3. Small focal area of restricted diffusion in the left posterior medial cerebellar hemisphere suggesting an acute infarction; however, no signal abnormality is seen in this area on any of the other pulse sequences. Oswaldo Alicea MD Skull X-Ray 11/21/17 0000 Signed Impressions: Service Date/Time: Tuesday, November 21, 2017 09:47 - CONCLUSION: No contraindication to MRI seen. Oswaldo Alicea MD Abdomen X-Ray 11/21/17 0000 Signed Impressions: Service Date/Time: Tuesday, November 21, 2017 09:45 - CONCLUSION: No contraindication to MRI seen. Oswaldo Alicea MD Chest CT 11/17/17 0000 Signed Impressions: Service Date/Time: Friday, November 17, 2017 20:57 - CONCLUSION: 1. Foreign body at the level of the thoracic inlet, appears to be a coin within the esophagus. 2. Bilateral pneumonia. Please see above. Aman Bermeo MD Objective Remarks General: No acute distress. HEENT: FRITZ drains present. Heart: Regular rate and rhythm. No murmur. Lungs: Coarse breath sounds bilaterally. Breathing is nonlabored. Abdomen: Soft, nontender, nondistended. Extremities: No lower extremity edema. Psych: Sleeping, but awakens and follows commands. Procedures 11/21/17 endotracheal intubation 11/21/17 right frontal/temporal/parietal craniotomy with evacuation of subdural hematoma 11/21/17 left frontal ash hole with placement of an intracranial pressure monitor Urinary Catheter: Yes Assessment to: Continue Wasserman insert reason: Measure Accurate Output Vascular Central Line Catheter: No A/P Assessment and Plan 1. 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 Status post right frontotemporoparietal craniotomy with evacuation of subdural hematoma. Drains remain in place. 2. Acute hypoxemic and hypercarbic respiratory failure: Improved. Patient was extubated on 11/27/17. Continue oxygen per nasal cannula. DuoNeb scheduled and as needed. Patient is oxygen dependent at home. 3. Agitation: Patient is currently on Precedex drip. Will attempt to wean off Precedex today. 4. Hypokalemia: Improved with supplementation. Monitor labs. 5. Aspiration pneumonia: Continue IV antibiotics. Sputum culture is growing Klebsiella and staph aureus. 6. GI prophylaxis: Protonix. 7. Rhabdomyolysis: Resolved. 8. DVT prophylaxis: SCDs. Lovenox on hold until cleared by neurosurgery. Edvin Kelley MD November 28, 2017 11:04
[2017-11-28] MEDS: ACETAMINOPHEN/HYDROcodone 325 MG/10 MG TAB PO PRN (13:31)
--- NOTE | 2017-11-28 15:15 | HHI.NSPN ---
(Trisha Carlisle) The exam, history, and the medical decision-making described in the above note were completed with the assistance of the mid-level provider. I reviewed and agree with the findings presented. I attest that I had a [id number] encounter with the patient on the same day, and personally performed and documented my assessment and findings in the medical record. (Rodríguez Rose MD) Note Status Status: Progress Note (Trisha Carlisle) Interval History Interval History Mr. Dalton 72-year-old male who had presented to the emergency department via EMS after an accidental overdose of Percocet on 11/17/17. The patient was then found lying in the bathroom on the ground, unresponsive, was administered Narcan 0.4 mg intravenously. Per EMS the patient awakened and was alert. He has a history of chronic opiate use. 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 He was also found with severe aspiration pneumonia and a foreign body in the esophagus removed by GI. This morning he became completely obtunded and not responding to commands. 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 Patient now intubated, 25 g of mannitol has been given. Emergent neurosurgical evaluation requested. 11/22: Status post emergent right frontotemporoparietal craniotomy for evacuation of subdural hematoma, with placement of intracranial pressure monitor yesterday. Patient currently is intubated and sedated. ICPs low. 11/23: Intubated, minimally sedated, eyes open, moving spontaneously. ICPs stable. 11/24: Remains intubated and currently sedated. No changes to neuro checks overnight. 11/27: Extubated over the weekend, drowsy but awake follows simple commands. Follow-up CT brain completed yesterday. 11/28: Awake, appears confused. Followed few simple commands. Nursing reports FRITZ drain numbers 2 is still putting out moderate drainage. (Trisha Carlisle) Labs, Micro, & Vital Signs Results Date Time Temp Pulse Resp B/P (MAP) Pulse Ox O2 Delivery O2 Flow Rate FiO2 11/28/17 14:00 78 11/28/17 12:00 97.7 78 21 132/59 (83) 97 11/28/17 12:00 78 11/28/17 10:00 80 11/28/17 08:25 95 Nasal Cannula 3.00 11/28/17 08:00 72 11/28/17 08:00 98.1 72 22 137/68 (91) 96 11/28/17 07:00 96 Nasal Cannula 2.00 11/28/17 04:00 74 11/28/17 04:00 97.4 74 18 152/82 (105) 99 11/28/17 02:00 68 11/28/17 00:00 97.7 76 18 162/79 (106) 99 11/28/17 00:00 76 11/27/17 22:00 68 11/27/17 20:49 97 Nasal Cannula 3.00 11/27/17 20:00 97.9 64 27 150/73 (98) 97 11/27/17 20:00 64 11/27/17 19:00 97 Nasal Cannula 2.00 11/27/17 18:00 62 11/27/17 16:00 59 11/27/17 16:00 98.7 59 21 169/70 (103) 100 Constitutional Vital Signs Date Time Temp Pulse Resp B/P (MAP) Pulse Ox O2 Delivery O2 Flow Rate FiO2 11/28/17 14:00 78 11/28/17 12:00 97.7 78 21 132/59 (83) 97 11/28/17 12:00 78 11/28/17 10:00 80 11/28/17 08:25 95 Nasal Cannula 3.00 11/28/17 08:00 72 11/28/17 08:00 98.1 72 22 137/68 (91) 96 11/28/17 07:00 96 Nasal Cannula 2.00 11/28/17 04:00 74 11/28/17 04:00 97.4 74 18 152/82 (105) 99 11/28/17 02:00 68 11/28/17 00:00 97.7 76 18 162/79 (106) 99 11/28/17 00:00 76 11/27/17 22:00 68 11/27/17 20:49 97 Nasal Cannula 3.00 11/27/17 20:00 97.9 64 27 150/73 (98) 97 11/27/17 20:00 64 11/27/17 19:00 97 Nasal Cannula 2.00 11/27/17 18:00 62 11/27/17 16:00 59 11/27/17 16:00 98.7 59 21 169/70 (103) 100 (Trisha Carlisle) Review of Systems ROS Limitations: Clinical Condition (Trisha Carlisle) Physical Exam Mr. Dalton is awake appears mildly drowsy. Neuro: awake, oriented to name. followed few simple commands. CN: pupils equal. gross EOMs intact. Facial appears symmetric at rest. Incision healing well without evidence of infection. FRITZ drains #2 with moderate serosanguineous drainage, #1 with minimal drainage. Cervical Spine: soft, supple Motor: moves right arm and bilateral lower extremity to command, flaccid left arm Reflexes: Bilateral Babinski response Cerebellar: cannot be adequately assessed due to the patient's clinical condition (Trisha Carlisle) Medications Current Medications Current Medications Medications (Trade) Dose Ordered Sig/Nataly Route PRN Reason Start Time Stop Time Status Last Admin Dose Admin Sodium Chloride (NS Flush) 2 ml UNSCH PRN IV FLUSH FLUSH AFTER USING IV ACCESS 11/17/17 22:45 Sodium Chloride (NS Flush) 2 ml BID IV FLUSH 11/18/17 09:00 11/28/17 09:00 Acetaminophen (Tylenol) 650 mg Q6H PRN PO PAIN 1-5 AND/OR FEVER >101F 11/17/17 22:45 Ondansetron HCl (Zofran Inj) 4 mg Q6H PRN IV PUSH NAUSEA OR VOMITING 11/17/17 22:45 Miscellaneous Information ([facility] [place] [facility] Information) 1 [id number] XX 11/17/17 22:45 11/18/17 00:59 Chlorhexidine Gluconate (Chlorhexidine 2% Cloth) Taper DAILY@04 TOP 11/18/17 04:00 11/14/18 03:59 11/22/17 04:00 Chlorhexidine Gluconate (Chlorhexidine 2% Cloth) 3 pack UNSCH PRN TOP HYGIENIC CARE 11/17/17 22:45 Magnesium Hydroxide (Milk Of Magnesia Liq) 30 ml Q12H PRN PO Mild constipation 11/17/17 22:45 Sennosides (Senokot) 17.2 mg Q12H PRN PO Moderate constipation 11/17/17 22:45 Bisacodyl (Dulcolax Supp) 10 mg DAILY PRN RECTAL SEVERE CONSITIPATION/ IF NPO 11/17/17 22:45 Lactulose (Lactulose Liq) 30 ml DAILY PRN PO SEVERE CONSITIPATION/ IF PO 11/17/17 22:45 Potassium Chloride 100 ml @ 50 mls/hr Q2H PRN IV For Potassium 2.8 - 3.2 mEq/L 11/17/17 23:30 11/26/17 10:51 Potassium Chloride 100 ml @ 50 mls/hr Q2H PRN IV For Potassium 2.8 - 3.2 mEq/L 11/17/17 23:30 11/20/17 12:21 Potassium Bicarb/ Potassium Chloride (K-Lyte Cl Eff) 50 meq UNSCH PRN PO For Potassium 3.3 - 3.5 mEq/L 11/17/17 23:30 Potassium Chloride 100 ml @ 25 mls/hr UNSCH PRN IV For Potassium 3.3 - 3.5 mEq/L 11/17/17 23:30 Magnesium Sulfate 4 gm/Sodium Chloride 100 ml @ 50 mls/hr UNSCH PRN IV For Magnesium 0.9 - 1.1 mg/dL 11/17/17 23:30 Magnesium Oxide (Mag-Ox) 800 mg UNSCH PRN PO For Magnesium 1.2 - 1.6 mg/dL 11/17/17 23:30 Magnesium Sulfate 2 gm/Sodium Chloride 100 ml @ 50 mls/hr UNSCH PRN IV For Magnesium 1.2 - 1.6 mg/dL 11/17/17 23:30 11/21/17 11:54 Potassium Phosphate (K-Phos) 2,000 mg Q4H PRN PO For Phosphorus < 2.5 mg/dL 11/17/17 23:30 11/20/17 14:59 Sodium Phosphate 30 mmol/Sodium Chloride 250 ml @ 42 mls/hr UNSCH PRN IV For Phosphorus < 2.5 mg/dL 11/17/17 23:30 11/20/17 21:44 Potassium Phosphate (K-Phos) 2,000 mg UNSCH PRN PO/TUBE SEE LABEL COMMENTS 11/17/17 23:30 Potassium Phosphate 30 mmol/ Sodium Chloride 260 ml @ 42 mls/hr UNSCH PRN IV SEE LABEL COMMENTS 11/17/17 23:30 Thiamine HCl (Vitamin B1) 100 mg DAILY PO 11/20/17 13:00 11/27/17 10:46 Clonidine (Catapres) 0.1 mg Q6H PRN PO SEE LABEL COMMENTS 11/20/17 13:00 Flumazenil (Romazicon Inj) 0.2 mg Q1M PRN IV PUSH SEE LABEL COMMENTS 11/20/17 13:00 Potassium Chloride 20 meq/ Sodium Chloride 110 ml @ 50 mls/hr Q2H PRN IV For Potassium 3.3 - 3.5 mEq/L 11/21/17 05:30 11/21/17 06:43 Levothyroxine Sodium (Synthroid Inj) 25 mcg DAILY@06 IV PUSH 11/22/17 06:00 11/28/17 05:54 Enalaprilat (Vasotec Inj) 1.25 mg Q6H PRN IV PUSH SEE LABEL COMMENTS 11/21/17 10:45 Labetalol HCl (Trandate Inj) 10 mg Q6H PRN IV PUSH SEE LABEL COMMENTS 11/21/17 10:45 Hydralazine HCl (Apresoline Inj) 10 mg Q6H PRN IV PUSH SEE LABEL COMMENTS 11/21/17 10:45 11/28/17 13:31 Artificial Tears (Tears Naturale Opth Soln) 1 drop TID EACH EYE 11/21/17 13:00 11/28/17 13:00 Albuterol/ Ipratropium (Duoneb Neb) 1 ampule Q2HR NEB PRN INH WHEEZING 11/21/17 13:00 Chlorhexidine Gluconate (Peridex 0.12% Liq) 15 ml BID@08,20 MT 11/21/17 20:00 11/28/17 08:00 Docusate Sodium (Colace) 100 mg BID PO 11/21/17 21:00 11/27/17 10:47 Pantoprazole Sodium (Protonix Inj) 40 mg DAILY IVP 11/22/17 09:00 11/28/17 09:00 Calcium Gluconate (Calcium Gluconate Inj) 1 gm UNSCH PRN IV SEE LABEL COMMENTS 11/21/17 15:00 Potassium Chloride 100 ml @ 50 mls/hr UNSCH PRN IV POTASSIUM LESS THAN 4 11/21/17 15:00 Magnesium Sulfate 4 gm/Sodium Chloride 108 ml @ 108 mls/hr UNSCH PRN IV MAGNESIUM LESS THAN 2 11/21/17 15:00 Acetaminophen/ Hydrocodone Bitart (Gore 10-325 Mg) 1 tab Q4H PRN PO PAIN SCALE 1 TO 5 11/21/17 15:00 11/28/17 13:31 Acetaminophen/ Hydrocodone Bitart (Gore 10-325 Mg) 2 tab Q4H PRN PO PAIN SCALE 6 TO 10 11/21/17 15:00 11/27/17 10:47 Morphine Sulfate (Morphine Inj) 2 mg Q2H PRN IV PUSH PAIN SCALE 1 TO 6 11/21/17 15:00 Morphine Sulfate (Morphine Inj) 4 mg Q2H PRN IV PUSH PAIN SCALE 7 TO 10 11/21/17 15:00 Acetaminophen (Tylenol) 650 mg Q4H PRN PO TEMPERATURE > 101.5 F 11/21/17 15:00 Cefepime HCl 2000 mg/Sodium Chloride 100 ml @ 200 mls/hr Q12H IV 11/21/17 21:00 11/28/17 09:00 Ceftriaxone Sodium 2000 mg/ Sodium Chloride 100 ml @ 200 mls/hr Q24H IV 11/21/17 20:00 11/27/17 20:26 Levetriacetam 500 mg/Sodium Chloride 105 ml @ 420 mls/hr Q12H IV 11/22/17 06:00 11/28/17 05:52 Terbutaline Sulfate (Brethine Inj) 1 mg UNSCH PRN SQ For Extravasation 11/23/17 13:15 Dexmedetomidine HCl 200 mcg/ Sodium Chloride 52 ml @ 3.36 mls/hr TITRATE PRN IV SEDATION 11/25/17 15:30 11/28/17 04:11 Albuterol/ Ipratropium (Duoneb Neb) 1 ampule Q6HR WHILE AWAKE NEB NEB 11/25/17 20:00 11/28/17 14:36 Terbutaline Sulfate (Brethine Inj) 1 mg UNSCH PRN SQ For Extravasation 11/25/17 17:15 Amiodarone HCl (Cordarone) 400 mg DAILY OG-TUBE 11/27/17 09:00 11/28/17 09:00 (Trisha Carlisle) Medical Decision Making MDM Remarks 72-year-old male presented initially for opioid overdose, Decline in mental status with MRI showing large right subdural hygroma with 8 mm midline shift Status post emergent right craniotomy for evacuation of large subdural hygroma, placement of ICP monitor on 11/21/2017, ICPs stable, ICP monitor removed 11/23/17 f/u CT Brain 11/22 with residual right SDH, improved midline shift to now 2 mm from 8 mm. f/u CT Brain 11/26 with stable residual right SDH with mild mass effect (Trisha Carlisle) Plan Plan Remarks cont neuro checks dc FRITZ # 1 today, cont FRITZ [address] Rose, luann nursing to cont milking FRITZ drain to promote drainage nonchemical dvt prophylaxis with SCDs and TEDs GI prophylaxis (Trisha Carlisle) Trisha Carlisle November 28, 2017 15:15 Rodríguez Rose MD December 01, 2017 17:16
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
[2017-11-28] MEDS: cefTRIAXone INJ 2,000 MG in SODIUM CHLORIDE 0.9% INJ 100 ML IV SCH (20:18)
[2017-11-28] MEDS ORDERED: RESP: ALBUTEROL 2.5 MG/3 ML NEB (PRN) NEB (22:00)
[2017-11-29] VITALS (14 sets, daily range): BP systolic 99–158; BP diastolic 57–84; PULSE 67–88; RESP 20–27; TEMP 97.6–98; O2SAT 93–99
[2017-11-29] MEDS: DEXMEDETOMIDINE INJ 200 MCG in SODIUM CHLORIDE 0.9% INJ 50 ML IV PRN ×2 (00:41→15:09)
[2017-11-29] MEDS: CHLORHEXIDINE GLUCONATE 2 % 1 PACK (2 CLOTHS) TOP SCH (03:09)
[2017-11-29] MEDS: LEVOTHYROXINE SODIUM 100 MCG VIAL IV PUSH SCH (05:50)
[2017-11-29] MEDS: levETIRAcetam INJ 500 MG in SODIUM CHLORIDE 0.9% INJ 100 ML IV SCH ×2 (05:50→17:47)
[2017-11-29 07:13] LABS: AUTOMATED NEUTROPHIL # 8.2 TH/MM3 (1.8-7.7); BASOPHIL # 0.1 TH/MM3 (0-0.2); BASOPHIL % 0.6 % (0.0-2.0); EOSINOPHIL # 0.1 TH/MM3 (0-0.4); HEMOGLOBIN 11.7 GM/DL (13.0-17.0); LYMPH % 6.2 % (9.0-44.0); LYMPHOCYTE # 0.6 TH/MM3 (1.0-4.8); MEAN CELL VOLUME 90.2 FL (80.0-100.0); MEAN CORPUSCULAR HGB CONC 34.3 % (32.0-36.0); MONO % 8.2 % (0.0-8.0); MONOCYTE # 0.8 TH/MM3 (0-0.9); PLATELET COUNT 372 TH/MM3 (150-450); RED BLOOD COUNT 3.77 MIL/MM3 (4.50-5.90); RED CELL DISTRIBUTION WIDTH 15.1 % (11.6-17.2); WHITE BLOOD COUNT 9.8 TH/MM3 (4.0-11.0)
[2017-11-29 07:31] LABS: ALBUMIN 2.6 GM/DL (3.4-5.0); ALKALINE PHOSPHATASE 81 U/L (45-117); ALT (GPT) 83 U/L (12-78); AST (GOT) 69 U/L (15-37); BLOOD UREA NITROGEN 9 MG/DL (7-18); CALCIUM 8.8 MG/DL (8.5-10.1); CHLORIDE 94 MEQ/L (98-107); CREATININE 0.67 MG/DL (0.60-1.30); GLOMERULAR FILTRATION RATE 117 ML/MIN (>89); GLUCOSE,RANDOM 81 MG/DL (74-106); MAGNESIUM 1.6 MG/DL (1.5-2.5); SODIUM (NA) 134 MEQ/L (136-145); TOTAL BILIRUBIN ADULT 0.7 MG/DL (0.2-1.0); TOTAL PROTEIN 6.7 GM/DL (6.4-8.2)
[2017-11-29] MEDS: CHLORHEXIDINE 0.12% (ORAL KIT) 15 ML CUP MT SCH ×2 (07:34→20:48)
[2017-11-29] MEDS: PANTOPRAZOLE SODIUM 40 MG VIAL IVP SCH (07:34)
[2017-11-29] MEDS: ARTIFICIAL TEARS OPTH SOLN 15 ML BTL EACH EYE SCH ×3 (07:34→16:29)
[2017-11-29] MEDS: AMIODARONE 200 MG TAB OG-TUBE SCH (07:34)
[2017-11-29] MEDS: DOCUSATE SODIUM 100 MG CAP PO SCH ×2 (07:35→20:47)
[2017-11-29] MEDS: SODIUM CHLORIDE 0.9% FLUSH 10 ML FLUSH IV FLUSH SCH ×2 (07:35→20:48)
[2017-11-29] MEDS: THIAMINE HCL 100 MG TAB PO SCH (07:35)
[2017-11-29] MEDS: CEFEPIME INJ 2,000 MG in SODIUM CHLORIDE 0.9% INJ 100 ML IV SCH (07:35)
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
[2017-11-29] MEDS: RESP: ALBUTEROL 2.5 MG/IPRATROPIUM 0.5 MG NEB (SCH) NEB ×3 (08:14→19:43)
[2017-11-29] MEDS: POTASSIUM CHLOR 40 MEQ PREMIX 100 ML IV PRN ×2 (08:37→10:45)
--- NOTE | 2017-11-29 09:06 | HHI.NSPN ---
(Trisha Carlisle) Note Status Status: Progress Note (Trisha Carlisle) Interval History Interval History Mr. Dalton 72-year-old male who had presented to the emergency department via EMS after an accidental overdose of Percocet on 11/17/17. The patient was then found lying in the bathroom on the ground, unresponsive, was administered Narcan 0.4 mg intravenously. Per EMS the patient awakened and was alert. He has a history of chronic opiate use. 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 He was also found with severe aspiration pneumonia and a foreign body in the esophagus removed by GI. This morning he became completely obtunded and not responding to commands. 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 Patient now intubated, 25 g of mannitol has been given. Emergent neurosurgical evaluation requested. 11/22: Status post emergent right frontotemporoparietal craniotomy for evacuation of subdural hematoma, with placement of intracranial pressure monitor yesterday. Patient currently is intubated and sedated. ICPs low. 11/23: Intubated, minimally sedated, eyes open, moving spontaneously. ICPs stable. 11/24: Remains intubated and currently sedated. No changes to neuro checks overnight. 11/27: Extubated over the weekend, drowsy but awake follows simple commands. Follow-up CT brain completed yesterday. 11/28: Awake, appears confused. Followed few simple commands. Nursing reports FRITZ drain numbers 2 is still putting out moderate drainage. 11/29: daughter in room, patient awake, smiling. neuro checks stable overnight. (Trisha Carlisle) Labs, Micro, & Vital Signs Results Date Time Temp Pulse Resp B/P (MAP) Pulse Ox O2 Delivery O2 Flow Rate FiO2 11/29/17 08:00 97.8 88 25 151/79 (103) 97 11/29/17 08:00 88 11/29/17 07:00 97 Room Air 11/29/17 06:00 67 11/29/17 04:00 67 11/29/17 04:00 97.6 67 20 148/80 (102) 95 11/29/17 02:00 84 11/29/17 00:00 97.8 75 25 152/79 (103) 93 11/29/17 00:00 84 11/28/17 22:00 84 11/28/17 20:01 99 Nasal Cannula 3.00 11/28/17 20:00 97.4 76 22 169/63 (98) 100 11/28/17 20:00 84 11/28/17 19:00 99 Room Air 11/28/17 18:00 84 11/28/17 16:00 87 11/28/17 16:00 97.7 87 24 130/48 (75) 94 11/28/17 14:00 78 11/28/17 12:00 97.7 78 21 132/59 (83) 97 11/28/17 12:00 78 11/28/17 10:00 80 Constitutional Vital Signs Date Time Temp Pulse Resp B/P (MAP) Pulse Ox O2 Delivery O2 Flow Rate FiO2 11/29/17 08:00 97.8 88 25 151/79 (103) 97 11/29/17 08:00 88 11/29/17 07:00 97 Room Air 11/29/17 06:00 67 11/29/17 04:00 67 11/29/17 04:00 97.6 67 20 148/80 (102) 95 11/29/17 02:00 84 11/29/17 00:00 97.8 75 25 152/79 (103) 93 11/29/17 00:00 84 11/28/17 22:00 84 11/28/17 20:01 99 Nasal Cannula 3.00 11/28/17 20:00 97.4 76 22 169/63 (98) 100 11/28/17 20:00 84 11/28/17 19:00 99 Room Air 11/28/17 18:00 84 11/28/17 16:00 87 11/28/17 16:00 97.7 87 24 130/48 (75) 94 11/28/17 14:00 78 11/28/17 12:00 97.7 78 21 132/59 (83) 97 11/28/17 12:00 78 11/28/17 10:00 80 (Trisha Carlisle) Review of Systems Constitutional: DENIES: Fever Neurologic: COMPLAINS OF: Headache, Localized weakness, DENIES: Seizures (Trisha Carlisle) Physical Exam Mr. Dalton is awake, smiling today. Neuro: awake, oriented to name. followed few simple commands. CN: pupils equal. gross EOMs intact. Facial appears symmetric at rest. Incision healing well without evidence of infection. FRITZ drain #2 still with moderate serosanguineous drainage Cervical Spine: soft, supple Motor: moves right arm and bilateral lower extremity to command, flaccid left arm Reflexes: Bilateral Babinski response Cerebellar: cannot be adequately assessed due to the patient's clinical condition (Trisha Carlisle) Medications Current Medications Current Medications Medications (Trade) Dose Ordered Sig/Nataly Route PRN Reason Start Time Stop Time Status Last Admin Dose Admin Sodium Chloride (NS Flush) 2 ml UNSCH PRN IV FLUSH FLUSH AFTER USING IV ACCESS 11/17/17 22:45 Sodium Chloride (NS Flush) 2 ml BID IV FLUSH 11/18/17 09:00 11/29/17 07:35 Acetaminophen (Tylenol) 650 mg Q6H PRN PO PAIN 1-5 AND/OR FEVER >101F 11/17/17 22:45 Ondansetron HCl (Zofran Inj) 4 mg Q6H PRN IV PUSH NAUSEA OR VOMITING 11/17/17 22:45 Miscellaneous Information ([facility] [place] [facility] [place] 1 [id number] XX 11/17/17 22:45 11/18/17 00:59 Chlorhexidine Gluconate (Chlorhexidine 2% Cloth) Taper DAILY@04 TOP 11/18/17 04:00 11/14/18 03:59 11/22/17 04:00 Chlorhexidine Gluconate (Chlorhexidine 2% Cloth) 3 pack UNSCH PRN TOP HYGIENIC CARE 11/17/17 22:45 Magnesium Hydroxide (Milk Of Magnesia Liq) 30 ml Q12H PRN PO Mild constipation 11/17/17 22:45 Sennosides (Senokot) 17.2 mg Q12H PRN PO Moderate constipation 11/17/17 22:45 Bisacodyl (Dulcolax Supp) 10 mg DAILY PRN RECTAL SEVERE CONSITIPATION/ IF NPO 11/17/17 22:45 Lactulose (Lactulose Liq) 30 ml DAILY PRN PO SEVERE CONSITIPATION/ IF PO 11/17/17 22:45 Potassium Chloride 100 ml @ 50 mls/hr Q2H PRN IV For Potassium 2.8 - 3.2 mEq/L 11/17/17 23:30 11/29/17 08:37 Potassium Chloride 100 ml @ 50 mls/hr Q2H PRN IV For Potassium 2.8 - 3.2 mEq/L 11/17/17 23:30 11/20/17 12:21 Potassium Bicarb/ Potassium Chloride (K-Lyte Cl Eff) 50 meq UNSCH PRN PO For Potassium 3.3 - 3.5 mEq/L 11/17/17 23:30 Potassium Chloride 100 ml @ 25 mls/hr UNSCH PRN IV For Potassium 3.3 - 3.5 mEq/L 11/17/17 23:30 Magnesium Sulfate 4 gm/Sodium Chloride 100 ml @ 50 mls/hr UNSCH PRN IV For Magnesium 0.9 - 1.1 mg/dL 11/17/17 23:30 Magnesium Oxide (Mag-Ox) 800 mg UNSCH PRN PO For Magnesium 1.2 - 1.6 mg/dL 11/17/17 23:30 Magnesium Sulfate 2 gm/Sodium Chloride 100 ml @ 50 mls/hr UNSCH PRN IV For Magnesium 1.2 - 1.6 mg/dL 11/17/17 23:30 11/21/17 11:54 Potassium Phosphate (K-Phos) 2,000 mg Q4H PRN PO For Phosphorus < 2.5 mg/dL 11/17/17 23:30 11/20/17 14:59 Sodium Phosphate 30 mmol/Sodium Chloride 250 ml @ 42 mls/hr UNSCH PRN IV For Phosphorus < 2.5 mg/dL 11/17/17 23:30 11/20/17 21:44 Potassium Phosphate (K-Phos) 2,000 mg UNSCH PRN PO/TUBE SEE LABEL COMMENTS 11/17/17 23:30 Potassium Phosphate 30 mmol/ Sodium Chloride 260 ml @ 42 mls/hr UNSCH PRN IV SEE LABEL COMMENTS 11/17/17 23:30 Thiamine HCl (Vitamin B1) 100 mg DAILY PO 11/20/17 13:00 11/27/17 10:46 Clonidine (Catapres) 0.1 mg Q6H PRN PO SEE LABEL COMMENTS 11/20/17 13:00 Flumazenil (Romazicon Inj) 0.2 mg Q1M PRN IV PUSH SEE LABEL COMMENTS 11/20/17 13:00 Potassium Chloride 20 meq/ Sodium Chloride 110 ml @ 50 mls/hr Q2H PRN IV For Potassium 3.3 - 3.5 mEq/L 11/21/17 05:30 11/21/17 06:43 Levothyroxine Sodium (Synthroid Inj) 25 mcg DAILY@06 IV PUSH 11/22/17 06:00 11/29/17 05:50 Enalaprilat (Vasotec Inj) 1.25 mg Q6H PRN IV PUSH SEE LABEL COMMENTS 11/21/17 10:45 Labetalol HCl (Trandate Inj) 10 mg Q6H PRN IV PUSH SEE LABEL COMMENTS 11/21/17 10:45 Hydralazine HCl (Apresoline Inj) 10 mg Q6H PRN IV PUSH SEE LABEL COMMENTS 11/21/17 10:45 11/28/17 13:31 Artificial Tears (Tears Naturale Opth Soln) 1 drop TID EACH EYE 11/21/17 13:00 11/29/17 07:34 Chlorhexidine Gluconate (Peridex 0.12% Liq) 15 ml BID@08,20 MT 11/21/17 20:00 11/29/17 07:34 Docusate Sodium (Colace) 100 mg BID PO 11/21/17 21:00 11/27/17 10:47 Pantoprazole Sodium (Protonix Inj) 40 mg DAILY IVP 11/22/17 09:00 11/29/17 07:34 Calcium Gluconate (Calcium Gluconate Inj) 1 gm UNSCH PRN IV SEE LABEL COMMENTS 11/21/17 15:00 Potassium Chloride 100 ml @ 50 mls/hr UNSCH PRN IV POTASSIUM LESS THAN 4 11/21/17 15:00 Magnesium Sulfate 4 gm/Sodium Chloride 108 ml @ 108 mls/hr UNSCH PRN IV MAGNESIUM LESS THAN 2 11/21/17 15:00 Acetaminophen/ Hydrocodone Bitart ([place] 10-325 Mg) 1 tab Q4H PRN PO PAIN SCALE 1 TO 5 11/21/17 15:00 11/28/17 13:31 Acetaminophen/ Hydrocodone Bitart ([place] 10-325 Mg) 2 tab Q4H PRN PO PAIN SCALE 6 TO 10 11/21/17 15:00 11/27/17 10:47 Acetaminophen (Tylenol) 650 mg Q4H PRN PO TEMPERATURE > 101.5 F 11/21/17 15:00 Cefepime HCl 2000 mg/Sodium Chloride 100 ml @ 200 mls/hr Q12H IV 11/21/17 21:00 11/29/17 07:35 Levetriacetam 500 mg/Sodium Chloride 105 ml @ 420 mls/hr Q12H IV 11/22/17 06:00 11/29/17 05:50 Terbutaline Sulfate (Brethine Inj) 1 mg UNSCH PRN SQ For Extravasation 11/23/17 13:15 Dexmedetomidine HCl 200 mcg/ Sodium Chloride 52 ml @ 3.36 mls/hr TITRATE PRN IV SEDATION 11/25/17 15:30 11/29/17 00:41 Terbutaline Sulfate (Brethine Inj) 1 mg UNSCH PRN SQ For Extravasation 11/25/17 17:15 Amiodarone HCl (Cordarone) 400 mg DAILY OG-TUBE 11/27/17 09:00 11/29/17 07:34 Albuterol/ Ipratropium (Duoneb Neb) 1 ampule Q6HR WHILE AWAKE NEB NEB 11/29/17 08:00 11/29/17 08:14 Albuterol Sulfate (Albuterol Neb) 2.5 mg Q2HR NEB PRN NEB DYSPNEA 11/28/17 22:00 (Trisha Carlisle) Medical Decision Making MDM Remarks 72-year-old male presented initially for opioid overdose, Decline in mental status with MRI showing large right subdural hygroma with 8 mm midline shift Status post emergent right craniotomy for evacuation of large subdural hygroma, placement of ICP monitor on 11/21/2017, ICPs stable, ICP monitor removed 11/23/17 f/u CT Brain 11/22 with residual right SDH, improved midline shift to now 2 mm from 8 mm. f/u CT Brain 11/26 with stable residual right SDH with mild mass effect (Trisha Carlisle) Plan Plan Remarks cont neuro checks cont FRITZ drain #2 to suction for couple more days per Dr. Rose cobos to start mobilizing OOB from NRS standpoint dw daughter in room (Trisha Carlisle) Attending Statement The exam, history, and the medical decision-making described in the above note were completed with the assistance of the mid-level provider. I reviewed and agree with the findings presented. I attest that I had a [id number] encounter with the patient on the same day, and personally performed and documented my assessment and findings in the medical record. (Rodríguez Rose MD) Trisha Carlisle November 29, 2017 09:06 Rodríguez Rose MD December 01, 2017 17:18
--- NOTE | 2017-11-29 09:25 | HHI.PR ---
Subjective Remarks Nursing denies any deterioration since last night apart from the patient still needing a Precedex drip for agitation. Patient himself wants to eat unrestricted foods but his daughters at the bedside and convinces him that he needs to follow the speech therapist recommendations. Patient says his breathing is unlabored. Objective Vital Signs Date Time Temp Pulse Resp B/P (MAP) Pulse Ox O2 Delivery O2 Flow Rate FiO2 11/29/17 08:00 97.8 88 25 151/79 (103) 97 11/29/17 08:00 88 11/29/17 07:00 97 Room Air 11/29/17 06:00 67 11/29/17 04:00 67 11/29/17 04:00 97.6 67 20 148/80 (102) 95 11/29/17 02:00 84 11/29/17 00:00 97.8 75 25 152/79 (103) 93 11/29/17 00:00 84 11/28/17 22:00 84 11/28/17 20:01 99 Nasal Cannula 3.00 11/28/17 20:00 97.4 76 22 169/63 (98) 100 11/28/17 20:00 84 11/28/17 19:00 99 Room Air 11/28/17 18:00 84 11/28/17 16:00 87 11/28/17 16:00 97.7 87 24 130/48 (75) 94 11/28/17 14:00 78 11/28/17 12:00 97.7 78 21 132/59 (83) 97 11/28/17 12:00 78 11/28/17 10:00 80 I/O 11/28/17 11/28/17 11/28/17 11/29/17 11/29/17 11/29/17 07:00 15:00 23:00 07:00 15:00 23:00 Intake Total 100 ml 357 ml Output Total 2050 ml 1610 ml Balance 100 ml -2050 ml -1253 ml IV Total 100 ml 357 ml Output Urine Total 2000 ml 1550 ml Drainage Total 50 ml 60 ml # Bowel Movements 1 0 Result Diagram: 11/29/17 0553 11/29/17 0553 Objective Remarks Coarse breath sounds bilaterally, lying in bed, no cyanosis, awake, alert, on room air, no acute distress No facial droop, no slurred speech, cranial drain in place A/P Assessment and Plan Right subdural hematoma with 8 mm midline shift, acute left posterior cerebellar infarct: Appreciate neurology, neurosurgery recommendations. Status post right frontotemporoparietal craniotomy with evacuation of subdural hygroma. Drains remain in place. Acute hypoxemic and hypercarbic respiratory failure: Resolved. DuoNeb scheduled and as needed. Patient is oxygen dependent at home. Suspected A. fib - no EKG w/ confirmation yet. Will repeat EKG. Stable rate at this time, unable to anticoagulate given subdural hematoma Agitation: Precedex drip as needed agitation Hypokalemia: Likely due to poor nutrition, monitor and replace accordingly Aspiration pneumonia: Continue IV antibiotics. Will stop cefepime and continue rocephin. ST recommendations. Will order procalcitonin to assess need for further abx. Transaminitis: + for Hep C. No further intervention at this time. GI prophylaxis: Protonix. DVT prophylaxis: SCDs. Lovenox on hold until cleared by neurosurgery. Te Sauceda MD November 29, 2017 09:25
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
--- NOTE | 2017-11-29 19:45 | ECHRPT ---
Indication: CVA/TIA CONCLUSIONS Normal left ventricular size and wall thickness. The left ventricular systolic function is normal with an estimated ejection fraction of 55%. Left ventricular diastolic function parameters are normal. Trace tricuspid regurgitation. BP: 146 / 54 HR: 66 Rhythm: Sinus MEASUREMENTS (Male / Female) Normal Values Technical Quality:Technically difficult study 2D ECHO LV Diastolic Diameter PLAX 4.2 cm 4.2 - 5.9 / 3.9 - 5.3 cm LV Systolic Diameter PLAX 2.9 cm IVS Diastolic Thickness 1.0 cm 0.6 - 1.0 / 0.6 - 0.9 cm LVPW Diastolic Thickness 1.0 cm 0.6 - 1.0 / 0.6 - 0.9 cm LV Relative Wall Thickness 0.5 LVOT Diameter 2.2 cm DOPPLER AV Peak Velocity 121.0 cm/s AV Peak Gradient 5.9 mmHg LVOT Peak Velocity 88.4 cm/s LVOT Peak Gradient 3.1 mmHg AV Area Cont Eq pk 2.8 cm Mitral E Point Velocity 82.4 cm/s Mitral A Point Velocity 95.8 cm/s Mitral E to A Ratio 0.9 LV E' Lateral Velocity 8.5 cm/s Mitral E to LV E' Lateral Ratio 9.7 LV E' Septal Velocity 7.2 cm/s Mitral E to LV E' Septal Ratio 11.4 FINDINGS LEFT VENTRICLE Normal left ventricular size and wall thickness. The left ventricular systolic function is normal wi th an estimated ejection fraction of 55%. Left ventricular diastolic function parameters are normal. RIGHT VENTRICLE Normal right ventricular size and systolic function. LEFT ATRIUM The left atrial size is normal. RIGHT ATRIUM The right atrial size is normal. ATRIAL SEPTUM Normal atrial septal thickness without atrial level shunting by limited color doppler interrogation. AORTA The aortic root and proximal ascending aorta are normal in size on limited imaging. MITRAL VALVE Structurally normal mitral valve. No mitral valve stenosis or regurgitation. AORTIC VALVE Trileaflet aortic valve. No aortic valve stenosis or regurgitation. TRICUSPID VALVE Structurally normal tricuspid valve. No tricuspid valve stenosis, trace TR. PULMONARY VALVE The pulmonary valve is not well visualized. VESSELS The inferior vena cava is normal in size. PERICARDIUM No pericardial effusion. Sandra Mays MD, FACC (Electronically Signed) Final Date:29 Nov 2017 19:43
[2017-11-29] MEDS: cefTRIAXone INJ 2,000 MG in SODIUM CHLORIDE 0.9% INJ 100 ML IV SCH (20:47)
[2017-11-30] VITALS (12 sets, daily range): BP systolic 120–158; BP diastolic 66–87; PULSE 64–91; RESP 20–23; TEMP 97.7–98.4; O2SAT 91–100
[2017-11-30] MEDS: ACETAMINOPHEN/HYDROcodone 325 MG/10 MG TAB PO PRN (00:12)
[2017-11-30] MEDS: CHLORHEXIDINE GLUCONATE 2 % 1 PACK (2 CLOTHS) TOP SCH (04:00)
[2017-11-30 06:37] LABS: BICARBONATE 29.7 MEQ/L (21.0-32.0); CALCIUM 8.6 MG/DL (8.5-10.1); CREATININE 0.8 MG/DL (0.60-1.30)
[2017-11-30] MEDS: levETIRAcetam INJ 500 MG in SODIUM CHLORIDE 0.9% INJ 100 ML IV SCH ×2 (06:46→17:18)
[2017-11-30] MEDS: LEVOTHYROXINE SODIUM 100 MCG VIAL IV PUSH SCH (06:46)
[2017-11-30] MEDS: DEXMEDETOMIDINE INJ 200 MCG in SODIUM CHLORIDE 0.9% INJ 50 ML IV PRN (07:16)
[2017-11-30] MEDS: CHLORHEXIDINE 0.12% (ORAL KIT) 15 ML CUP MT SCH ×2 (07:46→20:00)
[2017-11-30] MEDS: ARTIFICIAL TEARS OPTH SOLN 15 ML BTL EACH EYE SCH ×3 (07:46→16:59)
[2017-11-30] MEDS: DOCUSATE SODIUM 100 MG CAP PO SCH ×2 (07:46→21:54)
[2017-11-30] MEDS: SODIUM CHLORIDE 0.9% FLUSH 10 ML FLUSH IV FLUSH SCH ×2 (07:46→21:00)
[2017-11-30] MEDS: AMIODARONE 200 MG TAB OG-TUBE SCH (09:00)
[2017-11-30] MEDS: PANTOPRAZOLE SODIUM 40 MG VIAL IVP SCH (09:00)
[2017-11-30] MEDS: THIAMINE HCL 100 MG TAB PO SCH (09:00)
[2017-11-30] MEDS: RESP: ALBUTEROL 2.5 MG/IPRATROPIUM 0.5 MG NEB (SCH) NEB ×3 (09:32→21:06)
[2017-11-30] MEDS ORDERED: TEMA30CA PO (10:53)
[2017-11-30] MEDS ORDERED: ALPR1TAB3 PO (10:55)
[2017-11-30] MEDS ORDERED: LEVO25TA4 PO (10:56)
[2017-11-30] MEDS ORDERED: TAMS0.4C4 (10:57)
--- NOTE | 2017-11-30 13:19 | HHI.PR ---
Subjective Remarks Nursing denies any deterioration since last night apart from the patient still needing a Precedex drip for agitation. Patient himself wants to eat unrestricted foods but his daughters at the bedside and convinces him that he needs to follow the speech therapist recommendations. Patient says his breathing is unlabored. Objective Vital Signs Date Time Temp Pulse Resp B/P (MAP) Pulse Ox O2 Delivery O2 Flow Rate FiO2 11/30/17 12:00 98.4 74 20 120/66 (84) 97 11/30/17 12:00 78 11/30/17 10:00 75 11/30/17 09:34 100 Nasal Cannula 3.00 11/30/17 08:00 98.2 84 21 146/79 (101) 97 11/30/17 08:00 79 11/30/17 07:00 96 Nasal Cannula 3.00 11/30/17 07:00 79 11/30/17 04:00 97.9 74 23 123/68 (86) 96 11/30/17 00:00 97.7 91 22 158/87 (110) 93 11/29/17 22:00 81 11/29/17 20:00 91 Nasal Cannula 3.00 11/29/17 20:00 97.8 81 24 130/62 (84) 97 11/29/17 20:00 81 11/29/17 19:45 99 Nasal Cannula 2.00 11/29/17 18:00 71 11/29/17 16:00 77 11/29/17 16:00 98.0 77 27 99/57 (71) 93 11/29/17 14:00 88 I/O 11/29/17 11/29/17 11/29/17 11/30/17 11/30/17 11/30/17 07:00 15:00 23:00 07:00 15:00 23:00 Intake Total 357 ml 200 ml 257 ml Output Total 1610 ml 1050 ml 60 ml Balance -1253 ml 200 ml -793 ml -60 ml IV Total 357 ml 200 ml 257 ml Output Urine Total 1550 ml 1000 ml Drainage Total 60 ml 50 ml 60 ml # Voids 3 # Bowel Movements 0 0 Result Diagram: 11/29/17 0553 11/30/17 0500 Objective Remarks Coarse breath sounds bilaterally, lying in bed, no cyanosis, awake, alert, on room air, no acute distress No facial droop, no slurred speech, cranial drain in place A/P Assessment and Plan Right subdural hematoma with 8 mm midline shift, acute left posterior cerebellar infarct: Appreciate neurology, neurosurgery recommendations. Status post right frontotemporoparietal craniotomy with evacuation of subdural hygroma. Initial drain removed already, 2nd drain still suctioning. No mural thrombus noted on echocardiogram, intact EF. No evidence of A. fib on EKGs, independently reviewed most recent one. Agitation: Intermittent, likely delirium superimposed upon chronic anxiety. Stopping Precedex drip and restarting home Ativan and temazepam. Hypokalemia: Likely due to poor nutrition, monitor and replace accordingly Aspiration pneumonia: continue Rocephin. ST recommendations. procalcitonin pending to assess need for further abx. Hep C: Likely cause of patient's transaminitis and coagulopathy with INR 1.2. No further intervention at this time. 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 chronic pulm arterial HTN: Resuming home sildenafil BPH: Resume home Flomax DVT prophylaxis: SCDs. Lovenox on hold until cleared by neurosurgery. Te Sauceda MD November 30, 2017 13:19
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
--- NOTE | 2017-11-30 15:02 | HHI.NSPN ---
(Trisha Carlisle) Note Status Status: Progress Note (Trisha Carlisle) Interval History Interval History Mr. Dalton 72-year-old male who had presented to the emergency department via EMS after an accidental overdose of Percocet on 11/17/17. The patient was then found lying in the bathroom on the ground, unresponsive, was administered Narcan 0.4 mg intravenously. Per EMS the patient awakened and was alert. He has a history of chronic opiate use. 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 He was also found with severe aspiration pneumonia and a foreign body in the esophagus removed by GI. This morning he became completely obtunded and not responding to commands. 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 Patient now intubated, 25 g of mannitol has been given. Emergent neurosurgical evaluation requested. 11/22: Status post emergent right frontotemporoparietal craniotomy for evacuation of subdural hematoma, with placement of intracranial pressure monitor yesterday. Patient currently is intubated and sedated. ICPs low. 11/23: Intubated, minimally sedated, eyes open, moving spontaneously. ICPs stable. 11/24: Remains intubated and currently sedated. No changes to neuro checks overnight. 11/27: Extubated over the weekend, drowsy but awake follows simple commands. Follow-up CT brain completed yesterday. 11/28: Awake, appears confused. Followed few simple commands. Nursing reports FRITZ drain numbers 2 is still putting out moderate drainage. 11/29: daughter in room, patient awake, smiling. neuro checks stable overnight. 11/30: doing well today, nodded head when asked if feeling better. (Trisha Carlisle) Labs, Micro, & Vital Signs Results Date Time Temp Pulse Resp B/P (MAP) Pulse Ox O2 Delivery O2 Flow Rate FiO2 11/30/17 14:00 64 11/30/17 12:00 98.4 74 20 120/66 (84) 97 11/30/17 12:00 78 11/30/17 10:00 75 11/30/17 09:34 100 Nasal Cannula 3.00 11/30/17 08:00 98.2 84 21 146/79 (101) 97 11/30/17 08:00 79 11/30/17 07:00 96 Nasal Cannula 3.00 11/30/17 07:00 79 11/30/17 04:00 97.9 74 23 123/68 (86) 96 11/30/17 00:00 97.7 91 22 158/87 (110) 93 11/29/17 22:00 81 11/29/17 20:00 91 Nasal Cannula 3.00 11/29/17 20:00 97.8 81 24 130/62 (84) 97 11/29/17 20:00 81 11/29/17 19:45 99 Nasal Cannula 2.00 11/29/17 18:00 71 11/29/17 16:00 77 11/29/17 16:00 98.0 77 27 99/57 (71) 93 12/01/17 07:00 Intake Total 50 ml Balance 50 ml Constitutional Vital Signs Date Time Temp Pulse Resp B/P (MAP) Pulse Ox O2 Delivery O2 Flow Rate FiO2 11/30/17 14:00 64 11/30/17 12:00 98.4 74 20 120/66 (84) 97 11/30/17 12:00 78 11/30/17 10:00 75 11/30/17 09:34 100 Nasal Cannula 3.00 11/30/17 08:00 98.2 84 21 146/79 (101) 97 11/30/17 08:00 79 11/30/17 07:00 96 Nasal Cannula 3.00 11/30/17 07:00 79 11/30/17 04:00 97.9 74 23 123/68 (86) 96 11/30/17 00:00 97.7 91 22 158/87 (110) 93 11/29/17 22:00 81 11/29/17 20:00 91 Nasal Cannula 3.00 11/29/17 20:00 97.8 81 24 130/62 (84) 97 11/29/17 20:00 81 11/29/17 19:45 99 Nasal Cannula 2.00 11/29/17 18:00 71 11/29/17 16:00 77 11/29/17 16:00 98.0 77 27 99/57 (71) 93 12/01/17 07:00 Intake Total 50 ml Balance 50 ml (Trisha Carlisle) Review of Systems Neurologic: COMPLAINS OF: Localized weakness, DENIES: Headache, Seizures (Trisha Carlisle) Physical Exam Mr. Dalton is awake, smiling today. Neuro: awake, oriented to name. followed few simple commands. CN: pupils equal. gross EOMs intact. Facial appears symmetric at rest. Incision healing well without evidence of infection. FRITZ drain #2 still with moderate serosanguineous drainage Cervical Spine: soft, supple Motor: moves right arm and bilateral lower extremity to command, flaccid left arm Reflexes: Bilateral Babinski response Cerebellar: cannot be adequately assessed due to the patient's clinical condition (Trisha Carlisle) Medications Current Medications Current Medications Medications (Trade) Dose Ordered Sig/Nataly Route PRN Reason Start Time Stop Time Status Last Admin Dose Admin Sodium Chloride (NS Flush) 2 ml UNSCH PRN IV FLUSH FLUSH AFTER USING IV ACCESS 11/17/17 22:45 Sodium Chloride (NS Flush) 2 ml BID IV FLUSH 11/18/17 09:00 11/30/17 07:46 Acetaminophen (Tylenol) 650 mg Q6H PRN PO PAIN 1-5 AND/OR FEVER >101F 11/17/17 22:45 Ondansetron HCl (Zofran Inj) 4 mg Q6H PRN IV PUSH NAUSEA OR VOMITING 11/17/17 22:45 Miscellaneous Information ([facility] Nursing Information) 1 [id number] XX 11/17/17 22:45 11/18/17 00:59 Chlorhexidine Gluconate (Chlorhexidine 2% Cloth) Taper DAILY@04 TOP 11/18/17 04:00 11/14/18 03:59 11/30/17 04:00 Chlorhexidine Gluconate (Chlorhexidine 2% Cloth) 3 pack UNSCH PRN TOP HYGIENIC CARE 11/17/17 22:45 Magnesium Hydroxide (Milk Of Magnesia Liq) 30 ml Q12H PRN PO Mild constipation 11/17/17 22:45 Sennosides (Senokot) 17.2 mg Q12H PRN PO Moderate constipation 11/17/17 22:45 Bisacodyl (Dulcolax Supp) 10 mg DAILY PRN RECTAL SEVERE CONSITIPATION/ IF NPO 11/17/17 22:45 Lactulose (Lactulose Liq) 30 ml DAILY PRN PO SEVERE CONSITIPATION/ IF PO 11/17/17 22:45 Thiamine HCl (Vitamin B1) 100 mg DAILY PO 11/20/17 13:00 11/30/17 09:00 Clonidine (Catapres) 0.1 mg Q6H PRN PO SEE LABEL COMMENTS 11/20/17 13:00 Flumazenil (Romazicon Inj) 0.2 mg Q1M PRN IV PUSH SEE LABEL COMMENTS 11/20/17 13:00 Levothyroxine Sodium (Synthroid Inj) 25 mcg DAILY@06 IV PUSH 11/22/17 06:00 11/30/17 06:46 Enalaprilat (Vasotec Inj) 1.25 mg Q6H PRN IV PUSH SEE LABEL COMMENTS 11/21/17 10:45 Labetalol HCl (Trandate Inj) 10 mg Q6H PRN IV PUSH SEE LABEL COMMENTS 11/21/17 10:45 Hydralazine HCl (Apresoline Inj) 10 mg Q6H PRN IV PUSH SEE LABEL COMMENTS 11/21/17 10:45 11/28/17 13:31 Artificial Tears (Tears Naturale Opth Soln) 1 drop TID EACH EYE 11/21/17 13:00 11/29/17 16:29 Chlorhexidine Gluconate (Peridex 0.12% Liq) 15 ml BID@08,20 MT 11/21/17 20:00 11/29/17 20:48 Docusate Sodium (Colace) 100 mg BID PO 11/21/17 21:00 11/29/17 20:47 Pantoprazole Sodium (Protonix Inj) 40 mg DAILY IVP 11/22/17 09:00 11/30/17 09:00 Calcium Gluconate (Calcium Gluconate Inj) 1 gm UNSCH PRN IV SEE LABEL COMMENTS 11/21/17 15:00 Acetaminophen/ Hydrocodone Bitart ([place] 10-325 Mg) 1 tab Q4H PRN PO PAIN SCALE 1 TO 5 11/21/17 15:00 11/30/17 00:12 Acetaminophen/ Hydrocodone Bitart ([place] 10-325 Mg) 2 tab Q4H PRN PO PAIN SCALE 6 TO 10 11/21/17 15:00 11/27/17 10:47 Acetaminophen (Tylenol) 650 mg Q4H PRN PO TEMPERATURE > 101.5 F 11/21/17 15:00 Levetriacetam 500 mg/Sodium Chloride 105 ml @ 420 mls/hr Q12H IV 11/22/17 06:00 11/30/17 06:46 Terbutaline Sulfate (Brethine Inj) 1 mg UNSCH PRN SQ For Extravasation 11/23/17 13:15 Terbutaline Sulfate (Brethine Inj) 1 mg UNSCH PRN SQ For Extravasation 11/25/17 17:15 Amiodarone HCl (Cordarone) 400 mg DAILY OG-TUBE 11/27/17 09:00 11/30/17 09:00 Albuterol/ Ipratropium (Duoneb Neb) 1 ampule Q6HR WHILE AWAKE NEB NEB 11/29/17 08:00 11/30/17 09:32 Albuterol Sulfate (Albuterol Neb) 2.5 mg Q2HR NEB PRN NEB DYSPNEA 11/28/17 22:00 Ceftriaxone Sodium 2000 mg/ Sodium Chloride 100 ml @ 200 mls/hr Q24H IV 11/29/17 20:00 11/29/17 20:47 Alprazolam (Xanax) 1 mg Q8H PRN PO ANXIETY 11/30/17 13:15 Levothyroxine Sodium (Synthroid) 25 mcg DAILY@0600 PO 12/01/17 06:00 Sildenafil Citrate (Revatio) 20 mg TID PO 11/30/17 18:00 Tamsulosin HCl (Flomax) 0.4 mg HS PO 11/30/17 21:00 Temazepam (Restoril) 30 mg HS PRN PO INSOMNIA 11/30/17 13:15 (Trisha Carlisle) Medical Decision Making MDM Remarks 72-year-old male presented initially for opioid overdose, Decline in mental status with MRI showing large right subdural hygroma with 8 mm midline shift Status post emergent right craniotomy for evacuation of large subdural hygroma, placement of ICP monitor on 11/21/2017, ICPs stable, ICP monitor removed 11/23/17 f/u CT Brain 11/22 with residual right SDH, improved midline shift to now 2 mm from 8 mm. f/u CT Brain 11/26 with stable residual right SDH with mild mass effect (Trisha Carlisle) Plan Plan Remarks cont neuro checks cont FRITZ drain #2 today, will dc tomorrow, kaycee removal Monday ok to start mobilizing OOB from NRS standpoint dw daughter in room (Trisha Carlisle) Attending Statement The exam, history, and the medical decision-making described in the above note were completed with the assistance of the mid-level provider. I reviewed and agree with the findings presented. I attest that I had a [id number] encounter with the patient on the same day, and personally performed and documented my assessment and findings in the medical record. (Rodríguez Rose MD) Trisha Carlisle November 30, 2017 15:02 Rodríguez Rose MD December 03, 2017 14:21
[2017-11-30] MEDS: SILDENAFIL CITRATE 20 MG TAB PO SCH (18:00)
--- NOTE | 2017-11-30 19:07 | EKG ---
Date Performed: 11/29/2017 Time Performed: 12:15:50 PTAGE: 72 years EKG: Sinus rhythm VOLTAGE CRITERIA FOR LVH PROLONGED QT INTERVAL SuspecteD early repolarization. Since previous tracin g, no significant change noted ABNORMAL ECG PREVIOUS TRACING : 11/22/2017 11.43 DOCTOR: Zia Alexander Interpretating Date/Time 11/30/2017 19:05:58
[2017-11-30] MEDS: ALPRAZolam 1 MG TAB PO PRN (21:54)
[2017-11-30] MEDS: cefTRIAXone INJ 2,000 MG in SODIUM CHLORIDE 0.9% INJ 100 ML IV SCH (21:54)
[2017-11-30] MEDS: TEMAZEPAM 15 MG CAP PO PRN (21:54)
[2017-11-30] MEDS: TAMSULOSIN HCL 0.4 MG CAP PO SCH (21:54)
[2017-12-01] VITALS (14 sets, daily range): BP systolic 112–137; BP diastolic 55–73; PULSE 68–98; RESP 20–25; TEMP 97.6–98.7; O2SAT 93–99
[2017-12-01] MEDS: CHLORHEXIDINE GLUCONATE 2 % 1 PACK (2 CLOTHS) TOP SCH (04:00)
[2017-12-01] MEDS: LEVOTHYROXINE SODIUM 100 MCG VIAL IV PUSH SCH (06:00)
[2017-12-01] MEDS: LEVOTHYROXINE SODIUM 25 MCG TAB PO SCH (06:28)
[2017-12-01] MEDS: levETIRAcetam INJ 500 MG in SODIUM CHLORIDE 0.9% INJ 100 ML IV SCH ×2 (06:28→18:00)
[2017-12-01 06:42] LABS: BICARBONATE 29.2 MEQ/L (21.0-32.0); CALCIUM 8.9 MG/DL (8.5-10.1); CREATININE 0.72 MG/DL (0.60-1.30)
[2017-12-01] MEDS: SODIUM CHLORIDE 0.9% FLUSH 10 ML FLUSH IV FLUSH SCH ×2 (07:41→20:27)
[2017-12-01] MEDS: CHLORHEXIDINE 0.12% (ORAL KIT) 15 ML CUP MT SCH ×2 (07:41→20:00)
[2017-12-01] MEDS: ARTIFICIAL TEARS OPTH SOLN 15 ML BTL EACH EYE SCH ×3 (07:41→16:07)
[2017-12-01] MEDS: DOCUSATE SODIUM 100 MG CAP PO SCH ×2 (07:41→20:27)
[2017-12-01] MEDS: RESP: ALBUTEROL 2.5 MG/IPRATROPIUM 0.5 MG NEB (SCH) NEB ×3 (08:30→21:30)
[2017-12-01] MEDS: PANTOPRAZOLE SODIUM 40 MG VIAL IVP SCH (08:43)
[2017-12-01] MEDS: AMIODARONE 200 MG TAB OG-TUBE SCH (08:43)
[2017-12-01] MEDS: SILDENAFIL CITRATE 20 MG TAB PO SCH ×3 (08:43→18:00)
[2017-12-01] MEDS: THIAMINE HCL 100 MG TAB PO SCH (08:43)
[2017-12-01] MEDS: ALPRAZolam 1 MG TAB PO PRN ×2 (08:46→21:59)
--- NOTE | 2017-12-01 10:57 | HHI.PR ---
Subjective Remarks Patient's daughter says patient is doing much better with his home Ativan. Was much calmer this morning. Discussed with neurosurgery, if CT head is negative for any further acute findings, patient can be transferred to the medical floor. Objective Vital Signs Date Time Temp Pulse Resp B/P (MAP) Pulse Ox O2 Delivery O2 Flow Rate FiO2 12/01/17 10:00 82 12/01/17 08:30 96 Nasal Cannula 2.00 12/01/17 08:00 98.2 86 23 136/68 (90) 97 12/01/17 08:00 89 12/01/17 07:00 97 Nasal Cannula 3.00 12/01/17 06:00 98 12/01/17 04:00 95 12/01/17 04:00 97.9 90 25 126/68 (87) 98 12/01/17 02:00 94 12/01/17 00:00 98.7 90 21 137/73 (94) 96 12/01/17 00:00 91 11/30/17 22:00 82 11/30/17 20:00 98.2 90 20 141/73 (95) 91 Arterial Line 11/30/17 20:00 89 11/30/17 19:00 96 Nasal Cannula 3.00 11/30/17 18:00 71 11/30/17 16:00 69 11/30/17 16:00 98.4 85 22 131/71 (91) 98 11/30/17 14:00 64 11/30/17 12:00 98.4 74 20 120/66 (84) 97 11/30/17 12:00 78 I/O 11/30/17 11/30/17 11/30/17 12/01/17 12/01/17 12/01/17 06:59 14:59 22:59 06:59 14:59 22:59 Intake Total 50 ml 700 ml 200 ml 105 ml Output Total 60 ml 610 ml 530 ml Balance -10 ml 90 ml -330 ml 105 ml Intake Oral 600 ml 200 ml IV Total 50 ml 100 ml 105 ml Output Urine Total 550 ml 500 ml Stool Total 0 ml Drainage Total 60 ml 60 ml 30 ml # Voids 3 Result Diagram: 11/29/17 0553 12/01/17 0546 Objective Remarks Coarse breath sounds bilaterally, lying in bed, no cyanosis, awake, alert, on room air, no acute distress No facial droop, no slurred speech, cranial drain in place Overall unchanged physical exam since yesterday A/P Assessment and Plan Right subdural hematoma with 8 mm midline shift, acute left posterior cerebellar infarct: -Appreciate neurology, neurosurgery recommendations. Status post right frontotemporoparietal craniotomy with evacuation of subdural hygroma. 2nd drain still suctioning. No mural thrombus noted on echocardiogram, intact EF. Repeat head ct pending Anxiety: improved, home Ativan and temazepam. Hypokalemia: Likely due to poor nutrition, monitor and replace accordingly Aspiration pneumonia: continue Rocephin. procal still elevated. ST recommendations. Hep C: Likely cause of patient's transaminitis and coagulopathy with INR 1.2. No further intervention at this time. 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 chronic pulm arterial HTN: home sildenafil BPH: home Flomax DVT prophylaxis: SCDs. Lovenox on hold until cleared by neurosurgery. Te Sauceda MD December 01, 2017 10:57
--- NOTE | 2017-12-01 11:01 | HHI.NSPN ---
(Trisha Carlisle) Note Status Status: Progress Note (Trisha Carlisle) Interval History Interval History Mr. Dalton 72-year-old male who had presented to the emergency department via EMS after an accidental overdose of Percocet on 11/17/17. The patient was then found lying in the bathroom on the ground, unresponsive, was administered Narcan 0.4 mg intravenously. Per EMS the patient awakened and was alert. He has a history of chronic opiate use. 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 He was also found with severe aspiration pneumonia and a foreign body in the esophagus removed by GI. This morning he became completely obtunded and not responding to commands. 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 Patient now intubated, 25 g of mannitol has been given. Emergent neurosurgical evaluation requested. 11/22: Status post emergent right frontotemporoparietal craniotomy for evacuation of subdural hematoma, with placement of intracranial pressure monitor yesterday. Patient currently is intubated and sedated. ICPs low. 11/23: Intubated, minimally sedated, eyes open, moving spontaneously. ICPs stable. 11/24: Remains intubated and currently sedated. No changes to neuro checks overnight. 11/27: Extubated over the weekend, drowsy but awake follows simple commands. Follow-up CT brain completed yesterday. 11/28: Awake, appears confused. Followed few simple commands. Nursing reports FRITZ drain numbers 2 is still putting out moderate drainage. 11/29: daughter in room, patient awake, smiling. neuro checks stable overnight. 11/30: doing well today, nodded head when asked if feeling better. 12/01: For follow-up CT head today. No changes to neurological examination overnight. (Trisha Carlisle) Labs, Micro, & Vital Signs Results Date Time Temp Pulse Resp B/P (MAP) Pulse Ox O2 Delivery O2 Flow Rate FiO2 12/01/17 10:00 82 12/01/17 08:30 96 Nasal Cannula 2.00 12/01/17 08:00 98.2 86 23 136/68 (90) 97 12/01/17 08:00 89 12/01/17 07:00 97 Nasal Cannula 3.00 12/01/17 06:00 98 12/01/17 04:00 95 12/01/17 04:00 97.9 90 25 126/68 (87) 98 12/01/17 02:00 94 12/01/17 00:00 98.7 90 21 137/73 (94) 96 12/01/17 00:00 91 11/30/17 22:00 82 11/30/17 20:00 98.2 90 20 141/73 (95) 91 Arterial Line 11/30/17 20:00 89 11/30/17 19:00 96 Nasal Cannula 3.00 11/30/17 18:00 71 11/30/17 16:00 69 11/30/17 16:00 98.4 85 22 131/71 (91) 98 11/30/17 14:00 64 11/30/17 12:00 98.4 74 20 120/66 (84) 97 11/30/17 12:00 78 Constitutional Vital Signs Date Time Temp Pulse Resp B/P (MAP) Pulse Ox O2 Delivery O2 Flow Rate FiO2 12/01/17 10:00 82 12/01/17 08:30 96 Nasal Cannula 2.00 12/01/17 08:00 98.2 86 23 136/68 (90) 97 12/01/17 08:00 89 12/01/17 07:00 97 Nasal Cannula 3.00 12/01/17 06:00 98 12/01/17 04:00 95 12/01/17 04:00 97.9 90 25 126/68 (87) 98 12/01/17 02:00 94 12/01/17 00:00 98.7 90 21 137/73 (94) 96 12/01/17 00:00 91 11/30/17 22:00 82 11/30/17 20:00 98.2 90 20 141/73 (95) 91 Arterial Line 11/30/17 20:00 89 11/30/17 19:00 96 Nasal Cannula 3.00 11/30/17 18:00 71 11/30/17 16:00 69 11/30/17 16:00 98.4 85 22 131/71 (91) 98 11/30/17 14:00 64 11/30/17 12:00 98.4 74 20 120/66 (84) 97 11/30/17 12:00 78 (Trisha Carlisle) Physical Exam Mr. Dalton is awake, smiling today. Neuro: awake, oriented to name. followed few simple commands. CN: pupils equal. gross EOMs intact. Facial appears symmetric at rest. Incision healing well without evidence of infection. FRITZ drain #2 still with moderate serosanguineous drainage Cervical Spine: soft, supple Motor: moves right arm and bilateral lower extremity to command, flaccid left arm Reflexes: Bilateral Babinski response Cerebellar: cannot be adequately assessed due to the patient's clinical condition (Trisha Carlisle) Medications Current Medications Current Medications Medications (Trade) Dose Ordered Sig/Nataly Route PRN Reason Start Time Stop Time Status Last Admin Dose Admin Sodium Chloride (NS Flush) 2 ml UNSCH PRN IV FLUSH FLUSH AFTER USING IV ACCESS 11/17/17 22:45 Sodium Chloride (NS Flush) 2 ml BID IV FLUSH 11/18/17 09:00 12/01/17 07:41 Acetaminophen (Tylenol) 650 mg Q6H PRN PO PAIN 1-5 AND/OR FEVER >101F 11/17/17 22:45 Ondansetron HCl (Zofran Inj) 4 mg Q6H PRN IV PUSH NAUSEA OR VOMITING 11/17/17 22:45 Miscellaneous Information ([facility] [place] Nursing Information) 1 Q361D XX 11/17/17 22:45 11/18/17 00:59 Chlorhexidine Gluconate (Chlorhexidine 2% Cloth) Taper DAILY@04 TOP 11/18/17 04:00 11/14/18 03:59 12/01/17 04:00 Chlorhexidine Gluconate (Chlorhexidine 2% Cloth) 3 pack UNSCH PRN TOP HYGIENIC CARE 11/17/17 22:45 Magnesium Hydroxide (Milk Of Magnesia Liq) 30 ml Q12H PRN PO Mild constipation 11/17/17 22:45 Sennosides (Senokot) 17.2 mg Q12H PRN PO Moderate constipation 11/17/17 22:45 Bisacodyl (Dulcolax Supp) 10 mg DAILY PRN RECTAL SEVERE CONSITIPATION/ IF NPO 11/17/17 22:45 Lactulose (Lactulose Liq) 30 ml DAILY PRN PO SEVERE CONSITIPATION/ IF PO 11/17/17 22:45 Thiamine HCl (Vitamin B1) 100 mg DAILY PO 11/20/17 13:00 12/01/17 08:43 Clonidine (Catapres) 0.1 mg Q6H PRN PO SEE LABEL COMMENTS 11/20/17 13:00 Flumazenil (Romazicon Inj) 0.2 mg Q1M PRN IV PUSH SEE LABEL COMMENTS 11/20/17 13:00 Enalaprilat (Vasotec Inj) 1.25 mg Q6H PRN IV PUSH SEE LABEL COMMENTS 11/21/17 10:45 Labetalol HCl (Trandate Inj) 10 mg Q6H PRN IV PUSH SEE LABEL COMMENTS 11/21/17 10:45 Hydralazine HCl (Apresoline Inj) 10 mg Q6H PRN IV PUSH SEE LABEL COMMENTS 11/21/17 10:45 11/28/17 13:31 Artificial Tears (Tears Naturale Opth Soln) 1 drop TID EACH EYE 11/21/17 13:00 11/29/17 16:29 Chlorhexidine Gluconate (Peridex 0.12% Liq) 15 ml BID@08,20 MT 11/21/17 20:00 11/30/17 20:00 Docusate Sodium (Colace) 100 mg BID PO 11/21/17 21:00 11/30/17 21:54 Pantoprazole Sodium (Protonix Inj) 40 mg DAILY IVP 11/22/17 09:00 12/01/17 08:43 Calcium Gluconate (Calcium Gluconate Inj) 1 gm UNSCH PRN IV SEE LABEL COMMENTS 11/21/17 15:00 Acetaminophen/ Hydrocodone Bitart ([place] 10-325 Mg) 1 tab Q4H PRN PO PAIN SCALE 1 TO 5 11/21/17 15:00 11/30/17 00:12 Acetaminophen/ Hydrocodone Bitart ([place] 10-325 Mg) 2 tab Q4H PRN PO PAIN SCALE 6 TO 10 11/21/17 15:00 11/27/17 10:47 Acetaminophen (Tylenol) 650 mg Q4H PRN PO TEMPERATURE > 101.5 F 11/21/17 15:00 Levetriacetam 500 mg/Sodium Chloride 105 ml @ 420 mls/hr Q12H IV 11/22/17 06:00 12/01/17 06:28 Terbutaline Sulfate (Brethine Inj) 1 mg UNSCH PRN SQ For Extravasation 11/23/17 13:15 Terbutaline Sulfate (Brethine Inj) 1 mg UNSCH PRN SQ For Extravasation 11/25/17 17:15 Amiodarone HCl (Cordarone) 400 mg DAILY OG-TUBE 11/27/17 09:00 12/01/17 08:43 Albuterol/ Ipratropium (Duoneb Neb) 1 ampule Q6HR WHILE AWAKE NEB NEB 11/29/17 08:00 12/01/17 08:30 Albuterol Sulfate (Albuterol Neb) 2.5 mg Q2HR NEB PRN NEB DYSPNEA 11/28/17 22:00 Ceftriaxone Sodium 2000 mg/ Sodium Chloride 100 ml @ 200 mls/hr Q24H IV 11/29/17 20:00 11/30/17 21:54 Alprazolam (Xanax) 1 mg Q8H PRN PO ANXIETY 11/30/17 13:15 12/01/17 08:46 Levothyroxine Sodium (Synthroid) 25 mcg DAILY@0600 PO 12/01/17 06:00 12/01/17 06:28 Sildenafil Citrate (Revatio) 20 mg TID PO 11/30/17 18:00 12/01/17 08:43 Tamsulosin HCl (Flomax) 0.4 mg HS PO 11/30/17 21:00 11/30/17 21:54 Temazepam (Restoril) 30 mg HS PRN PO INSOMNIA 11/30/17 13:15 11/30/17 21:54 (Trisha Carlisle) Medical Decision Making MDM Remarks 72-year-old male presented initially for opioid overdose, Decline in mental status with MRI showing large right subdural hygroma with 8 mm midline shift Status post emergent right craniotomy for evacuation of large subdural hygroma, placement of ICP monitor on 11/21/2017, ICPs stable, ICP monitor removed 11/23/17 f/u CT Brain 11/22 with residual right SDH, improved midline shift to now 2 mm from 8 mm. f/u CT Brain 11/26 with stable residual right SDH with mild mass effect (Trisha Carlisle) Plan Plan Remarks awaiting follow-up CT brain, if stable clear to transfer out of [facility] anticipate removal of FRITZ drain if follow-up CT brain improved cont neuro checks kaycee removal Monday Continue PT, mobilized to stretch her chair today dw daughter in room (Trisha Carlisle) Attending Statement The exam, history, and the medical decision-making described in the above note were completed with the assistance of the mid-level provider. I reviewed and agree with the findings presented. I attest that I had a [id number] encounter with the patient on the same day, and personally performed and documented my assessment and findings in the medical record. (Rodríguez Rose MD) Trisha Carlisle December 01, 2017 11:01 Rodríguez Rose MD December 03, 2017 14:25
--- NOTE | 2017-12-01 17:18 | RADRPT ---
EXAM DATE/TIME: 12/01/2017 16:57 [place] COMPARISON: No previous studies available for comparison. INDICATIONS : Subdural hematoma RADIATION DOSE: 38.02 CTDIvol (mGy) MEDICAL HISTORY : Hypertension. Cardiovascular disease Sickle Cell disease.Renal failure SURGICAL HISTORY : nephrectomy, renal transplant ENCOUNTER: Subsequent ACUITY: 1 week PAIN SCALE: Non-responsive LOCATION: cranial TECHNIQUE: Multiple contiguous axial images were obtained of the head. Using automated exposure control and adj ustment of the mA and/or kV according to patient size, radiation dose was kept as low as reasonably a chievable to obtain optimal diagnostic quality images. DICOM format image data is available electro nically for review and comparison. FINDINGS: Sagittal drain remains in place on the right with an adjacent elliptical hemorrhage measuring up to 1 3 mm in diameter, not significant changed from November 26. Stable mild mass effect and midline shift yolande red with November 26. Chronic white matter ischemic changes noted in the brain. There is some thickening al radha the posterior falx, stable. Previous right craniotomy. Paranasal sinuses relatively clear. CONCLUSION: 1. Essentially stable head CT compared with November 26. Right subdural drain present with adjacent stable apparent hemorrhage measuring up to about 13 mm in diameter. Gio Israel MD on December 01, 2017 at 17:13 Board Certified Radiologist. This report was verified electronically.
[2017-12-01] MEDS: cefTRIAXone INJ 2,000 MG in SODIUM CHLORIDE 0.9% INJ 100 ML IV SCH (20:26)
[2017-12-01] MEDS: TAMSULOSIN HCL 0.4 MG CAP PO SCH (20:27)
[2017-12-01] MEDS: TEMAZEPAM 15 MG CAP PO PRN (22:00)
[2017-12-02] VITALS (11 sets, daily range): BP systolic 74–142; BP diastolic 45–77; PULSE 58–102; RESP 20–24; TEMP 97.1–98; O2SAT 93–100
[2017-12-02] MEDS: CHLORHEXIDINE GLUCONATE 2 % 1 PACK (2 CLOTHS) TOP SCH (04:00)
[2017-12-02] MEDS: LEVOTHYROXINE SODIUM 25 MCG TAB PO SCH (06:00)
[2017-12-02] MEDS: levETIRAcetam INJ 500 MG in SODIUM CHLORIDE 0.9% INJ 100 ML IV SCH ×2 (06:00→18:09)
[2017-12-02] MEDS: CHLORHEXIDINE 0.12% (ORAL KIT) 15 ML CUP MT SCH ×2 (07:55→20:00)
[2017-12-02] MEDS: RESP: ALBUTEROL 2.5 MG/IPRATROPIUM 0.5 MG NEB (SCH) NEB ×3 (08:28→21:17)
[2017-12-02] MEDS: SODIUM CHLORIDE 0.9% FLUSH 10 ML FLUSH IV FLUSH SCH ×2 (09:00→20:23)
[2017-12-02] MEDS: PANTOPRAZOLE SODIUM 40 MG VIAL IVP SCH (09:00)
[2017-12-02] MEDS: AMIODARONE 200 MG TAB OG-TUBE SCH (09:00)
[2017-12-02] MEDS: SILDENAFIL CITRATE 20 MG TAB PO SCH ×3 (09:00→18:09)
[2017-12-02] MEDS: THIAMINE HCL 100 MG TAB PO SCH (09:00)
[2017-12-02] MEDS: DOCUSATE SODIUM 100 MG CAP PO SCH ×2 (09:00→20:23)
[2017-12-02] MEDS: ARTIFICIAL TEARS OPTH SOLN 15 ML BTL EACH EYE SCH ×3 (09:00→17:18)
--- NOTE | 2017-12-02 11:30 | HHI.NSPN ---
(Trisha Carlisle) Note Status Status: Progress Note (Trisha Carlisle) Interval History Interval History Mr. Dalton 72-year-old male who had presented to the emergency department via EMS after an accidental overdose of Percocet on 11/17/17. The patient was then found lying in the bathroom on the ground, unresponsive, was administered Narcan 0.4 mg intravenously. Per EMS the patient awakened and was alert. He has a history of chronic opiate use. 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 He was also found with severe aspiration pneumonia and a foreign body in the esophagus removed by GI. This morning he became completely obtunded and not responding to commands. 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 Patient now intubated, 25 g of mannitol has been given. Emergent neurosurgical evaluation requested. 11/22: Status post emergent right frontotemporoparietal craniotomy for evacuation of subdural hematoma, with placement of intracranial pressure monitor yesterday. Patient currently is intubated and sedated. ICPs low. 11/23: Intubated, minimally sedated, eyes open, moving spontaneously. ICPs stable. 11/24: Remains intubated and currently sedated. No changes to neuro checks overnight. 11/27: Extubated over the weekend, drowsy but awake follows simple commands. Follow-up CT brain completed yesterday. 11/28: Awake, appears confused. Followed few simple commands. Nursing reports FRITZ drain numbers 2 is still putting out moderate drainage. 11/29: daughter in room, patient awake, smiling. neuro checks stable overnight. 11/30: doing well today, nodded head when asked if feeling better. 12/01: For follow-up CT head today. No changes to neurological examination overnight. 12/02: much drowsier this morning, minimal eye opening, not following commands, had received xanax. (Trisha Carlisle) Labs, Micro, & Vital Signs Results Date Time Temp Pulse Resp B/P (MAP) Pulse Ox O2 Delivery O2 Flow Rate FiO2 12/02/17 08:28 97 Nasal Cannula 4.00 12/02/17 07:00 97 Nasal Cannula 4.00 12/02/17 06:00 58 12/02/17 04:00 72 12/02/17 04:00 97.9 72 22 140/77 (98) 100 12/02/17 02:00 64 12/02/17 00:00 98.0 84 23 121/60 (80) 97 12/02/17 00:00 84 12/01/17 22:00 84 12/01/17 21:30 93 Simple Mask 6.00 12/01/17 20:00 97.6 81 20 133/72 (92) 94 12/01/17 20:00 80 12/01/17 19:00 89 Nasal Cannula 3.00 12/01/17 18:00 78 12/01/17 16:00 98.3 68 24 112/57 (75) 95 12/01/17 16:00 75 12/01/17 14:00 80 12/01/17 12:00 98.5 91 22 114/55 (74) 99 12/01/17 12:00 74 Constitutional Vital Signs Date Time Temp Pulse Resp B/P (MAP) Pulse Ox O2 Delivery O2 Flow Rate FiO2 12/02/17 08:28 97 Nasal Cannula 4.00 12/02/17 07:00 97 Nasal Cannula 4.00 12/02/17 06:00 58 12/02/17 04:00 72 12/02/17 04:00 97.9 72 22 140/77 (98) 100 12/02/17 02:00 64 12/02/17 00:00 98.0 84 23 121/60 (80) 97 12/02/17 00:00 84 12/01/17 22:00 84 12/01/17 21:30 93 Simple Mask 6.00 12/01/17 20:00 97.6 81 20 133/72 (92) 94 12/01/17 20:00 80 12/01/17 19:00 89 Nasal Cannula 3.00 12/01/17 18:00 78 12/01/17 16:00 98.3 68 24 112/57 (75) 95 12/01/17 16:00 75 12/01/17 14:00 80 12/01/17 12:00 98.5 91 22 114/55 (74) 99 12/01/17 12:00 74 (Trisha Carlisle) Review of Systems ROS Limitations: Clinical Condition, Altered Mental Status (Trisha Carlisle) Physical Exam Mr. Dalton appears much drowsier and sleepy this morning. Neuro: drowsy, not following commands. pupils equal. gross EOMs intact. Facial appears symmetric at rest. Incision healing well without evidence of infection. FRITZ drain #2 still with minimal serosanguineous drainage Cervical Spine: soft, supple Motor: moves right arm and bilateral lower extremity to command, flaccid left arm Reflexes: Bilateral Babinski response Cerebellar: cannot be adequately assessed due to the patient's clinical condition (Trisha Carlisle) Medications Current Medications Current Medications Medications (Trade) Dose Ordered Sig/Nataly Route PRN Reason Start Time Stop Time Status Last Admin Dose Admin Sodium Chloride (NS Flush) 2 ml UNSCH PRN IV FLUSH FLUSH AFTER USING IV ACCESS 11/17/17 22:45 Sodium Chloride (NS Flush) 2 ml BID IV FLUSH 11/18/17 09:00 12/02/17 09:00 Acetaminophen (Tylenol) 650 mg Q6H PRN PO PAIN 1-5 AND/OR FEVER >101F 11/17/17 22:45 Ondansetron HCl (Zofran Inj) 4 mg Q6H PRN IV PUSH NAUSEA OR VOMITING 11/17/17 22:45 Miscellaneous Information ([facility] [place] Nursing Information) 1 Q361D XX 11/17/17 22:45 11/18/17 00:59 Chlorhexidine Gluconate (Chlorhexidine 2% Cloth) Taper DAILY@04 TOP 11/18/17 04:00 11/14/18 03:59 12/01/17 04:00 Chlorhexidine Gluconate (Chlorhexidine 2% Cloth) 3 pack UNSCH PRN TOP HYGIENIC CARE 11/17/17 22:45 Magnesium Hydroxide (Milk Of Magnesia Liq) 30 ml Q12H PRN PO Mild constipation 11/17/17 22:45 Sennosides (Senokot) 17.2 mg Q12H PRN PO Moderate constipation 11/17/17 22:45 Bisacodyl (Dulcolax Supp) 10 mg DAILY PRN RECTAL SEVERE CONSITIPATION/ IF NPO 11/17/17 22:45 Lactulose (Lactulose Liq) 30 ml DAILY PRN PO SEVERE CONSITIPATION/ IF PO 11/17/17 22:45 Thiamine HCl (Vitamin B1) 100 mg DAILY PO 11/20/17 13:00 12/02/17 09:00 Clonidine (Catapres) 0.1 mg Q6H PRN PO SEE LABEL COMMENTS 11/20/17 13:00 Flumazenil (Romazicon Inj) 0.2 mg Q1M PRN IV PUSH SEE LABEL COMMENTS 11/20/17 13:00 Enalaprilat (Vasotec Inj) 1.25 mg Q6H PRN IV PUSH SEE LABEL COMMENTS 11/21/17 10:45 Labetalol HCl (Trandate Inj) 10 mg Q6H PRN IV PUSH SEE LABEL COMMENTS 11/21/17 10:45 Hydralazine HCl (Apresoline Inj) 10 mg Q6H PRN IV PUSH SEE LABEL COMMENTS 11/21/17 10:45 11/28/17 13:31 Artificial Tears (Tears Naturale Opth Soln) 1 drop TID EACH EYE 11/21/17 13:00 12/02/17 09:00 Chlorhexidine Gluconate (Peridex 0.12% Liq) 15 ml BID@08,20 MT 11/21/17 20:00 11/30/17 20:00 Docusate Sodium (Colace) 100 mg BID PO 11/21/17 21:00 12/02/17 09:00 Pantoprazole Sodium (Protonix Inj) 40 mg DAILY IVP 11/22/17 09:00 12/02/17 09:00 Calcium Gluconate (Calcium Gluconate Inj) 1 gm UNSCH PRN IV SEE LABEL COMMENTS 11/21/17 15:00 Acetaminophen/ Hydrocodone Bitart ([place] 10-325 Mg) 1 tab Q4H PRN PO PAIN SCALE 1 TO 5 11/21/17 15:00 11/30/17 00:12 Acetaminophen/ Hydrocodone Bitart ([place] 10-325 Mg) 2 tab Q4H PRN PO PAIN SCALE 6 TO 10 11/21/17 15:00 11/27/17 10:47 Acetaminophen (Tylenol) 650 mg Q4H PRN PO TEMPERATURE > 101.5 F 11/21/17 15:00 Levetriacetam 500 mg/Sodium Chloride 105 ml @ 420 mls/hr Q12H IV 11/22/17 06:00 12/02/17 06:00 Terbutaline Sulfate (Brethine Inj) 1 mg UNSCH PRN SQ For Extravasation 11/23/17 13:15 Terbutaline Sulfate (Brethine Inj) 1 mg UNSCH PRN SQ For Extravasation 11/25/17 17:15 Amiodarone HCl (Cordarone) 400 mg DAILY OG-TUBE 11/27/17 09:00 12/02/17 09:00 Albuterol/ Ipratropium (Duoneb Neb) 1 ampule Q6HR WHILE AWAKE NEB NEB 11/29/17 08:00 12/02/17 08:28 Albuterol Sulfate (Albuterol Neb) 2.5 mg Q2HR NEB PRN NEB DYSPNEA 11/28/17 22:00 Ceftriaxone Sodium 2000 mg/ Sodium Chloride 100 ml @ 200 mls/hr Q24H IV 11/29/17 20:00 12/01/17 20:26 Levothyroxine Sodium (Synthroid) 25 mcg DAILY@0600 PO 12/01/17 06:00 12/02/17 06:00 Sildenafil Citrate (Revatio) 20 mg TID PO 11/30/17 18:00 12/02/17 09:00 Tamsulosin HCl (Flomax) 0.4 mg HS PO 11/30/17 21:00 12/01/17 20:27 Temazepam (Restoril) 30 mg HS PRN PO INSOMNIA 11/30/17 13:15 12/01/17 22:00 (Trisha Carlisle) Medical Decision Making MDM Remarks 72-year-old male presented initially for opioid overdose, Decline in mental status with MRI showing large right subdural hygroma with 8 mm midline shift Status post emergent right craniotomy for evacuation of large subdural hygroma, placement of ICP monitor on 11/21/2017, ICPs stable, ICP monitor removed 11/23/17 f/u CT Brain 11/22 with residual right SDH, improved midline shift to now 2 mm from 8 mm. f/u CT Brain 11/26 with stable residual right SDH with mild mass effect (Trisha Carlisle) Plan Plan Remarks f/u CT Brain reviewed by Dr. Rose, stable findings, FRITZ drain removed, cont neuro checks cont restoril at bedtime, dc xanax kaycee removal Monday PT, mobilized to stretch her chair today (Trisha Carlisle) Attending Statement The exam, history, and the medical decision-making described in the above note were completed with the assistance of the mid-level provider. I reviewed and agree with the findings presented. I attest that I had a [id number] encounter with the patient on the same day, and personally performed and documented my assessment and findings in the medical record. (Rodríguez Rose MD) Trisha Carlisle December 02, 2017 11:30 Rodríguez Rose MD December 03, 2017 14:27
--- NOTE | 2017-12-02 16:36 | HHI.PR ---
Subjective Remarks Pt, when asked if he had any pain, states yes and points at his daughter. She then states she is leaving. Pt smiling. Tolerating a diet. Denies any worsening SOB, nausea or vomiting. Discussed w RN, pt was very drowsy this morning. Apparently pt received a dose of xanax and restoril last night which made him very drowsy. Dr. Rose d/c the xanax Objective Vitals Vital Signs Date Time Temp Pulse Resp B/P (MAP) Pulse Ox O2 Delivery O2 Flow Rate FiO2 12/02/17 08:28 97 Nasal Cannula 4.00 12/02/17 08:00 97.1 68 24 142/75 (97) 97 12/02/17 07:00 97 Nasal Cannula 4.00 12/02/17 06:00 58 12/02/17 04:00 72 12/02/17 04:00 97.9 72 22 140/77 (98) 100 12/02/17 02:00 64 12/02/17 00:00 98.0 84 23 121/60 (80) 97 12/02/17 00:00 84 12/01/17 22:00 84 12/01/17 21:30 93 Simple Mask 6.00 12/01/17 20:00 97.6 81 20 133/72 (92) 94 12/01/17 20:00 80 12/01/17 19:00 89 Nasal Cannula 3.00 12/01/17 18:00 78 I/O 12/01/17 12/01/17 12/01/17 12/02/17 12/02/17 12/02/17 07:00 15:00 23:00 07:00 15:00 23:00 Intake Total 305 ml 250 ml Output Total 530 ml 370 ml 40 ml Balance -225 ml -120 ml -40 ml Intake Oral 200 ml 250 ml IV Total 105 ml Output Urine Total 500 ml 350 ml Drainage Total 30 ml 20 ml 40 ml # Voids 2 # Bowel Movements 0 Result Diagram: 11/29/17 0553 12/01/17 0546 Imaging Last Impressions Head CT 12/01/17 0000 Signed Impressions: Service Date/Time: Friday, December 01, 2017 16:57 - CONCLUSION: 1. Essentially stable head CT compared with November 26. Right subdural drain present with adjacent stable apparent hemorrhage measuring up to about 13 mm in diameter. Gio Israel MD Chest X-Ray 11/25/17 0000 Signed Impressions: Service Date/Time: Saturday, November 25, 2017 13:17 - CONCLUSION: 1. Persistent small left pneumothorax. 2. New left lung base consolidation and small pleural effusion. 3. Mild bilateral interstitial opacity indicating mild pulmonary edema. Adriano Blair MD Brain MRI 11/21/17 0727 Signed Impressions: Service Date/Time: Tuesday, November 21, 2017 10:11 - CONCLUSION: 1. 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 2. Scattered nonspecific white matter signal change. No focal abnormal areas of enhancement. 3. Small focal area of restricted diffusion in the left posterior medial cerebellar hemisphere suggesting an acute infarction; however, no signal abnormality is seen in this area on any of the other pulse sequences. Oswaldo Alicea MD Skull X-Ray 11/21/17 0000 Signed Impressions: Service Date/Time: Tuesday, November 21, 2017 09:47 - CONCLUSION: No contraindication to MRI seen. Oswaldo Alicea MD Abdomen X-Ray 11/21/17 0000 Signed Impressions: Service Date/Time: Tuesday, November 21, 2017 09:45 - CONCLUSION: No contraindication to MRI seen. Oswaldo Alicea MD Chest CT 11/17/17 0000 Signed Impressions: Service Date/Time: Friday, November 17, 2017 20:57 - CONCLUSION: 1. Foreign body at the level of the thoracic inlet, appears to be a coin within the esophagus. 2. Bilateral pneumonia. Please see above. Aman Bermeo MD Objective Remarks Coarse breath sounds somewhat bilaterally, lying in bed, awake, alert, smiling moving his upper extremities and feeding himself. smiling. HR rrr abd soft, NT no guarding Procedures 11/21/17 endotracheal intubation 11/21/17 right frontal/temporal/parietal craniotomy with evacuation of subdural hematoma 11/21/17 left frontal ash hole with placement of an intracranial pressure monitor A/P Assessment and Plan Right subdural hematoma with 8 mm midline shift, acute left posterior cerebellar infarct: -Appreciate neurology, neurosurgery recommendations. Status post right frontotemporoparietal craniotomy with evacuation of subdural hygroma. No mural thrombus noted on echocardiogram, intact EF. Repeat head ct stable. Pt did get very drowsy overnight, thought to be due to oversedation from meds. xanax d/c. ok to transfer to regular floor if cleared by neurosx. RN already placed call to Dr. Rose. kaycee to be removed on monday Anxiety: improved, hold xanax home dose and ok to continue restoril per neurosx Hypokalemia: Likely due to poor nutrition, monitor and replace accordingly Aspiration pneumonia: continue Rocephin. procal still elevated. ST recommendations. Hep C: Likely cause of patient's transaminitis and coagulopathy with INR 1.2. No further intervention at this time. 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 chronic pulm arterial HTN: home sildenafil BPH: home Flomax DVT prophylaxis: SCDs. Lovenox on hold until cleared by neurosurgery. Discharge Planning there was concern of oversedation earlier this morning. pt now doing much better and is awake and alert. ok to transfer to med/surg floor if ok w neurosx Mia Gonzales MD December 02, 2017 16:36
[2017-12-02] MEDS: cefTRIAXone INJ 2,000 MG in SODIUM CHLORIDE 0.9% INJ 100 ML IV SCH (20:22)
[2017-12-02] MEDS: TAMSULOSIN HCL 0.4 MG CAP PO SCH (20:23)
[2017-12-02] MEDS: ACETAMINOPHEN/HYDROcodone 325 MG/10 MG TAB PO PRN (20:24)
[2017-12-02] MEDS: TEMAZEPAM 15 MG CAP PO PRN (20:54)
[2017-12-03] VITALS (12 sets, daily range): BP systolic 94–122; BP diastolic 57–71; PULSE 64–90; RESP 20–26; TEMP 97.8–98.1; O2SAT 92–100
[2017-12-03] MEDS: CHLORHEXIDINE GLUCONATE 2 % 1 PACK (2 CLOTHS) TOP SCH (04:00)
[2017-12-03] MEDS: levETIRAcetam INJ 500 MG in SODIUM CHLORIDE 0.9% INJ 100 ML IV SCH ×2 (05:46→17:28)
[2017-12-03] MEDS: LEVOTHYROXINE SODIUM 25 MCG TAB PO SCH (05:47)
[2017-12-03] MEDS: CHLORHEXIDINE 0.12% (ORAL KIT) 15 ML CUP MT SCH ×2 (08:00→20:00)
[2017-12-03] MEDS: DOCUSATE SODIUM 100 MG CAP PO SCH ×2 (08:52→20:06)
[2017-12-03] MEDS: THIAMINE HCL 100 MG TAB PO SCH (08:52)
[2017-12-03] MEDS: SILDENAFIL CITRATE 20 MG TAB PO SCH ×3 (08:52→17:27)
[2017-12-03] MEDS: AMIODARONE 200 MG TAB OG-TUBE SCH (08:53)
[2017-12-03] MEDS: PANTOPRAZOLE SODIUM 40 MG VIAL IVP SCH (08:53)
[2017-12-03] MEDS: ARTIFICIAL TEARS OPTH SOLN 15 ML BTL EACH EYE SCH ×3 (08:53→17:28)
[2017-12-03] MEDS: SODIUM CHLORIDE 0.9% FLUSH 10 ML FLUSH IV FLUSH SCH ×2 (08:53→20:06)
--- NOTE | 2017-12-03 09:12 | HHI.PR ---
Subjective Remarks Nursing denies any deterioration since last night. Patient himself says he is doing okay. No reports of any further drowsiness. Second drain was apparently removed yesterday. Objective Vital Signs Date Time Temp Pulse Resp B/P (MAP) Pulse Ox O2 Delivery O2 Flow Rate FiO2 12/03/17 08:00 96 Nasal Cannula 4.00 12/03/17 06:00 75 12/03/17 04:00 64 12/03/17 04:00 98.1 64 20 94/63 (73) 96 12/03/17 02:00 80 12/03/17 00:00 90 12/03/17 00:00 97.9 90 26 104/57 (73) 93 12/02/17 22:00 102 12/02/17 21:17 95 Nasal Cannula 4.00 12/02/17 20:00 97.8 92 20 74/51 (59) 93 12/02/17 20:00 93 12/02/17 19:00 96 Nasal Cannula 4.00 12/02/17 16:00 97.7 88 22 125/65 (85) 95 12/02/17 12:00 97.3 65 22 112/45 (67) 95 I/O 12/02/17 12/02/17 12/02/17 12/03/17 12/03/17 12/03/17 07:00 15:00 23:00 07:00 15:00 23:00 Intake Total 300 ml 480 ml Output Total 40 ml 500 ml Balance -40 ml -200 ml 480 ml Intake Oral 300 ml 480 ml Output Urine Total 500 ml Drainage Total 40 ml # Voids 2 3 2 Result Diagram: 11/29/17 0553 12/01/17 0546 Objective Remarks Coarse breath sounds bilaterally, lying in bed, no cyanosis, awake, alert, on room air, no acute distress, on nasal cannula No facial droop, no slurred speech, Hard to understand due to patient's edentulous nature, right arm for prescription strength is 4 out of 5, left upper extremity with chronic weakness A/P Assessment and Plan Right subdural hematoma with 8 mm midline shift, acute left posterior cerebellar infarct: -Appreciate neurology, neurosurgery recommendations. Status post right frontotemporoparietal craniotomy with evacuation of subdural hygroma. -No mural thrombus noted on echocardiogram, intact EF. Repeat head ct stable. All drains have been removed. -on keppra per NSG for seizure prophylaxis Anxiety: improved, continue restoril per neurosx Tachyarrhythmia: No recurrence, has been on amiodarone per prior ordered by professor of french for suspected A. fib. Independent EKG reviews do not demonstrate A. fib to me at this time, may have been previously seen on a telemetry strip. Will consider contacting cardiology to see if amiodarone is needed any further. Hypokalemia: Likely due to poor nutrition, monitor and replace accordingly Aspiration pneumonia: continue Rocephin. procal still elevated. ST recommendations. Hep C: Likely cause of patient's transaminitis and coagulopathy with INR 1.2. No further intervention at this time. 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 chronic pulm arterial HTN: home sildenafil BPH: home Flomax DVT prophylaxis: SCDs. If cleared with neurosurgery would consider prophylactic heparin Discharge Planning Transfer to [facility] pending bed availability, clearance for discharge [facility] depends on neurosurgery clearance Te Sauceda MD December 03, 2017 09:12
--- NOTE | 2017-12-03 11:34 | HHI.NSPN ---
(Trisha Carlisle) Note Status Status: Progress Note (Trisha Carlisle) Interval History Interval History Mr. Dalton 72-year-old male who had presented to the emergency department via EMS after an accidental overdose of Percocet on 11/17/17. The patient was then found lying in the bathroom on the ground, unresponsive, was administered Narcan 0.4 mg intravenously. Per EMS the patient awakened and was alert. He has a history of chronic opiate use. 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 He was also found with severe aspiration pneumonia and a foreign body in the esophagus removed by GI. This morning he became completely obtunded and not responding to commands. 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 Patient now intubated, 25 g of mannitol has been given. Emergent neurosurgical evaluation requested. 11/22: Status post emergent right frontotemporoparietal craniotomy for evacuation of subdural hematoma, with placement of intracranial pressure monitor yesterday. Patient currently is intubated and sedated. ICPs low. 11/23: Intubated, minimally sedated, eyes open, moving spontaneously. ICPs stable. 11/24: Remains intubated and currently sedated. No changes to neuro checks overnight. 11/27: Extubated over the weekend, drowsy but awake follows simple commands. Follow-up CT brain completed yesterday. 11/28: Awake, appears confused. Followed few simple commands. Nursing reports FRITZ drain numbers 2 is still putting out moderate drainage. 11/29: daughter in room, patient awake, smiling. neuro checks stable overnight. 11/30: doing well today, nodded head when asked if feeling better. 12/01: For follow-up CT head today. No changes to neurological examination overnight. 12/02: much drowsier this morning, minimal eye opening, not following commands, had received xanax. 12/03: appears more awake this morning (Trisha Carlisle) Labs, Micro, & Vital Signs Results Date Time Temp Pulse Resp B/P (MAP) Pulse Ox O2 Delivery O2 Flow Rate FiO2 12/03/17 08:00 96 Nasal Cannula 4.00 12/03/17 08:00 98.0 70 20 108/60 (76) 96 12/03/17 06:00 75 12/03/17 04:00 64 12/03/17 04:00 98.1 64 20 94/63 (73) 96 12/03/17 02:00 80 12/03/17 00:00 90 12/03/17 00:00 97.9 90 26 104/57 (73) 93 12/02/17 22:00 102 12/02/17 21:17 95 Nasal Cannula 4.00 12/02/17 20:00 97.8 92 20 74/51 (59) 93 12/02/17 20:00 93 12/02/17 19:00 96 Nasal Cannula 4.00 12/02/17 16:00 97.7 88 22 125/65 (85) 95 12/02/17 12:00 97.3 65 22 112/45 (67) 95 Constitutional Vital Signs Date Time Temp Pulse Resp B/P (MAP) Pulse Ox O2 Delivery O2 Flow Rate FiO2 12/03/17 08:00 96 Nasal Cannula 4.00 12/03/17 08:00 98.0 70 20 108/60 (76) 96 12/03/17 06:00 75 12/03/17 04:00 64 12/03/17 04:00 98.1 64 20 94/63 (73) 96 12/03/17 02:00 80 12/03/17 00:00 90 12/03/17 00:00 97.9 90 26 104/57 (73) 93 12/02/17 22:00 102 12/02/17 21:17 95 Nasal Cannula 4.00 12/02/17 20:00 97.8 92 20 74/51 (59) 93 12/02/17 20:00 93 12/02/17 19:00 96 Nasal Cannula 4.00 12/02/17 16:00 97.7 88 22 125/65 (85) 95 12/02/17 12:00 97.3 65 22 112/45 (67) 95 (Trisha Carlisle) Physical Exam Mr. Dalton awake, resting comfortably. Neuro:awake, oriented to name, follows simple commands. pupils equal. gross EOMs intact. Facial appears symmetric at rest. Incision healing well without evidence of infection. Cervical Spine: soft, supple Motor: moves right arm and bilateral lower extremity to command, flaccid left arm Reflexes: Bilateral Babinski response Cerebellar: cannot be adequately assessed due to the patient's clinical condition (Trisha Carlisle) Medications Current Medications Current Medications Medications (Trade) Dose Ordered Sig/Nataly Route PRN Reason Start Time Stop Time Status Last Admin Dose Admin Sodium Chloride (NS Flush) 2 ml UNSCH PRN IV FLUSH FLUSH AFTER USING IV ACCESS 11/17/17 22:45 Sodium Chloride (NS Flush) 2 ml BID IV FLUSH 11/18/17 09:00 12/03/17 08:53 Acetaminophen (Tylenol) 650 mg Q6H PRN PO PAIN 1-5 AND/OR FEVER >101F 11/17/17 22:45 Ondansetron HCl (Zofran Inj) 4 mg Q6H PRN IV PUSH NAUSEA OR VOMITING 11/17/17 22:45 Miscellaneous Information ([facility] Nursing Information) 1 [id number] XX 11/17/17 22:45 11/18/17 00:59 Chlorhexidine Gluconate (Chlorhexidine 2% Cloth) Taper DAILY@04 TOP 11/18/17 04:00 11/14/18 03:59 12/01/17 04:00 Chlorhexidine Gluconate (Chlorhexidine 2% Cloth) 3 pack UNSCH PRN TOP HYGIENIC CARE 11/17/17 22:45 Magnesium Hydroxide (Milk Of Magnesia Liq) 30 ml Q12H PRN PO Mild constipation 11/17/17 22:45 Sennosides (Senokot) 17.2 mg Q12H PRN PO Moderate constipation 11/17/17 22:45 Bisacodyl (Dulcolax Supp) 10 mg DAILY PRN RECTAL SEVERE CONSITIPATION/ IF NPO 11/17/17 22:45 Lactulose (Lactulose Liq) 30 ml DAILY PRN PO SEVERE CONSITIPATION/ IF PO 11/17/17 22:45 Thiamine HCl (Vitamin B1) 100 mg DAILY PO 11/20/17 13:00 12/03/17 08:52 Clonidine (Catapres) 0.1 mg Q6H PRN PO SEE LABEL COMMENTS 11/20/17 13:00 Flumazenil (Romazicon Inj) 0.2 mg Q1M PRN IV PUSH SEE LABEL COMMENTS 11/20/17 13:00 Enalaprilat (Vasotec Inj) 1.25 mg Q6H PRN IV PUSH SEE LABEL COMMENTS 11/21/17 10:45 Labetalol HCl (Trandate Inj) 10 mg Q6H PRN IV PUSH SEE LABEL COMMENTS 11/21/17 10:45 Hydralazine HCl (Apresoline Inj) 10 mg Q6H PRN IV PUSH SEE LABEL COMMENTS 11/21/17 10:45 11/28/17 13:31 Artificial Tears (Tears Naturale Opth Soln) 1 drop TID EACH EYE 11/21/17 13:00 12/03/17 08:53 Chlorhexidine Gluconate (Peridex 0.12% Liq) 15 ml BID@08,20 MT 11/21/17 20:00 11/30/17 20:00 Docusate Sodium (Colace) 100 mg BID PO 11/21/17 21:00 12/03/17 08:52 Pantoprazole Sodium (Protonix Inj) 40 mg DAILY IVP 11/22/17 09:00 12/03/17 08:53 Calcium Gluconate (Calcium Gluconate Inj) 1 gm UNSCH PRN IV SEE LABEL COMMENTS 11/21/17 15:00 Acetaminophen/ Hydrocodone Bitart ([place] 10-325 Mg) 1 tab Q4H PRN PO PAIN SCALE 1 TO 5 11/21/17 15:00 11/30/17 00:12 Acetaminophen/ Hydrocodone Bitart ([place] 10-325 Mg) 2 tab Q4H PRN PO PAIN SCALE 6 TO 10 11/21/17 15:00 12/02/17 20:24 Acetaminophen (Tylenol) 650 mg Q4H PRN PO TEMPERATURE > 101.5 F 11/21/17 15:00 Levetriacetam 500 mg/Sodium Chloride 105 ml @ 420 mls/hr Q12H IV 11/22/17 06:00 12/03/17 05:46 Terbutaline Sulfate (Brethine Inj) 1 mg UNSCH PRN SQ For Extravasation 11/23/17 13:15 Terbutaline Sulfate (Brethine Inj) 1 mg UNSCH PRN SQ For Extravasation 11/25/17 17:15 Amiodarone HCl (Cordarone) 400 mg DAILY OG-TUBE 11/27/17 09:00 12/03/17 08:53 Albuterol Sulfate (Albuterol Neb) 2.5 mg Q2HR NEB PRN NEB DYSPNEA 11/28/17 22:00 Ceftriaxone Sodium 2000 mg/ Sodium Chloride 100 ml @ 200 mls/hr Q24H IV 11/29/17 20:00 12/02/17 20:22 Levothyroxine Sodium (Synthroid) 25 mcg DAILY@0600 PO 12/01/17 06:00 12/03/17 05:47 Sildenafil Citrate (Revatio) 20 mg TID PO 11/30/17 18:00 12/03/17 08:52 Tamsulosin HCl (Flomax) 0.4 mg HS PO 11/30/17 21:00 12/02/17 20:23 Temazepam (Restoril) 30 mg HS PRN PO INSOMNIA 11/30/17 13:15 12/02/17 20:54 (Trisha Carlisle) Medical Decision Making MDM Remarks 72-year-old male presented initially for opioid overdose, Decline in mental status with MRI showing large right subdural hygroma with 8 mm midline shift Status post emergent right craniotomy for evacuation of large subdural hygroma, placement of ICP monitor on 11/21/2017, ICPs stable, ICP monitor removed 11/23/17 f/u CT Brain 11/22 with residual right SDH, improved midline shift to now 2 mm from 8 mm. f/u CT Brain 11/26 with stable residual right SDH with mild mass effect (Trisha Carlisle) Plan Plan Remarks cont neuro checks dc head kaycee tomorrow medical management cont therapy and rehab efforts (Trisha Carlisle) Attending Statement The exam, history, and the medical decision-making described in the above note were completed with the assistance of the mid-level provider. I reviewed and agree with the findings presented. I attest that I had a [id number] encounter with the patient on the same day, and personally performed and documented my assessment and findings in the medical record. (Rodríguez Rose MD) Trisha Carlisle December 03, 2017 11:34 Rodríguez Rose MD December 03, 2017 14:33
[2017-12-03] MEDS: TAMSULOSIN HCL 0.4 MG CAP PO SCH (20:06)
[2017-12-03] MEDS: cefTRIAXone INJ 2,000 MG in SODIUM CHLORIDE 0.9% INJ 100 ML IV SCH (20:07)
[2017-12-04] VITALS (12 sets, daily range): BP systolic 94–153; BP diastolic 60–77; PULSE 66–87; RESP 18–25; TEMP 98–99.1; O2SAT 91–100
[2017-12-04] MEDS: CHLORHEXIDINE GLUCONATE 2 % 1 PACK (2 CLOTHS) TOP SCH (04:00)
[2017-12-04] MEDS: levETIRAcetam INJ 500 MG in SODIUM CHLORIDE 0.9% INJ 100 ML IV SCH ×2 (06:05→17:41)
[2017-12-04] MEDS: LEVOTHYROXINE SODIUM 25 MCG TAB PO SCH (06:05)
[2017-12-04] MEDS: CHLORHEXIDINE 0.12% (ORAL KIT) 15 ML CUP MT SCH ×2 (08:00→20:00)
[2017-12-04] MEDS: SODIUM CHLORIDE 0.9% FLUSH 10 ML FLUSH IV FLUSH SCH ×2 (08:37→21:00)
[2017-12-04] MEDS: ARTIFICIAL TEARS OPTH SOLN 15 ML BTL EACH EYE SCH ×3 (08:37→17:40)
[2017-12-04] MEDS: PANTOPRAZOLE SODIUM 40 MG VIAL IVP SCH (08:59)
[2017-12-04] MEDS: AMIODARONE 200 MG TAB OG-TUBE SCH (08:59)
[2017-12-04] MEDS: THIAMINE HCL 100 MG TAB PO SCH (09:00)
[2017-12-04] MEDS: DOCUSATE SODIUM 100 MG CAP PO SCH ×2 (09:00→21:00)
[2017-12-04] MEDS: SILDENAFIL CITRATE 20 MG TAB PO SCH ×3 (09:00→17:41)
--- NOTE | 2017-12-04 10:18 | HHI.PR ---
Subjective Remarks extubated Objective Vital Signs Date Time Temp Pulse Resp B/P (MAP) Pulse Ox O2 Delivery O2 Flow Rate FiO2 12/04/17 10:00 85 12/04/17 08:00 66 12/04/17 08:00 98.1 66 19 144/77 (99) 97 12/04/17 07:00 100 Nasal Cannula 3.00 12/04/17 06:00 68 12/04/17 04:00 78 12/04/17 04:00 98.1 78 24 143/68 (93) 94 12/04/17 02:00 84 12/04/17 00:00 98.0 82 25 94/60 (71) 91 12/04/17 00:00 82 12/03/17 22:00 84 12/03/17 20:21 100 2.00 12/03/17 20:00 81 12/03/17 20:00 100 Nasal Cannula 3.00 12/03/17 20:00 97.8 81 20 122/71 (88) 100 12/03/17 18:00 86 12/03/17 16:00 98.1 85 26 107/61 (76) 100 12/03/17 16:00 85 12/03/17 14:00 81 12/03/17 12:00 98.0 77 22 103/59 (74) 92 12/03/17 12:00 77 I/O 12/03/17 12/03/17 12/03/17 12/04/17 12/04/17 12/04/17 07:00 15:00 23:00 07:00 15:00 23:00 Intake Total 480 ml 580 ml 585 ml Output Total 600 ml 400 ml Balance 480 ml -20 ml 185 ml Intake Oral 480 ml 480 ml 480 ml IV Total 100 ml 105 ml Output Urine Total 600 ml 400 ml # Voids 2 2 1 # Bowel Movements 2 0 Result Diagram: 12/01/17 0546 Objective Remarks awake leftue flaccid moves ble well and r arm follow commands Assessment and Plan Assessment and Plan imp mri large subdural with midline shift now postop defer to nusu on keppra went into afib last noc acc to nurse small acute cva on mri this will need to be worked out local [employer] rx looks much better 11/25/17 doing well neurowise so far afib as above will see how does off sedatives defer to nusu echo pend 11/29/17 much better echo pend back to baseline i dw daughter his dx afib 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 12/04/17 looks great getting out to chair he should eventually go live by family in [place] ? anticoagulation in future at some point with afib? med team plz notify family about this issue so it can be addressed in few months Yuriy Land MD December 04, 2017 10:18
--- NOTE | 2017-12-04 10:24 | HHI.PR ---
Subjective Remarks Nursing denies any deterioration since last night. Patient has no new complaints. Objective Vital Signs Date Time Temp Pulse Resp B/P (MAP) Pulse Ox O2 Delivery O2 Flow Rate FiO2 12/04/17 10:00 85 12/04/17 08:00 66 12/04/17 08:00 98.1 66 19 144/77 (99) 97 12/04/17 07:00 100 Nasal Cannula 3.00 12/04/17 06:00 68 12/04/17 04:00 78 12/04/17 04:00 98.1 78 24 143/68 (93) 94 12/04/17 02:00 84 12/04/17 00:00 98.0 82 25 94/60 (71) 91 12/04/17 00:00 82 12/03/17 22:00 84 12/03/17 20:21 100 2.00 12/03/17 20:00 81 12/03/17 20:00 100 Nasal Cannula 3.00 12/03/17 20:00 97.8 81 20 122/71 (88) 100 12/03/17 18:00 86 12/03/17 16:00 98.1 85 26 107/61 (76) 100 12/03/17 16:00 85 12/03/17 14:00 81 12/03/17 12:00 98.0 77 22 103/59 (74) 92 12/03/17 12:00 77 I/O 12/03/17 12/03/17 12/03/17 12/04/17 12/04/17 12/04/17 07:00 15:00 23:00 07:00 15:00 23:00 Intake Total 480 ml 580 ml 585 ml Output Total 600 ml 400 ml Balance 480 ml -20 ml 185 ml Intake Oral 480 ml 480 ml 480 ml IV Total 100 ml 105 ml Output Urine Total 600 ml 400 ml # Voids 2 2 1 # Bowel Movements 2 0 Result Diagram: 12/01/17 0546 Objective Remarks Coarse breath sounds bilaterally, lying in bed, no cyanosis, awake, alert, on room air, no acute distress, on nasal cannula No facial droop, no slurred speech, Eating breakfast A/P Assessment and Plan Right subdural hematoma with 8 mm midline shift, acute left posterior cerebellar infarct: -Appreciate neurology, neurosurgery recommendations. Status post right frontotemporoparietal craniotomy with evacuation of subdural hygroma. -No mural thrombus noted on echocardiogram, intact EF. Repeat head ct stable. All drains have been removed. -on keppra per NSG for seizure prophylaxis Anxiety: improved, continue restoril per neurosx Tachyarrhythmia: No recurrence, has been on amiodarone per prior ordered by bull riveter for suspected A. fib. Independent EKG reviews do not demonstrate A. fib to me at this time, may have been previously seen on a telemetry strip. Will consider contacting cardiology to see if amiodarone is needed any further. Hypokalemia: Likely due to poor nutrition, monitor and replace accordingly Aspiration pneumonia: continue Rocephin. procal still elevated. ST recommendations. Hep C: Likely cause of patient's transaminitis and coagulopathy with INR 1.2. No further intervention at this time. 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 chronic pulm arterial HTN: home sildenafil BPH: home Flomax DVT prophylaxis: SCDs. If cleared with neurosurgery would consider prophylactic heparin Discharge Planning Transfer to [facility] pending bed availability, clearance for discharge to [facility] depends on neurosurgery clearance Te Sauceda MD December 04, 2017 10:24
--- NOTE | 2017-12-04 11:06 | HHI.NSPN ---
(Trisha Carlisle) Note Status Status: Progress Note (Trisha Carlisle) Interval History Interval History Mr. Dalton 72-year-old male who had presented to the emergency department via EMS after an accidental overdose of Percocet on 11/17/17. The patient was then found lying in the bathroom on the ground, unresponsive, was administered Narcan 0.4 mg intravenously. Per EMS the patient awakened and was alert. He has a history of chronic opiate use. 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 He was also found with severe aspiration pneumonia and a foreign body in the esophagus removed by GI. This morning he became completely obtunded and not responding to commands. 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 Patient now intubated, 25 g of mannitol has been given. Emergent neurosurgical evaluation requested. 11/22: Status post emergent right frontotemporoparietal craniotomy for evacuation of subdural hematoma, with placement of intracranial pressure monitor yesterday. Patient currently is intubated and sedated. ICPs low. 11/23: Intubated, minimally sedated, eyes open, moving spontaneously. ICPs stable. 11/24: Remains intubated and currently sedated. No changes to neuro checks overnight. 11/27: Extubated over the weekend, drowsy but awake follows simple commands. Follow-up CT brain completed yesterday. 11/28: Awake, appears confused. Followed few simple commands. Nursing reports FRITZ drain numbers 2 is still putting out moderate drainage. 11/29: daughter in room, patient awake, smiling. neuro checks stable overnight. 11/30: doing well today, nodded head when asked if feeling better. 12/01: For follow-up CT head today. No changes to neurological examination overnight. 12/02: much drowsier this morning, minimal eye opening, not following commands, had received xanax. 12/03: appears more awake this morning 12/04: calm, awake, alert, oriented to name and place. feeding himself breakfast. denies headaches. (Trisha Carlisle) Labs, Micro, & Vital Signs Results Date Time Temp Pulse Resp B/P (MAP) Pulse Ox O2 Delivery O2 Flow Rate FiO2 12/04/17 10:00 85 12/04/17 08:00 66 12/04/17 08:00 98.1 66 19 144/77 (99) 97 12/04/17 07:00 100 Nasal Cannula 3.00 12/04/17 06:00 68 12/04/17 04:00 78 12/04/17 04:00 98.1 78 24 143/68 (93) 94 12/04/17 02:00 84 12/04/17 00:00 98.0 82 25 94/60 (71) 91 12/04/17 00:00 82 12/03/17 22:00 84 12/03/17 20:21 100 2.00 12/03/17 20:00 81 12/03/17 20:00 100 Nasal Cannula 3.00 12/03/17 20:00 97.8 81 20 122/71 (88) 100 12/03/17 18:00 86 12/03/17 16:00 98.1 85 26 107/61 (76) 100 12/03/17 16:00 85 12/03/17 14:00 81 12/03/17 12:00 98.0 77 22 103/59 (74) 92 12/03/17 12:00 77 Constitutional Vital Signs Date Time Temp Pulse Resp B/P (MAP) Pulse Ox O2 Delivery O2 Flow Rate FiO2 12/04/17 10:00 85 12/04/17 08:00 66 12/04/17 08:00 98.1 66 19 144/77 (99) 97 12/04/17 07:00 100 Nasal Cannula 3.00 12/04/17 06:00 68 12/04/17 04:00 78 12/04/17 04:00 98.1 78 24 143/68 (93) 94 12/04/17 02:00 84 12/04/17 00:00 98.0 82 25 94/60 (71) 91 12/04/17 00:00 82 12/03/17 22:00 84 12/03/17 20:21 100 2.00 5/13/18 20:00 81 12/03/17 20:00 100 Nasal Cannula 3.00 12/03/17 20:00 97.8 81 20 122/71 (88) 100 12/03/17 18:00 86 12/03/17 16:00 98.1 85 26 107/61 (76) 100 12/03/17 16:00 85 12/03/17 14:00 81 12/03/17 12:00 98.0 77 22 103/59 (74) 92 12/03/17 12:00 77 (Trisha Carlisle) Physical Exam Mr. Dalton awake, alert, feeding himself breakfast, calm. Neuro:awake, oriented to name, and place, follows simple commands. pupils equal. gross EOMs intact. Facial appears symmetric at rest. Surgical incision healing well, no redness, drainage, warmth or other of infection. Cervical Spine: soft, supple Motor: moves right arm and bilateral lower extremity to command, flaccid left arm (Trisha Carlisle) Medications Current Medications Current Medications Medications (Trade) Dose Ordered Sig/Nataly Route PRN Reason Start Time Stop Time Status Last Admin Dose Admin Sodium Chloride (NS Flush) 2 ml UNSCH PRN IV FLUSH FLUSH AFTER USING IV ACCESS 11/17/17 22:45 Sodium Chloride (NS Flush) 2 ml BID IV FLUSH 11/18/17 09:00 12/04/17 08:37 Acetaminophen (Tylenol) 650 mg Q6H PRN PO PAIN 1-5 AND/OR FEVER >101F 11/17/17 22:45 Ondansetron HCl (Zofran Inj) 4 mg Q6H PRN IV PUSH NAUSEA OR VOMITING 11/17/17 22:45 Miscellaneous Information [place] [place] [facility] [place] 1 [id number] XX 11/17/17 22:45 11/18/17 00:59 Chlorhexidine Gluconate (Chlorhexidine 2% Cloth) Taper DAILY@04 TOP 11/18/17 04:00 11/14/18 03:59 12/01/17 04:00 Chlorhexidine Gluconate (Chlorhexidine 2% Cloth) 3 pack UNSCH PRN TOP HYGIENIC CARE 11/17/17 22:45 Magnesium Hydroxide (Milk Of Magnesia Liq) 30 ml Q12H PRN PO Mild constipation 11/17/17 22:45 Sennosides (Senokot) 17.2 mg Q12H PRN PO Moderate constipation 11/17/17 22:45 Bisacodyl (Dulcolax Supp) 10 mg DAILY PRN RECTAL SEVERE CONSITIPATION/ IF NPO 11/17/17 22:45 Lactulose (Lactulose Liq) 30 ml DAILY PRN PO SEVERE CONSITIPATION/ IF PO 11/17/17 22:45 Thiamine HCl (Vitamin B1) 100 mg DAILY PO 11/20/17 13:00 12/04/17 09:00 Clonidine (Catapres) 0.1 mg Q6H PRN PO SEE LABEL COMMENTS 11/20/17 13:00 Flumazenil (Romazicon Inj) 0.2 mg Q1M PRN IV PUSH SEE LABEL COMMENTS 11/20/17 13:00 Enalaprilat (Vasotec Inj) 1.25 mg Q6H PRN IV PUSH SEE LABEL COMMENTS 11/21/17 10:45 Labetalol HCl (Trandate Inj) 10 mg Q6H PRN IV PUSH SEE LABEL COMMENTS 11/21/17 10:45 Hydralazine HCl (Apresoline Inj) 10 mg Q6H PRN IV PUSH SEE LABEL COMMENTS 11/21/17 10:45 11/28/17 13:31 Artificial Tears (Tears Naturale Opth Soln) 1 drop TID EACH EYE 11/21/17 13:00 12/04/17 08:37 Chlorhexidine Gluconate (Peridex 0.12% Liq) 15 ml BID@08,20 MT 11/21/17 20:00 12/04/17 08:00 Docusate Sodium (Colace) 100 mg BID PO 11/21/17 21:00 12/04/17 09:00 Pantoprazole Sodium (Protonix Inj) 40 mg DAILY IVP 11/22/17 09:00 12/04/17 08:59 Calcium Gluconate (Calcium Gluconate Inj) 1 gm UNSCH PRN IV SEE LABEL COMMENTS 11/21/17 15:00 Acetaminophen/ Hydrocodone Bitart (Windfall 10-325 Mg) 1 tab Q4H PRN PO PAIN SCALE 1 TO 5 11/21/17 15:00 11/30/17 00:12 Acetaminophen/ Hydrocodone Bitart (Windfall 10-325 Mg) 2 tab Q4H PRN PO PAIN SCALE 6 TO 10 11/21/17 15:00 12/02/17 20:24 Acetaminophen (Tylenol) 650 mg Q4H PRN PO TEMPERATURE > 101.5 F 11/21/17 15:00 Levetriacetam 500 mg/Sodium Chloride 105 ml @ 420 mls/hr Q12H IV 11/22/17 06:00 12/04/17 06:05 Terbutaline Sulfate (Brethine Inj) 1 mg UNSCH PRN SQ For Extravasation 11/23/17 13:15 Terbutaline Sulfate (Brethine Inj) 1 mg UNSCH PRN SQ For Extravasation 11/25/17 17:15 Amiodarone HCl (Cordarone) 400 mg DAILY OG-TUBE 11/27/17 09:00 12/04/17 08:59 Albuterol Sulfate (Albuterol Neb) 2.5 mg Q2HR NEB PRN NEB DYSPNEA 11/28/17 22:00 Ceftriaxone Sodium 2000 mg/ Sodium Chloride 100 ml @ 200 mls/hr Q24H IV 11/29/17 20:00 12/03/17 20:07 Levothyroxine Sodium (Synthroid) 25 mcg DAILY@0600 PO 12/01/17 06:00 12/04/17 06:05 Sildenafil Citrate (Revatio) 20 mg TID PO 11/30/17 18:00 12/04/17 09:00 Tamsulosin HCl (Flomax) 0.4 mg HS PO 11/30/17 21:00 12/03/17 20:06 Temazepam (Restoril) 30 mg HS PRN PO INSOMNIA 11/30/17 13:15 12/02/17 20:54 (Trisha Carlisle) Medical Decision Making MDM Remarks 72-year-old male presented initially for opioid overdose, Decline in mental status with MRI showing large right subdural hygroma with 8 mm midline shift Status post emergent right craniotomy for evacuation of large subdural hygroma, placement of ICP monitor on 11/21/2017, ICPs stable, ICP monitor removed 11/23/17 f/u CT Brain 11/22 with residual right SDH, improved midline shift to now 2 mm from 8 mm. f/u CT Brain 11/26 with stable residual right SDH with mild mass effect (Trisha Carlisle) Plan Plan Remarks dc head kaycee today medical management neuro better, cont therapy and rehab efforts, mobilize with assistance clear to dc to SNF from NRS standpoint (Trisha Carlisle) Attending Statement The exam, history, and the medical decision-making described in the above note were completed with the assistance of the mid-level provider. I reviewed and agree with the findings presented. I attest that I had a [id number] encounter with the patient on the same day, and personally performed and documented my assessment and findings in the medical record. (Rodríguez Rose MD) Trisha Carlisle December 04, 2017 11:06 Rodríguez Rose MD December 05, 2017 16:19
[2017-12-04] MEDS: cefTRIAXone INJ 2,000 MG in SODIUM CHLORIDE 0.9% INJ 100 ML IV SCH (20:44)
[2017-12-04] MEDS: TAMSULOSIN HCL 0.4 MG CAP PO SCH (20:44)
[2017-12-05] VITALS (17 sets, daily range): BP systolic 84–167; BP diastolic 66–85; PULSE 63–88; RESP 16–27; TEMP 97.3–98.9; O2SAT 93–100
--- NOTE | 2017-12-05 02:33 | RADRPT ---
EXAM DATE/TIME: 12/05/2017 02:09 [place] COMPARISON: No previous studies available for comparison. INDICATIONS : Pain in right elbow, fall on unit. Previous injury to right elbow. MEDICAL HISTORY : None. SURGICAL HISTORY : None. ENCOUNTER: Subsequent ACUITY: 2 weeks PAIN SCORE: 4/10 LOCATION: Right elbow FINDINGS: Previous plain screw fixation of the proximal radius. Healed fracture proximal ulna. Hypertrophic bon e formation noted around the distal humerus and proximal radius and ulna likely related to prior frac ture. Osteoarthritis of the elbow joint. No acute fracture identified. CONCLUSION: 1. Prior fractures of the proximal radius and ulna with hypertrophic bone formation around the distal humerus and proximal forearm. No acute fractures seen. Gio Israel MD on December 05, 2017 at 2:29 Board Certified Radiologist. This report was verified electronically.
[2017-12-05] MEDS: CHLORHEXIDINE GLUCONATE 2 % 1 PACK (2 CLOTHS) TOP SCH (04:00)
[2017-12-05] MEDS: LEVOTHYROXINE SODIUM 25 MCG TAB PO SCH (05:51)
[2017-12-05] MEDS: levETIRAcetam INJ 500 MG in SODIUM CHLORIDE 0.9% INJ 100 ML IV SCH ×2 (05:51→17:23)
[2017-12-05] MEDS: DOCUSATE SODIUM 100 MG CAP PO SCH ×2 (08:59→20:28)
[2017-12-05] MEDS: SILDENAFIL CITRATE 20 MG TAB PO SCH ×3 (08:59→17:23)
[2017-12-05] MEDS: AMIODARONE 200 MG TAB OG-TUBE SCH (08:59)
[2017-12-05] MEDS: THIAMINE HCL 100 MG TAB PO SCH (08:59)
[2017-12-05] MEDS: PANTOPRAZOLE SODIUM 40 MG VIAL IVP SCH (09:00)
[2017-12-05] MEDS: ARTIFICIAL TEARS OPTH SOLN 15 ML BTL EACH EYE SCH ×3 (09:00→17:22)
[2017-12-05] MEDS: SODIUM CHLORIDE 0.9% FLUSH 10 ML FLUSH IV FLUSH SCH ×2 (09:00→20:28)
--- NOTE | 2017-12-05 17:20 | HHI.PR ---
Subjective Remarks Nursing denies any deterioration since last night. Patient has no new complaints. Objective Vital Signs Date Time Temp Pulse Resp B/P (MAP) Pulse Ox O2 Delivery O2 Flow Rate FiO2 12/05/17 16:00 78 12/05/17 16:00 97.3 76 25 119/66 (83) 93 12/05/17 14:00 73 12/05/17 12:00 88 12/05/17 12:00 97.8 76 27 131/70 (90) 99 12/05/17 10:00 85 12/05/17 08:12 100 Nasal Cannula 2.50 12/05/17 08:00 98.2 64 16 142/78 (99) 99 12/05/17 08:00 65 12/05/17 07:00 95 Room Air 12/05/17 06:00 65 12/05/17 04:00 66 12/05/17 04:00 97.5 66 17 130/71 (90) 96 12/05/17 02:45 98.2 63 16 141/70 (93) 100 12/05/17 02:00 76 12/05/17 01:45 98.2 76 18 167/85 (112) 100 12/05/17 01:00 78 12/05/17 00:00 76 12/05/17 00:00 98.2 76 16 155/84 (107) 100 12/04/17 20:00 77 12/04/17 20:00 98.6 77 18 123/62 (82) 98 12/04/17 19:00 97 Room Air 12/04/17 18:00 87 I/O 12/04/17 12/04/17 12/04/17 12/05/17 12/05/17 12/05/17 07:00 15:00 23:00 07:00 15:00 23:00 Intake Total 585 ml 905 ml 100 ml Output Total 400 ml 450 ml 950 ml Balance 185 ml 455 ml -850 ml Intake Oral 480 ml 800 ml 100 ml IV Total 105 ml 105 ml Output Urine Total 400 ml 450 ml 950 ml # Voids 1 3 # Bowel Movements 0 5 0 Result Diagram: 12/01/17 0546 Objective Remarks Coarse breath sounds bilaterally, lying in bed, no cyanosis, awake, alert, on room air, no acute distress, on nasal cannula No facial droop, no slurred speech, Eating breakfast A/P Assessment and Plan Right subdural hematoma with 8 mm midline shift, acute left posterior cerebellar infarct: -Appreciate neurology, neurosurgery recommendations. Status post right frontotemporoparietal craniotomy with evacuation of subdural hygroma. -No mural thrombus noted on echocardiogram, intact EF. Repeat head ct stable. All drains have been removed. -on keppra per NSG for seizure prophylaxis Anxiety: improved, continue restoril per neurosx Tachyarrhythmia: No recurrence, has been on amiodarone per prior ordered by pantry attendant for suspected A. fib. Independent EKG reviews do not demonstrate A. fib to me at this time, may have been previously seen on a telemetry strip. I stopped amiodarone. Holter monitor ordered upon discharge. D/w NSG, clear to be placed on blood thinners per NSG as long as fall risk is thoroughly addressed. Hypokalemia: Likely due to poor nutrition, monitor and replace accordingly Aspiration pneumonia: continue Rocephin. procal still elevated. ST recommendations. Hep C: Likely cause of patient's transaminitis and coagulopathy with INR 1.2. No further intervention at this time. 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 chronic pulm arterial HTN: home sildenafil BPH: home Flomax DVT prophylaxis: heparin; cleared w/ NSG. Discharge Planning cleared for discharge; pending SNF. Holter monitor ordered upon discharge to pickup afib. Clear to be placed on blood thinners w/ NSG so long fall risk is addressed. Te Sauceda MD December 05, 2017 17:20
[2017-12-05] MEDS: ENOXAPARIN SODIUM 30 MG/0.3 ML SYRINGE SQ SCH (17:48)
[2017-12-05] MEDS: cefTRIAXone INJ 2,000 MG in SODIUM CHLORIDE 0.9% INJ 100 ML IV SCH (20:28)
[2017-12-05] MEDS: TAMSULOSIN HCL 0.4 MG CAP PO SCH (20:28)
[2017-12-06] VITALS (12 sets, daily range): BP systolic 87–122; BP diastolic 53–69; PULSE 60–82; RESP 17–24; TEMP 98.3–98.9; O2SAT 92–96
[2017-12-06] MEDS: CHLORHEXIDINE GLUCONATE 2 % 1 PACK (2 CLOTHS) TOP SCH (04:00)
[2017-12-06] MEDS: LEVOTHYROXINE SODIUM 25 MCG TAB PO SCH (06:04)
[2017-12-06] MEDS: levETIRAcetam INJ 500 MG in SODIUM CHLORIDE 0.9% INJ 100 ML IV SCH ×2 (06:04→18:38)
--- NOTE | 2017-12-06 07:49 | HHI.PR ---
Subjective Remarks extubated Objective Vital Signs Date Time Temp Pulse Resp B/P (MAP) Pulse Ox O2 Delivery O2 Flow Rate FiO2 12/06/17 06:00 74 12/06/17 04:00 72 12/06/17 04:00 98.4 72 23 120/65 (83) 92 12/06/17 02:00 72 12/06/17 00:00 78 12/06/17 00:00 98.9 78 18 122/69 (86) 96 12/05/17 22:00 76 12/05/17 20:51 98 Nasal Cannula 2.00 12/05/17 20:00 73 12/05/17 20:00 98.9 74 26 119/66 (83) 98 12/05/17 20:00 98 Room Air 12/05/17 18:00 73 12/05/17 16:00 78 12/05/17 16:00 97.3 76 25 119/66 (83) 93 12/05/17 14:00 73 12/05/17 12:00 88 12/05/17 12:00 97.8 76 27 131/70 (90) 99 12/05/17 10:00 85 12/05/17 08:12 100 Nasal Cannula 2.50 12/05/17 08:00 98.2 64 16 142/78 (99) 99 12/05/17 08:00 65 I/O 12/05/17 12/05/17 12/05/17 12/06/17 12/06/17 12/06/17 07:00 15:00 23:00 07:00 15:00 23:00 Intake Total 100 ml 720 ml 1885 ml Output Total 950 ml 400 ml 650 ml Balance -850 ml 320 ml 1235 ml Intake Oral 100 ml 720 ml 1680 ml IV Total 205 ml Output Urine Total 950 ml 400 ml 650 ml # Voids 4 # Bowel Movements 0 0 2 Objective Remarks awake leftue flaccid ox3 moves ble well and r arm follow commands Assessment and Plan Assessment and Plan imp mri large subdural with midline shift now postop defer to nusu on keppra went into afib last noc acc to nurse small acute cva on mri this will need to be worked out [facility] rx looks much better 11/25/17 doing well neurowise so far afib as above will see how does off sedatives defer to nusu echo pend 11/29/17 much better echo pend back to baseline i dw daughter his dx afib 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 12/06/17 looks great he should eventually go live by family in [place] ? anticoagulation in future at some point with afib? med team plz notify family about this issue so it can be addressed in few months will sign off stay on keppra for now could fu office 2 months Yuriy Land MD December 06, 2017 07:49
[2017-12-06] MEDS: PANTOPRAZOLE SODIUM 40 MG VIAL IVP SCH (09:00)
[2017-12-06] MEDS: ARTIFICIAL TEARS OPTH SOLN 15 ML BTL EACH EYE SCH ×3 (09:00→18:00)
[2017-12-06] MEDS: SODIUM CHLORIDE 0.9% FLUSH 10 ML FLUSH IV FLUSH SCH ×2 (09:00→20:36)
[2017-12-06] MEDS: DOCUSATE SODIUM 100 MG CAP PO SCH ×2 (09:33→20:36)
[2017-12-06] MEDS: THIAMINE HCL 100 MG TAB PO SCH (09:33)
[2017-12-06] MEDS: SILDENAFIL CITRATE 20 MG TAB PO SCH ×3 (09:33→18:37)
--- NOTE | 2017-12-06 17:22 | HHI.PR ---
Subjective Remarks WANTS TO GO LIVE IN [place] NEAR HIS DAUGHTER NO NEW COMPLAINTS DW RN AND PT NEEDS PLACEMENT CONSULT CASE MANAGEMENT FOR HELP WITH FAMILY FOR SNF AM LABS Objective Vitals Vital Signs Date Time Temp Pulse Resp B/P (MAP) Pulse Ox O2 Delivery O2 Flow Rate FiO2 12/06/17 06:00 74 12/06/17 04:00 72 12/06/17 04:00 98.4 72 23 120/65 (83) 92 12/06/17 02:00 72 12/06/17 00:00 78 12/06/17 00:00 98.9 78 18 122/69 (86) 96 12/05/17 22:00 76 12/05/17 20:51 98 Nasal Cannula 2.00 12/05/17 20:00 73 12/05/17 20:00 98.9 74 26 119/66 (83) 98 12/05/17 20:00 98 Room Air 12/05/17 18:00 73 I/O 12/05/17 12/05/17 12/05/17 12/06/17 12/06/17 12/06/17 07:00 15:00 23:00 07:00 15:00 23:00 Intake Total 100 ml 720 ml 1885 ml Output Total 950 ml 400 ml 650 ml Balance -850 ml 320 ml 1235 ml Intake Oral 100 ml 720 ml 1680 ml IV Total 205 ml Output Urine Total 950 ml 400 ml 650 ml # Voids 4 # Bowel Movements 0 0 2 Imaging Last Impressions Elbow X-Ray 12/05/17 0000 Signed Impressions: Service Date/Time: Tuesday, December 05, 2017 02:09 - CONCLUSION: 1. Prior fractures of the proximal radius and ulna with hypertrophic bone formation around the distal humerus and proximal forearm. No acute fractures seen. Gio Israel MD Head CT 12/01/17 0000 Signed Impressions: Service Date/Time: Friday, December 01, 2017 16:57 - CONCLUSION: 1. Essentially stable head CT compared with November 26. Right subdural drain present with adjacent stable apparent hemorrhage measuring up to about 13 mm in diameter. Gio Israel MD Chest X-Ray 11/25/17 0000 Signed Impressions: Service Date/Time: Saturday, November 25, 2017 13:17 - CONCLUSION: 1. Persistent small left pneumothorax. 2. New left lung base consolidation and small pleural effusion. 3. Mild bilateral interstitial opacity indicating mild pulmonary edema. Adriano Blair MD Brain MRI 11/21/17 0727 Signed Impressions: Service Date/Time: Tuesday, November 21, 2017 10:11 - CONCLUSION: 1. 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 2. Scattered nonspecific white matter signal change. No focal abnormal areas of enhancement. 3. Small focal area of restricted diffusion in the left posterior medial cerebellar hemisphere suggesting an acute infarction; however, no signal abnormality is seen in this area on any of the other pulse sequences. Oswaldo Alicea MD Skull X-Ray 11/21/17 Signed Impressions: Service Date/Time: Tuesday, November 21, 2017 09:47 - CONCLUSION: No contraindication to MRI seen. Oswaldo Alicea MD Abdomen X-Ray 11/21/17 Signed Impressions: Service Date/Time: Tuesday, November 21, 2017 09:45 - CONCLUSION: No contraindication to MRI seen. Oswaldo Alicea MD Chest CT 11/17/17 Signed Impressions: Service Date/Time: Friday, November 17, 2017 20:57 - CONCLUSION: 1. Foreign body at the level of the thoracic inlet, appears to be a coin within the esophagus. 2. Bilateral pneumonia. Please see above. Aman Bermeo MD Objective Remarks GENERAL: AWAKE AND ALERT CURRENTLY--IN NO ACUTE DISTRESS AT THIS TIME SKIN: Warm and dry. HEAD: Atraumatic. Normocephalic. EYES: Pupils equal and round. No scleral icterus. No injection or drainage. ENT: No nasal bleeding or discharge. Mucous membranes pink and moist.TONGUE MIDLINE NECK: Trachea midline. No JVD. SUPPLE CARDIOVASCULAR: Regular rate and rhythm. S1, S2 NO S3 OR S4 RESPIRATORY: No accessory muscle use. Clear to auscultation. Breath sounds equal bilaterally. GASTROINTESTINAL: Abdomen soft, non-tender, nondistended. Hepatic and splenic margins not palpable. MUSCULOSKELETAL: Extremities without clubbing, cyanosis, or edema. No obvious deformities. NEUROLOGICAL: Awake and alert. No obvious cranial nerve deficits. Motor grossly within normal limits. 4 out of 5 muscle strength in the arms and legs. Normal speech. LEFT UPPER EXTREMITY IS FLACCID- FROM OLD INJURY A CHILD- NOT DUE TO CVA PSYCHIATRIC: INAppropriate mood and affect; insight and judgment ABnormal. Procedures 11/21/17 endotracheal intubation 11/21/17 right frontal/temporal/parietal craniotomy with evacuation of subdural hematoma 11/21/17 left frontal ash hole with placement of an intracranial pressure monitor Medications and IVs Current Medications Sodium Chloride (NS Flush) 2 ml UNSCH PRN IVF FLUSH AFTER USING IV ACCESS; Start 11/17/17 at 20:15; Stop 11/24/17 at 07:34; Status DC Albuterol/ Ipratropium (Duoneb Neb) 2 ampule ONCE ONCE NEB Last administered on 11/17/17at 20:22; Start 11/17/17 at 20:15; Stop 11/17/17 at 20:16; Status DC Cefepime HCl 2000 mg/Sodium Chloride 100 ml @ 200 mls/hr ONCE ONCE IV Last administered on 11/17/17at 23:12; Start 11/17/17 at 20:30; Stop 11/17/17 at 20:59 ; Status DC Azithromycin 500 mg/Sodium Chloride 250 ml @ 250 mls/hr ONCE ONCE IV Last administered on 11/17/17at 22:13; Start 11/17/17 at 20:30; Stop 11/17/17 at 21:29 ; Status DC Etomidate (Amidate Inj) 40 mg STK-MED ONCE .ROUTE Last administered on at 21:47; Start 11/17/17 at 21:17; Stop 11/17/17 at 21:18; Status DC Etomidate (Amidate Inj) 20 mg ONCE ONCE IV PUSH Last administered on at 22:11; Start 11/17/17 at 21:30; Stop 11/17/17 at 21:31; Status DC Succinylcholine Chloride (Quelicin Inj) 100 mg ONCE ONCE IV PUSH Last administered on 11/17/17at 22:14; Start 11/17/17 at 21:30; Stop 11/17/17 at 21:31 ; Status DC Propofol 100 ml @ 0 mls/hr TITRATE PRN IV SEDATION Last administered on at 21:42; Start 11/17/17 at 21:30; Stop 11/17/17 at 22:55; Status DC Propofol 50 ml @ As Directed STK-MED ONCE .ROUTE ; Start 11/17/17 at 21:18; Stop 11/17/17 at 21:19; Status DC Sodium Chloride 1,000 ml @ 999 mls/hr BOLUS ONCE IV Last administered on 11/17at 22:10; Start 11/17/17 at 21:45; Stop 11/17/17 at 22:45; Status DC Aspirin (Aspirin Supp) 300 mg ONCE ONCE RECTAL Last administered on 11/17/17at 22:06; Start 11/17/17 at 21:45; Stop 11/17/17 at 21:46; Status DC Sodium Chloride 1,000 ml @ 125 mls/hr Q8H IV Last administered on 11/21/17at 04: 44; Start 11/17/17 at 22:40; Stop 11/22/17 at 16:57; Status DC Sodium Chloride (NS Flush) 2 ml UNSCH PRN IV FLUSH FLUSH AFTER USING IV ACCESS ; Start 11/17/17 at 22:45 Sodium Chloride (NS Flush) 2 ml BID IV FLUSH Last administered on 12/06/17at 09: 00; Start 11/18/17 at 09:00 Acetaminophen (Tylenol) 650 mg Q6H PRN PO PAIN 1-5 AND/OR FEVER >101F; Start at 22:45 Morphine Sulfate (Morphine Inj) 2 mg Q2H PRN IV PUSH PAIN SCALE 6 TO 10; Start 11/17/17 at 22:45; Stop 11/20/17 at 20:07; Status DC Famotidine (Pepcid Inj) 20 mg Q12HR IV PUSH Last administered on 11/19/17at 09: 00; Start 11/18/17 at 09:00; Stop 11/19/17 at 12:14; Status DC Famotidine (Pepcid) 20 mg Q12HR PO ; Start 11/18/17 at 09:00; Stop 11/18/17 at 09:00; Status DC Midazolam HCl (Versed Inj) 2 mg Q1H PRN IV PUSH SEDATION Last administered on at 23:17; Start 11/17/17 at 22:45; Stop 11/21/17 at 07:28; Status DC Artificial Tears (Tears Naturale Opth Soln) 1 drop TID EACH EYE Last administered on 11/24/17at 12:43; Start 11/18/17 at 09:00; Stop 11/24/17 at 15:12; Status DC Ondansetron HCl (Zofran Inj) 4 mg Q6H PRN IV PUSH NAUSEA OR VOMITING; Start at 22:45 Albuterol/ Ipratropium (Duoneb Neb) 1 ampule Q2HR NEB PRN INH WHEEZING; Start 11/17/17 at 22:45; Stop 11/24/17 at 07:31; Status DC Miscellaneous Information ([facility] Nursing Information) 1 [id number] Last administered on 11/18/17at 00:59; Start 11/17/17 at 22:45 Chlorhexidine Gluconate (Chlorhexidine 2% Cloth) Taper DAILY@04 TOP Last administered on 12/01/17at 04:00; Start 11/18/17 at 04:00; Stop 11/14/18 at 03:59 Chlorhexidine Gluconate (Chlorhexidine 2% Cloth) 3 pack UNSCH PRN TOP HYGIENIC CARE; Start 11/17/17 at 22:45 Senna/Docusate Sodium (Luisa-Colace) 1 tab BID PO Last administered on 11/23/17at 21:49; Start 11/18/17 at 09:00; Stop 11/24/17 at 07:33; Status DC Magnesium Hydroxide (Milk Of Magnesia Liq) 30 ml Q12H PRN PO Mild constipation ; Start 11/17/17 at 22:45 Sennosides (Senokot) 17.2 mg Q12H PRN PO Moderate constipation; Start 11/17/17 at 22:45 Bisacodyl (Dulcolax Supp) 10 mg DAILY PRN RECTAL SEVERE CONSITIPATION/ IF NPO ; Start 11/17/17 at 22:45 Lactulose (Lactulose Liq) 30 ml DAILY PRN PO SEVERE CONSITIPATION/ IF PO; Start 11/17/17 at 22:45 Chlorhexidine Gluconate (Peridex 0.12% Liq) 15 ml BID@08,20 MT Last administered on 11/23/17at 08:00; Start 11/18/17 at 08:00; Stop 11/24/17 at 07:33; Status DC Propofol 100 ml @ 1.53 mls/hr TITRATE PRN IV SEDATION Last administered on 11/21at 13:28; Start 11/17/17 at 22:45; Stop 11/21/17 at 15:52; Status DC Albuterol/ Ipratropium (Duoneb Neb) 1 ampule Q6HR WHILE AWAKE NEB NEB Last administered on 11/21/17at 11:23; Start 11/18/17 at 08:00; Stop 11/21/17 at 17:59; Status DC Potassium Chloride 100 ml @ 50 mls/hr Q2H PRN IV For Potassium 2.8 - 3.2 mEq/ L Last administered on 11/29/17at 10:45; Start 11/17/17 at 23:30; Stop 11/30/17 at 13:19; Status DC Potassium Chloride 100 ml @ 50 mls/hr Q2H PRN IV For Potassium 2.8 - 3.2 mEq/ L Last administered on 11/20/17at 12:21; Start 11/17/17 at 23:30; Stop 11/30/17 at 13:19; Status DC Potassium Bicarb/ Potassium Chloride (K-Lyte Cl Eff) 50 meq UNSCH PRN PO For Potassium 3.3 - 3.5 mEq/L; Start 11/17/17 at 23:30; Stop 11/30/17 at 13:19; Status DC Potassium Chloride 100 ml @ 25 mls/hr UNSCH PRN IV For Potassium 3.3 - 3.5 mEq /L; Start 11/17/17 at 23:30; Stop 11/30/17 at 13:19; Status DC Potassium Chloride 100 ml @ 50 mls/hr Q2H PRN IV For Potassium 3.3 - 3.5 mEq/ L Last administered on 11/21/17at 05:02; Start 11/17/17 at 23:30; Stop 11/21/17 at 05:24; Status DC Magnesium Sulfate 4 gm/Sodium Chloride 100 ml @ 50 mls/hr UNSCH PRN IV For Magnesium 0.9 - 1.1 mg/dL; Start 11/17/17 at 23:30; Stop 11/30/17 at 13:19; Status DC Magnesium Oxide (Mag-Ox) 800 mg UNSCH PRN PO For Magnesium 1.2 - 1.6 mg/dL; Start 11/17/17 at 23:30; Stop 11/30/17 at 13:19; Status DC Magnesium Sulfate 2 gm/Sodium Chloride 100 ml @ 50 mls/hr UNSCH PRN IV For Magnesium 1.2 - 1.6 mg/dL Last administered on 11/21/17at 11:54; Start 11/17/17 at 23:30; Stop 11/30/17 at 13:19; Status DC Potassium Phosphate (K-Phos) 2,000 mg Q4H PRN PO For Phosphorus < 2.5 mg/dL Last administered on 11/20/17at 14:59; Start 11/17/17 at 23:30; Stop 11/30/17 at 13:19; Status DC Sodium Phosphate 30 mmol/Sodium Chloride 250 ml @ 42 mls/hr UNSCH PRN IV For Phosphorus < 2.5 mg/dL Last administered on 11/20/17at 21:44; Start 11/17/17 at 23:30; Stop 11/30/17 at 13:19; Status DC Potassium Phosphate (K-Phos) 2,000 mg UNSCH PRN PO/TUBE SEE LABEL COMMENTS; Start 11/17/17 at 23:30; Stop 11/30/17 at 13:19; Status DC Potassium Phosphate 30 mmol/ Sodium Chloride 260 ml @ 42 mls/hr UNSCH PRN IV SEE LABEL COMMENTS; Start 11/17/17 at 23:30; Stop 11/30/17 at 13:19; Status DC Ampicillin Sodium/ Sulbactam Sodium (Unasyn Inj) 3 gm Q6H IM ; Start 11/18/17 at 06:30; Status Cancel Ampicillin Sodium/ Sulbactam Sodium 3 gm/Sodium Chloride 100 ml @ 200 mls/hr Q6H IV Last administered on 11/21/17at 13:27; Start 11/18/17 at 07:00; Stop at 17:59; Status DC Enoxaparin Sodium (Lovenox Inj) 40 mg Q24H SQ Last administered on 11/20/17at 09 :00; Start 11/19/17 at 09:00; Stop 11/21/17 at 13:31; Status DC Miscellaneous Information ([facility] Nursing Information) ALL NURSING DEPARTME... UNSCH PRN .XX SEE LABEL COMMENTS; Start 11/18/17 at 12:30; Stop 11/19/17 at 12: 29; Status DC Pantoprazole Sodium (Protonix) 40 mg Q12HR PO Last administered on 11/23/17at 21: 50; Start 11/19/17 at 21:00; Stop 11/24/17 at 15:12; Status DC Magnesium Sulfate/ Dextrose 100 ml @ 100 mls/hr Q1H IV Last administered on at 10:15; Start 11/20/17 at 09:15; Stop 11/20/17 at 11:14; Status DC Potassium Chloride (KCl) 80 meq ONCE ONCE PO ; Start 11/20/17 at 09:15; Stop at 09:16; Status DC Sodium Chloride (NS Flush) 2 ml UNSCH PRN IV FLUSH FLUSH AFTER USING IV ACCESS ; Start 11/20/17 at 13:00; Status UNV Sodium Chloride (NS Flush) 2 ml BID IV FLUSH ; Start 11/20/17 at 21:00; Status UNV Folic Acid (Folate) 1 mg DAILY PO Last administered on 11/25/17at 08:27; Start at 13:00; Stop 11/25/17 at 12:59; Status DC Thiamine HCl (Vitamin B1) 100 mg DAILY PO Last administered on 12/06/17at 09:33 ; Start 11/20/17 at 13:00 Multivitamins/ Minerals Therapeutic (Theragran M Tab) 1 tab DAILY PO Last administered on 11/25/17at 08:27; Start 11/20/17 at 13:00; Stop 11/25/17 at 12:59; Status DC Ondansetron HCl (Zofran Inj) 4 mg Q6H PRN IV PUSH NAUSEA OR VOMITING; Start at 13:00; Status UNV Famotidine (Pepcid) 20 mg BID PO ; Start 11/20/17 at 21:00; Status UNV Clonidine (Catapres) 0.1 mg Q6H PRN PO SEE LABEL COMMENTS; Start 11/20/17 at 13 :00 Flumazenil (Romazicon Inj) 0.2 mg Q1M PRN IV PUSH SEE LABEL COMMENTS; Start at 13:00 Lorazepam (Ativan) 1 mg Q4H PRN PO CIWA 8 - 10; Start 11/20/17 at 13:00; Stop 11/21/17 at 07:28; Status DC Lorazepam (Ativan Inj) 1 mg Q4H PRN IV PUSH CIWA 8 - 10; Start 11/20/17 at 13: 00; Stop 11/21/17 at 07:28; Status DC Lorazepam (Ativan) 2 mg Q2H PRN PO CIWA 11-14; Start 11/20/17 at 13:00; Stop at 07:28; Status DC Lorazepam (Ativan Inj) 2 mg Q2H PRN IV PUSH CIWA 11-14 Last administered on at 18:47; Start 11/20/17 at 13:00; Stop 11/21/17 at 07:28; Status DC Lorazepam (Ativan Inj) 2 mg Q1H PRN IV PUSH CIWA 15-20 Last administered on at 17:42; Start 11/20/17 at 13:00; Stop 11/21/17 at 07:28; Status DC Lorazepam (Ativan Inj) 2 mg Q15M PRN IV PUSH CIWA > 20; Start 11/20/17 at 13:00 ; Stop 11/21/17 at 07:28; Status DC Haloperidol Lactate (Haldol Inj) 2 mg Q15M PRN IM SEE LABEL COMMENTS; Start at 13:00; Stop 11/21/17 at 07:28; Status DC Rocuronium [place] (Zemuron Inj) 50 mg STK-MED ONCE IV PUSH ; Start 11/18/17 at 12:00; Stop 11/20/17 at 13:06; Status DC Levetriacetam 500 mg/Sodium Chloride 105 ml @ 420 mls/hr BOLUS ONCE IV Last administered on 11/20/17at 14:00; Start 11/20/17 at 14:00; Stop 11/20/17 at 14:14 ; Status DC Levetriacetam 500 mg/Sodium Chloride 105 ml @ 420 mls/hr Q12HR IV Last administered on 11/21/17at 20:50; Start 11/20/17 at 21:00; Stop 11/22/17 at 17:22; Status DC Levetriacetam 500 mg/Sodium Chloride 105 ml @ 420 mls/hr BOLUS ONCE IV Last administered on 11/20/17at 15:00; Start 11/20/17 at 15:00; Stop 11/20/17 at 15:14 ; Status DC Morphine Sulfate (Morphine Inj) 2 mg Q2H PRN IV PUSH PAIN SCALE 6 TO 10; Start 11/20/17 at 20:15; Stop 11/21/17 at 07:28; Status DC Potassium Chloride 20 meq/ Sodium Chloride 110 ml @ 50 mls/hr Q2H PRN IV For Potassium 3.3 - 3.5 mEq/L Last administered on 11/21/17at 06:43; Start 11/21/17 at 05:30; Stop 11/30/17 at 13:19; Status DC Furosemide (Lasix Inj) 40 mg STK-MED ONCE .ROUTE ; Start 11/21/17 at 07:50; Stop 11/21/17 at 07:51; Status DC Furosemide (Lasix Inj) 40 mg NOW ONCE IV PUSH Last administered on 11/21/17at 08 :45; Start 11/21/17 at 08:45; Stop 11/21/17 at 08:46; Status DC Gadodiamide (Omniscan Pf Inj) 20 ml STK-MED ONCE IVCONTRAST ; Start 11/21/17 at 10:30; Stop 11/21/17 at 10:31; Status DC Gadodiamide (Omniscan Pf Inj) 12 ml STK-MED ONCE IVCONTRAST ; Start 11/21/17 at 10:31; Stop 11/21/17 at 10:32; Status DC Levothyroxine Sodium (Synthroid Inj) 25 mcg ONCE ONCE IV PUSH ; Start 11/21/17 at 10:45; Stop 11/21/17 at 11:54; Status DC Levothyroxine Sodium (Synthroid Inj) 25 mcg DAILY@06 IV PUSH Last administered on 11/30/17at 06:46; Start 11/22/17 at 06:00; Stop 12/01/17 at 08:24; Status DC Multivitamins 10 ml/Folic Acid 1 mg/Sodium Chloride 510.2 ml @ 125 mls/hr Q24H IV Last administered on 11/25/17at 13:59; Start 11/21/17 at 13:00; Stop 11/26/17 at 12:59; Status DC Thiamine HCl 100 mg/Sodium Chloride 101 ml @ 100 mls/hr Q24H IV Last administered on 11/23/17at 12:45; Start 11/21/17 at 12:00; Stop 11/24/17 at 11:59; Status DC Enalaprilat (Vasotec Inj) 1.25 mg Q6H PRN IV PUSH SEE LABEL COMMENTS; Start 11/21/17 at 10:45 Labetalol HCl (Trandate Inj) 10 mg Q6H PRN IV PUSH SEE LABEL COMMENTS; Start at 10:45 Hydralazine HCl (Apresoline Inj) 10 mg Q6H PRN IV PUSH SEE LABEL COMMENTS Last administered on 11/28/17at 13:31; Start 11/21/17 at 10:45 Mannitol 100 ml @ As Directed STK-MED ONCE .ROUTE ; Start 11/21/17 at 11:59; Stop 11/21/17 at 12:00; Status DC Etomidate (Amidate Inj) 40 mg STK-MED ONCE .ROUTE ; Start 11/21/17 at 11:59; Stop 11/21/17 at 12:00; Status DC Succinylcholine Chloride (Quelicin Inj) 200 mg STK-MED ONCE .ROUTE ; Start at 12:00; Stop 11/21/17 at 12:01; Status DC Etomidate (Amidate Inj) 20 mg ONCE ONCE IV PUSH Last administered on 11/21/17at 12:00; Start 11/21/17 at 12:00; Stop 11/21/17 at 13:00; Status DC Succinylcholine Chloride (Quelicin Inj) 120 mg ONCE ONCE IV PUSH ; Start at 12:00; Stop 11/21/17 at 12:01; Status Cancel Rocuronium [place] (Zemuron Inj) 50 mg BOLUS ONCE IV ; Start 11/21/17 at 12:00; Stop 11/21/17 at 13:00; Status DC Propofol 100 ml @ 1.815 mls/ hr TITRATE PRN IV SEDATION Last administered on at 03:11; Start 11/21/17 at 12:00; Stop 11/28/17 at 10:52; Status DC Mannitol (Mannitol Inj) 25 gm ONCE ONCE IV Last administered on 11/21/17at 12:30 ; Start 11/21/17 at 12:00; Stop 11/21/17 at 13:00; Status DC Fentanyl Citrate (fentaNYL INJ) 100 mcg ONCE ONCE IV PUSH Last administered on 11/21/17at 12:00; Start 11/21/17 at 12:00; Stop 11/21/17 at 13:00; Status DC Propofol 50 ml @ As Directed STK-MED ONCE .ROUTE ; Start 11/21/17 at 12:05; Stop 11/21/17 at 12:06; Status DC Fentanyl Citrate (fentaNYL INJ) 100 mcg STK-MED ONCE .ROUTE ; Start 11/21/17 at 12:09; Stop 11/21/17 at 12:10; Status DC Microfibriller Collagen Hemostat (Avitene Bandage) 1 bandage STK-MED ONCE .ROUTE Last administered on 11/21/17 15:04; Start 11/21/17 at 12:27; Stop at 12:28; Status DC Lidocaine/ Epinephrine (Xylocaine-Epi 1%-1:100,000 Inj) 30 ml STK-MED ONCE .ROUTE Last administered on 11/21/17 15:04; Start 11/21/17 at 12:28; Stop at 12:29; Status DC Cefazolin Sodium (Ancef Inj) 1,000 mg STK-MED ONCE .ROUTE ; Start 11/21/17 at 12: 28; Stop 11/21/17 at 12:29; Status DC Thrombin (Thrombin Top Soln) 10,000 units STK-MED ONCE .ROUTE Last administered on 11/21/17 15:04; Start 11/21/17 at 12:28; Stop 11/21/17 at 12:29; Status DC Gelatin (Gelfoam 100 Top) 1 foam STK-MED ONCE .ROUTE Last administered on 15:04; Start 11/21/17 at 12:28; Stop 11/21/17 at 12:29; Status DC Gentamicin Sulfate (Gentamicin Inj) 240 mg STK-MED ONCE .ROUTE Last administered on 11/21/17 15:04; Start 11/21/17 at 12:29; Stop 11/21/17 at 12:30; Status DC Gelatin (Gelfoam 100 Top) 1 foam STK-MED ONCE .ROUTE ; Start 11/21/17 at 12:29; Stop 11/21/17 at 12:30; Status DC Vancomycin HCl (Vancomycin Inj) 1,000 mg STK-MED ONCE .ROUTE Last administered on 11/21/17at 14:55; Start 11/21/17 at 12:42; Stop 11/21/17 at 12:43; Status DC Cefazolin Sodium/ Dextrose 50 ml @ As Directed STK-MED ONCE .ROUTE ; Start at 12:42; Stop 11/21/17 at 12:43; Status DC Sodium Chloride 250 ml @ As Directed STK-MED ONCE .ROUTE ; Start 11/21/17 at 12: 42; Stop 11/21/17 at 12:43; Status DC Sodium Chloride 188 meq/Sodium Chloride 1,047 ml @ 20 mls/hr Q24H IV Last administered on 11/22/17at 12:43; Start 11/21/17 at 13:00; Stop 11/22/17 at 16:57; Status DC Fentanyl Citrate 250 ml @ 5 mls/hr TITRATE PRN IV SEDATION Last administered on 11/24/17at 19:54; Start 11/21/17 at 13:00; Stop 11/25/17 at 13:08; Status DC Artificial Tears (Tears Naturale Opth Soln) 1 drop TID EACH EYE Last administered on 12/06/17at 13:00; Start 11/21/17 at 13:00 Albuterol/ Ipratropium (Duoneb Neb) 1 ampule Q6HR NEB INH Last administered on 11/21/17at 16:00; Start 11/21/17 at 16:00; Stop 11/21/17 at 18:48; Status DC Albuterol/ Ipratropium (Duoneb Neb) 1 ampule Q2HR NEB PRN INH WHEEZING; Start 11/21/17 at 13:00; Stop 11/28/17 at 21:55; Status DC Senna/Docusate Sodium (Luisa-Colace) 1 tab BID PO Last administered on 11/24/17at 08:15; Start 11/21/17 at 21:00; Stop 11/24/17 at 15:12; Status DC Succinylcholine Chloride (Quelicin Inj) 120 mg ONCE ONCE IV PUSH Last administered on 11/21/17at 12:00; Start 11/21/17 at 13:15; Stop 11/21/17 at 13:19; Status DC Chlorhexidine Gluconate (Peridex 0.12% Liq) 15 ml BID@08,20 MT Last administered on 12/04/17at 08:00; Start 11/21/17 at 20:00; Stop 12/05/17 at 04:47 ; Status DC Levetriacetam (Keppra Inj) 1,000 mg STK-MED ONCE IV ; Start 11/21/17 at 13:15; Stop 11/21/17 at 13:16; Status DC Potassium Chloride/Sodium Chloride 1,000 ml @ 100 mls/hr Q10H IV Last administered on 11/25/17at 04:53; Start 11/21/17 at 15:00; Stop 11/25/17 at 13:08; Status DC Cefazolin Sodium/ Dextrose 50 ml @ 100 mls/hr Q8H IV ; Start 11/21/17 at 16:00; Stop 11/21/17 at 18:52; Status DC Levetriacetam 500 mg/Sodium Chloride 105 ml @ 400 mls/hr Q12H IV Last administered on 11/22/17at 06:29; Start 11/21/17 at 18:00; Stop 11/22/17 at 10:19; Status DC Bisacodyl (Dulcolax Supp) 10 mg DAILY PRN RECTAL CONSTIPATION; Start 11/21/17 at 15:00; Stop 11/22/17 at 10:19; Status DC Docusate Sodium (Colace) 100 mg BID PO Last administered on 12/06/17at 09:33; Start 11/21/17 at 21:00 Pantoprazole Sodium (Protonix) 40 mg DAILY PO ; Start 11/22/17 at 09:00; Stop 11/24/17 at 15:12; Status DC Pantoprazole Sodium (Protonix Inj) 40 mg DAILY IVP Last administered on at 09:00; Start 11/22/17 at 09:00 Ondansetron HCl (Zofran Inj) 4 mg Q6H PRN IV PUSH NAUSEA OR VOMITING; Start 11/21/17 at 15:00; Stop 11/22/17 at 10:19; Status DC Calcium Gluconate (Calcium Gluconate Inj) 1 gm UNSCH PRN IV SEE LABEL COMMENTS ; Start 11/21/17 at 15:00 Potassium Chloride 100 ml @ 50 mls/hr UNSCH PRN IV POTASSIUM LESS THAN 4; Start 11/21/17 at 15:00; Stop 11/30/17 at 13:19; Status DC Magnesium Sulfate 4 gm/Sodium Chloride 108 ml @ 108 mls/hr UNSCH PRN IV MAGNESIUM LESS THAN 2; Start 11/21/17 at 15:00; Stop 11/30/17 at 13:19; Status DC Acetaminophen/ Hydrocodone Bitart ([place] 10-325 Mg) 1 tab Q4H PRN PO PAIN SCALE 1 TO 5 Last administered on 11/30/17at 00:12; Start 11/21/17 at 15:00 Acetaminophen/ Hydrocodone Bitart ([place] 10-325 Mg) 2 tab Q4H PRN PO PAIN SCALE 6 TO 10 Last administered on 12/02/17at 20:24; Start 11/21/17 at 15:00 Morphine Sulfate (Morphine Inj) 2 mg Q2H PRN IV PUSH PAIN SCALE 1 TO 6; Start 11/21/17 at 15:00; Stop 11/29/17 at 08:55; Status DC Morphine Sulfate (Morphine Inj) 4 mg Q2H PRN IV PUSH PAIN SCALE 7 TO 10; Start 11/21/17 at 15:00; Stop 11/29/17 at 08:55; Status DC Acetaminophen (Tylenol) 650 mg Q4H PRN PO TEMPERATURE > 101.5 F; Start 11/21/17 at 15:00 Bacitracin (Baciguent Oint) 15 applic STK-MED ONCE .ROUTE ; Start 11/21/17 at 15: 56; Stop 11/21/17 at 15:57; Status DC Phenylephrine HCl (Neosynephrine Inj) 40 mg STK-MED ONCE .ROUTE Last administered on 11/21/17at 16:34; Start 11/21/17 at 16:34; Stop 11/21/17 at 16:35; Status DC Phenylephrine HCl (Neosynephrine Inj) 30 mg STK-MED ONCE .ROUTE Last administered on 11/21/17at 16:40; Start 11/21/17 at 16:40; Stop 11/21/17 at 16:41; Status DC Midazolam HCl (Versed Inj) 2 mg STK-MED ONCE .ROUTE ; Start 11/21/17 at 16:58; Stop 11/21/17 at 16:59; Status DC Fentanyl Citrate (fentaNYL INJ) 200 mcg STK-MED ONCE .ROUTE ; Start 11/21/17 at 16:58; Stop 11/21/17 at 16:59; Status DC Miscellaneous Information ([facility] Nursing Information) ALL NURSING DEPARTME... UNSCH PRN .XX SEE LABEL COMMENTS; Start 11/21/17 at 16:29; Stop 11/22/17 at 16:28 ; Status DC Cefepime HCl 2000 mg/Sodium Chloride 100 ml @ 200 mls/hr Q12H IV Last administered on 11/29/17at 07:35; Start 11/21/17 at 21:00; Stop 11/29/17 at 09:29; Status DC Albuterol/ Ipratropium (Duoneb Neb) 1 ampule Q6HR WHILE AWAKE NEB NEB Last administered on 11/25/17at 12:20; Start 11/21/17 at 20:00; Stop 11/25/17 at 17:15; Status DC Ceftriaxone Sodium 2000 mg/ Sodium Chloride 100 ml @ 200 mls/hr Q24H IV Last administered on 11/28/17at 20:18; Start 11/21/17 at 20:00; Stop 11/29/17 at 08:54; Status DC Levetriacetam 500 mg/Sodium Chloride 105 ml @ 420 mls/hr Q12H IV Last administered on 12/06/17at 06:04; Start 11/22/17 at 06:00 Adenosine (Adenocard Inj) 6 mg STK-MED ONCE .ROUTE ; Start 11/23/17 at 12:16; Stop 11/23/17 at 12:17; Status DC Amiodarone HCl (Cordarone Inj) 150 mg STK-MED ONCE .ROUTE ; Start 11/23/17 at 12: 25; Stop 11/23/17 at 12:26; Status DC Magnesium Sulfate/ Dextrose 100 ml @ As Directed STK-MED ONCE .ROUTE ; Start at 12:25; Stop 11/23/17 at 12:26; Status DC Calcium Chloride (Calcium Chloride Inj) 1 gm STK-MED ONCE .ROUTE ; Start at 12:25; Stop 11/23/17 at 12:26; Status DC Calcium Chloride (Calcium Chloride Inj) 1 gm STK-MED ONCE .ROUTE ; Start at 12:27; Stop 11/23/17 at 12:28; Status DC Phenylephrine HCl (Neosynephrine Inj) 40 mg STK-MED ONCE .ROUTE ; Start 11/23/17 at 12:32; Stop 11/23/17 at 12:33; Status DC Amiodarone HCl 150 mg/Dextrose 103 ml @ 600 mls/hr Q11M ONCE IV Last administered on 11/23/17at 12:30; Start 11/23/17 at 13:03; Stop 11/23/17 at 13:13; Status DC Amiodarone HCl 450 mg/Dextrose 250 ml @ 33.33 mls/ hr Q7H31M PRN IV Per Protocol; Start 11/23/17 at 13:13; Stop 11/23/17 at 13:15; Status DC Calcium Chloride (Calcium Chloride Inj) 1 gm ONCE ONCE IV PUSH ; Start 11/23/17 at 13:15; Stop 11/23/17 at 13:15; Status DC Magnesium Sulfate/ Dextrose 100 ml @ 100 mls/hr ONCE ONCE IV Last administered on 11/23/17at 12:30; Start 11/23/17 at 13:15; Stop 11/23/17 at 14:14; Status DC Adenosine (Adenocard Inj) 6 mg ONCE ONCE IV PUSH Last administered on at 12:20; Start 11/23/17 at 13:15; Stop 11/23/17 at 13:16; Status DC Phenylephrine HCl 40 mg/Dextrose 500 ml @ 30 mls/hr TITRATE PRN IV Blood pressure management; Start 11/23/17 at 13:15; Stop 11/28/17 at 10:52; Status DC Terbutaline Sulfate (Brethine Inj) 1 mg UNSCH PRN SQ For Extravasation; Start 11/23/17 at 13:15 Calcium Gluconate 1 gm/Sodium Chloride 110 ml @ 110 mls/hr ONCE ONCE IV ; Start 11/23/17 at 13:15; Stop 11/23/17 at 14:14; Status Cancel Calcium Chloride 1 gm/Sodium Chloride 110 ml @ 110 mls/hr ONCE ONCE IV ; Start 11/23/17 at 13:15; Stop 11/23/17 at 14:14; Status Cancel Amiodarone HCl 450 mg/Sodium Chloride 250 ml @ 33.33 mls/ hr Q7H31M PRN IV Per Protocol Last administered on 11/25/17at 20:11; Start 11/23/17 at 13:30; Stop at 15:31; Status DC Lactated Ringer's 1,000 ml @ As Directed STK-MED ONCE IV ; Start 11/21/17 at 12: 00; Stop 11/23/17 at 14:24; Status DC Sodium Chloride 250 ml @ As Directed STK-MED ONCE IV ; Start 11/21/17 at 12:00; Stop 11/23/17 at 14:24; Status DC Parenteral Electrolytes 1,000 ml @ As Directed STK-MED ONCE IV ; Start 11/21/17 at 12:00; Stop 11/23/17 at 14:24; Status DC Lidocaine HCl (Xylocaine-Mpf 1% Inj) 5 ml STK-MED ONCE OTHER ; Start 11/21/17 at 12:00; Stop 11/23/17 at 14:24; Status DC Rocuronium [place] (Zemuron Inj) 100 mg STK-MED ONCE IV PUSH ; Start 11/21/17 at 12:00; Stop 11/23/17 at 14:24; Status DC Phenylephrine HCl (Neosynephrine Inj) 10 mg STK-MED ONCE IV ; Start 11/21/17 at 12:00; Stop 11/23/17 at 14:24; Status DC Phenylephrine HCl (Neosynephrine/ NS 1000 Mcg/10ml Syr) 2,000 mcg STK-MED ONCE IV ; Start 11/21/17 at 12:00; Stop 11/23/17 at 14:24; Status DC Ephedrine Sulfate (ePHEDrine/NS 25 MG/5 ML SYR) 25 mg STK-MED ONCE IV ; Start at 12:00; Stop 11/23/17 at 14:24; Status DC Epinephrine HCl (Adrenalin (1:1000) Inj) 1 mg STK-MED ONCE IV ; Start 11/21/17 at 12:00; Stop 11/23/17 at 14:24; Status DC Dexamethasone Sodium Phosphate (Decadron Inj) 4 mg STK-MED ONCE IV ; Start at 12:00; Stop 11/23/17 at 14:24; Status DC Propofol (Diprivan 200 Mg/20 ml Inj) 200 mg STK-MED ONCE IV ; Start 11/21/17 at 12:00; Stop 11/23/17 at 14:24; Status DC Furosemide (Lasix Inj) 40 mg ONCE ONCE IV PUSH Last administered on 11/25/17at 14:00; Start 11/25/17 at 14:00; Stop 11/25/17 at 14:01; Status DC Dexmedetomidine HCl 200 mcg/ Sodium Chloride 52 ml @ 3.36 mls/hr TITRATE PRN IV SEDATION Last administered on 11/30/17at 07:16; Start 11/25/17 at 15:30; Stop 11/30/17 at 13:19; Status DC Fentanyl Citrate 250 ml @ 5 mls/hr TITRATE PRN IV SEDATION Last administered on 11/26/17at 09:12; Start 11/25/17 at 17:15; Stop 11/28/17 at 10:52; Status DC Albuterol/ Ipratropium (Duoneb Neb) 1 ampule Q6HR WHILE AWAKE NEB NEB Last administered on 11/28/17at 19:59; Start 11/25/17 at 20:00; Stop 11/28/17 at 21:55; Status DC Albumin Human 100 ml @ 60 mls/hr ONCE ONCE IV Last administered on 11/25/17at 17:15; Start 11/25/17 at 17:15; Stop 11/25/17 at 18:54; Status DC Norepinephrine Bitartrate 4 mg/ Sodium Chloride 250 ml @ 7.5 mls/hr TITRATE PRN IV Blood pressure management Last administered on 11/26/17at 17:28; Start 11/25 at 17:15; Stop 11/28/17 at 10:52; Status DC Terbutaline Sulfate (Brethine Inj) 1 mg UNSCH PRN SQ For Extravasation; Start 11/25/17 at 17:15 Amiodarone HCl (Cordarone) 400 mg DAILY OG-TUBE Last administered on 12/05/17at 08:59; Start 11/27/17 at 09:00; Stop 12/05/17 at 15:13; Status DC Norepinephrine Bitartrate 0 ml @ As Directed STK-MED ONCE IV ; Start 11/26/17 at 17:24; Stop 11/26/17 at 17:25; Status DC Albuterol/ Ipratropium (Duoneb Neb) 1 ampule Q6HR WHILE AWAKE NEB NEB Last administered on 12/02/17at 21:17; Start 11/29/17 at 08:00; Stop 12/03/17 at 07:59 ; Status DC Albuterol Sulfate (Albuterol Neb) 2.5 mg Q2HR NEB PRN NEB [id number]; Start at 22:00 Ceftriaxone Sodium 2000 mg/ Sodium Chloride 100 ml @ 200 mls/hr Q24H IV Last administered on 12/05/17 20:28; Start 11/29/17 at 20:00 Alprazolam (Xanax) 1 mg Q8H PRN PO ANXIETY Last administered on 12/01/17at 21:59 ; Start 11/30/17 at 13:15; Stop 12/02/17 at 10:16; Status DC Levothyroxine Sodium (Synthroid) 25 mcg DAILY@0600 PO Last administered on 12/06at 06:04; Start 12/01/17 at 06:00 Sildenafil Citrate (Revatio) 20 mg TID PO Last administered on 12/06/17at 13:49 ; Start 11/30/17 at 18:00 Tamsulosin HCl (Flomax) 0.4 mg HS PO Last administered on 12/05/17 20:28; Start 11/30/17 at 21:00 Temazepam (Restoril) 30 mg HS PRN PO INSOMNIA Last administered on 12/02/17 20 :54; Start 11/30/17 at 13:15 Enoxaparin Sodium (Lovenox Inj) 30 mg Q24H SQ Last administered on 12/05/17at 17 :48; Start 12/05/17 at 17:30 A/P Assessment and Plan 1. Percocet overdose 2. Aspiration pneumonia 3. Acute respiratory failure, intubated for airway protection -tolerated CPAP trial 4. Foreign body in the esophagus -extracted A PING 5. Elevated CPK -resolving 6. Elevated liver enzymes -found to have hepatitis C 7. History of emphysema on home O2 SEIZURE- SEEN ON EEG ALSO- LOAD AND START TAYLOR- MP RN AND PT AND NEUROLOGY HYPOKALEMIA WILL REPLACE HYPOMAGNESIA WILL REPLACE Right subdural hematoma with 8 mm midline shift, acute left posterior cerebellar infarct: -Appreciate neurology, neurosurgery recommendations. Status post right frontotemporoparietal craniotomy with evacuation of subdural hygroma. -No mural thrombus noted on echocardiogram, intact EF. Repeat head ct stable. All drains have been removed. -on keppra per NSG for seizure prophylaxis Anxiety: improved, continue restoril per neurosx Tachyarrhythmia: No recurrence, has been on amiodarone per prior ordered by sorority mother for suspected A. fib. Independent EKG reviews do not demonstrate A. fib to me at this time, may have been previously seen on a telemetry strip. I stopped amiodarone. Holter monitor ordered upon discharge. D/w NSG, clear to be placed on blood thinners per NSG as long as fall risk is thoroughly addressed. Hypokalemia: Likely due to poor nutrition, monitor and replace accordingly Aspiration pneumonia: continue Rocephin. procal still elevated. ST recommendations. Hep C: Likely cause of patient's transaminitis and coagulopathy with INR 1.2. No further intervention at this time. 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 chronic pulm arterial HTN: home sildenafil BPH: home Flomax DVT prophylaxis: heparin; cleared w/ NSG. PT AND OT AND [facility] Discharge Planning cleared for discharge; pending SNF. Holter monitor ordered upon discharge to pickup afib. Clear to be placed on blood thinners w/ NSG so long fall risk is addressed. Ho Vargas DO December 06, 2017 17:22
[2017-12-06] MEDS: ENOXAPARIN SODIUM 30 MG/0.3 ML SYRINGE SQ SCH (18:38)
[2017-12-06] MEDS: TAMSULOSIN HCL 0.4 MG CAP PO SCH (20:36)
[2017-12-06] MEDS: cefTRIAXone INJ 2,000 MG in SODIUM CHLORIDE 0.9% INJ 100 ML IV SCH (20:36)
[2017-12-07] VITALS (9 sets, daily range): BP systolic 111–156; BP diastolic 58–84; PULSE 62–82; RESP 20–24; TEMP 97.9–98.7; O2SAT 92–98
[2017-12-07] MEDS: CHLORHEXIDINE GLUCONATE 2 % 1 PACK (2 CLOTHS) TOP SCH (05:05)
[2017-12-07] MEDS: LEVOTHYROXINE SODIUM 25 MCG TAB PO SCH (05:51)
[2017-12-07] MEDS: levETIRAcetam INJ 500 MG in SODIUM CHLORIDE 0.9% INJ 100 ML IV SCH ×2 (05:51→17:30)
[2017-12-07 06:07] LABS: AUTOMATED NEUTROPHIL # 5.2 TH/MM3 (1.8-7.7); BASOPHIL # 0.1 TH/MM3 (0-0.2); BASOPHIL % 0.8 % (0.0-2.0); EOSINOPHIL # 0.3 TH/MM3 (0-0.4); EOSINOPHIL % 3.9 % (0.0-4.0); HEMATOCRIT 29.9 % (39.0-51.0); HEMOGLOBIN 10.2 GM/DL (13.0-17.0); LYMPH % 15.6 % (9.0-44.0); LYMPHOCYTE # 1.2 TH/MM3 (1.0-4.8); MEAN CELL VOLUME 89.3 FL (80.0-100.0); MEAN CORPUSCULAR HEMOGLOBIN 30.5 PG (27.0-34.0); MEAN CORPUSCULAR HGB CONC 34.2 % (32.0-36.0); MEAN PLATELET VOLUME 8.7 FL (7.0-11.0); MONO % 10.2 % (0.0-8.0); MONOCYTE # 0.8 TH/MM3 (0-0.9); NEUT % 69.5 % (16.0-70.0); PLATELET COUNT 277 TH/MM3 (150-450); RED BLOOD COUNT 3.35 MIL/MM3 (4.50-5.90); RED CELL DISTRIBUTION WIDTH 15.3 % (11.6-17.2); WHITE BLOOD COUNT 7.5 TH/MM3 (4.0-11.0)
[2017-12-07 06:32] LABS: ALBUMIN 2.4 GM/DL (3.4-5.0); ALT (GPT) 44 U/L (12-78); AST (GOT) 36 U/L (15-37); BICARBONATE 32.1 MEQ/L (21.0-32.0); BLOOD UREA NITROGEN 15 MG/DL (7-18); CALCIUM 8.3 MG/DL (8.5-10.1); CHLORIDE 94 MEQ/L (98-107); CREATININE 0.83 MG/DL (0.60-1.30); GLOMERULAR FILTRATION RATE 91 ML/MIN (>89); GLUCOSE,RANDOM 110 MG/DL (74-106); MAGNESIUM 1.4 MG/DL (1.5-2.5); PHOSPHORUS 1.7 MG/DL (2.5-4.9); SODIUM (NA) 135 MEQ/L (136-145)
[2017-12-07 06:35] LABS: ALKALINE PHOSPHATASE 87 U/L (45-117); TOTAL BILIRUBIN ADULT 0.3 MG/DL (0.2-1.0); TOTAL PROTEIN 6.1 GM/DL (6.4-8.2)
[2017-12-07] MEDS: PANTOPRAZOLE SODIUM 40 MG VIAL IVP SCH (08:20)
[2017-12-07] MEDS: ARTIFICIAL TEARS OPTH SOLN 15 ML BTL EACH EYE SCH ×3 (08:20→17:30)
[2017-12-07] MEDS: SODIUM CHLORIDE 0.9% FLUSH 10 ML FLUSH IV FLUSH SCH ×2 (08:20→21:44)
[2017-12-07] MEDS: DOCUSATE SODIUM 100 MG CAP PO SCH ×2 (08:21→21:44)
[2017-12-07] MEDS: THIAMINE HCL 100 MG TAB PO SCH (08:21)
[2017-12-07] MEDS: SILDENAFIL CITRATE 20 MG TAB PO SCH ×3 (08:21→17:30)
--- NOTE | 2017-12-07 11:15 | HHI.PR ---
Subjective Remarks WANTS TO GO LIVE IN [place] NEAR HIS DAUGHTER NO NEW COMPLAINTS DW RN AND PT NEEDS PLACEMENT CONSULT CASE MANAGEMENT FOR HELP WITH FAMILY FOR SNF AM LABS 12-07 case management working on placement in [place] NEAR THE DAUGHTER NO NEW COMPLAINTS DW RN AND PT Objective Vitals Vital Signs Date Time Temp Pulse Resp B/P (MAP) Pulse Ox O2 Delivery O2 Flow Rate FiO2 12/07/17 08:00 98.3 82 24 156/84 (108) 92 12/07/17 08:00 75 12/07/17 07:00 95 Room Air 12/07/17 06:00 80 12/07/17 04:00 98.7 65 20 120/58 (78) 93 12/07/17 04:00 65 12/07/17 02:00 78 12/07/17 00:00 75 12/07/17 00:00 98.6 75 24 111/59 (76) 95 12/06/17 22:00 75 12/06/17 20:00 80 12/06/17 20:00 98.5 80 24 87/53 (64) 95 12/06/17 19:00 95 Room Air 12/06/17 18:00 82 12/06/17 16:00 76 12/06/17 16:00 98.3 76 21 122/58 (79) 94 12/06/17 14:00 80 12/06/17 12:00 60 12/06/17 12:00 98.3 60 17 110/62 (78) 95 I/O 12/06/17 12/06/17 12/06/17 12/07/17 12/07/17 12/07/17 07:00 15:00 23:00 07:00 15:00 23:00 Intake Total 1885 ml 960 ml Output Total 650 ml 600 ml 350 ml Balance 1235 ml 360 ml -350 ml Intake Oral 1680 ml 960 ml IV Total 205 ml Output Urine Total 650 ml 600 ml 350 ml # Voids 4 3 # Bowel Movements 2 2 0 Result Diagram: [id number]/07/1743612/[id number]/17436 Other Results Laboratory Tests Test 12/07/17 04:37 White Blood Count 7.5 TH/MM3 Red Blood Count 3.35 MIL/MM3 Hemoglobin 10.2 GM/DL Hematocrit 29.9 % Mean Corpuscular Volume 89.3 FL Mean Corpuscular Hemoglobin 30.5 PG Mean Corpuscular Hemoglobin Concent 34.2 % Red Cell Distribution Width 15.3 % Platelet Count 277 TH/MM3 Mean Platelet Volume 8.7 FL Neutrophils (%) (Auto) 69.5 % Lymphocytes (%) (Auto) 15.6 % Monocytes (%) (Auto) 10.2 % Eosinophils (%) (Auto) 3.9 % Basophils (%) (Auto) 0.8 % Neutrophils # (Auto) 5.2 TH/MM3 Lymphocytes # (Auto) 1.2 TH/MM3 Monocytes # (Auto) 0.8 TH/MM3 Eosinophils # (Auto) 0.3 TH/MM3 Basophils # (Auto) 0.1 TH/MM3 CBC Comment DIFF FINAL Differential Comment Blood Urea Nitrogen 15 MG/DL Creatinine 0.83 MG/DL Random Glucose 110 MG/DL Total Protein 6.1 GM/DL Albumin 2.4 GM/DL Calcium Level 8.3 MG/DL Phosphorus Level 1.7 MG/DL Magnesium Level 1.4 MG/DL Alkaline Phosphatase 87 U/L Aspartate Amino Transf (AST/SGOT) 36 U/L Alanine Aminotransferase (ALT/SGPT) 44 U/L Total Bilirubin 0.3 MG/DL Sodium Level 135 MEQ/L Potassium Level 3.7 MEQ/L Chloride Level 94 MEQ/L Carbon Dioxide Level 32.1 MEQ/L Anion Gap 9 MEQ/L Estimat Glomerular Filtration Rate 91 ML/MIN Imaging Last Impressions Elbow X-Ray 12/05/17 0000 Signed Impressions: Service Date/Time: Tuesday, December 05, 2017 02:09 - CONCLUSION: 1. Prior fractures of the proximal radius and ulna with hypertrophic bone formation around the distal humerus and proximal forearm. No acute fractures seen. Gio Israel MD Head CT 12/01/17 0000 Signed Impressions: Service Date/Time: Friday, December 01, 2017 16:57 - CONCLUSION: 1. Essentially stable head CT compared with November 26. Right subdural drain present with adjacent stable apparent hemorrhage measuring up to about 13 mm in diameter. Gio Israel MD Chest X-Ray 11/25/17 0000 Signed Impressions: Service Date/Time: Saturday, November 25, 2017 13:17 - CONCLUSION: 1. Persistent small left pneumothorax. 2. New left lung base consolidation and small pleural effusion. 3. Mild bilateral interstitial opacity indicating mild pulmonary edema. Adriano Blair MD Brain MRI 11/21/17 0727 Signed Impressions: Service Date/Time: Tuesday, November 21, 2017 10:11 - CONCLUSION: 1. 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 2. Scattered nonspecific white matter signal change. No focal abnormal areas of enhancement. 3. Small focal area of restricted diffusion in the left posterior medial cerebellar hemisphere suggesting an acute infarction; however, no signal abnormality is seen in this area on any of the other pulse sequences. Oswaldo Alicea MD Skull X-Ray 11/21/17 Signed Impressions: Service Date/Time: Tuesday, November 21, 2017 09:47 - CONCLUSION: No contraindication to MRI seen. Oswaldo Alicea MD Abdomen X-Ray 11/21/17 Signed Impressions: Service Date/Time: Tuesday, November 21, 2017 09:45 - CONCLUSION: No contraindication to MRI seen. Oswaldo Alicea MD Chest CT 11/17/17 Signed Impressions: Service Date/Time: Friday, November 17, 2017 20:57 - CONCLUSION: 1. Foreign body at the level of the thoracic inlet, appears to be a coin within the esophagus. 2. Bilateral pneumonia. Please see above. Aman Bermeo MD Objective Remarks GENERAL: AWAKE AND ALERT CURRENTLY--IN NO ACUTE DISTRESS AT THIS TIME SKIN: Warm and dry. HEAD: Atraumatic. Normocephalic. EYES: Pupils equal and round. No scleral icterus. No injection or drainage. ENT: No nasal bleeding or discharge. Mucous membranes pink and moist.TONGUE MIDLINE NECK: Trachea midline. No JVD. SUPPLE CARDIOVASCULAR: Regular rate and rhythm. S1, S2 NO S3 OR S4 RESPIRATORY: No accessory muscle use. Clear to auscultation. Breath sounds equal bilaterally. GASTROINTESTINAL: Abdomen soft, non-tender, nondistended. Hepatic and splenic margins not palpable. MUSCULOSKELETAL: Extremities without clubbing, cyanosis, or edema. No obvious deformities. NEUROLOGICAL: Awake and alert. No obvious cranial nerve deficits. Motor grossly within normal limits. 4 out of 5 muscle strength in the arms and legs. Normal speech. LEFT UPPER EXTREMITY IS FLACCID- FROM OLD INJURY A CHILD- NOT DUE TO CVA PSYCHIATRIC: INAppropriate mood and affect; insight and judgment ABnormal. Procedures 11/21/17 endotracheal intubation 11/21/17 right frontal/temporal/parietal craniotomy with evacuation of subdural hematoma 11/21/17 left frontal ash hole with placement of an intracranial pressure monitor Medications and IVs Current Medications Sodium Chloride (NS Flush) 2 ml UNSCH PRN IVF FLUSH AFTER USING IV ACCESS; Start 11/17/17 at 20:15; Stop 11/24/17 at 07:34; Status DC Albuterol/ Ipratropium (Duoneb Neb) 2 ampule ONCE ONCE NEB Last administered on 11/17/17at 20:22; Start 11/17/17 at 20:15; Stop 11/17/17 at 20:16; Status DC Cefepime HCl 2000 mg/Sodium Chloride 100 ml @ 200 mls/hr ONCE ONCE IV Last administered on 11/17/17at 23:12; Start 11/17/17 at 20:30; Stop 11/17/17 at 20:59 ; Status DC Azithromycin 500 mg/Sodium Chloride 250 ml @ 250 mls/hr ONCE ONCE IV Last administered on 11/17/17at 22:13; Start 11/17/17 at 20:30; Stop 11/17/17 at 21:29 ; Status DC Etomidate (Amidate Inj) 40 mg STK-MED ONCE .ROUTE Last administered on at 21:47; Start 11/17/17 at 21:17; Stop 11/17/17 at 21:18; Status DC Etomidate (Amidate Inj) 20 mg ONCE ONCE IV PUSH Last administered on at 22:11; Start 11/17/17 at 21:30; Stop 11/17/17 at 21:31; Status DC Succinylcholine Chloride (Quelicin Inj) 100 mg ONCE ONCE IV PUSH Last administered on 11/17/17at 22:14; Start 11/17/17 at 21:30; Stop 11/17/17 at 21:31 ; Status DC Propofol 100 ml @ 0 mls/hr TITRATE PRN IV SEDATION Last administered on at 21:42; Start 11/17/17 at 21:30; Stop 11/17/17 at 22:55; Status DC Propofol 50 ml @ As Directed STK-MED ONCE .ROUTE ; Start 11/17/17 at 21:18; Stop 11/17/17 at 21:19; Status DC Sodium Chloride 1,000 ml @ 999 mls/hr BOLUS ONCE IV Last administered on 11/17at 22:10; Start 11/17/17 at 21:45; Stop 11/17/17 at 22:45; Status DC Aspirin (Aspirin Supp) 300 mg ONCE ONCE RECTAL Last administered on 11/17/17at 22:06; Start 11/17/17 at 21:45; Stop 11/17/17 at 21:46; Status DC Sodium Chloride 1,000 ml @ 125 mls/hr Q8H IV Last administered on 11/21/17at 04: 44; Start 11/17/17 at 22:40; Stop 11/22/17 at 16:57; Status DC Sodium Chloride (NS Flush) 2 ml UNSCH PRN IV FLUSH FLUSH AFTER USING IV ACCESS ; Start 11/17/17 at 22:45 Sodium Chloride (NS Flush) 2 ml BID IV FLUSH Last administered on 12/07/17at 08: 20; Start 11/18/17 at 09:00 Acetaminophen (Tylenol) 650 mg Q6H PRN PO PAIN 1-5 AND/OR FEVER >101F; Start at 22:45 Morphine Sulfate (Morphine Inj) 2 mg Q2H PRN IV PUSH PAIN SCALE 6 TO 10; Start 11/17/17 at 22:45; Stop 11/20/17 at 20:07; Status DC Famotidine (Pepcid Inj) 20 mg Q12HR IV PUSH Last administered on 11/19/17at 09: 00; Start 11/18/17 at 09:00; Stop 11/19/17 at 12:14; Status DC Famotidine (Pepcid) 20 mg Q12HR PO ; Start 11/18/17 at 09:00; Stop 11/18/17 at 09:00; Status DC Midazolam HCl (Versed Inj) 2 mg Q1H PRN IV PUSH SEDATION Last administered on at 23:17; Start 11/17/17 at 22:45; Stop 11/21/17 at 07:28; Status DC Artificial Tears (Tears Naturale Opth Soln) 1 drop TID EACH EYE Last administered on 11/24/17at 12:43; Start 11/18/17 at 09:00; Stop 11/24/17 at 15:12; Status DC Ondansetron HCl (Zofran Inj) 4 mg Q6H PRN IV PUSH NAUSEA OR VOMITING; Start at 22:45 Albuterol/ Ipratropium (Duoneb Neb) 1 ampule Q2HR NEB PRN INH WHEEZING; Start 11/17/17 at 22:45; Stop 11/24/17 at 07:31; Status DC Miscellaneous Information ([facility] Nursing Information) 1 [id number] Last administered on 11/18/17at 00:59; Start 11/17/17 at 22:45 Chlorhexidine Gluconate (Chlorhexidine 2% Cloth) 3 pack Taper DAILY@04 TOP Last administered on 12/07/17at 05:05; Start 11/18/17 at 04:00; Stop 11/14/18 at 03:59 Chlorhexidine Gluconate (Chlorhexidine 2% Cloth) 3 pack UNSCH PRN TOP HYGIENIC CARE; Start 11/17/17 at 22:45 Senna/Docusate Sodium (Luisa-Colace) 1 tab BID PO Last administered on 11/23/17at 21:49; Start 11/18/17 at 09:00; Stop 11/24/17 at 07:33; Status DC Magnesium Hydroxide (Milk Of Magnesia Liq) 30 ml Q12H PRN PO Mild constipation ; Start 11/17/17 at 22:45 Sennosides (Senokot) 17.2 mg Q12H PRN PO Moderate constipation; Start 11/17/17 at 22:45 Bisacodyl (Dulcolax Supp) 10 mg DAILY PRN RECTAL SEVERE CONSITIPATION/ IF NPO ; Start 11/17/17 at 22:45 Lactulose (Lactulose Liq) 30 ml DAILY PRN PO SEVERE CONSITIPATION/ IF PO; Start 11/17/17 at 22:45 Chlorhexidine Gluconate (Peridex 0.12% Liq) 15 ml BID@08,20 MT Last administered on 11/23/17at 08:00; Start 11/18/17 at 08:00; Stop 11/24/17 at 07:33; Status DC Propofol 100 ml @ 1.53 mls/hr TITRATE PRN IV SEDATION Last administered on 11/21at 13:28; Start 11/17/17 at 22:45; Stop 11/21/17 at 15:52; Status DC Albuterol/ Ipratropium (Duoneb Neb) 1 ampule Q6HR WHILE AWAKE NEB NEB Last administered on 11/21/17at 11:23; Start 11/18/17 at 08:00; Stop 11/21/17 at 17:59; Status DC Potassium Chloride 100 ml @ 50 mls/hr Q2H PRN IV For Potassium 2.8 - 3.2 mEq/ L Last administered on 11/29/17at 10:45; Start 11/17/17 at 23:30; Stop 11/30/17 at 13:19; Status DC Potassium Chloride 100 ml @ 50 mls/hr Q2H PRN IV For Potassium 2.8 - 3.2 mEq/ L Last administered on 11/20/17at 12:21; Start 11/17/17 at 23:30; Stop 11/30/17 at 13:19; Status DC Potassium Bicarb/ Potassium Chloride (K-Lyte Cl Eff) 50 meq UNSCH PRN PO For Potassium 3.3 - 3.5 mEq/L; Start 11/17/17 at 23:30; Stop 11/30/17 at 13:19; Status DC Potassium Chloride 100 ml @ 25 mls/hr UNSCH PRN IV For Potassium 3.3 - 3.5 mEq /L; Start 11/17/17 at 23:30; Stop 11/30/17 at 13:19; Status DC Potassium Chloride 100 ml @ 50 mls/hr Q2H PRN IV For Potassium 3.3 - 3.5 mEq/ L Last administered on 11/21/17at 05:02; Start 11/17/17 at 23:30; Stop 11/21/17 at 05:24; Status DC Magnesium Sulfate 4 gm/Sodium Chloride 100 ml @ 50 mls/hr UNSCH PRN IV For Magnesium 0.9 - 1.1 mg/dL; Start 11/17/17 at 23:30; Stop 11/30/17 at 13:19; Status DC Magnesium Oxide (Mag-Ox) 800 mg UNSCH PRN PO For Magnesium 1.2 - 1.6 mg/dL; Start 11/17/17 at 23:30; Stop 11/30/17 at 13:19; Status DC Magnesium Sulfate 2 gm/Sodium Chloride 100 ml @ 50 mls/hr UNSCH PRN IV For Magnesium 1.2 - 1.6 mg/dL Last administered on 11/21/17at 11:54; Start 11/17/17 at 23:30; Stop 11/30/17 at 13:19; Status DC Potassium Phosphate (K-Phos) 2,000 mg Q4H PRN PO For Phosphorus < 2.5 mg/dL Last administered on 11/20/17at 14:59; Start 11/17/17 at 23:30; Stop 11/30/17 at 13:19; Status DC Sodium Phosphate 30 mmol/Sodium Chloride 250 ml @ 42 mls/hr UNSCH PRN IV For Phosphorus < 2.5 mg/dL Last administered on 11/20/17at 21:44; Start 11/17/17 at 23:30; Stop 11/30/17 at 13:19; Status DC Potassium Phosphate (K-Phos) 2,000 mg UNSCH PRN PO/TUBE SEE LABEL COMMENTS; Start 11/17/17 at 23:30; Stop 11/30/17 at 13:19; Status DC Potassium Phosphate 30 mmol/ Sodium Chloride 260 ml @ 42 mls/hr UNSCH PRN IV SEE LABEL COMMENTS; Start 11/17/17 at 23:30; Stop 11/30/17 at 13:19; Status DC Ampicillin Sodium/ Sulbactam Sodium (Unasyn Inj) 3 gm Q6H IM ; Start 11/18/17 at 06:30; Status Cancel Ampicillin Sodium/ Sulbactam Sodium 3 gm/Sodium Chloride 100 ml @ 200 mls/hr Q6H IV Last administered on 11/21/17at 13:27; Start 11/18/17 at 07:00; Stop at 17:59; Status DC Enoxaparin Sodium (Lovenox Inj) 40 mg Q24H SQ Last administered on 11/20/17at 09 :00; Start 11/19/17 at 09:00; Stop 11/21/17 at 13:31; Status DC Miscellaneous Information ([facility] Nursing Information) ALL NURSING DEPARTME... UNSCH PRN .XX SEE LABEL COMMENTS; Start 11/18/17 at 12:30; Stop 11/19/17 at 12: 29; Status DC Pantoprazole Sodium (Protonix) 40 mg Q12HR PO Last administered on 11/23/17at 21: 50; Start 11/19/17 at 21:00; Stop 11/24/17 at 15:12; Status DC Magnesium Sulfate/ Dextrose 100 ml @ 100 mls/hr Q1H IV Last administered on at 10:15; Start 11/20/17 at 09:15; Stop 11/20/17 at 11:14; Status DC Potassium Chloride (KCl) 80 meq ONCE ONCE PO ; Start 11/20/17 at 09:15; Stop at 09:16; Status DC Sodium Chloride (NS Flush) 2 ml UNSCH PRN IV FLUSH FLUSH AFTER USING IV ACCESS ; Start 11/20/17 at 13:00; Status UNV Sodium Chloride (NS Flush) 2 ml BID IV FLUSH ; Start 11/20/17 at 21:00; Status UNV Folic Acid (Folate) 1 mg DAILY PO Last administered on 11/25/17at 08:27; Start at 13:00; Stop 11/25/17 at 12:59; Status DC Thiamine HCl (Vitamin B1) 100 mg DAILY PO Last administered on 12/07/17at 08:21 ; Start 11/20/17 at 13:00 Multivitamins/ Minerals Therapeutic (Theragran M Tab) 1 tab DAILY PO Last administered on 11/25/17at 08:27; Start 11/20/17 at 13:00; Stop 11/25/17 at 12:59; Status DC Ondansetron HCl (Zofran Inj) 4 mg Q6H PRN IV PUSH NAUSEA OR VOMITING; Start at 13:00; Status UNV Famotidine (Pepcid) 20 mg BID PO ; Start 11/20/17 at 21:00; Status UNV Clonidine (Catapres) 0.1 mg Q6H PRN PO SEE LABEL COMMENTS; Start 11/20/17 at 13 :00 Flumazenil (Romazicon Inj) 0.2 mg Q1M PRN IV PUSH SEE LABEL COMMENTS; Start at 13:00 Lorazepam (Ativan) 1 mg Q4H PRN PO CIWA 8 - 10; Start 11/20/17 at 13:00; Stop 11/21/17 at 07:28; Status DC Lorazepam (Ativan Inj) 1 mg Q4H PRN IV PUSH CIWA 8 - 10; Start 11/20/17 at 13: 00; Stop 11/21/17 at 07:28; Status DC Lorazepam (Ativan) 2 mg Q2H PRN PO CIWA 11-14; Start 11/20/17 at 13:00; Stop at 07:28; Status DC Lorazepam (Ativan Inj) 2 mg Q2H PRN IV PUSH CIWA 11-14 Last administered on at 18:47; Start 11/20/17 at 13:00; Stop 11/21/17 at 07:28; Status DC Lorazepam (Ativan Inj) 2 mg Q1H PRN IV PUSH CIWA 15-20 Last administered on at 17:42; Start 11/20/17 at 13:00; Stop 11/21/17 at 07:28; Status DC Lorazepam (Ativan Inj) 2 mg Q15M PRN IV PUSH CIWA > 20; Start 11/20/17 at 13:00 ; Stop 11/21/17 at 07:28; Status DC Haloperidol Lactate (Haldol Inj) 2 mg Q15M PRN IM SEE LABEL COMMENTS; Start at 13:00; Stop 11/21/17 at 07:28; Status DC Rocuronium [place] (Zemuron Inj) 50 mg STK-MED ONCE IV PUSH ; Start 11/18/17 at 12:00; Stop 11/20/17 at 13:06; Status DC Levetriacetam 500 mg/Sodium Chloride 105 ml @ 420 mls/hr BOLUS ONCE IV Last administered on 11/20/17at 14:00; Start 11/20/17 at 14:00; Stop 11/20/17 at 14:14 ; Status DC Levetriacetam 500 mg/Sodium Chloride 105 ml @ 420 mls/hr Q12HR IV Last administered on 11/21/17at 20:50; Start 11/20/17 at 21:00; Stop 11/22/17 at 17:22; Status DC Levetriacetam 500 mg/Sodium Chloride 105 ml @ 420 mls/hr BOLUS ONCE IV Last administered on 11/20/17at 15:00; Start 11/20/17 at 15:00; Stop 11/20/17 at 15:14 ; Status DC Morphine Sulfate (Morphine Inj) 2 mg Q2H PRN IV PUSH PAIN SCALE 6 TO 10; Start 11/20/17 at 20:15; Stop 11/21/17 at 07:28; Status DC Potassium Chloride 20 meq/ Sodium Chloride 110 ml @ 50 mls/hr Q2H PRN IV For Potassium 3.3 - 3.5 mEq/L Last administered on 11/21/17at 06:43; Start 11/21/17 at 05:30; Stop 11/30/17 at 13:19; Status DC Furosemide (Lasix Inj) 40 mg STK-MED ONCE .ROUTE ; Start 11/21/17 at 07:50; Stop 11/21/17 at 07:51; Status DC Furosemide (Lasix Inj) 40 mg NOW ONCE IV PUSH Last administered on 11/21/17at 08 :45; Start 11/21/17 at 08:45; Stop 11/21/17 at 08:46; Status DC Gadodiamide (Omniscan Pf Inj) 20 ml STK-MED ONCE IVCONTRAST ; Start 11/21/17 at 10:30; Stop 11/21/17 at 10:31; Status DC Gadodiamide (Omniscan Pf Inj) 12 ml STK-MED ONCE IVCONTRAST ; Start 11/21/17 at 10:31; Stop 11/21/17 at 10:32; Status DC Levothyroxine Sodium (Synthroid Inj) 25 mcg ONCE ONCE IV PUSH ; Start 11/21/17 at 10:45; Stop 11/21/17 at 11:54; Status DC Levothyroxine Sodium (Synthroid Inj) 25 mcg DAILY@06 IV PUSH Last administered on 11/30/17at 06:46; Start 11/22/17 at 06:00; Stop 12/01/17 at 08:24; Status DC Multivitamins 10 ml/Folic Acid 1 mg/Sodium Chloride 510.2 ml @ 125 mls/hr Q24H IV Last administered on 11/25/17at 13:59; Start 11/21/17 at 13:00; Stop 11/26/17 at 12:59; Status DC Thiamine HCl 100 mg/Sodium Chloride 101 ml @ 100 mls/hr Q24H IV Last administered on 11/23/17at 12:45; Start 11/21/17 at 12:00; Stop 11/24/17 at 11:59; Status DC Enalaprilat (Vasotec Inj) 1.25 mg Q6H PRN IV PUSH SEE LABEL COMMENTS; Start 11/21/17 at 10:45 Labetalol HCl (Trandate Inj) 10 mg Q6H PRN IV PUSH SEE LABEL COMMENTS; Start at 10:45 Hydralazine HCl (Apresoline Inj) 10 mg Q6H PRN IV PUSH SEE LABEL COMMENTS Last administered on 11/28/17at 13:31; Start 11/21/17 at 10:45 Mannitol 100 ml @ As Directed STK-MED ONCE .ROUTE ; Start 11/21/17 at 11:59; Stop 11/21/17 at 12:00; Status DC Etomidate (Amidate Inj) 40 mg STK-MED ONCE .ROUTE ; Start 11/21/17 at 11:59; Stop 11/21/17 at 12:00; Status DC Succinylcholine Chloride (Quelicin Inj) 200 mg STK-MED ONCE .ROUTE ; Start at 12:00; Stop 11/21/17 at 12:01; Status DC Etomidate (Amidate Inj) 20 mg ONCE ONCE IV PUSH Last administered on 11/21/17at 12:00; Start 11/21/17 at 12:00; Stop 11/21/17 at 13:00; Status DC Succinylcholine Chloride (Quelicin Inj) 120 mg ONCE ONCE IV PUSH ; Start at 12:00; Stop 11/21/17 at 12:01; Status Cancel Rocuronium [place] (Zemuron Inj) 50 mg BOLUS ONCE IV ; Start 11/21/17 at 12:00; Stop 11/21/17 at 13:00; Status DC Propofol 100 ml @ 1.815 mls/ hr TITRATE PRN IV SEDATION Last administered on at 03:11; Start 11/21/17 at 12:00; Stop 11/28/17 at 10:52; Status DC Mannitol (Mannitol Inj) 25 gm ONCE ONCE IV Last administered on 11/21/17at 12:30 ; Start 11/21/17 at 12:00; Stop 11/21/17 at 13:00; Status DC Fentanyl Citrate (fentaNYL INJ) 100 mcg ONCE ONCE IV PUSH Last administered on 11/21/17at 12:00; Start 11/21/17 at 12:00; Stop 11/21/17 at 13:00; Status DC Propofol 50 ml @ As Directed STK-MED ONCE .ROUTE ; Start 11/21/17 at 12:05; Stop 11/21/17 at 12:06; Status DC Fentanyl Citrate (fentaNYL INJ) 100 mcg STK-MED ONCE .ROUTE ; Start 11/21/17 at 12:09; Stop 11/21/17 at 12:10; Status DC Microfibriller Collagen Hemostat (Avitene Bandage) 1 bandage STK-MED ONCE .ROUTE Last administered on 11/21/17at 15:04; Start 11/21/17 at 12:27; Stop at 12:28; Status DC Lidocaine/ Epinephrine (Xylocaine-Epi 1%-1:100,000 Inj) 30 ml STK-MED ONCE .ROUTE Last administered on 11/21/17at 15:04; Start 11/21/17 at 12:28; Stop at 12:29; Status DC Cefazolin Sodium (Ancef Inj) 1,000 mg STK-MED ONCE .ROUTE ; Start 11/21/17 at 12: 28; Stop 11/21/17 at 12:29; Status DC Thrombin (Thrombin Top Soln) 10,000 units STK-MED ONCE .ROUTE Last administered on 11/21/17at 15:04; Start 11/21/17 at 12:28; Stop 11/21/17 at 12:29; Status DC Gelatin (Gelfoam 100 Top) 1 foam STK-MED ONCE .ROUTE Last administered on at 15:04; Start 11/21/17 at 12:28; Stop 11/21/17 at 12:29; Status DC Gentamicin Sulfate (Gentamicin Inj) 240 mg STK-MED ONCE .ROUTE Last administered on 11/21/17 15:04; Start 11/21/17 at 12:29; Stop 11/21/17 at 12:30; Status DC Gelatin (Gelfoam 100 Top) 1 foam STK-MED ONCE .ROUTE ; Start 11/21/17 at 12:29; Stop 11/21/17 at 12:30; Status DC Vancomycin HCl (Vancomycin Inj) 1,000 mg STK-MED ONCE .ROUTE Last administered on 11/21/17at 14:55; Start 11/21/17 at 12:42; Stop 11/21/17 at 12:43; Status DC Cefazolin Sodium/ Dextrose 50 ml @ As Directed STK-MED ONCE .ROUTE ; Start at 12:42; Stop 11/21/17 at 12:43; Status DC Sodium Chloride 250 ml @ As Directed STK-MED ONCE .ROUTE ; Start 11/21/17 at 12: 42; Stop 11/21/17 at 12:43; Status DC Sodium Chloride 188 meq/Sodium Chloride 1,047 ml @ 20 mls/hr Q24H IV Last administered on 11/22/17at 12:43; Start 11/21/17 at 13:00; Stop 11/22/17 at 16:57; Status DC Fentanyl Citrate 250 ml @ 5 mls/hr TITRATE PRN IV SEDATION Last administered on 11/24/17at 19:54; Start 11/21/17 at 13:00; Stop 11/25/17 at 13:08; Status DC Artificial Tears (Tears Naturale Opth Soln) 1 drop TID EACH EYE Last administered on 12/07/17at 08:20; Start 11/21/17 at 13:00 Albuterol/ Ipratropium (Duoneb Neb) 1 ampule Q6HR NEB INH Last administered on 11/21/17at 16:00; Start 11/21/17 at 16:00; Stop 11/21/17 at 18:48; Status DC Albuterol/ Ipratropium (Duoneb Neb) 1 ampule Q2HR NEB PRN INH WHEEZING; Start 11/21/17 at 13:00; Stop 11/28/17 at 21:55; Status DC Senna/Docusate Sodium (Luisa-Colace) 1 tab BID PO Last administered on 11/24/17at 08:15; Start 11/21/17 at 21:00; Stop 11/24/17 at 15:12; Status DC Succinylcholine Chloride (Quelicin Inj) 120 mg ONCE ONCE IV PUSH Last administered on 11/21/17at 12:00; Start 11/21/17 at 13:15; Stop 11/21/17 at 13:19; Status DC Chlorhexidine Gluconate (Peridex 0.12% Liq) 15 ml BID@08,20 MT Last administered on 12/04/17at 08:00; Start 11/21/17 at 20:00; Stop 12/05/17 at 04:47 ; Status DC Levetriacetam (Keppra Inj) 1,000 mg STK-MED ONCE IV ; Start 11/21/17 at 13:15; Stop 11/21/17 at 13:16; Status DC Potassium Chloride/Sodium Chloride 1,000 ml @ 100 mls/hr Q10H IV Last administered on 11/25/17at 04:53; Start 11/21/17 at 15:00; Stop 11/25/17 at 13:08; Status DC Cefazolin Sodium/ Dextrose 50 ml @ 100 mls/hr Q8H IV ; Start 11/21/17 at 16:00; Stop 11/21/17 at 18:52; Status DC Levetriacetam 500 mg/Sodium Chloride 105 ml @ 400 mls/hr Q12H IV Last administered on 11/22/17at 06:29; Start 11/21/17 at 18:00; Stop 11/22/17 at 10:19; Status DC Bisacodyl (Dulcolax Supp) 10 mg DAILY PRN RECTAL CONSTIPATION; Start 11/21/17 at 15:00; Stop 11/22/17 at 10:19; Status DC Docusate Sodium (Colace) 100 mg BID PO Last administered on 12/07/17at 08:21; Start 11/21/17 at 21:00 Pantoprazole Sodium (Protonix) 40 mg DAILY PO ; Start 11/22/17 at 09:00; Stop 11/24/17 at 15:12; Status DC Pantoprazole Sodium (Protonix Inj) 40 mg DAILY IVP Last administered on at 08:20; Start 11/22/17 at 09:00 Ondansetron HCl (Zofran Inj) 4 mg Q6H PRN IV PUSH NAUSEA OR VOMITING; Start 11/21/17 at 15:00; Stop 11/22/17 at 10:19; Status DC Calcium Gluconate (Calcium Gluconate Inj) 1 gm UNSCH PRN IV SEE LABEL COMMENTS ; Start 11/21/17 at 15:00 Potassium Chloride 100 ml @ 50 mls/hr UNSCH PRN IV POTASSIUM LESS THAN 4; Start 11/21/17 at 15:00; Stop 11/30/17 at 13:19; Status DC Magnesium Sulfate 4 gm/Sodium Chloride 108 ml @ 108 mls/hr UNSCH PRN IV MAGNESIUM LESS THAN 2; Start 11/21/17 at 15:00; Stop 11/30/17 at 13:19; Status DC Acetaminophen/ Hydrocodone Bitart ([place] 10-325 Mg) 1 tab Q4H PRN PO PAIN SCALE 1 TO 5 Last administered on 11/30/17at 00:12; Start 11/21/17 at 15:00 Acetaminophen/ Hydrocodone Bitart ([place] 10-325 Mg) 2 tab Q4H PRN PO PAIN SCALE 6 TO 10 Last administered on 12/02/17at 20:24; Start 11/21/17 at 15:00 Morphine Sulfate (Morphine Inj) 2 mg Q2H PRN IV PUSH PAIN SCALE 1 TO 6; Start 11/21/17 at 15:00; Stop 11/29/17 at 08:55; Status DC Morphine Sulfate (Morphine Inj) 4 mg Q2H PRN IV PUSH PAIN SCALE 7 TO 10; Start 11/21/17 at 15:00; Stop 11/29/17 at 08:55; Status DC Acetaminophen (Tylenol) 650 mg Q4H PRN PO TEMPERATURE > 101.5 F; Start 11/21/17 at 15:00 Bacitracin (Baciguent Oint) 15 applic STK-MED ONCE .ROUTE ; Start 11/21/17 at 15: 56; Stop 11/21/17 at 15:57; Status DC Phenylephrine HCl (Neosynephrine Inj) 40 mg STK-MED ONCE .ROUTE Last administered on 11/21/17at 16:34; Start 11/21/17 at 16:34; Stop 11/21/17 at 16:35; Status DC Phenylephrine HCl (Neosynephrine Inj) 30 mg STK-MED ONCE .ROUTE Last administered on 11/21/17at 16:40; Start 11/21/17 at 16:40; Stop 11/21/17 at 16:41; Status DC Midazolam HCl (Versed Inj) 2 mg STK-MED ONCE .ROUTE ; Start 11/21/17 at 16:58; Stop 11/21/17 at 16:59; Status DC Fentanyl Citrate (fentaNYL INJ) 200 mcg STK-MED ONCE .ROUTE ; Start 11/21/17 at 16:58; Stop 11/21/17 at 16:59; Status DC Miscellaneous Information ([facility] [place] [facility] Information) ALL NURSING DEPARTME... UNSCH PRN .XX SEE LABEL COMMENTS; Start 11/21/17 at 16:29; Stop 11/22/17 at 16:28 ; Status DC Cefepime HCl 2000 mg/Sodium Chloride 100 ml @ 200 mls/hr Q12H IV Last administered on 11/29/17at 07:35; Start 11/21/17 at 21:00; Stop 11/29/17 at 09:29; Status DC Albuterol/ Ipratropium (Duoneb Neb) 1 ampule Q6HR WHILE AWAKE NEB NEB Last administered on 11/25/17at 12:20; Start 11/21/17 at 20:00; Stop 11/25/17 at 17:15; Status DC Ceftriaxone Sodium 2000 mg/ Sodium Chloride 100 ml @ 200 mls/hr Q24H IV Last administered on 11/28/17at 20:18; Start 11/21/17 at 20:00; Stop 11/29/17 at 08:54; Status DC Levetriacetam 500 mg/Sodium Chloride 105 ml @ 420 mls/hr Q12H IV Last administered on 12/07/17at 05:51; Start 11/22/17 at 06:00 Adenosine (Adenocard Inj) 6 mg STK-MED ONCE .ROUTE ; Start 11/23/17 at 12:16; Stop 11/23/17 at 12:17; Status DC Amiodarone HCl (Cordarone Inj) 150 mg STK-MED ONCE .ROUTE ; Start 11/23/17 at 12: 25; Stop 11/23/17 at 12:26; Status DC Magnesium Sulfate/ Dextrose 100 ml @ As Directed STK-MED ONCE .ROUTE ; Start at 12:25; Stop 11/23/17 at 12:26; Status DC Calcium Chloride (Calcium Chloride Inj) 1 gm STK-MED ONCE .ROUTE ; Start at 12:25; Stop 11/23/17 at 12:26; Status DC Calcium Chloride (Calcium Chloride Inj) 1 gm STK-MED ONCE .ROUTE ; Start at 12:27; Stop 11/23/17 at 12:28; Status DC Phenylephrine HCl (Neosynephrine Inj) 40 mg STK-MED ONCE .ROUTE ; Start 11/23/17 at 12:32; Stop 11/23/17 at 12:33; Status DC Amiodarone HCl 150 mg/Dextrose 103 ml @ 600 mls/hr Q11M ONCE IV Last administered on 11/23/17at 12:30; Start 11/23/17 at 13:03; Stop 11/23/17 at 13:13; Status DC Amiodarone HCl 450 mg/Dextrose 250 ml @ 33.33 mls/ hr Q7H31M PRN IV Per Protocol; Start 11/23/17 at 13:13; Stop 11/23/17 at 13:15; Status DC Calcium Chloride (Calcium Chloride Inj) 1 gm ONCE ONCE IV PUSH ; Start 11/23/17 at 13:15; Stop 11/23/17 at 13:15; Status DC Magnesium Sulfate/ Dextrose 100 ml @ 100 mls/hr ONCE ONCE IV Last administered on 11/23/17at 12:30; Start 11/23/17 at 13:15; Stop 11/23/17 at 14:14; Status DC Adenosine (Adenocard Inj) 6 mg ONCE ONCE IV PUSH Last administered on at 12:20; Start 11/23/17 at 13:15; Stop 11/23/17 at 13:16; Status DC Phenylephrine HCl 40 mg/Dextrose 500 ml @ 30 mls/hr TITRATE PRN IV Blood pressure management; Start 11/23/17 at 13:15; Stop 11/28/17 at 10:52; Status DC Terbutaline Sulfate (Brethine Inj) 1 mg UNSCH PRN SQ For Extravasation; Start 11/23/17 at 13:15 Calcium Gluconate 1 gm/Sodium Chloride 110 ml @ 110 mls/hr ONCE ONCE IV ; Start 11/23/17 at 13:15; Stop 11/23/17 at 14:14; Status Cancel Calcium Chloride 1 gm/Sodium Chloride 110 ml @ 110 mls/hr ONCE ONCE IV ; Start 11/23/17 at 13:15; Stop 11/23/17 at 14:14; Status Cancel Amiodarone HCl 450 mg/Sodium Chloride 250 ml @ 33.33 mls/ hr Q7H31M PRN IV Per Protocol Last administered on 11/25/17at 20:11; Start 11/23/17 at 13:30; Stop at 15:31; Status DC Lactated Ringer's 1,000 ml @ As Directed STK-MED ONCE IV ; Start 11/21/17 at 12: 00; Stop 11/23/17 at 14:24; Status DC Sodium Chloride 250 ml @ As Directed STK-MED ONCE IV ; Start 11/21/17 at 12:00; Stop 11/23/17 at 14:24; Status DC Parenteral Electrolytes 1,000 ml @ As Directed STK-MED ONCE IV ; Start 11/21/17 at 12:00; Stop 11/23/17 at 14:24; Status DC Lidocaine HCl (Xylocaine-Mpf 1% Inj) 5 ml STK-MED ONCE OTHER ; Start 11/21/17 at 12:00; Stop 11/23/17 at 14:24; Status DC Rocuronium [place] (Zemuron Inj) 100 mg STK-MED ONCE IV PUSH ; Start 11/21/17 at 12:00; Stop 11/23/17 at 14:24; Status DC Phenylephrine HCl (Neosynephrine Inj) 10 mg STK-MED ONCE IV ; Start 11/21/17 at 12:00; Stop 11/23/17 at 14:24; Status DC Phenylephrine HCl (Neosynephrine/ NS 1000 Mcg/10ml Syr) 2,000 mcg STK-MED ONCE IV ; Start 11/21/17 at 12:00; Stop 11/23/17 at 14:24; Status DC Ephedrine Sulfate (ePHEDrine/NS 25 MG/5 ML SYR) 25 mg STK-MED ONCE IV ; Start at 12:00; Stop 11/23/17 at 14:24; Status DC Epinephrine HCl (Adrenalin (1:1000) Inj) 1 mg STK-MED ONCE IV ; Start 11/21/17 at 12:00; Stop 11/23/17 at 14:24; Status DC Dexamethasone Sodium Phosphate (Decadron Inj) 4 mg STK-MED ONCE IV ; Start at 12:00; Stop 11/23/17 at 14:24; Status DC Propofol (Diprivan 200 Mg/20 ml Inj) 200 mg STK-MED ONCE IV ; Start 11/21/17 at 12:00; Stop 11/23/17 at 14:24; Status DC Furosemide (Lasix Inj) 40 mg ONCE ONCE IV PUSH Last administered on 11/25/17at 14:00; Start 11/25/17 at 14:00; Stop 11/25/17 at 14:01; Status DC Dexmedetomidine HCl 200 mcg/ Sodium Chloride 52 ml @ 3.36 mls/hr TITRATE PRN IV SEDATION Last administered on 11/30/17at 07:16; Start 11/25/17 at 15:30; Stop 11/30/17 at 13:19; Status DC Fentanyl Citrate 250 ml @ 5 mls/hr TITRATE PRN IV SEDATION Last administered on 11/26/17at 09:12; Start 11/25/17 at 17:15; Stop 11/28/17 at 10:52; Status DC Albuterol/ Ipratropium (Duoneb Neb) 1 ampule Q6HR WHILE AWAKE NEB NEB Last administered on 11/28/17at 19:59; Start 11/25/17 at 20:00; Stop 11/28/17 at 21:55; Status DC Albumin Human 100 ml @ 60 mls/hr ONCE ONCE IV Last administered on 11/25/17at 17:15; Start 11/25/17 at 17:15; Stop 11/25/17 at 18:54; Status DC Norepinephrine Bitartrate 4 mg/ Sodium Chloride 250 ml @ 7.5 mls/hr TITRATE PRN IV Blood pressure management Last administered on 11/26/17at 17:28; Start 11/25 at 17:15; Stop 11/28/17 at 10:52; Status DC Terbutaline Sulfate (Brethine Inj) 1 mg UNSCH PRN SQ For Extravasation; Start 11/25/17 at 17:15 Amiodarone HCl (Cordarone) 400 mg DAILY OG-TUBE Last administered on 12/05/17at 08:59; Start 11/27/17 at 09:00; Stop 12/05/17 at 15:13; Status DC Norepinephrine Bitartrate 0 ml @ As Directed STK-MED ONCE IV ; Start 11/26/17 at 17:24; Stop 11/26/17 at 17:25; Status DC Albuterol/ Ipratropium (Duoneb Neb) 1 ampule Q6HR WHILE AWAKE NEB NEB Last administered on 12/02/17 21:17; Start 11/29/17 at 08:00; Stop 12/03/17 at 07:59 ; Status DC Albuterol Sulfate (Albuterol Neb) 2.5 mg Q2HR NEB PRN NEB [id number]; Start at 22:00 Ceftriaxone Sodium 2000 mg/ Sodium Chloride 100 ml @ 200 mls/hr Q24H IV Last administered on 12/06/17at 20:36; Start 11/29/17 at 20:00 Alprazolam (Xanax) 1 mg Q8H PRN PO ANXIETY Last administered on 12/01/17at 21:59 ; Start 11/30/17 at 13:15; Stop 12/02/17 at 10:16; Status DC Levothyroxine Sodium (Synthroid) 25 mcg DAILY@0600 PO Last administered on 12/07at 05:51; Start 12/01/17 at 06:00 Sildenafil Citrate (Revatio) 20 mg TID PO Last administered on 12/07/17at 08:21 ; Start 11/30/17 at 18:00 Tamsulosin HCl (Flomax) 0.4 mg HS PO Last administered on 12/06/17at 20:36; Start 11/30/17 at 21:00 Temazepam (Restoril) 30 mg HS PRN PO INSOMNIA Last administered on 12/02/17at 20 :54; Start 11/30/17 at 13:15 Enoxaparin Sodium (Lovenox Inj) 30 mg Q24H SQ Last administered on 12/06/17at 18 :38; Start 12/05/17 at 17:30 A/P Assessment and Plan 1. Percocet overdose 2. Aspiration pneumonia 3. Acute respiratory failure, intubated for airway protection -tolerated CPAP trial 4. Foreign body in the esophagus -extracted A PING 5. Elevated CPK -resolving 6. Elevated liver enzymes -found to have hepatitis C 7. History of emphysema on home O2 SEIZURE- SEEN ON EEG ALSO- LOAD AND START TAYLOR- MP RN AND PT AND NEUROLOGY HYPOKALEMIA WILL REPLACE HYPOMAGNESIA WILL REPLACE Right subdural hematoma with 8 mm midline shift, acute left posterior cerebellar infarct: -Appreciate neurology, neurosurgery recommendations. Status post right frontotemporoparietal craniotomy with evacuation of subdural hygroma. -No mural thrombus noted on echocardiogram, intact EF. Repeat head ct stable. All drains have been removed. -on keppra per NSG for seizure prophylaxis Anxiety: improved, continue restoril per neurosx Tachyarrhythmia: No recurrence, has been on amiodarone per prior ordered by family life educator for suspected A. fib. Independent EKG reviews do not demonstrate A. fib to me at this time, may have been previously seen on a telemetry strip. I stopped amiodarone. Holter monitor ordered upon discharge. D/w NSG, clear to be placed on blood thinners per NSG as long as fall risk is thoroughly addressed. Hypokalemia: Likely due to poor nutrition, monitor and replace accordingly Aspiration pneumonia: continue Rocephin. procal still elevated. ST recommendations. Hep C: Likely cause of patient's transaminitis and coagulopathy with INR 1.2. No further intervention at this time. 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 chronic pulm arterial HTN: home sildenafil BPH: home Flomax DVT prophylaxis: heparin; cleared w/ NSG. PT AND OT AND [facility] NEEDS SNF IN [facility] Discharge Planning cleared for discharge; pending SNF. Holter monitor ordered upon discharge to pickup afib. Clear to be placed on blood thinners w/ NSG so long fall risk is addressed. Ho Vargas DO December 07, 2017 11:15
[2017-12-07] MEDS: ENOXAPARIN SODIUM 30 MG/0.3 ML SYRINGE SQ SCH (17:30)
[2017-12-07] MEDS: cefTRIAXone INJ 2,000 MG in SODIUM CHLORIDE 0.9% INJ 100 ML IV SCH (21:43)
[2017-12-07] MEDS: TAMSULOSIN HCL 0.4 MG CAP PO SCH (21:44)
[2017-12-08] VITALS (7 sets, daily range): BP systolic 121–165; BP diastolic 57–86; PULSE 60–72; RESP 17–24; TEMP 98.3–98.6; O2SAT 91–97
[2017-12-08] MEDS: CHLORHEXIDINE GLUCONATE 2 % 1 PACK (2 CLOTHS) TOP SCH (03:42)
[2017-12-08] MEDS: levETIRAcetam INJ 500 MG in SODIUM CHLORIDE 0.9% INJ 100 ML IV SCH ×2 (05:50→17:44)
[2017-12-08] MEDS: LEVOTHYROXINE SODIUM 25 MCG TAB PO SCH (05:50)
[2017-12-08] MEDS: SODIUM CHLORIDE 0.9% FLUSH 10 ML FLUSH IV FLUSH SCH ×2 (08:14→20:50)
[2017-12-08] MEDS: DOCUSATE SODIUM 100 MG CAP PO SCH ×2 (08:14→20:49)
[2017-12-08] MEDS: SILDENAFIL CITRATE 20 MG TAB PO SCH ×3 (08:14→18:06)
[2017-12-08] MEDS: THIAMINE HCL 100 MG TAB PO SCH (08:14)
[2017-12-08] MEDS: ARTIFICIAL TEARS OPTH SOLN 15 ML BTL EACH EYE SCH ×3 (08:14→17:43)
[2017-12-08] MEDS: PANTOPRAZOLE SODIUM 40 MG VIAL IVP SCH (08:14)
--- NOTE | 2017-12-08 11:08 | HHI.PR ---
Subjective Remarks WANTS TO GO LIVE IN [place] NEAR HIS DAUGHTER NO NEW COMPLAINTS [facility] RN AND PT NEEDS PLACEMENT CONSULT CASE MANAGEMENT FOR HELP WITH FAMILY FOR SNF AM LABS 12-07 case management working on placement in [place]AR THE DAUGHTER NO NEW COMPLAINTS DW RN AND PT 12-08 TOLERATING PUREED AND HONEY THICK LIQUID DIET TRANSFER TO SNF WHEN BED AVAILABLE AWAIT FAMILY DECISION IN [place] AND [facility] ACCEPTANCE Objective Vitals Vital Signs Date Time Temp Pulse Resp B/P (MAP) Pulse Ox O2 Delivery O2 Flow Rate FiO2 12/08/17 08:00 98.3 60 19 165/86 (112) 93 12/08/17 07:15 93 Room Air 12/08/17 07:15 60 12/08/17 04:00 98.6 70 19 132/71 (91) 91 12/08/17 00:00 98.6 72 24 129/57 (81) 95 12/07/17 20:00 98.4 73 24 131/71 (91) 98 12/07/17 19:15 73 12/07/17 19:00 98 Room Air 12/07/17 16:00 97.9 78 24 120/61 (80) 93 12/07/17 12:00 97.9 62 22 127/63 (84) 95 I/O 12/07/17 12/07/17 12/07/17 12/08/17 12/08/17 12/08/17 07:00 15:00 23:00 07:00 15:00 23:00 Intake Total 600 ml Output Total 350 ml 1175 ml 725 ml Balance -350 ml -575 ml -725 ml Intake Oral 600 ml Output Urine Total 350 ml 1175 ml 725 ml # Voids 3 3 # Bowel Movements 0 1 0 Result Diagram: 12/07/17 0437 12/07/17 0437 Other Results Laboratory Tests Test 12/07/17 04:37 White Blood Count 7.5 TH/MM3 Red Blood Count 3.35 MIL/MM3 Hemoglobin 10.2 GM/DL Hematocrit 29.9 % Mean Corpuscular Volume 89.3 FL Mean Corpuscular Hemoglobin 30.5 PG Mean Corpuscular Hemoglobin Concent 34.2 % Red Cell Distribution Width 15.3 % Platelet Count 277 TH/MM3 Mean Platelet Volume 8.7 FL Neutrophils (%) (Auto) 69.5 % Lymphocytes (%) (Auto) 15.6 % Monocytes (%) (Auto) 10.2 % Eosinophils (%) (Auto) 3.9 % Basophils (%) (Auto) 0.8 % Neutrophils # (Auto) 5.2 TH/MM3 Lymphocytes # (Auto) 1.2 TH/MM3 Monocytes # (Auto) 0.8 TH/MM3 Eosinophils # (Auto) 0.3 TH/MM3 Basophils # (Auto) 0.1 TH/MM3 CBC Comment DIFF FINAL Differential Comment Blood Urea Nitrogen 15 MG/DL Creatinine 0.83 MG/DL Random Glucose 110 MG/DL Total Protein 6.1 GM/DL Albumin 2.4 GM/DL Calcium Level 8.3 MG/DL Phosphorus Level 1.7 MG/DL Magnesium Level 1.4 MG/DL Alkaline Phosphatase 87 U/L Aspartate Amino Transf (AST/SGOT) 36 U/L Alanine Aminotransferase (ALT/SGPT) 44 U/L Total Bilirubin 0.3 MG/DL Sodium Level 135 MEQ/L Potassium Level 3.7 MEQ/L Chloride Level 94 MEQ/L Carbon Dioxide Level 32.1 MEQ/L Anion Gap 9 MEQ/L Estimat Glomerular Filtration Rate 91 ML/MIN Imaging Last Impressions Elbow X-Ray 12/05/17 0000 Signed Impressions: Service Date/Time: Tuesday, December 05, 2017 02:09 - CONCLUSION: 1. Prior fractures of the proximal radius and ulna with hypertrophic bone formation around the distal humerus and proximal forearm. No acute fractures seen. Gio Israel MD Head CT 12/01/17 0000 Signed Impressions: Service Date/Time: Friday, December 01, 2017 16:57 - CONCLUSION: 1. Essentially stable head CT compared with November 26. Right subdural drain present with adjacent stable apparent hemorrhage measuring up to about 13 mm in diameter. Gio Israel MD Chest X-Ray 11/25/17 0000 Signed Impressions: Service Date/Time: Saturday, November 25, 2017 13:17 - CONCLUSION: 1. Persistent small left pneumothorax. 2. New left lung base consolidation and small pleural effusion. 3. Mild bilateral interstitial opacity indicating mild pulmonary edema. Adriano Blair MD Brain MRI 11/21/17 0727 Signed Impressions: Service Date/Time: Tuesday, November 21, 2017 10:11 - CONCLUSION: 1. 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 2. Scattered nonspecific white matter signal change. No focal abnormal areas of enhancement. 3. Small focal area of restricted diffusion in the left posterior medial cerebellar hemisphere suggesting an acute infarction; however, no signal abnormality is seen in this area on any of the other pulse sequences. Oswaldo Alicea MD Skull X-Ray 11/21/17 0000 Signed Impressions: Service Date/Time: Tuesday, November 21, 2017 09:47 - CONCLUSION: No contraindication to MRI seen. Oswaldo Alicea MD Abdomen X-Ray 11/21/17 0000 Signed Impressions: Service Date/Time: Tuesday, November 21, 2017 09:45 - CONCLUSION: No contraindication to MRI seen. Oswaldo Alicea MD Chest CT 11/17/17 0000 Signed Impressions: Service Date/Time: Friday, November 17, 2017 20:57 - CONCLUSION: 1. Foreign body at the level of the thoracic inlet, appears to be a coin within the esophagus. 2. Bilateral pneumonia. Please see above. Aman Bermeo MD Objective Remarks GENERAL: AWAKE AND ALERT CURRENTLY--IN NO ACUTE DISTRESS AT THIS TIME SKIN: Warm and dry. HEAD: Atraumatic. Normocephalic. EYES: Pupils equal and round. No scleral icterus. No injection or drainage. ENT: No nasal bleeding or discharge. Mucous membranes pink and moist.TONGUE MIDLINE NECK: Trachea midline. No JVD. SUPPLE CARDIOVASCULAR: Regular rate and rhythm. S1, S2 NO S3 OR S4 RESPIRATORY: No accessory muscle use. Clear to auscultation. Breath sounds equal bilaterally. GASTROINTESTINAL: Abdomen soft, non-tender, nondistended. Hepatic and splenic margins not palpable. MUSCULOSKELETAL: Extremities without clubbing, cyanosis, or edema. No obvious deformities. NEUROLOGICAL: Awake and alert. No obvious cranial nerve deficits. Motor grossly within normal limits. 4 out of 5 muscle strength in the arms and legs. Normal speech. LEFT UPPER EXTREMITY IS FLACCID- FROM OLD INJURY A CHILD- NOT DUE TO CVA PSYCHIATRIC: INAppropriate mood and affect; insight and judgment ABnormal. Procedures 11/21/17 endotracheal intubation 11/21/17 right frontal/temporal/parietal craniotomy with evacuation of subdural hematoma 11/21/17 left frontal ash hole with placement of an intracranial pressure monitor Medications and IVs Current Medications Sodium Chloride (NS Flush) 2 ml UNSCH PRN IVF FLUSH AFTER USING IV ACCESS; Start 11/17/17 at 20:15; Stop 11/24/17 at 07:34; Status DC Albuterol/ Ipratropium (Duoneb Neb) 2 ampule ONCE ONCE NEB Last administered on 11/17/17at 20:22; Start 11/17/17 at 20:15; Stop 11/17/17 at 20:16; Status DC Cefepime HCl 2000 mg/Sodium Chloride 100 ml @ 200 mls/hr ONCE ONCE IV Last administered on 11/17/17at 23:12; Start 11/17/17 at 20:30; Stop 11/17/17 at 20:59 ; Status DC Azithromycin 500 mg/Sodium Chloride 250 ml @ 250 mls/hr ONCE ONCE IV Last administered on 11/17/17at 22:13; Start 11/17/17 at 20:30; Stop 11/17/17 at 21:29 ; Status DC Etomidate (Amidate Inj) 40 mg STK-MED ONCE .ROUTE Last administered on at 21:47; Start 11/17/17 at 21:17; Stop 11/17/17 at 21:18; Status DC Etomidate (Amidate Inj) 20 mg ONCE ONCE IV PUSH Last administered on at 22:11; Start 11/17/17 at 21:30; Stop 11/17/17 at 21:31; Status DC Succinylcholine Chloride (Quelicin Inj) 100 mg ONCE ONCE IV PUSH Last administered on 11/17/17at 22:14; Start 11/17/17 at 21:30; Stop 11/17/17 at 21:31 ; Status DC Propofol 100 ml @ 0 mls/hr TITRATE PRN IV SEDATION Last administered on at 21:42; Start 11/17/17 at 21:30; Stop 11/17/17 at 22:55; Status DC Propofol 50 ml @ As Directed STK-MED ONCE .ROUTE ; Start 11/17/17 at 21:18; Stop 11/17/17 at 21:19; Status DC Sodium Chloride 1,000 ml @ 999 mls/hr BOLUS ONCE IV Last administered on 11/17at 22:10; Start 11/17/17 at 21:45; Stop 11/17/17 at 22:45; Status DC Aspirin (Aspirin Supp) 300 mg ONCE ONCE RECTAL Last administered on 11/17/17at 22:06; Start 11/17/17 at 21:45; Stop 11/17/17 at 21:46; Status DC Sodium Chloride 1,000 ml @ 125 mls/hr Q8H IV Last administered on 11/21/17at 04: 44; Start 11/17/17 at 22:40; Stop 11/22/17 at 16:57; Status DC Sodium Chloride (NS Flush) 2 ml UNSCH PRN IV FLUSH FLUSH AFTER USING IV ACCESS ; Start 11/17/17 at 22:45 Sodium Chloride (NS Flush) 2 ml BID IV FLUSH Last administered on 12/08/17at 08: 14; Start 11/18/17 at 09:00 Acetaminophen (Tylenol) 650 mg Q6H PRN PO PAIN 1-5 AND/OR FEVER >101F; Start at 22:45 Morphine Sulfate (Morphine Inj) 2 mg Q2H PRN IV PUSH PAIN SCALE 6 TO 10; Start 11/17/17 at 22:45; Stop 11/20/17 at 20:07; Status DC Famotidine (Pepcid Inj) 20 mg Q12HR IV PUSH Last administered on 11/19/17at 09: 00; Start 11/18/17 at 09:00; Stop 11/19/17 at 12:14; Status DC Famotidine (Pepcid) 20 mg Q12HR PO ; Start 11/18/17 at 09:00; Stop 11/18/17 at 09:00; Status DC Midazolam HCl (Versed Inj) 2 mg Q1H PRN IV PUSH SEDATION Last administered on at 23:17; Start 11/17/17 at 22:45; Stop 11/21/17 at 07:28; Status DC Artificial Tears (Tears Naturale Opth Soln) 1 drop TID EACH EYE Last administered on 11/24/17at 12:43; Start 11/18/17 at 09:00; Stop 11/24/17 at 15:12; Status DC Ondansetron HCl (Zofran Inj) 4 mg Q6H PRN IV PUSH NAUSEA OR VOMITING; Start at 22:45 Albuterol/ Ipratropium (Duoneb Neb) 1 ampule Q2HR NEB PRN INH WHEEZING; Start 11/17/17 at 22:45; Stop 11/24/17 at 07:31; Status DC Miscellaneous Information ([facility] [place] Nursing Information) 1 [id number] Last administered on 11/18/17at 00:59; Start 11/17/17 at 22:45 Chlorhexidine Gluconate (Chlorhexidine 2% Cloth) 3 pack Taper DAILY@04 TOP Last administered on 12/08/17at 03:42; Start 11/18/17 at 04:00; Stop 11/14/18 at 03:59 Chlorhexidine Gluconate (Chlorhexidine 2% Cloth) 3 pack UNSCH PRN TOP HYGIENIC CARE; Start 11/17/17 at 22:45 Senna/Docusate Sodium (Luisa-Colace) 1 tab BID PO Last administered on 11/23/17at 21:49; Start 11/18/17 at 09:00; Stop 11/24/17 at 07:33; Status DC Magnesium Hydroxide (Milk Of Magnesia Liq) 30 ml Q12H PRN PO Mild constipation ; Start 11/17/17 at 22:45 Sennosides (Senokot) 17.2 mg Q12H PRN PO Moderate constipation; Start 11/17/17 at 22:45 Bisacodyl (Dulcolax Supp) 10 mg DAILY PRN RECTAL SEVERE CONSITIPATION/ IF NPO ; Start 11/17/17 at 22:45 Lactulose (Lactulose Liq) 30 ml DAILY PRN PO SEVERE CONSITIPATION/ IF PO; Start 11/17/17 at 22:45 Chlorhexidine Gluconate (Peridex 0.12% Liq) 15 ml BID@08,20 MT Last administered on 11/23/17at 08:00; Start 11/18/17 at 08:00; Stop 11/24/17 at 07:33; Status DC Propofol 100 ml @ 1.53 mls/hr TITRATE PRN IV SEDATION Last administered on 11/21at 13:28; Start 11/17/17 at 22:45; Stop 11/21/17 at 15:52; Status DC Albuterol/ Ipratropium (Duoneb Neb) 1 ampule Q6HR WHILE AWAKE NEB NEB Last administered on 11/21/17at 11:23; Start 11/18/17 at 08:00; Stop 11/21/17 at 17:59; Status DC Potassium Chloride 100 ml @ 50 mls/hr Q2H PRN IV For Potassium 2.8 - 3.2 mEq/ L Last administered on 11/29/17at 10:45; Start 11/17/17 at 23:30; Stop 11/30/17 at 13:19; Status DC Potassium Chloride 100 ml @ 50 mls/hr Q2H PRN IV For Potassium 2.8 - 3.2 mEq/ L Last administered on 11/20/17at 12:21; Start 11/17/17 at 23:30; Stop 11/30/17 at 13:19; Status DC Potassium Bicarb/ Potassium Chloride (K-Lyte Cl Eff) 50 meq UNSCH PRN PO For Potassium 3.3 - 3.5 mEq/L; Start 11/17/17 at 23:30; Stop 11/30/17 at 13:19; Status DC Potassium Chloride 100 ml @ 25 mls/hr UNSCH PRN IV For Potassium 3.3 - 3.5 mEq /L; Start 11/17/17 at 23:30; Stop 11/30/17 at 13:19; Status DC Potassium Chloride 100 ml @ 50 mls/hr Q2H PRN IV For Potassium 3.3 - 3.5 mEq/ L Last administered on 11/21/17at 05:02; Start 11/17/17 at 23:30; Stop 11/21/17 at 05:24; Status DC Magnesium Sulfate 4 gm/Sodium Chloride 100 ml @ 50 mls/hr UNSCH PRN IV For Magnesium 0.9 - 1.1 mg/dL; Start 11/17/17 at 23:30; Stop 11/30/17 at 13:19; Status DC Magnesium Oxide (Mag-Ox) 800 mg UNSCH PRN PO For Magnesium 1.2 - 1.6 mg/dL; Start 11/17/17 at 23:30; Stop 11/30/17 at 13:19; Status DC Magnesium Sulfate 2 gm/Sodium Chloride 100 ml @ 50 mls/hr UNSCH PRN IV For Magnesium 1.2 - 1.6 mg/dL Last administered on 11/21/17at 11:54; Start 11/17/17 at 23:30; Stop 11/30/17 at 13:19; Status DC Potassium Phosphate (K-Phos) 2,000 mg Q4H PRN PO For Phosphorus < 2.5 mg/dL Last administered on 11/20/17at 14:59; Start 11/17/17 at 23:30; Stop 11/30/17 at 13:19; Status DC Sodium Phosphate 30 mmol/Sodium Chloride 250 ml @ 42 mls/hr UNSCH PRN IV For Phosphorus < 2.5 mg/dL Last administered on 11/20/17at 21:44; Start 11/17/17 at 23:30; Stop 11/30/17 at 13:19; Status DC Potassium Phosphate (K-Phos) 2,000 mg UNSCH PRN PO/TUBE SEE LABEL COMMENTS; Start 11/17/17 at 23:30; Stop 11/30/17 at 13:19; Status DC Potassium Phosphate 30 mmol/ Sodium Chloride 260 ml @ 42 mls/hr UNSCH PRN IV SEE LABEL COMMENTS; Start 11/17/17 at 23:30; Stop 11/30/17 at 13:19; Status DC Ampicillin Sodium/ Sulbactam Sodium (Unasyn Inj) 3 gm Q6H IM ; Start 11/18/17 at 06:30; Status Cancel Ampicillin Sodium/ Sulbactam Sodium 3 gm/Sodium Chloride 100 ml @ 200 mls/hr Q6H IV Last administered on 11/21/17at 13:27; Start 11/18/17 at 07:00; Stop at 17:59; Status DC Enoxaparin Sodium (Lovenox Inj) 40 mg Q24H SQ Last administered on 11/20/17at 09 :00; Start 11/19/17 at 09:00; Stop 11/21/17 at 13:31; Status DC Miscellaneous Information ([facility] [place] Nursing Information) ALL NURSING DEPARTME... UNSCH PRN .XX SEE LABEL COMMENTS; Start 11/18/17 at 12:30; Stop 11/19/17 at 12: 29; Status DC Pantoprazole Sodium (Protonix) 40 mg Q12HR PO Last administered on 11/23/17at 21: 50; Start 11/19/17 at 21:00; Stop 11/24/17 at 15:12; Status DC Magnesium Sulfate/ Dextrose 100 ml @ 100 mls/hr Q1H IV Last administered on at 10:15; Start 11/20/17 at 09:15; Stop 11/20/17 at 11:14; Status DC Potassium Chloride (KCl) 80 meq ONCE ONCE PO ; Start 11/20/17 at 09:15; Stop at 09:16; Status DC Sodium Chloride (NS Flush) 2 ml UNSCH PRN IV FLUSH FLUSH AFTER USING IV ACCESS ; Start 11/20/17 at 13:00; Status UNV Sodium Chloride (NS Flush) 2 ml BID IV FLUSH ; Start 11/20/17 at 21:00; Status UNV Folic Acid (Folate) 1 mg DAILY PO Last administered on 11/25/17at 08:27; Start at 13:00; Stop 11/25/17 at 12:59; Status DC Thiamine HCl (Vitamin B1) 100 mg DAILY PO Last administered on 12/08/17at 08:14 ; Start 11/20/17 at 13:00 Multivitamins/ Minerals Therapeutic (Theragran M Tab) 1 tab DAILY PO Last administered on 11/25/17at 08:27; Start 11/20/17 at 13:00; Stop 11/25/17 at 12:59; Status DC Ondansetron HCl (Zofran Inj) 4 mg Q6H PRN IV PUSH NAUSEA OR VOMITING; Start at 13:00; Status UNV Famotidine (Pepcid) 20 mg BID PO ; Start 11/20/17 at 21:00; Status UNV Clonidine (Catapres) 0.1 mg Q6H PRN PO SEE LABEL COMMENTS; Start 11/20/17 at 13 :00 Flumazenil (Romazicon Inj) 0.2 mg Q1M PRN IV PUSH SEE LABEL COMMENTS; Start at 13:00 Lorazepam (Ativan) 1 mg Q4H PRN PO CIWA 8 - 10; Start 11/20/17 at 13:00; Stop 11/21/17 at 07:28; Status DC Lorazepam (Ativan Inj) 1 mg Q4H PRN IV PUSH CIWA 8 - 10; Start 11/20/17 at 13: 00; Stop 11/21/17 at 07:28; Status DC Lorazepam (Ativan) 2 mg Q2H PRN PO CIWA 11-14; Start 11/20/17 at 13:00; Stop at 07:28; Status DC Lorazepam (Ativan Inj) 2 mg Q2H PRN IV PUSH CIWA 11-14 Last administered on at 18:47; Start 11/20/17 at 13:00; Stop 11/21/17 at 07:28; Status DC Lorazepam (Ativan Inj) 2 mg Q1H PRN IV PUSH CIWA 15-20 Last administered on at 17:42; Start 11/20/17 at 13:00; Stop 11/21/17 at 07:28; Status DC Lorazepam (Ativan Inj) 2 mg Q15M PRN IV PUSH CIWA > 20; Start 11/20/17 at 13:00 ; Stop 11/21/17 at 07:28; Status DC Haloperidol Lactate (Haldol Inj) 2 mg Q15M PRN IM SEE LABEL COMMENTS; Start at 13:00; Stop 11/21/17 at 07:28; Status DC Rocuronium [place] (Zemuron Inj) 50 mg STK-MED ONCE IV PUSH ; Start 11/18/17 at 12:00; Stop 11/20/17 at 13:06; Status DC Levetriacetam 500 mg/Sodium Chloride 105 ml @ 420 mls/hr BOLUS ONCE IV Last administered on 11/20/17at 14:00; Start 11/20/17 at 14:00; Stop 11/20/17 at 14:14 ; Status DC Levetriacetam 500 mg/Sodium Chloride 105 ml @ 420 mls/hr Q12HR IV Last administered on 11/21/17at 20:50; Start 11/20/17 at 21:00; Stop 11/22/17 at 17:22; Status DC Levetriacetam 500 mg/Sodium Chloride 105 ml @ 420 mls/hr BOLUS ONCE IV Last administered on 11/20/17at 15:00; Start 11/20/17 at 15:00; Stop 11/20/17 at 15:14 ; Status DC Morphine Sulfate (Morphine Inj) 2 mg Q2H PRN IV PUSH PAIN SCALE 6 TO 10; Start 11/20/17 at 20:15; Stop 11/21/17 at 07:28; Status DC Potassium Chloride 20 meq/ Sodium Chloride 110 ml @ 50 mls/hr Q2H PRN IV For Potassium 3.3 - 3.5 mEq/L Last administered on 11/21/17at 06:43; Start 11/21/17 at 05:30; Stop 11/30/17 at 13:19; Status DC Furosemide (Lasix Inj) 40 mg STK-MED ONCE .ROUTE ; Start 11/21/17 at 07:50; Stop 11/21/17 at 07:51; Status DC Furosemide (Lasix Inj) 40 mg NOW ONCE IV PUSH Last administered on 11/21/17at 08 :45; Start 11/21/17 at 08:45; Stop 11/21/17 at 08:46; Status DC Gadodiamide (Omniscan Pf Inj) 20 ml STK-MED ONCE IVCONTRAST ; Start 11/21/17 at 10:30; Stop 11/21/17 at 10:31; Status DC Gadodiamide (Omniscan Pf Inj) 12 ml STK-MED ONCE IVCONTRAST ; Start 11/21/17 at 10:31; Stop 11/21/17 at 10:32; Status DC Levothyroxine Sodium (Synthroid Inj) 25 mcg ONCE ONCE IV PUSH ; Start 11/21/17 at 10:45; Stop 11/21/17 at 11:54; Status DC Levothyroxine Sodium (Synthroid Inj) 25 mcg DAILY@06 IV PUSH Last administered on 11/30/17at 06:46; Start 11/22/17 at 06:00; Stop 12/01/17 at 08:24; Status DC Multivitamins 10 ml/Folic Acid 1 mg/Sodium Chloride 510.2 ml @ 125 mls/hr Q24H IV Last administered on 11/25/17at 13:59; Start 11/21/17 at 13:00; Stop 11/26/17 at 12:59; Status DC Thiamine HCl 100 mg/Sodium Chloride 101 ml @ 100 mls/hr Q24H IV Last administered on 11/23/17at 12:45; Start 11/21/17 at 12:00; Stop 11/24/17 at 11:59; Status DC Enalaprilat (Vasotec Inj) 1.25 mg Q6H PRN IV PUSH SEE LABEL COMMENTS; Start 11/21/17 at 10:45 Labetalol HCl (Trandate Inj) 10 mg Q6H PRN IV PUSH SEE LABEL COMMENTS; Start at 10:45 Hydralazine HCl (Apresoline Inj) 10 mg Q6H PRN IV PUSH SEE LABEL COMMENTS Last administered on 11/28/17at 13:31; Start 11/21/17 at 10:45 Mannitol 100 ml @ As Directed STK-MED ONCE .ROUTE ; Start 11/21/17 at 11:59; Stop 11/21/17 at 12:00; Status DC Etomidate (Amidate Inj) 40 mg STK-MED ONCE .ROUTE ; Start 11/21/17 at 11:59; Stop 11/21/17 at 12:00; Status DC Succinylcholine Chloride (Quelicin Inj) 200 mg STK-MED ONCE .ROUTE ; Start at 12:00; Stop 11/21/17 at 12:01; Status DC Etomidate (Amidate Inj) 20 mg ONCE ONCE IV PUSH Last administered on 11/21/17at 12:00; Start 11/21/17 at 12:00; Stop 11/21/17 at 13:00; Status DC Succinylcholine Chloride (Quelicin Inj) 120 mg ONCE ONCE IV PUSH ; Start at 12:00; Stop 11/21/17 at 12:01; Status Cancel Rocuronium [place] (Zemuron Inj) 50 mg BOLUS ONCE IV ; Start 11/21/17 at 12:00; Stop 11/21/17 at 13:00; Status DC Propofol 100 ml @ 1.815 mls/ hr TITRATE PRN IV SEDATION Last administered on at 03:11; Start 11/21/17 at 12:00; Stop 11/28/17 at 10:52; Status DC Mannitol (Mannitol Inj) 25 gm ONCE ONCE IV Last administered on 11/21/17at 12:30 ; Start 11/21/17 at 12:00; Stop 11/21/17 at 13:00; Status DC Fentanyl Citrate (fentaNYL INJ) 100 mcg ONCE ONCE IV PUSH Last administered on 11/21/17at 12:00; Start 11/21/17 at 12:00; Stop 11/21/17 at 13:00; Status DC Propofol 50 ml @ As Directed STK-MED ONCE .ROUTE ; Start 11/21/17 at 12:05; Stop 11/21/17 at 12:06; Status DC Fentanyl Citrate (fentaNYL INJ) 100 mcg STK-MED ONCE .ROUTE ; Start 11/21/17 at 12:09; Stop 11/21/17 at 12:10; Status DC Microfibriller Collagen Hemostat (Avitene Bandage) 1 bandage STK-MED ONCE .ROUTE Last administered on 11/21/17at 15:04; Start 11/21/17 at 12:27; Stop at 12:28; Status DC Lidocaine/ Epinephrine (Xylocaine-Epi 1%-1:100,000 Inj) 30 ml STK-MED ONCE .ROUTE Last administered on 11/21/17at 15:04; Start 11/21/17 at 12:28; Stop at 12:29; Status DC Cefazolin Sodium (Ancef Inj) 1,000 mg STK-MED ONCE .ROUTE ; Start 11/21/17 at 12: 28; Stop 11/21/17 at 12:29; Status DC Thrombin (Thrombin Top Soln) 10,000 units STK-MED ONCE .ROUTE Last administered on 11/21/17at 15:04; Start 11/21/17 at 12:28; Stop 11/21/17 at 12:29; Status DC Gelatin (Gelfoam 100 Top) 1 foam STK-MED ONCE .ROUTE Last administered on at 15:04; Start 11/21/17 at 12:28; Stop 11/21/17 at 12:29; Status DC Gentamicin Sulfate (Gentamicin Inj) 240 mg STK-MED ONCE .ROUTE Last administered on 11/21/17at 15:04; Start 11/21/17 at 12:29; Stop 11/21/17 at 12:30; Status DC Gelatin (Gelfoam 100 Top) 1 foam STK-MED ONCE .ROUTE ; Start 11/21/17 at 12:29; Stop 11/21/17 at 12:30; Status DC Vancomycin HCl (Vancomycin Inj) 1,000 mg STK-MED ONCE .ROUTE Last administered on 11/21/17at 14:55; Start 11/21/17 at 12:42; Stop 11/21/17 at 12:43; Status DC Cefazolin Sodium/ Dextrose 50 ml @ As Directed STK-MED ONCE .ROUTE ; Start at 12:42; Stop 11/21/17 at 12:43; Status DC Sodium Chloride 250 ml @ As Directed STK-MED ONCE .ROUTE ; Start 11/21/17 at 12: 42; Stop 11/21/17 at 12:43; Status DC Sodium Chloride 188 meq/Sodium Chloride 1,047 ml @ 20 mls/hr Q24H IV Last administered on 11/22/17at 12:43; Start 11/21/17 at 13:00; Stop 11/22/17 at 16:57; Status DC Fentanyl Citrate 250 ml @ 5 mls/hr TITRATE PRN IV SEDATION Last administered on 11/24/17at 19:54; Start 11/21/17 at 13:00; Stop 11/25/17 at 13:08; Status DC Artificial Tears (Tears Naturale Opth Soln) 1 drop TID EACH EYE Last administered on 12/08/17at 08:14; Start 11/21/17 at 13:00 Albuterol/ Ipratropium (Duoneb Neb) 1 ampule Q6HR NEB INH Last administered on 11/21/17at 16:00; Start 11/21/17 at 16:00; Stop 11/21/17 at 18:48; Status DC Albuterol/ Ipratropium (Duoneb Neb) 1 ampule Q2HR NEB PRN INH WHEEZING; Start 11/21/17 at 13:00; Stop 11/28/17 at 21:55; Status DC Senna/Docusate Sodium (Luisa-Colace) 1 tab BID PO Last administered on 11/24/17at 08:15; Start 11/21/17 at 21:00; Stop 11/24/17 at 15:12; Status DC Succinylcholine Chloride (Quelicin Inj) 120 mg ONCE ONCE IV PUSH Last administered on 11/21/17at 12:00; Start 11/21/17 at 13:15; Stop 11/21/17 at 13:19; Status DC Chlorhexidine Gluconate (Peridex 0.12% Liq) 15 ml BID@08,20 MT Last administered on 12/04/17at 08:00; Start 11/21/17 at 20:00; Stop 12/05/17 at 04:47 ; Status DC Levetriacetam (Keppra Inj) 1,000 mg STK-MED ONCE IV ; Start 11/21/17 at 13:15; Stop 11/21/17 at 13:16; Status DC Potassium Chloride/Sodium Chloride 1,000 ml @ 100 mls/hr Q10H IV Last administered on 11/25/17at 04:53; Start 11/21/17 at 15:00; Stop 11/25/17 at 13:08; Status DC Cefazolin Sodium/ Dextrose 50 ml @ 100 mls/hr Q8H IV ; Start 11/21/17 at 16:00; Stop 11/21/17 at 18:52; Status DC Levetriacetam 500 mg/Sodium Chloride 105 ml @ 400 mls/hr Q12H IV Last administered on 11/22/17at 06:29; Start 11/21/17 at 18:00; Stop 11/22/17 at 10:19; Status DC Bisacodyl (Dulcolax Supp) 10 mg DAILY PRN RECTAL CONSTIPATION; Start 11/21/17 at 15:00; Stop 11/22/17 at 10:19; Status DC Docusate Sodium (Colace) 100 mg BID PO Last administered on 12/08/17at 08:14; Start 11/21/17 at 21:00 Pantoprazole Sodium (Protonix) 40 mg DAILY PO ; Start 11/22/17 at 09:00; Stop 11/24/17 at 15:12; Status DC Pantoprazole Sodium (Protonix Inj) 40 mg DAILY IVP Last administered on at 08:14; Start 11/22/17 at 09:00 Ondansetron HCl (Zofran Inj) 4 mg Q6H PRN IV PUSH NAUSEA OR VOMITING; Start 11/21/17 at 15:00; Stop 11/22/17 at 10:19; Status DC Calcium Gluconate (Calcium Gluconate Inj) 1 gm UNSCH PRN IV SEE LABEL COMMENTS ; Start 11/21/17 at 15:00 Potassium Chloride 100 ml @ 50 mls/hr UNSCH PRN IV POTASSIUM LESS THAN 4; Start 11/21/17 at 15:00; Stop 11/30/17 at 13:19; Status DC Magnesium Sulfate 4 gm/Sodium Chloride 108 ml @ 108 mls/hr UNSCH PRN IV MAGNESIUM LESS THAN 2; Start 11/21/17 at 15:00; Stop 11/30/17 at 13:19; Status DC Acetaminophen/ Hydrocodone Bitart ([place] 10-325 Mg) 1 tab Q4H PRN PO PAIN SCALE 1 TO 5 Last administered on 11/30/17at 00:12; Start 11/21/17 at 15:00 Acetaminophen/ Hydrocodone Bitart ([place] 10-325 Mg) 2 tab Q4H PRN PO PAIN SCALE 6 TO 10 Last administered on 12/02/17at 20:24; Start 11/21/17 at 15:00 Morphine Sulfate (Morphine Inj) 2 mg Q2H PRN IV PUSH PAIN SCALE 1 TO 6; Start 11/21/17 at 15:00; Stop 11/29/17 at 08:55; Status DC Morphine Sulfate (Morphine Inj) 4 mg Q2H PRN IV PUSH PAIN SCALE 7 TO 10; Start 11/21/17 at 15:00; Stop 11/29/17 at 08:55; Status DC Acetaminophen (Tylenol) 650 mg Q4H PRN PO TEMPERATURE > 101.5 F; Start 11/21/17 at 15:00 Bacitracin (Baciguent Oint) 15 applic STK-MED ONCE .ROUTE ; Start 11/21/17 at 15: 56; Stop 11/21/17 at 15:57; Status DC Phenylephrine HCl (Neosynephrine Inj) 40 mg STK-MED ONCE .ROUTE Last administered on 11/21/17at 16:34; Start 11/21/17 at 16:34; Stop 11/21/17 at 16:35; Status DC Phenylephrine HCl (Neosynephrine Inj) 30 mg STK-MED ONCE .ROUTE Last administered on 11/21/17at 16:40; Start 11/21/17 at 16:40; Stop 11/21/17 at 16:41; Status DC Midazolam HCl (Versed Inj) 2 mg STK-MED ONCE .ROUTE ; Start 11/21/17 at 16:58; Stop 11/21/17 at 16:59; Status DC Fentanyl Citrate (fentaNYL INJ) 200 mcg STK-MED ONCE .ROUTE ; Start 11/21/17 at 16:58; Stop 11/21/17 at 16:59; Status DC Miscellaneous Information ([facility] Nursing Information) ALL NURSING DEPARTME... UNSCH PRN .XX SEE LABEL COMMENTS; Start 11/21/17 at 16:29; Stop 11/22/17 at 16:28 ; Status DC Cefepime HCl 2000 mg/Sodium Chloride 100 ml @ 200 mls/hr Q12H IV Last administered on 11/29/17at 07:35; Start 11/21/17 at 21:00; Stop 11/29/17 at 09:29; Status DC Albuterol/ Ipratropium (Duoneb Neb) 1 ampule Q6HR WHILE AWAKE NEB NEB Last administered on 11/25/17at 12:20; Start 11/21/17 at 20:00; Stop 11/25/17 at 17:15; Status DC Ceftriaxone Sodium 2000 mg/ Sodium Chloride 100 ml @ 200 mls/hr Q24H IV Last administered on 11/28/17at 20:18; Start 11/21/17 at 20:00; Stop 11/29/17 at 08:54; Status DC Levetriacetam 500 mg/Sodium Chloride 105 ml @ 420 mls/hr Q12H IV Last administered on 12/08/17at 05:50; Start 11/22/17 at 06:00 Adenosine (Adenocard Inj) 6 mg STK-MED ONCE .ROUTE ; Start 11/23/17 at 12:16; Stop 11/23/17 at 12:17; Status DC Amiodarone HCl (Cordarone Inj) 150 mg STK-MED ONCE .ROUTE ; Start 11/23/17 at 12: 25; Stop 11/23/17 at 12:26; Status DC Magnesium Sulfate/ Dextrose 100 ml @ As Directed STK-MED ONCE .ROUTE ; Start at 12:25; Stop 11/23/17 at 12:26; Status DC Calcium Chloride (Calcium Chloride Inj) 1 gm STK-MED ONCE .ROUTE ; Start at 12:25; Stop 11/23/17 at 12:26; Status DC Calcium Chloride (Calcium Chloride Inj) 1 gm STK-MED ONCE .ROUTE ; Start at 12:27; Stop 11/23/17 at 12:28; Status DC Phenylephrine HCl (Neosynephrine Inj) 40 mg STK-MED ONCE .ROUTE ; Start 11/23/17 at 12:32; Stop 11/23/17 at 12:33; Status DC Amiodarone HCl 150 mg/Dextrose 103 ml @ 600 mls/hr Q11M ONCE IV Last administered on 11/23/17at 12:30; Start 11/23/17 at 13:03; Stop 11/23/17 at 13:13; Status DC Amiodarone HCl 450 mg/Dextrose 250 ml @ 33.33 mls/ hr Q7H31M PRN IV Per Protocol; Start 11/23/17 at 13:13; Stop 11/23/17 at 13:15; Status DC Calcium Chloride (Calcium Chloride Inj) 1 gm ONCE ONCE IV PUSH ; Start 11/23/17 at 13:15; Stop 11/23/17 at 13:15; Status DC Magnesium Sulfate/ Dextrose 100 ml @ 100 mls/hr ONCE ONCE IV Last administered on 11/23/17at 12:30; Start 11/23/17 at 13:15; Stop 11/23/17 at 14:14; Status DC Adenosine (Adenocard Inj) 6 mg ONCE ONCE IV PUSH Last administered on at 12:20; Start 11/23/17 at 13:15; Stop 11/23/17 at 13:16; Status DC Phenylephrine HCl 40 mg/Dextrose 500 ml @ 30 mls/hr TITRATE PRN IV Blood pressure management; Start 11/23/17 at 13:15; Stop 11/28/17 at 10:52; Status DC Terbutaline Sulfate (Brethine Inj) 1 mg UNSCH PRN SQ For Extravasation; Start 11/23/17 at 13:15 Calcium Gluconate 1 gm/Sodium Chloride 110 ml @ 110 mls/hr ONCE ONCE IV ; Start 11/23/17 at 13:15; Stop 11/23/17 at 14:14; Status Cancel Calcium Chloride 1 gm/Sodium Chloride 110 ml @ 110 mls/hr ONCE ONCE IV ; Start 11/23/17 at 13:15; Stop 11/23/17 at 14:14; Status Cancel Amiodarone HCl 450 mg/Sodium Chloride 250 ml @ 33.33 mls/ hr Q7H31M PRN IV Per Protocol Last administered on 11/25/17at 20:11; Start 11/23/17 at 13:30; Stop at 15:31; Status DC Lactated Ringer's 1,000 ml @ As Directed STK-MED ONCE IV ; Start 11/21/17 at 12: 00; Stop 11/23/17 at 14:24; Status DC Sodium Chloride 250 ml @ As Directed STK-MED ONCE IV ; Start 11/21/17 at 12:00; Stop 11/23/17 at 14:24; Status DC Parenteral Electrolytes 1,000 ml @ As Directed STK-MED ONCE IV ; Start 11/21/17 at 12:00; Stop 11/23/17 at 14:24; Status DC Lidocaine HCl (Xylocaine-Mpf 1% Inj) 5 ml STK-MED ONCE OTHER ; Start 11/21/17 at 12:00; Stop 11/23/17 at 14:24; Status DC Rocuronium [place] (Zemuron Inj) 100 mg STK-MED ONCE IV PUSH ; Start 11/21/17 at 12:00; Stop 11/23/17 at 14:24; Status DC Phenylephrine HCl (Neosynephrine Inj) 10 mg STK-MED ONCE IV ; Start 11/21/17 at 12:00; Stop 11/23/17 at 14:24; Status DC Phenylephrine HCl (Neosynephrine/ NS 1000 Mcg/10ml Syr) 2,000 mcg STK-MED ONCE IV ; Start 11/21/17 at 12:00; Stop 11/23/17 at 14:24; Status DC Ephedrine Sulfate (ePHEDrine/NS 25 MG/5 ML SYR) 25 mg STK-MED ONCE IV ; Start at 12:00; Stop 11/23/17 at 14:24; Status DC Epinephrine HCl (Adrenalin (1:1000) Inj) 1 mg STK-MED ONCE IV ; Start 11/21/17 at 12:00; Stop 11/23/17 at 14:24; Status DC Dexamethasone Sodium Phosphate (Decadron Inj) 4 mg STK-MED ONCE IV ; Start at 12:00; Stop 11/23/17 at 14:24; Status DC Propofol (Diprivan 200 Mg/20 ml Inj) 200 mg STK-MED ONCE IV ; Start 11/21/17 at 12:00; Stop 11/23/17 at 14:24; Status DC Furosemide (Lasix Inj) 40 mg ONCE ONCE IV PUSH Last administered on 11/25/17at 14:00; Start 11/25/17 at 14:00; Stop 11/25/17 at 14:01; Status DC Dexmedetomidine HCl 200 mcg/ Sodium Chloride 52 ml @ 3.36 mls/hr TITRATE PRN IV SEDATION Last administered on 11/30/17at 07:16; Start 11/25/17 at 15:30; Stop 11/30/17 at 13:19; Status DC Fentanyl Citrate 250 ml @ 5 mls/hr TITRATE PRN IV SEDATION Last administered on 11/26/17at 09:12; Start 11/25/17 at 17:15; Stop 11/28/17 at 10:52; Status DC Albuterol/ Ipratropium (Duoneb Neb) 1 ampule Q6HR WHILE AWAKE NEB NEB Last administered on 11/28/17at 19:59; Start 11/25/17 at 20:00; Stop 11/28/17 at 21:55; Status DC Albumin Human 100 ml @ 60 mls/hr ONCE ONCE IV Last administered on 11/25/17at 17:15; Start 11/25/17 at 17:15; Stop 11/25/17 at 18:54; Status DC Norepinephrine Bitartrate 4 mg/ Sodium Chloride 250 ml @ 7.5 mls/hr TITRATE PRN IV Blood pressure management Last administered on 11/26/17at 17:28; Start 11/25 at 17:15; Stop 11/28/17 at 10:52; Status DC Terbutaline Sulfate (Brethine Inj) 1 mg UNSCH PRN SQ For Extravasation; Start 11/25/17 at 17:15 Amiodarone HCl (Cordarone) 400 mg DAILY OG-TUBE Last administered on 12/05/17at 08:59; Start 11/27/17 at 09:00; Stop 12/05/17 at 15:13; Status DC Norepinephrine Bitartrate 0 ml @ As Directed STK-MED ONCE IV ; Start 11/26/17 at 17:24; Stop 11/26/17 at 17:25; Status DC Albuterol/ Ipratropium (Duoneb Neb) 1 ampule Q6HR WHILE AWAKE NEB NEB Last administered on 12/02/17at 21:17; Start 11/29/17 at 08:00; Stop 12/03/17 at 07:59 ; Status DC Albuterol Sulfate (Albuterol Neb) 2.5 mg Q2HR NEB PRN NEB DYSPNEA; Start at 22:00 Ceftriaxone Sodium 2000 mg/ Sodium Chloride 100 ml @ 200 mls/hr Q24H IV Last administered on 12/07/17at 21:43; Start 11/29/17 at 20:00 Alprazolam (Xanax) 1 mg Q8H PRN PO ANXIETY Last administered on 12/01/17at 21:59 ; Start 11/30/17 at 13:15; Stop 12/02/17 at 10:16; Status DC Levothyroxine Sodium (Synthroid) 25 mcg DAILY@0600 PO Last administered on 12/08at 05:50; Start 12/01/17 at 06:00 Sildenafil Citrate (Revatio) 20 mg TID PO Last administered on 12/08/17at 08:14 ; Start 11/30/17 at 18:00 Tamsulosin HCl (Flomax) 0.4 mg HS PO Last administered on 12/07/17at 21:44; Start 11/30/17 at 21:00 Temazepam (Restoril) 30 mg HS PRN PO INSOMNIA Last administered on 12/02/17at 20 :54; Start 11/30/17 at 13:15 Enoxaparin Sodium (Lovenox Inj) 30 mg Q24H SQ Last administered on 12/07/17at 17 :30; Start 12/05/17 at 17:30 A/P Assessment and Plan 1. Percocet overdose 2. Aspiration pneumonia 3. Acute respiratory failure, intubated for airway protection -tolerated CPAP trial 4. Foreign body in the esophagus -extracted A PING 5. Elevated CPK -resolving 6. Elevated liver enzymes -found to have hepatitis C 7. History of emphysema on home O2 SEIZURE- SEEN ON EEG ALSO- LOAD AND START KEPPRA- DW RN AND PT AND NEUROLOGY HYPOKALEMIA WILL REPLACE HYPOMAGNESIA WILL REPLACE Right subdural hematoma with 8 mm midline shift, acute left posterior cerebellar infarct: -Appreciate neurology, neurosurgery recommendations. Status post right frontotemporoparietal craniotomy with evacuation of subdural hygroma. -No mural thrombus noted on echocardiogram, intact EF. Repeat head ct stable. All drains have been removed. 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 fib. Independent EKG reviews do not demonstrate A. fib to me at this time, may have been previously seen on a telemetry strip. I stopped amiodarone. Holter monitor ordered upon discharge. D/w NSG, clear to be placed on blood thinners per NSG as long as fall risk is thoroughly addressed. Hypokalemia: Likely due to poor nutrition, monitor and replace accordingly Aspiration pneumonia: continue Rocephin. procal still elevated. ST recommendations. Hep C: Likely cause of patient's transaminitis and coagulopathy with INR 1.2. No further intervention at this time. 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 chronic pulm arterial HTN: home sildenafil BPH: home Flomax DVT prophylaxis: heparin; cleared w/ NSG. PT AND OT AND ST AM LABS NEEDS SNF IN [facility] Discharge Planning cleared for discharge; pending SNF. Holter monitor ordered upon discharge to pickup afib. Clear to be placed on blood thinners w/ NSG so long fall risk is addressed. Ho Vargas DO December 08, 2017 11:08
[2017-12-08] MEDS ORDERED: SENN187 PO (11:14)
[2017-12-08] MEDS ORDERED: ENOX30P SQ (11:14)
[2017-12-08] MEDS ORDERED: PROT40TA PO (11:14)
[2017-12-08] MEDS ORDERED: TEMA30CA PO (11:14)
[2017-12-08] MEDS ORDERED: POLY99.0 EACH EYE (11:14)
[2017-12-08] MEDS ORDERED: Albuterol Neb NEB (11:14)
[2017-12-08] MEDS ORDERED: HYDR-3583 PO (11:14)
[2017-12-08] MEDS ORDERED: ACET325T15 PO ×2 (11:14)
[2017-12-08] MEDS ORDERED: ALPR1TAB3 PO (11:14)
[2017-12-08] MEDS ORDERED: LEVE500 PO (11:18)
[2017-12-08] MEDS ORDERED: CEFU1TAB18 PO (11:18)
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
--- NOTE | 2017-12-08 12:14 | HM ---
Date Performed: 12/06/2017 Time Performed: 10:35:00 HOOKUP DATE: 12/06/17 10:35:00 AM Wed ANALYSIS START TIME: 12/06/2017 10:40:00 AM ANALYSIS END TIME: 12/07/2017 8:03:06 AM PATIENT AGE: 72 PATIENT HEIGHT PATIENT WEIGHT DRUG LIST PATIENT DIAGNOSIS TEST NARRATIVE: The patient's average heart rate was 75 BPM. No episodes of tachycardia wer e noted. No episodes of bradycardia were noted. No pauses exceeding 2.0 seconds were noted. 2 ventricular ectopics, which represented < 1% of the total beat count, were noted. The highest vent ricular ectopic frequency occurred from 05:00 PM to 06:00 PM Wed. During this time 1 VE(s) occurred. Ventricular ectopics were observed as 2 isolated beat(s) only. No couplets or runs were noted. No supraventricular ectopics were noted. No episodes of ST depression (defined as -1.0 mm or mor e) were noted in channel 1. No episodes of ST depression (defined as -1.0 mm or more) were noted in channel 2. No episodes of ST depression (defined as -1.0 mm or more) were noted in channel 3. TEST INTERPRETATION: Sinus rhythm Rare PVCs No pause, no ventricular tcahycardia observed There is no entry in the diary Signed by : Jonnie Ramirez
[2017-12-08] MEDS: ENOXAPARIN SODIUM 30 MG/0.3 ML SYRINGE SQ SCH (17:43)
[2017-12-08] MEDS: TAMSULOSIN HCL 0.4 MG CAP PO SCH (20:50)
[2017-12-08] MEDS: cefTRIAXone INJ 2,000 MG in SODIUM CHLORIDE 0.9% INJ 100 ML IV SCH (20:50)
[2017-12-09] VITALS (10 sets, daily range): BP systolic 94–145; BP diastolic 55–77; PULSE 67–83; RESP 16–20; TEMP 97.5–98.9; O2SAT 93–95
[2017-12-09] MEDS: CHLORHEXIDINE GLUCONATE 2 % 1 PACK (2 CLOTHS) TOP SCH (00:32)
[2017-12-09] MEDS: levETIRAcetam INJ 500 MG in SODIUM CHLORIDE 0.9% INJ 100 ML IV SCH ×2 (05:15→17:11)
[2017-12-09] MEDS: LEVOTHYROXINE SODIUM 25 MCG TAB PO SCH (05:15)
[2017-12-09] MEDS: SILDENAFIL CITRATE 20 MG TAB PO SCH ×3 (08:57→17:11)
[2017-12-09] MEDS: THIAMINE HCL 100 MG TAB PO SCH (08:57)
[2017-12-09] MEDS: DOCUSATE SODIUM 100 MG CAP PO SCH ×2 (08:57→21:47)
[2017-12-09] MEDS: ARTIFICIAL TEARS OPTH SOLN 15 ML BTL EACH EYE SCH ×3 (08:58→17:11)
[2017-12-09] MEDS: PANTOPRAZOLE SODIUM 40 MG VIAL IVP SCH (08:58)
[2017-12-09] MEDS: SODIUM CHLORIDE 0.9% FLUSH 10 ML FLUSH IV FLUSH SCH ×2 (08:58→21:48)
--- NOTE | 2017-12-09 11:44 | HHI.PR ---
Subjective Remarks WANTS TO GO LIVE IN [place] NEAR HIS DAUGHTER NO NEW COMPLAINTS DW RN AND PT NEEDS PLACEMENT CONSULT CASE MANAGEMENT FOR HELP WITH FAMILY FOR SNF AM LABS 12-07 case management working on placement in [place] NEAR THE DAUGHTER NO NEW COMPLAINTS DW RN AND PT 12-08 TOLERATING PUREED AND HONEY THICK LIQUID DIET TRANSFER TO SNF WHEN BED AVAILABLE AWAIT FAMILY DECISION IN [place] AND [facility] ACCEPTANCE 12-09 AWAIT PLACEMENT AND ACCEPTANCE IN [place] AND [facility] APPROVA HOPEFULLY ON 12-11 CAN GO TO [facility] PAPERWORK IS DONE [facility] RN AND PT NO NEW COMPLAINTS Objective Vitals Vital Signs Date Time Temp Pulse Resp B/P (MAP) Pulse Ox O2 Delivery O2 Flow Rate FiO2 12/09/17 10:03 72 12/09/17 10:03 94 Room Air 12/09/17 08:00 98.1 72 16 112/57 (75) 94 12/09/17 04:00 67 12/09/17 04:00 98.1 72 17 145/77 (99) 94 12/09/17 00:00 98.2 72 16 133/62 (85) 94 12/09/17 00:00 71 12/08/17 20:45 Room Air 12/08/17 20:00 98.3 69 17 121/63 (82) 94 12/08/17 20:00 71 12/08/17 16:00 98.6 72 18 126/58 (80) 96 12/08/17 12:00 98.4 66 23 143/66 (91) 97 I/O 12/08/17 12/08/17 12/08/17 12/09/17 12/09/17 12/09/17 07:00 15:00 23:00 07:00 15:00 23:00 Intake Total 120 ml 450 ml Output Total 725 ml 875 ml Balance -725 ml 120 ml -425 ml Intake Oral 120 ml 450 ml Output Urine Total 725 ml 875 ml # Bowel Movements 0 1 Result Diagram: 12/07/17 0437 12/07/17 043 Other Results Laboratory Tests Test 12/07/17 04:37 White Blood Count 7.5 TH/MM3 Red Blood Count 3.35 MIL/MM3 Hemoglobin 10.2 GM/DL Hematocrit 29.9 % Mean Corpuscular Volume 89.3 FL Mean Corpuscular Hemoglobin 30.5 PG Mean Corpuscular Hemoglobin Concent 34.2 % Red Cell Distribution Width 15.3 % Platelet Count 277 TH/MM3 Mean Platelet Volume 8.7 FL Neutrophils (%) (Auto) 69.5 % Lymphocytes (%) (Auto) 15.6 % Monocytes (%) (Auto) 10.2 % Eosinophils (%) (Auto) 3.9 % Basophils (%) (Auto) 0.8 % Neutrophils # (Auto) 5.2 TH/MM3 Lymphocytes # (Auto) 1.2 TH/MM3 Monocytes # (Auto) 0.8 TH/MM3 Eosinophils # (Auto) 0.3 TH/MM3 Basophils # (Auto) 0.1 TH/MM3 CBC Comment DIFF FINAL Differential Comment Blood Urea Nitrogen 15 MG/DL Creatinine 0.83 MG/DL Random Glucose 110 MG/DL Total Protein 6.1 GM/DL Albumin 2.4 GM/DL Calcium Level 8.3 MG/DL Phosphorus Level 1.7 MG/DL Magnesium Level 1.4 MG/DL Alkaline Phosphatase 87 U/L Aspartate Amino Transf (AST/SGOT) 36 U/L Alanine Aminotransferase (ALT/SGPT) 44 U/L Total Bilirubin 0.3 MG/DL Sodium Level 135 MEQ/L Potassium Level 3.7 MEQ/L Chloride Level 94 MEQ/L Carbon Dioxide Level 32.1 MEQ/L Anion Gap 9 MEQ/L Estimat Glomerular Filtration Rate 91 ML/MIN Imaging Last Impressions Elbow X-Ray 12/05/17 0000 Signed Impressions: Service Date/Time: Tuesday, December 05, 2017 02:09 - CONCLUSION: 1. Prior fractures of the proximal radius and ulna with hypertrophic bone formation around the distal humerus and proximal forearm. No acute fractures seen. Gio Israel MD Head CT 12/01/17 0000 Signed Impressions: Service Date/Time: Friday, December 01, 2017 16:57 - CONCLUSION: 1. Essentially stable head CT compared with November 26. Right subdural drain present with adjacent stable apparent hemorrhage measuring up to about 13 mm in diameter. Gio Israel MD Chest X-Ray 11/25/17 0000 Signed Impressions: Service Date/Time: Saturday, November 25, 2017 13:17 - CONCLUSION: 1. Persistent small left pneumothorax. 2. New left lung base consolidation and small pleural effusion. 3. Mild bilateral interstitial opacity indicating mild pulmonary edema. Adriano Blair MD Brain MRI 11/21/17 0727 Signed Impressions: Service Date/Time: Tuesday, November 21, 2017 10:11 - CONCLUSION: 1. 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 2. Scattered nonspecific white matter signal change. No focal abnormal areas of enhancement. 3. Small focal area of restricted diffusion in the left posterior medial cerebellar hemisphere suggesting an acute infarction; however, no signal abnormality is seen in this area on any of the other pulse sequences. Oswaldo Alicea MD Skull X-Ray 11/21/17 0000 Signed Impressions: Service Date/Time: Tuesday, November 21, 2017 09:47 - CONCLUSION: No contraindication to MRI seen. Oswaldo Alicea MD Abdomen X-Ray 11/21/17 0000 Signed Impressions: Service Date/Time: Tuesday, November 21, 2017 09:45 - CONCLUSION: No contraindication to MRI seen. Oswaldo Alicea MD Chest CT 11/17/17 0000 Signed Impressions: Service Date/Time: Friday, November 17, 2017 20:57 - CONCLUSION: 1. Foreign body at the level of the thoracic inlet, appears to be a coin within the esophagus. 2. Bilateral pneumonia. Please see above. Aman Bermeo MD Objective Remarks GENERAL: AWAKE AND ALERT CURRENTLY--IN NO ACUTE DISTRESS AT THIS TIME SKIN: Warm and dry. HEAD: Atraumatic. Normocephalic. EYES: Pupils equal and round. No scleral icterus. No injection or drainage. ENT: No nasal bleeding or discharge. Mucous membranes pink and moist.TONGUE MIDLINE NECK: Trachea midline. No JVD. SUPPLE CARDIOVASCULAR: Regular rate and rhythm. S1, S2 NO S3 OR S4 RESPIRATORY: No accessory muscle use. Clear to auscultation. Breath sounds equal bilaterally. GASTROINTESTINAL: Abdomen soft, non-tender, nondistended. Hepatic and splenic margins not palpable. MUSCULOSKELETAL: Extremities without clubbing, cyanosis, or edema. No obvious deformities. NEUROLOGICAL: Awake and alert. No obvious cranial nerve deficits. Motor grossly within normal limits. 4 out of 5 muscle strength in the arms and legs. Normal speech. LEFT UPPER EXTREMITY IS FLACCID- FROM OLD INJURY A CHILD- NOT DUE TO CVA PSYCHIATRIC: INAppropriate mood and affect; insight and judgment ABnormal. Procedures 11/21/17 endotracheal intubation 11/21/17 right frontal/temporal/parietal craniotomy with evacuation of subdural hematoma 11/21/17 left frontal ash hole with placement of an intracranial pressure monitor Medications and IVs Current Medications Sodium Chloride (NS Flush) 2 ml UNSCH PRN IVF FLUSH AFTER USING IV ACCESS; Start 11/17/17 at 20:15; Stop 11/24/17 at 07:34; Status DC Albuterol/ Ipratropium (Duoneb Neb) 2 ampule ONCE ONCE NEB Last administered on 11/17/17at 20:22; Start 11/17/17 at 20:15; Stop 11/17/17 at 20:16; Status DC Cefepime HCl 2000 mg/Sodium Chloride 100 ml @ 200 mls/hr ONCE ONCE IV Last administered on 11/17/17at 23:12; Start 11/17/17 at 20:30; Stop 11/17/17 at 20:59 ; Status DC Azithromycin 500 mg/Sodium Chloride 250 ml @ 250 mls/hr ONCE ONCE IV Last administered on 11/17/17at 22:13; Start 11/17/17 at 20:30; Stop 11/17/17 at 21:29 ; Status DC Etomidate (Amidate Inj) 40 mg STK-MED ONCE .ROUTE Last administered on at 21:47; Start 11/17/17 at 21:17; Stop 11/17/17 at 21:18; Status DC Etomidate (Amidate Inj) 20 mg ONCE ONCE IV PUSH Last administered on at 22:11; Start 11/17/17 at 21:30; Stop 11/17/17 at 21:31; Status DC Succinylcholine Chloride (Quelicin Inj) 100 mg ONCE ONCE IV PUSH Last administered on 11/17/17at 22:14; Start 11/17/17 at 21:30; Stop 11/17/17 at 21:31 ; Status DC Propofol 100 ml @ 0 mls/hr TITRATE PRN IV SEDATION Last administered on at 21:42; Start 11/17/17 at 21:30; Stop 11/17/17 at 22:55; Status DC Propofol 50 ml @ As Directed STK-MED ONCE .ROUTE ; Start 11/17/17 at 21:18; Stop 11/17/17 at 21:19; Status DC Sodium Chloride 1,000 ml @ 999 mls/hr BOLUS ONCE IV Last administered on 11/17at 22:10; Start 11/17/17 at 21:45; Stop 11/17/17 at 22:45; Status DC Aspirin (Aspirin Supp) 300 mg ONCE ONCE RECTAL Last administered on 11/17/17at 22:06; Start 11/17/17 at 21:45; Stop 11/17/17 at 21:46; Status DC Sodium Chloride 1,000 ml @ 125 mls/hr Q8H IV Last administered on 11/21/17at 04: 44; Start 11/17/17 at 22:40; Stop 11/22/17 at 16:57; Status DC Sodium Chloride (NS Flush) 2 ml UNSCH PRN IV FLUSH FLUSH AFTER USING IV ACCESS ; Start 11/17/17 at 22:45 Sodium Chloride (NS Flush) 2 ml BID IV FLUSH Last administered on 12/09/17at 08: 58; Start 11/18/17 at 09:00 Acetaminophen (Tylenol) 650 mg Q6H PRN PO PAIN 1-5 AND/OR FEVER >101F; Start at 22:45 Morphine Sulfate (Morphine Inj) 2 mg Q2H PRN IV PUSH PAIN SCALE 6 TO 10; Start 11/17/17 at 22:45; Stop 11/20/17 at 20:07; Status DC Famotidine (Pepcid Inj) 20 mg Q12HR IV PUSH Last administered on 11/19/17at 09: 00; Start 11/18/17 at 09:00; Stop 11/19/17 at 12:14; Status DC Famotidine (Pepcid) 20 mg Q12HR PO ; Start 11/18/17 at 09:00; Stop 11/18/17 at 09:00; Status DC Midazolam HCl (Versed Inj) 2 mg Q1H PRN IV PUSH SEDATION Last administered on at 23:17; Start 11/17/17 at 22:45; Stop 11/21/17 at 07:28; Status DC Artificial Tears (Tears Naturale Opth Soln) 1 drop TID EACH EYE Last administered on 11/24/17at 12:43; Start 11/18/17 at 09:00; Stop 11/24/17 at 15:12; Status DC Ondansetron HCl (Zofran Inj) 4 mg Q6H PRN IV PUSH NAUSEA OR VOMITING; Start at 22:45 Albuterol/ Ipratropium (Duoneb Neb) 1 ampule Q2HR NEB PRN INH WHEEZING; Start 11/17/17 at 22:45; Stop 11/24/17 at 07:31; Status DC Miscellaneous Information ([facility]) 1 [id number] Last administered on 11/18/17at 00:59; Start 11/17/17 at 22:45 Chlorhexidine Gluconate (Chlorhexidine 2% Cloth) 3 pack Taper DAILY@04 TOP Last administered on 12/08/17at 03:42; Start 11/18/17 at 04:00; Stop 11/14/18 at 03:59 Chlorhexidine Gluconate (Chlorhexidine 2% Cloth) 3 pack UNSCH PRN TOP HYGIENIC CARE; Start 11/17/17 at 22:45 Senna/Docusate Sodium (Luisa-Colace) 1 tab BID PO Last administered on 11/23/17at 21:49; Start 11/18/17 at 09:00; Stop 11/24/17 at 07:33; Status DC Magnesium Hydroxide (Milk Of Magnesia Liq) 30 ml Q12H PRN PO Mild constipation ; Start 11/17/17 at 22:45 Sennosides (Senokot) 17.2 mg Q12H PRN PO Moderate constipation; Start 11/17/17 at 22:45 Bisacodyl (Dulcolax Supp) 10 mg DAILY PRN RECTAL SEVERE CONSITIPATION/ IF NPO ; Start 11/17/17 at 22:45 Lactulose (Lactulose Liq) 30 ml DAILY PRN PO SEVERE CONSITIPATION/ IF PO; Start 11/17/17 at 22:45 Chlorhexidine Gluconate (Peridex 0.12% Liq) 15 ml BID@08,20 MT Last administered on 11/23/17at 08:00; Start 11/18/17 at 08:00; Stop 11/24/17 at 07:33; Status DC Propofol 100 ml @ 1.53 mls/hr TITRATE PRN IV SEDATION Last administered on 11/21at 13:28; Start 11/17/17 at 22:45; Stop 11/21/17 at 15:52; Status DC Albuterol/ Ipratropium (Duoneb Neb) 1 ampule Q6HR WHILE AWAKE NEB NEB Last administered on 11/21/17at 11:23; Start 11/18/17 at 08:00; Stop 11/21/17 at 17:59; Status DC Potassium Chloride 100 ml @ 50 mls/hr Q2H PRN IV For Potassium 2.8 - 3.2 mEq/ L Last administered on 11/29/17at 10:45; Start 11/17/17 at 23:30; Stop 11/30/17 at 13:19; Status DC Potassium Chloride 100 ml @ 50 mls/hr Q2H PRN IV For Potassium 2.8 - 3.2 mEq/ L Last administered on 11/20/17at 12:21; Start 11/17/17 at 23:30; Stop 11/30/17 at 13:19; Status DC Potassium Bicarb/ Potassium Chloride (K-Lyte Cl Eff) 50 meq UNSCH PRN PO For Potassium 3.3 - 3.5 mEq/L; Start 11/17/17 at 23:30; Stop 11/30/17 at 13:19; Status DC Potassium Chloride 100 ml @ 25 mls/hr UNSCH PRN IV For Potassium 3.3 - 3.5 mEq /L; Start 11/17/17 at 23:30; Stop 11/30/17 at 13:19; Status DC Potassium Chloride 100 ml @ 50 mls/hr Q2H PRN IV For Potassium 3.3 - 3.5 mEq/ L Last administered on 11/21/17at 05:02; Start 11/17/17 at 23:30; Stop 11/21/17 at 05:24; Status DC Magnesium Sulfate 4 gm/Sodium Chloride 100 ml @ 50 mls/hr UNSCH PRN IV For Magnesium 0.9 - 1.1 mg/dL; Start 11/17/17 at 23:30; Stop 11/30/17 at 13:19; Status DC Magnesium Oxide (Mag-Ox) 800 mg UNSCH PRN PO For Magnesium 1.2 - 1.6 mg/dL; Start 11/17/17 at 23:30; Stop 11/30/17 at 13:19; Status DC Magnesium Sulfate 2 gm/Sodium Chloride 100 ml @ 50 mls/hr UNSCH PRN IV For Magnesium 1.2 - 1.6 mg/dL Last administered on 11/21/17at 11:54; Start 11/17/17 at 23:30; Stop 11/30/17 at 13:19; Status DC Potassium Phosphate (K-Phos) 2,000 mg Q4H PRN PO For Phosphorus < 2.5 mg/dL Last administered on 11/20/17at 14:59; Start 11/17/17 at 23:30; Stop 11/30/17 at 13:19; Status DC Sodium Phosphate 30 mmol/Sodium Chloride 250 ml @ 42 mls/hr UNSCH PRN IV For Phosphorus < 2.5 mg/dL Last administered on 11/20/17at 21:44; Start 11/17/17 at 23:30; Stop 11/30/17 at 13:19; Status DC Potassium Phosphate (K-Phos) 2,000 mg UNSCH PRN PO/TUBE SEE LABEL COMMENTS; Start 11/17/17 at 23:30; Stop 11/30/17 at 13:19; Status DC Potassium Phosphate 30 mmol/ Sodium Chloride 260 ml @ 42 mls/hr UNSCH PRN IV SEE LABEL COMMENTS; Start 11/17/17 at 23:30; Stop 11/30/17 at 13:19; Status DC Ampicillin Sodium/ Sulbactam Sodium (Unasyn Inj) 3 gm Q6H IM ; Start 11/18/17 at 06:30; Status Cancel Ampicillin Sodium/ Sulbactam Sodium 3 gm/Sodium Chloride 100 ml @ 200 mls/hr Q6H IV Last administered on 11/21/17at 13:27; Start 11/18/17 at 07:00; Stop at 17:59; Status DC Enoxaparin Sodium (Lovenox Inj) 40 mg Q24H SQ Last administered on 11/20/17at 09 :00; Start 11/19/17 at 09:00; Stop 11/21/17 at 13:31; Status DC Miscellaneous Information ([facility] ALL NURSING DEPARTME... UNSCH PRN .XX SEE LABEL COMMENTS; Start 11/18/17 at 12:30; Stop 11/19/17 at 12: 29; Status DC Pantoprazole Sodium (Protonix) 40 mg Q12HR PO Last administered on 11/23/17at 21: 50; Start 11/19/17 at 21:00; Stop 11/24/17 at 15:12; Status DC Magnesium Sulfate/ Dextrose 100 ml @ 100 mls/hr Q1H IV Last administered on at 10:15; Start 11/20/17 at 09:15; Stop 11/20/17 at 11:14; Status DC Potassium Chloride (KCl) 80 meq ONCE ONCE PO ; Start 11/20/17 at 09:15; Stop at 09:16; Status DC Sodium Chloride (NS Flush) 2 ml UNSCH PRN IV FLUSH FLUSH AFTER USING IV ACCESS ; Start 11/20/17 at 13:00; Status UNV Sodium Chloride (NS Flush) 2 ml BID IV FLUSH ; Start 11/20/17 at 21:00; Status UNV Folic Acid (Folate) 1 mg DAILY PO Last administered on 11/25/17at 08:27; Start at 13:00; Stop 11/25/17 at 12:59; Status DC Thiamine HCl (Vitamin B1) 100 mg DAILY PO Last administered on 12/09/17at 08:57 ; Start 11/20/17 at 13:00 Multivitamins/ Minerals Therapeutic (Theragran M Tab) 1 tab DAILY PO Last administered on 11/25/17at 08:27; Start 11/20/17 at 13:00; Stop 11/25/17 at 12:59; Status DC Ondansetron HCl (Zofran Inj) 4 mg Q6H PRN IV PUSH NAUSEA OR VOMITING; Start at 13:00; Status UNV Famotidine (Pepcid) 20 mg BID PO ; Start 11/20/17 at 21:00; Status UNV Clonidine (Catapres) 0.1 mg Q6H PRN PO SEE LABEL COMMENTS; Start 11/20/17 at 13 :00 Flumazenil (Romazicon Inj) 0.2 mg Q1M PRN IV PUSH SEE LABEL COMMENTS; Start at 13:00 Lorazepam (Ativan) 1 mg Q4H PRN PO CIWA 8 - 10; Start 11/20/17 at 13:00; Stop 11/21/17 at 07:28; Status DC Lorazepam (Ativan Inj) 1 mg Q4H PRN IV PUSH CIWA 8 - 10; Start 11/20/17 at 13: 00; Stop 11/21/17 at 07:28; Status DC Lorazepam (Ativan) 2 mg Q2H PRN PO CIWA 11-14; Start 11/20/17 at 13:00; Stop at 07:28; Status DC Lorazepam (Ativan Inj) 2 mg Q2H PRN IV PUSH CIWA 11-14 Last administered on at 18:47; Start 11/20/17 at 13:00; Stop 11/21/17 at 07:28; Status DC Lorazepam (Ativan Inj) 2 mg Q1H PRN IV PUSH CIWA 15-20 Last administered on at 17:42; Start 11/20/17 at 13:00; Stop 11/21/17 at 07:28; Status DC Lorazepam (Ativan Inj) 2 mg Q15M PRN IV PUSH CIWA > 20; Start 11/20/17 at 13:00 ; Stop 11/21/17 at 07:28; Status DC Haloperidol Lactate (Haldol Inj) 2 mg Q15M PRN IM SEE LABEL COMMENTS; Start at 13:00; Stop 11/21/17 at 07:28; Status DC Rocuronium [place] (Zemuron Inj) 50 mg STK-MED ONCE IV PUSH ; Start 11/18/17 at 12:00; Stop 11/20/17 at 13:06; Status DC Levetriacetam 500 mg/Sodium Chloride 105 ml @ 420 mls/hr BOLUS ONCE IV Last administered on 11/20/17at 14:00; Start 11/20/17 at 14:00; Stop 11/20/17 at 14:14 ; Status DC Levetriacetam 500 mg/Sodium Chloride 105 ml @ 420 mls/hr Q12HR IV Last administered on 11/21/17at 20:50; Start 11/20/17 at 21:00; Stop 11/22/17 at 17:22; Status DC Levetriacetam 500 mg/Sodium Chloride 105 ml @ 420 mls/hr BOLUS ONCE IV Last administered on 11/20/17at 15:00; Start 11/20/17 at 15:00; Stop 11/20/17 at 15:14 ; Status DC Morphine Sulfate (Morphine Inj) 2 mg Q2H PRN IV PUSH PAIN SCALE 6 TO 10; Start 11/20/17 at 20:15; Stop 11/21/17 at 07:28; Status DC Potassium Chloride 20 meq/ Sodium Chloride 110 ml @ 50 mls/hr Q2H PRN IV For Potassium 3.3 - 3.5 mEq/L Last administered on 11/21/17at 06:43; Start 11/21/17 at 05:30; Stop 11/30/17 at 13:19; Status DC Furosemide (Lasix Inj) 40 mg STK-MED ONCE .ROUTE ; Start 11/21/17 at 07:50; Stop 11/21/17 at 07:51; Status DC Furosemide (Lasix Inj) 40 mg NOW ONCE IV PUSH Last administered on 11/21/17at 08 :45; Start 11/21/17 at 08:45; Stop 11/21/17 at 08:46; Status DC Gadodiamide (Omniscan Pf Inj) 20 ml STK-MED ONCE IVCONTRAST ; Start 11/21/17 at 10:30; Stop 11/21/17 at 10:31; Status DC Gadodiamide (Omniscan Pf Inj) 12 ml STK-MED ONCE IVCONTRAST ; Start 11/21/17 at 10:31; Stop 11/21/17 at 10:32; Status DC Levothyroxine Sodium (Synthroid Inj) 25 mcg ONCE ONCE IV PUSH ; Start 11/21/17 at 10:45; Stop 11/21/17 at 11:54; Status DC Levothyroxine Sodium (Synthroid Inj) 25 mcg DAILY@06 IV PUSH Last administered on 11/30/17at 06:46; Start 11/22/17 at 06:00; Stop 12/01/17 at 08:24; Status DC Multivitamins 10 ml/Folic Acid 1 mg/Sodium Chloride 510.2 ml @ 125 mls/hr Q24H IV Last administered on 11/25/17at 13:59; Start 11/21/17 at 13:00; Stop 11/26/17 at 12:59; Status DC Thiamine HCl 100 mg/Sodium Chloride 101 ml @ 100 mls/hr Q24H IV Last administered on 11/23/17at 12:45; Start 11/21/17 at 12:00; Stop 11/24/17 at 11:59; Status DC Enalaprilat (Vasotec Inj) 1.25 mg Q6H PRN IV PUSH SEE LABEL COMMENTS; Start 11/21/17 at 10:45 Labetalol HCl (Trandate Inj) 10 mg Q6H PRN IV PUSH SEE LABEL COMMENTS; Start at 10:45 Hydralazine HCl (Apresoline Inj) 10 mg Q6H PRN IV PUSH SEE LABEL COMMENTS Last administered on 11/28/17at 13:31; Start 11/21/17 at 10:45 Mannitol 100 ml @ As Directed STK-MED ONCE .ROUTE ; Start 11/21/17 at 11:59; Stop 11/21/17 at 12:00; Status DC Etomidate (Amidate Inj) 40 mg STK-MED ONCE .ROUTE ; Start 11/21/17 at 11:59; Stop 11/21/17 at 12:00; Status DC Succinylcholine Chloride (Quelicin Inj) 200 mg STK-MED ONCE .ROUTE ; Start at 12:00; Stop 11/21/17 at 12:01; Status DC Etomidate (Amidate Inj) 20 mg ONCE ONCE IV PUSH Last administered on 11/21/17at 12:00; Start 11/21/17 at 12:00; Stop 11/21/17 at 13:00; Status DC Succinylcholine Chloride (Quelicin Inj) 120 mg ONCE ONCE IV PUSH ; Start at 12:00; Stop 11/21/17 at 12:01; Status Cancel Rocuronium [place] (Zemuron Inj) 50 mg BOLUS ONCE IV ; Start 11/21/17 at 12:00; Stop 11/21/17 at 13:00; Status DC Propofol 100 ml @ 1.815 mls/ hr TITRATE PRN IV SEDATION Last administered on at 03:11; Start 11/21/17 at 12:00; Stop 11/28/17 at 10:52; Status DC Mannitol (Mannitol Inj) 25 gm ONCE ONCE IV Last administered on 11/21/17at 12:30 ; Start 11/21/17 at 12:00; Stop 11/21/17 at 13:00; Status DC Fentanyl Citrate (fentaNYL INJ) 100 mcg ONCE ONCE IV PUSH Last administered on 11/21/17at 12:00; Start 11/21/17 at 12:00; Stop 11/21/17 at 13:00; Status DC Propofol 50 ml @ As Directed STK-MED ONCE .ROUTE ; Start 11/21/17 at 12:05; Stop 11/21/17 at 12:06; Status DC Fentanyl Citrate (fentaNYL INJ) 100 mcg STK-MED ONCE .ROUTE ; Start 11/21/17 at 12:09; Stop 11/21/17 at 12:10; Status DC Microfibriller Collagen Hemostat (Avitene Bandage) 1 bandage STK-MED ONCE .ROUTE Last administered on 11/21/17at 15:04; Start 11/21/17 at 12:27; Stop at 12:28; Status DC Lidocaine/ Epinephrine (Xylocaine-Epi 1%-1:100,000 Inj) 30 ml STK-MED ONCE .ROUTE Last administered on 11/21/17 15:04; Start 11/21/17 at 12:28; Stop at 12:29; Status DC Cefazolin Sodium (Ancef Inj) 1,000 mg STK-MED ONCE .ROUTE ; Start 11/21/17 at 12: 28; Stop 11/21/17 at 12:29; Status DC Thrombin (Thrombin Top Soln) 10,000 units STK-MED ONCE .ROUTE Last administered on 11/21/17 15:04; Start 11/21/17 at 12:28; Stop 11/21/17 at 12:29; Status DC Gelatin (Gelfoam 100 Top) 1 foam STK-MED ONCE .ROUTE Last administered on at 15:04; Start 11/21/17 at 12:28; Stop 11/21/17 at 12:29; Status DC Gentamicin Sulfate (Gentamicin Inj) 240 mg STK-MED ONCE .ROUTE Last administered on 11/21/17 15:04; Start 11/21/17 at 12:29; Stop 11/21/17 at 12:30; Status DC Gelatin (Gelfoam 100 Top) 1 foam STK-MED ONCE .ROUTE ; Start 11/21/17 at 12:29; Stop 11/21/17 at 12:30; Status DC Vancomycin HCl (Vancomycin Inj) 1,000 mg STK-MED ONCE .ROUTE Last administered on 11/21/17at 14:55; Start 11/21/17 at 12:42; Stop 11/21/17 at 12:43; Status DC Cefazolin Sodium/ Dextrose 50 ml @ As Directed STK-MED ONCE .ROUTE ; Start at 12:42; Stop 11/21/17 at 12:43; Status DC Sodium Chloride 250 ml @ As Directed STK-MED ONCE .ROUTE ; Start 11/21/17 at 12: 42; Stop 11/21/17 at 12:43; Status DC Sodium Chloride 188 meq/Sodium Chloride 1,047 ml @ 20 mls/hr Q24H IV Last administered on 11/22/17at 12:43; Start 11/21/17 at 13:00; Stop 11/22/17 at 16:57; Status DC Fentanyl Citrate 250 ml @ 5 mls/hr TITRATE PRN IV SEDATION Last administered on 11/24/17at 19:54; Start 11/21/17 at 13:00; Stop 11/25/17 at 13:08; Status DC Artificial Tears (Tears Naturale Opth Soln) 1 drop TID EACH EYE Last administered on 12/09/17at 08:58; Start 11/21/17 at 13:00 Albuterol/ Ipratropium (Duoneb Neb) 1 ampule Q6HR NEB INH Last administered on 11/21/17at 16:00; Start 11/21/17 at 16:00; Stop 11/21/17 at 18:48; Status DC Albuterol/ Ipratropium (Duoneb Neb) 1 ampule Q2HR NEB PRN INH WHEEZING; Start 11/21/17 at 13:00; Stop 11/28/17 at 21:55; Status DC Senna/Docusate Sodium (Luisa-Colace) 1 tab BID PO Last administered on 11/24/17at 08:15; Start 11/21/17 at 21:00; Stop 11/24/17 at 15:12; Status DC Succinylcholine Chloride (Quelicin Inj) 120 mg ONCE ONCE IV PUSH Last administered on 11/21/17at 12:00; Start 11/21/17 at 13:15; Stop 11/21/17 at 13:19; Status DC Chlorhexidine Gluconate (Peridex 0.12% Liq) 15 ml BID@08,20 MT Last administered on 12/04/17at 08:00; Start 11/21/17 at 20:00; Stop 12/05/17 at 04:47 ; Status DC Levetriacetam (Keppra Inj) 1,000 mg STK-MED ONCE IV ; Start 11/21/17 at 13:15; Stop 11/21/17 at 13:16; Status DC Potassium Chloride/Sodium Chloride 1,000 ml @ 100 mls/hr Q10H IV Last administered on 11/25/17at 04:53; Start 11/21/17 at 15:00; Stop 11/25/17 at 13:08; Status DC Cefazolin Sodium/ Dextrose 50 ml @ 100 mls/hr Q8H IV ; Start 11/21/17 at 16:00; Stop 11/21/17 at 18:52; Status DC Levetriacetam 500 mg/Sodium Chloride 105 ml @ 400 mls/hr Q12H IV Last administered on 11/22/17at 06:29; Start 11/21/17 at 18:00; Stop 11/22/17 at 10:19; Status DC Bisacodyl (Dulcolax Supp) 10 mg DAILY PRN RECTAL CONSTIPATION; Start 11/21/17 at 15:00; Stop 11/22/17 at 10:19; Status DC Docusate Sodium (Colace) 100 mg BID PO Last administered on 12/09/17at 08:57; Start 11/21/17 at 21:00 Pantoprazole Sodium (Protonix) 40 mg DAILY PO ; Start 11/22/17 at 09:00; Stop 11/24/17 at 15:12; Status DC Pantoprazole Sodium (Protonix Inj) 40 mg DAILY IVP Last administered on at 08:58; Start 11/22/17 at 09:00 Ondansetron HCl (Zofran Inj) 4 mg Q6H PRN IV PUSH NAUSEA OR VOMITING; Start 11/21/17 at 15:00; Stop 11/22/17 at 10:19; Status DC Calcium Gluconate (Calcium Gluconate Inj) 1 gm UNSCH PRN IV SEE LABEL COMMENTS ; Start 11/21/17 at 15:00 Potassium Chloride 100 ml @ 50 mls/hr UNSCH PRN IV POTASSIUM LESS THAN 4; Start 11/21/17 at 15:00; Stop 11/30/17 at 13:19; Status DC Magnesium Sulfate 4 gm/Sodium Chloride 108 ml @ 108 mls/hr UNSCH PRN IV MAGNESIUM LESS THAN 2; Start 11/21/17 at 15:00; Stop 11/30/17 at 13:19; Status DC Acetaminophen/ Hydrocodone Bitart ([place] 10-325 Mg) 1 tab Q4H PRN PO PAIN SCALE 1 TO 5 Last administered on 11/30/17at 00:12; Start 11/21/17 at 15:00 Acetaminophen/ Hydrocodone Bitart ([place] 10-325 Mg) 2 tab Q4H PRN PO PAIN SCALE 6 TO 10 Last administered on 12/02/17at 20:24; Start 11/21/17 at 15:00 Morphine Sulfate (Morphine Inj) 2 mg Q2H PRN IV PUSH PAIN SCALE 1 TO 6; Start 11/21/17 at 15:00; Stop 11/29/17 at 08:55; Status DC Morphine Sulfate (Morphine Inj) 4 mg Q2H PRN IV PUSH PAIN SCALE 7 TO 10; Start 11/21/17 at 15:00; Stop 11/29/17 at 08:55; Status DC Acetaminophen (Tylenol) 650 mg Q4H PRN PO TEMPERATURE > 101.5 F; Start 11/21/17 at 15:00 Bacitracin (Baciguent Oint) 15 applic STK-MED ONCE .ROUTE ; Start 11/21/17 at 15: 56; Stop 11/21/17 at 15:57; Status DC Phenylephrine HCl (Neosynephrine Inj) 40 mg STK-MED ONCE .ROUTE Last administered on 11/21/17at 16:34; Start 11/21/17 at 16:34; Stop 11/21/17 at 16:35; Status DC Phenylephrine HCl (Neosynephrine Inj) 30 mg STK-MED ONCE .ROUTE Last administered on 11/21/17at 16:40; Start 11/21/17 at 16:40; Stop 11/21/17 at 16:41; Status DC Midazolam HCl (Versed Inj) 2 mg STK-MED ONCE .ROUTE ; Start 11/21/17 at 16:58; Stop 11/21/17 at 16:59; Status DC Fentanyl Citrate (fentaNYL INJ) 200 mcg STK-MED ONCE .ROUTE ; Start 11/21/17 at 16:58; Stop 11/21/17 at 16:59; Status DC Miscellaneous Information ([facility] ALL NURSING DEPARTME... UNSCH PRN .XX SEE LABEL COMMENTS; Start 11/21/17 at 16:29; Stop 11/22/17 at 16:28 ; Status DC Cefepime HCl 2000 mg/Sodium Chloride 100 ml @ 200 mls/hr Q12H IV Last administered on 11/29/17at 07:35; Start 11/21/17 at 21:00; Stop 11/29/17 at 09:29; Status DC Albuterol/ Ipratropium (Duoneb Neb) 1 ampule Q6HR WHILE AWAKE NEB NEB Last administered on 11/25/17at 12:20; Start 11/21/17 at 20:00; Stop 11/25/17 at 17:15; Status DC Ceftriaxone Sodium 2000 mg/ Sodium Chloride 100 ml @ 200 mls/hr Q24H IV Last administered on 11/28/17at 20:18; Start 11/21/17 at 20:00; Stop 11/29/17 at 08:54; Status DC Levetriacetam 500 mg/Sodium Chloride 105 ml @ 420 mls/hr Q12H IV Last administered on 12/09/17at 05:15; Start 11/22/17 at 06:00 Adenosine (Adenocard Inj) 6 mg STK-MED ONCE .ROUTE ; Start 11/23/17 at 12:16; Stop 11/23/17 at 12:17; Status DC Amiodarone HCl (Cordarone Inj) 150 mg STK-MED ONCE .ROUTE ; Start 11/23/17 at 12: 25; Stop 11/23/17 at 12:26; Status DC Magnesium Sulfate/ Dextrose 100 ml @ As Directed STK-MED ONCE .ROUTE ; Start at 12:25; Stop 11/23/17 at 12:26; Status DC Calcium Chloride (Calcium Chloride Inj) 1 gm STK-MED ONCE .ROUTE ; Start at 12:25; Stop 11/23/17 at 12:26; Status DC Calcium Chloride (Calcium Chloride Inj) 1 gm STK-MED ONCE .ROUTE ; Start at 12:27; Stop 11/23/17 at 12:28; Status DC Phenylephrine HCl (Neosynephrine Inj) 40 mg STK-MED ONCE .ROUTE ; Start 11/23/17 at 12:32; Stop 11/23/17 at 12:33; Status DC Amiodarone HCl 150 mg/Dextrose 103 ml @ 600 mls/hr Q11M ONCE IV Last administered on 11/23/17at 12:30; Start 11/23/17 at 13:03; Stop 11/23/17 at 13:13; Status DC Amiodarone HCl 450 mg/Dextrose 250 ml @ 33.33 mls/ hr Q7H31M PRN IV Per Protocol; Start 11/23/17 at 13:13; Stop 11/23/17 at 13:15; Status DC Calcium Chloride (Calcium Chloride Inj) 1 gm ONCE ONCE IV PUSH ; Start 11/23/17 at 13:15; Stop 11/23/17 at 13:15; Status DC Magnesium Sulfate/ Dextrose 100 ml @ 100 mls/hr ONCE ONCE IV Last administered on 11/23/17at 12:30; Start 11/23/17 at 13:15; Stop 11/23/17 at 14:14; Status DC Adenosine (Adenocard Inj) 6 mg ONCE ONCE IV PUSH Last administered on at 12:20; Start 11/23/17 at 13:15; Stop 11/23/17 at 13:16; Status DC Phenylephrine HCl 40 mg/Dextrose 500 ml @ 30 mls/hr TITRATE PRN IV Blood pressure management; Start 11/23/17 at 13:15; Stop 11/28/17 at 10:52; Status DC Terbutaline Sulfate (Brethine Inj) 1 mg UNSCH PRN SQ For Extravasation; Start 11/23/17 at 13:15; Stop 12/09/17 at 03:54; Status DC Calcium Gluconate 1 gm/Sodium Chloride 110 ml @ 110 mls/hr ONCE ONCE IV ; Start 11/23/17 at 13:15; Stop 11/23/17 at 14:14; Status Cancel Calcium Chloride 1 gm/Sodium Chloride 110 ml @ 110 mls/hr ONCE ONCE IV ; Start 11/23/17 at 13:15; Stop 11/23/17 at 14:14; Status Cancel Amiodarone HCl 450 mg/Sodium Chloride 250 ml @ 33.33 mls/ hr Q7H31M PRN IV Per Protocol Last administered on 11/25/17at 20:11; Start 11/23/17 at 13:30; Stop at 15:31; Status DC Lactated Ringer's 1,000 ml @ As Directed STK-MED ONCE IV ; Start 11/21/17 at 12: 00; Stop 11/23/17 at 14:24; Status DC Sodium Chloride 250 ml @ As Directed STK-MED ONCE IV ; Start 11/21/17 at 12:00; Stop 11/23/17 at 14:24; Status DC Parenteral Electrolytes 1,000 ml @ As Directed STK-MED ONCE IV ; Start 11/21/17 at 12:00; Stop 11/23/17 at 14:24; Status DC Lidocaine HCl (Xylocaine-Mpf 1% Inj) 5 ml STK-MED ONCE OTHER ; Start 11/21/17 at 12:00; Stop 11/23/17 at 14:24; Status DC Rocuronium [place] (Zemuron Inj) 100 mg STK-MED ONCE IV PUSH ; Start 11/21/17 at 12:00; Stop 11/23/17 at 14:24; Status DC Phenylephrine HCl (Neosynephrine Inj) 10 mg STK-MED ONCE IV ; Start 11/21/17 at 12:00; Stop 11/23/17 at 14:24; Status DC Phenylephrine HCl (Neosynephrine/ NS 1000 Mcg/10ml Syr) 2,000 mcg STK-MED ONCE IV ; Start 11/21/17 at 12:00; Stop 11/23/17 at 14:24; Status DC Ephedrine Sulfate (ePHEDrine/NS 25 MG/5 ML SYR) 25 mg STK-MED ONCE IV ; Start at 12:00; Stop 11/23/17 at 14:24; Status DC Epinephrine HCl (Adrenalin (1:1000) Inj) 1 mg STK-MED ONCE IV ; Start 11/21/17 at 12:00; Stop 11/23/17 at 14:24; Status DC Dexamethasone Sodium Phosphate (Decadron Inj) 4 mg STK-MED ONCE IV ; Start at 12:00; Stop 11/23/17 at 14:24; Status DC Propofol (Diprivan 200 Mg/20 ml Inj) 200 mg STK-MED ONCE IV ; Start 11/21/17 at 12:00; Stop 11/23/17 at 14:24; Status DC Furosemide (Lasix Inj) 40 mg ONCE ONCE IV PUSH Last administered on 11/25/17at 14:00; Start 11/25/17 at 14:00; Stop 11/25/17 at 14:01; Status DC Dexmedetomidine HCl 200 mcg/ Sodium Chloride 52 ml @ 3.36 mls/hr TITRATE PRN IV SEDATION Last administered on 11/30/17at 07:16; Start 11/25/17 at 15:30; Stop 11/30/17 at 13:19; Status DC Fentanyl Citrate 250 ml @ 5 mls/hr TITRATE PRN IV SEDATION Last administered on 11/26/17at 09:12; Start 11/25/17 at 17:15; Stop 11/28/17 at 10:52; Status DC Albuterol/ Ipratropium (Duoneb Neb) 1 ampule Q6HR WHILE AWAKE NEB NEB Last administered on 11/28/17at 19:59; Start 11/25/17 at 20:00; Stop 11/28/17 at 21:55; Status DC Albumin Human 100 ml @ 60 mls/hr ONCE ONCE IV Last administered on 11/25/17at 17:15; Start 11/25/17 at 17:15; Stop 11/25/17 at 18:54; Status DC Norepinephrine Bitartrate 4 mg/ Sodium Chloride 250 ml @ 7.5 mls/hr TITRATE PRN IV Blood pressure management Last administered on 11/26/17at 17:28; Start 11/25 at 17:15; Stop 11/28/17 at 10:52; Status DC Terbutaline Sulfate (Brethine Inj) 1 mg UNSCH PRN SQ For Extravasation; Start 11/25/17 at 17:15 Amiodarone HCl (Cordarone) 400 mg DAILY OG-TUBE Last administered on 12/05/17at 08:59; Start 11/27/17 at 09:00; Stop 12/05/17 at 15:13; Status DC Norepinephrine Bitartrate 0 ml @ As Directed STK-MED ONCE IV ; Start 11/26/17 at 17:24; Stop 11/26/17 at 17:25; Status DC Albuterol/ Ipratropium (Duoneb Neb) 1 ampule Q6HR WHILE AWAKE NEB NEB Last administered on 12/02/17at 21:17; Start 11/29/17 at 08:00; Stop 12/03/17 at 07:59 ; Status DC Albuterol Sulfate (Albuterol Neb) 2.5 mg Q2HR NEB PRN NEB DYSPNEA; Start at 22:00 Ceftriaxone Sodium 2000 mg/ Sodium Chloride 100 ml @ 200 mls/hr Q24H IV Last administered on 12/08/17at 20:50; Start 11/29/17 at 20:00 Alprazolam (Xanax) 1 mg Q8H PRN PO ANXIETY Last administered on 12/01/17at 21:59 ; Start 11/30/17 at 13:15; Stop 12/02/17 at 10:16; Status DC Levothyroxine Sodium (Synthroid) 25 mcg DAILY@0600 PO Last administered on 12/09at 05:15; Start 12/01/17 at 06:00 Sildenafil Citrate (Revatio) 20 mg TID PO Last administered on 12/09/17at 08:57 ; Start 11/30/17 at 18:00 Tamsulosin HCl (Flomax) 0.4 mg HS PO Last administered on 12/08/17at 20:50; Start 11/30/17 at 21:00 Temazepam (Restoril) 30 mg HS PRN PO INSOMNIA Last administered on 12/02/17at 20 :54; Start 11/30/17 at 13:15 Enoxaparin Sodium (Lovenox Inj) 30 mg Q24H SQ Last administered on 12/08/17at 17 :43; Start 12/05/17 at 17:30 A/P Problem List: (1) History of CVA (cerebrovascular accident) ICD Code: Z86.73 - Personal history of transient ischemic attack (TIA), and cerebral infarction without residual deficits (2) Hepatitis C ICD Code: B19.20 - Unspecified viral hepatitis C without hepatic coma (3) COPD (chronic obstructive pulmonary disease) ICD Code: J44.9 - Chronic obstructive pulmonary disease, unspecified (4) Subdural hematoma ICD Code: I62.00 - Nontraumatic subdural hemorrhage, unspecified (5) Esophageal foreign body ICD Code: T18.108A - Unspecified foreign body in esophagus causing other injury , initial encounter Status: Acute (6) Pneumonia ICD Code: J18.9 - Pneumonia, unspecified organism Status: Acute (7) Tracheal foreign body ICD Code: T17.408A - Unspecified foreign body in trachea causing other injury, initial encounter Status: Acute (8) Rhabdomyolysis ICD Code: M62.82 - Rhabdomyolysis Status: Acute Assessment and Plan 1. Percocet overdose 2. Aspiration pneumonia 3. Acute respiratory failure, intubated for airway protection -tolerated CPAP trial 4. Foreign body in the esophagus -extracted A PING 5. Elevated CPK -resolving 6. Elevated liver enzymes -found to have hepatitis C 7. History of emphysema on home O2 SEIZURE- SEEN ON EEG ALSO- LOAD AND START KEPPRA- DW RN AND PT AND NEUROLOGY HYPOKALEMIA WILL REPLACE HYPOMAGNESIA WILL REPLACE Right subdural hematoma with 8 mm midline shift, acute left posterior cerebellar infarct: -Appreciate neurology, neurosurgery recommendations. Status post right frontotemporoparietal craniotomy with evacuation of subdural hygroma. -No mural thrombus noted on echocardiogram, intact EF. Repeat head ct stable. All drains have been removed. -on keppra per NSG for seizure prophylaxis Anxiety: improved, continue restoril per neurosx Tachyarrhythmia: No recurrence, has been on amiodarone per prior ordered by ramp manager for suspected A. fib. Independent EKG reviews do not demonstrate A. fib to me at this time, may have been previously seen on a telemetry strip. I stopped amiodarone. Holter monitor ordered upon discharge. D/w NSG, clear to be placed on blood thinners per NSG as long as fall risk is thoroughly addressed. Hypokalemia: Likely due to poor nutrition, monitor and replace accordingly Aspiration pneumonia: continue Rocephin. procal still elevated. ST recommendations. Hep C: Likely cause of patient's transaminitis and coagulopathy with INR 1.2. No further intervention at this time. 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 chronic pulm arterial HTN: home sildenafil BPH: home Flomax DVT prophylaxis: heparin; cleared w/ NSG. PT AND OT AND [facility] NEEDS SNF IN [facility] PAPERWORK IS DONE AWAIT TRANSFER TO SNF Discharge Planning cleared for discharge; pending SNF. Holter monitor ordered upon discharge to pickup afib. Clear to be placed on blood thinners w/ NSG so long fall risk is addressed. Problem Qualifiers (1) Esophageal foreign body: Qualified Codes: T18.108A - Unspecified foreign body in esophagus causing other injury, initial encounter (2) Pneumonia: Qualified Codes: J18.9 - Pneumonia, unspecified organism (3) Tracheal foreign body: Qualified Codes: T17.408A - Unspecified foreign body in trachea causing other injury, initial encounter (4) Rhabdomyolysis: Qualified Codes: M62.82 - Rhabdomyolysis Ho Vargas DO December 09, 2017 11:43
[2017-12-09] MEDS: ENOXAPARIN SODIUM 30 MG/0.3 ML SYRINGE SQ SCH (17:11)
[2017-12-09] MEDS: TAMSULOSIN HCL 0.4 MG CAP PO SCH (21:47)
[2017-12-09] MEDS: TEMAZEPAM 15 MG CAP PO PRN (21:47)
[2017-12-09] MEDS: cefTRIAXone INJ 2,000 MG in SODIUM CHLORIDE 0.9% INJ 100 ML IV SCH (21:47)
[2017-12-10] VITALS (11 sets, daily range): BP systolic 120–171; BP diastolic 60–84; PULSE 68–80; RESP 16–20; TEMP 97–98.7; O2SAT 93–96
[2017-12-10] MEDS: CHLORHEXIDINE GLUCONATE 2 % 1 PACK (2 CLOTHS) TOP SCH (04:00)
[2017-12-10] MEDS: LEVOTHYROXINE SODIUM 25 MCG TAB PO SCH (06:11)
[2017-12-10] MEDS: levETIRAcetam INJ 500 MG in SODIUM CHLORIDE 0.9% INJ 100 ML IV SCH (06:11)
[2017-12-10] MEDS: THIAMINE HCL 100 MG TAB PO SCH (08:11)
[2017-12-10] MEDS: SODIUM CHLORIDE 0.9% FLUSH 10 ML FLUSH IV FLUSH SCH ×2 (08:11→20:48)
[2017-12-10] MEDS: SILDENAFIL CITRATE 20 MG TAB PO SCH ×3 (08:11→17:38)
[2017-12-10] MEDS: ARTIFICIAL TEARS OPTH SOLN 15 ML BTL EACH EYE SCH ×3 (08:11→17:38)
[2017-12-10] MEDS: DOCUSATE SODIUM 100 MG CAP PO SCH ×2 (08:12→20:47)
[2017-12-10] MEDS: PANTOPRAZOLE SODIUM 40 MG VIAL IVP SCH (08:12)
--- NOTE | 2017-12-10 11:51 | HHI.PR ---
Subjective Remarks WANTS TO GO LIVE IN [place] NEAR HIS DAUGHTER NO NEW COMPLAINTS [facility] RN AND PT NEEDS PLACEMENT CONSULT CASE MANAGEMENT FOR HELP WITH FAMILY FOR SNF AM LABS 12-07 case management working on placement in [place] NEAR THE DAUGHTER NO NEW COMPLAINTS [facility] RN AND PT 12-08 TOLERATING PUREED AND HONEY THICK LIQUID DIET TRANSFER TO SNF WHEN BED AVAILABLE AWAIT FAMILY DECISION IN [place] AND [facility] ACCEPTANCE 12-09 AWAIT PLACEMENT AND ACCEPTANCE IN [place] AND [facility] APPROVA HOPEFULLY ON 12-11 CAN GO TO SNF PAPERWORK IS DONE [facility] RN AND PT NO NEW COMPLAINTS 12-10 AWAIT PLACEMENT HOPEFULLY TO SNF IN [place] ADJUST MEDICATIONS CONTINUE SAME Objective Vitals Vital Signs Date Time Temp Pulse Resp B/P (MAP) Pulse Ox O2 Delivery O2 Flow Rate FiO2 12/10/17 09:01 72 12/10/17 09:01 94 Room Air 12/10/17 08:00 98.4 79 16 171/79 (109) 94 12/10/17 04:00 97.7 70 20 140/76 (97) 93 12/10/17 04:00 78 12/10/17 04:00 Room Air 12/10/17 00:00 Room Air 12/10/17 00:00 97.0 72 20 123/60 (81) 94 12/09/17 23:45 76 12/09/17 20:00 Room Air 12/09/17 20:00 73 12/09/17 20:00 98.5 75 20 109/59 (76) 93 12/09/17 16:45 79 12/09/17 16:45 94 Room Air 12/09/17 16:00 97.5 81 16 94/55 (68) 95 12/09/17 13:31 83 12/09/17 13:31 95 Room Air 12/09/17 12:00 98.9 72 16 120/69 (86) 95 I/O 12/09/17 12/09/17 12/09/17 12/10/17 12/10/17 12/10/17 07:00 15:00 23:00 07:00 15:00 23:00 Intake Total 450 ml 480 ml 240 ml Output Total 875 ml 800 ml Balance -425 ml 480 ml -560 ml Intake Oral 450 ml 480 ml 240 ml Output Urine Total 875 ml 800 ml # Voids 4 # Bowel Movements 3 0 Result Diagram: 12/07/17 0437 12/07/17 0437 Imaging Last Impressions Elbow X-Ray 12/05/17 0000 Signed Impressions: Service Date/Time: Tuesday, December 05, 2017 02:09 - CONCLUSION: 1. Prior fractures of the proximal radius and ulna with hypertrophic bone formation around the distal humerus and proximal forearm. No acute fractures seen. Gio Israel MD Head CT 12/01/17 0000 Signed Impressions: Service Date/Time: Friday, December 01, 2017 16:57 - CONCLUSION: 1. Essentially stable head CT compared with November 26. Right subdural drain present with adjacent stable apparent hemorrhage measuring up to about 13 mm in diameter. Gio Israel MD Chest X-Ray 11/25/17 0000 Signed Impressions: Service Date/Time: Saturday, November 25, 2017 13:17 - CONCLUSION: 1. Persistent small left pneumothorax. 2. New left lung base consolidation and small pleural effusion. 3. Mild bilateral interstitial opacity indicating mild pulmonary edema. Adriano Blair MD Brain MRI 11/21/17 0727 Signed Impressions: Service Date/Time: Tuesday, November 21, 2017 10:11 - CONCLUSION: 1. 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 2. Scattered nonspecific white matter signal change. No focal abnormal areas of enhancement. 3. Small focal area of restricted diffusion in the left posterior medial cerebellar hemisphere suggesting an acute infarction; however, no signal abnormality is seen in this area on any of the other pulse sequences. Oswaldo Alicea MD Skull X-Ray 11/21/17 0000 Signed Impressions: Service Date/Time: Tuesday, November 21, 2017 09:47 - CONCLUSION: No contraindication to MRI seen. Oswaldo Alicea MD Abdomen X-Ray 11/21/17 0000 Signed Impressions: Service Date/Time: Tuesday, November 21, 2017 09:45 - CONCLUSION: No contraindication to MRI seen. Oswaldo Alicea MD Chest CT 11/17/17 0000 Signed Impressions: Service Date/Time: Friday, November 17, 2017 20:57 - CONCLUSION: 1. Foreign body at the level of the thoracic inlet, appears to be a coin within the esophagus. 2. Bilateral pneumonia. Please see above. Aman Bermeo MD Objective Remarks GENERAL: AWAKE AND ALERT CURRENTLY--IN NO ACUTE DISTRESS AT THIS TIME SKIN: Warm and dry. HEAD: Atraumatic. Normocephalic. EYES: Pupils equal and round. No scleral icterus. No injection or drainage. ENT: No nasal bleeding or discharge. Mucous membranes pink and moist.TONGUE MIDLINE NECK: Trachea midline. No JVD. SUPPLE CARDIOVASCULAR: Regular rate and rhythm. S1, S2 NO S3 OR S4 RESPIRATORY: No accessory muscle use. Clear to auscultation. Breath sounds equal bilaterally. GASTROINTESTINAL: Abdomen soft, non-tender, nondistended. Hepatic and splenic margins not palpable. MUSCULOSKELETAL: Extremities without clubbing, cyanosis, or edema. No obvious deformities. NEUROLOGICAL: Awake and alert. No obvious cranial nerve deficits. Motor grossly within normal limits. 4 out of 5 muscle strength in the arms and legs. Normal speech. LEFT UPPER EXTREMITY IS FLACCID- FROM OLD INJURY A CHILD- NOT DUE TO CVA PSYCHIATRIC: INAppropriate mood and affect; insight and judgment ABnormal. Procedures 11/21/17 endotracheal intubation 11/21/17 right frontal/temporal/parietal craniotomy with evacuation of subdural hematoma 11/21/17 left frontal ash hole with placement of an intracranial pressure monitor Medications and IVs Current Medications Sodium Chloride (NS Flush) 2 ml UNSCH PRN IVF FLUSH AFTER USING IV ACCESS; Start 11/17/17 at 20:15; Stop 11/24/17 at 07:34; Status DC Albuterol/ Ipratropium (Duoneb Neb) 2 ampule ONCE ONCE NEB Last administered on 11/17/17at 20:22; Start 11/17/17 at 20:15; Stop 11/17/17 at 20:16; Status DC Cefepime HCl 2000 mg/Sodium Chloride 100 ml @ 200 mls/hr ONCE ONCE IV Last administered on 11/17/17at 23:12; Start 11/17/17 at 20:30; Stop 11/17/17 at 20:59 ; Status DC Azithromycin 500 mg/Sodium Chloride 250 ml @ 250 mls/hr ONCE ONCE IV Last administered on 11/17/17at 22:13; Start 11/17/17 at 20:30; Stop 11/17/17 at 21:29 ; Status DC Etomidate (Amidate Inj) 40 mg STK-MED ONCE .ROUTE Last administered on at 21:47; Start 11/17/17 at 21:17; Stop 11/17/17 at 21:18; Status DC Etomidate (Amidate Inj) 20 mg ONCE ONCE IV PUSH Last administered on at 22:11; Start 11/17/17 at 21:30; Stop 11/17/17 at 21:31; Status DC Succinylcholine Chloride (Quelicin Inj) 100 mg ONCE ONCE IV PUSH Last administered on 11/17/17at 22:14; Start 11/17/17 at 21:30; Stop 11/17/17 at 21:31 ; Status DC Propofol 100 ml @ 0 mls/hr TITRATE PRN IV SEDATION Last administered on at 21:42; Start 11/17/17 at 21:30; Stop 11/17/17 at 22:55; Status DC Propofol 50 ml @ As Directed STK-MED ONCE .ROUTE ; Start 11/17/17 at 21:18; Stop 11/17/17 at 21:19; Status DC Sodium Chloride 1,000 ml @ 999 mls/hr BOLUS ONCE IV Last administered on 11/17at 22:10; Start 11/17/17 at 21:45; Stop 11/17/17 at 22:45; Status DC Aspirin (Aspirin Supp) 300 mg ONCE ONCE RECTAL Last administered on 11/17/17at 22:06; Start 11/17/17 at 21:45; Stop 11/17/17 at 21:46; Status DC Sodium Chloride 1,000 ml @ 125 mls/hr Q8H IV Last administered on 11/21/17at 04: 44; Start 11/17/17 at 22:40; Stop 11/22/17 at 16:57; Status DC Sodium Chloride (NS Flush) 2 ml UNSCH PRN IV FLUSH FLUSH AFTER USING IV ACCESS ; Start 11/17/17 at 22:45 Sodium Chloride (NS Flush) 2 ml BID IV FLUSH Last administered on 12/10/17at 08: 11; Start 11/18/17 at 09:00 Acetaminophen (Tylenol) 650 mg Q6H PRN PO PAIN 1-5 AND/OR FEVER >101F; Start at 22:45 Morphine Sulfate (Morphine Inj) 2 mg Q2H PRN IV PUSH PAIN SCALE 6 TO 10; Start 11/17/17 at 22:45; Stop 11/20/17 at 20:07; Status DC Famotidine (Pepcid Inj) 20 mg Q12HR IV PUSH Last administered on 11/19/17at 09: 00; Start 11/18/17 at 09:00; Stop 11/19/17 at 12:14; Status DC Famotidine (Pepcid) 20 mg Q12HR PO ; Start 11/18/17 at 09:00; Stop 11/18/17 at 09:00; Status DC Midazolam HCl (Versed Inj) 2 mg Q1H PRN IV PUSH SEDATION Last administered on at 23:17; Start 11/17/17 at 22:45; Stop 11/21/17 at 07:28; Status DC Artificial Tears (Tears Naturale Opth Soln) 1 drop TID EACH EYE Last administered on 11/24/17at 12:43; Start 11/18/17 at 09:00; Stop 11/24/17 at 15:12; Status DC Ondansetron HCl (Zofran Inj) 4 mg Q6H PRN IV PUSH NAUSEA OR VOMITING; Start at 22:45 Albuterol/ Ipratropium (Duoneb Neb) 1 ampule Q2HR NEB PRN INH WHEEZING; Start 11/17/17 at 22:45; Stop 11/24/17 at 07:31; Status DC Miscellaneous Information ([facility] Nursing Information) 1 [id number] XX Last administered on 11/18/17at 00:59; Start 11/17/17 at 22:45 Chlorhexidine Gluconate (Chlorhexidine 2% Cloth) 3 pack Taper DAILY@04 TOP Last administered on 12/10/17at 04:00; Start 11/18/17 at 04:00; Stop 11/14/18 at 03:59 Chlorhexidine Gluconate (Chlorhexidine 2% Cloth) 3 pack UNSCH PRN TOP HYGIENIC CARE; Start 11/17/17 at 22:45 Senna/Docusate Sodium (Luisa-Colace) 1 tab BID PO Last administered on 11/23/17at 21:49; Start 11/18/17 at 09:00; Stop 11/24/17 at 07:33; Status DC Magnesium Hydroxide (Milk Of Magnesia Liq) 30 ml Q12H PRN PO Mild constipation ; Start 11/17/17 at 22:45 Sennosides (Senokot) 17.2 mg Q12H PRN PO Moderate constipation; Start 11/17/17 at 22:45 Bisacodyl (Dulcolax Supp) 10 mg DAILY PRN RECTAL SEVERE CONSITIPATION/ IF NPO ; Start 11/17/17 at 22:45 Lactulose (Lactulose Liq) 30 ml DAILY PRN PO SEVERE CONSITIPATION/ IF PO; Start 11/17/17 at 22:45 Chlorhexidine Gluconate (Peridex 0.12% Liq) 15 ml BID@08,20 MT Last administered on 11/23/17at 08:00; Start 11/18/17 at 08:00; Stop 11/24/17 at 07:33; Status DC Propofol 100 ml @ 1.53 mls/hr TITRATE PRN IV SEDATION Last administered on 11/21at 13:28; Start 11/17/17 at 22:45; Stop 11/21/17 at 15:52; Status DC Albuterol/ Ipratropium (Duoneb Neb) 1 ampule Q6HR WHILE AWAKE NEB NEB Last administered on 11/21/17at 11:23; Start 11/18/17 at 08:00; Stop 11/21/17 at 17:59; Status DC Potassium Chloride 100 ml @ 50 mls/hr Q2H PRN IV For Potassium 2.8 - 3.2 mEq/ L Last administered on 11/29/17at 10:45; Start 11/17/17 at 23:30; Stop 11/30/17 at 13:19; Status DC Potassium Chloride 100 ml @ 50 mls/hr Q2H PRN IV For Potassium 2.8 - 3.2 mEq/ L Last administered on 11/20/17at 12:21; Start 11/17/17 at 23:30; Stop 11/30/17 at 13:19; Status DC Potassium Bicarb/ Potassium Chloride (K-Lyte Cl Eff) 50 meq UNSCH PRN PO For Potassium 3.3 - 3.5 mEq/L; Start 11/17/17 at 23:30; Stop 11/30/17 at 13:19; Status DC Potassium Chloride 100 ml @ 25 mls/hr UNSCH PRN IV For Potassium 3.3 - 3.5 mEq /L; Start 11/17/17 at 23:30; Stop 11/30/17 at 13:19; Status DC Potassium Chloride 100 ml @ 50 mls/hr Q2H PRN IV For Potassium 3.3 - 3.5 mEq/ L Last administered on 11/21/17at 05:02; Start 11/17/17 at 23:30; Stop 11/21/17 at 05:24; Status DC Magnesium Sulfate 4 gm/Sodium Chloride 100 ml @ 50 mls/hr UNSCH PRN IV For Magnesium 0.9 - 1.1 mg/dL; Start 11/17/17 at 23:30; Stop 11/30/17 at 13:19; Status DC Magnesium Oxide (Mag-Ox) 800 mg UNSCH PRN PO For Magnesium 1.2 - 1.6 mg/dL; Start 11/17/17 at 23:30; Stop 11/30/17 at 13:19; Status DC Magnesium Sulfate 2 gm/Sodium Chloride 100 ml @ 50 mls/hr UNSCH PRN IV For Magnesium 1.2 - 1.6 mg/dL Last administered on 11/21/17at 11:54; Start 11/17/17 at 23:30; Stop 11/30/17 at 13:19; Status DC Potassium Phosphate (K-Phos) 2,000 mg Q4H PRN PO For Phosphorus < 2.5 mg/dL Last administered on 11/20/17at 14:59; Start 11/17/17 at 23:30; Stop 11/30/17 at 13:19; Status DC Sodium Phosphate 30 mmol/Sodium Chloride 250 ml @ 42 mls/hr UNSCH PRN IV For Phosphorus < 2.5 mg/dL Last administered on 11/20/17at 21:44; Start 11/17/17 at 23:30; Stop 11/30/17 at 13:19; Status DC Potassium Phosphate (K-Phos) 2,000 mg UNSCH PRN PO/TUBE SEE LABEL COMMENTS; Start 11/17/17 at 23:30; Stop 11/30/17 at 13:19; Status DC Potassium Phosphate 30 mmol/ Sodium Chloride 260 ml @ 42 mls/hr UNSCH PRN IV SEE LABEL COMMENTS; Start 11/17/17 at 23:30; Stop 11/30/17 at 13:19; Status DC Ampicillin Sodium/ Sulbactam Sodium (Unasyn Inj) 3 gm Q6H IM ; Start 11/18/17 at 06:30; Status Cancel Ampicillin Sodium/ Sulbactam Sodium 3 gm/Sodium Chloride 100 ml @ 200 mls/hr Q6H IV Last administered on 11/21/17at 13:27; Start 11/18/17 at 07:00; Stop at 17:59; Status DC Enoxaparin Sodium (Lovenox Inj) 40 mg Q24H SQ Last administered on 11/20/17at 09 :00; Start 11/19/17 at 09:00; Stop 11/21/17 at 13:31; Status DC Miscellaneous Information ([facility] Nursing Information) ALL NURSING DEPARTME... UNSCH PRN .XX SEE LABEL COMMENTS; Start 11/18/17 at 12:30; Stop 11/19/17 at 12: 29; Status DC Pantoprazole Sodium (Protonix) 40 mg Q12HR PO Last administered on 11/23/17at 21: 50; Start 11/19/17 at 21:00; Stop 11/24/17 at 15:12; Status DC Magnesium Sulfate/ Dextrose 100 ml @ 100 mls/hr Q1H IV Last administered on at 10:15; Start 11/20/17 at 09:15; Stop 11/20/17 at 11:14; Status DC Potassium Chloride (KCl) 80 meq ONCE ONCE PO ; Start 11/20/17 at 09:15; Stop at 09:16; Status DC Sodium Chloride (NS Flush) 2 ml UNSCH PRN IV FLUSH FLUSH AFTER USING IV ACCESS ; Start 11/20/17 at 13:00; Status UNV Sodium Chloride (NS Flush) 2 ml BID IV FLUSH ; Start 11/20/17 at 21:00; Status UNV Folic Acid (Folate) 1 mg DAILY PO Last administered on 11/25/17at 08:27; Start at 13:00; Stop 11/25/17 at 12:59; Status DC Thiamine HCl (Vitamin B1) 100 mg DAILY PO Last administered on 12/10/17at 08:11 ; Start 11/20/17 at 13:00 Multivitamins/ Minerals Therapeutic (Theragran M Tab) 1 tab DAILY PO Last administered on 11/25/17at 08:27; Start 11/20/17 at 13:00; Stop 11/25/17 at 12:59; Status DC Ondansetron HCl (Zofran Inj) 4 mg Q6H PRN IV PUSH NAUSEA OR VOMITING; Start at 13:00; Status UNV Famotidine (Pepcid) 20 mg BID PO ; Start 11/20/17 at 21:00; Status UNV Clonidine (Catapres) 0.1 mg Q6H PRN PO SEE LABEL COMMENTS; Start 11/20/17 at 13 :00 Flumazenil (Romazicon Inj) 0.2 mg Q1M PRN IV PUSH SEE LABEL COMMENTS; Start at 13:00 Lorazepam (Ativan) 1 mg Q4H PRN PO CIWA 8 - 10; Start 11/20/17 at 13:00; Stop 11/21/17 at 07:28; Status DC Lorazepam (Ativan Inj) 1 mg Q4H PRN IV PUSH CIWA 8 - 10; Start 11/20/17 at 13: 00; Stop 11/21/17 at 07:28; Status DC Lorazepam (Ativan) 2 mg Q2H PRN PO CIWA 11-14; Start 11/20/17 at 13:00; Stop at 07:28; Status DC Lorazepam (Ativan Inj) 2 mg Q2H PRN IV PUSH CIWA 11-14 Last administered on at 18:47; Start 11/20/17 at 13:00; Stop 11/21/17 at 07:28; Status DC Lorazepam (Ativan Inj) 2 mg Q1H PRN IV PUSH CIWA 15-20 Last administered on at 17:42; Start 11/20/17 at 13:00; Stop 11/21/17 at 07:28; Status DC Lorazepam (Ativan Inj) 2 mg Q15M PRN IV PUSH CIWA > 20; Start 11/20/17 at 13:00 ; Stop 11/21/17 at 07:28; Status DC Haloperidol Lactate (Haldol Inj) 2 mg Q15M PRN IM SEE LABEL COMMENTS; Start at 13:00; Stop 11/21/17 at 07:28; Status DC Rocuronium [place] (Zemuron Inj) 50 mg STK-MED ONCE IV PUSH ; Start 11/18/17 at 12:00; Stop 11/20/17 at 13:06; Status DC Levetriacetam 500 mg/Sodium Chloride 105 ml @ 420 mls/hr BOLUS ONCE IV Last administered on 11/20/17at 14:00; Start 11/20/17 at 14:00; Stop 11/20/17 at 14:14 ; Status DC Levetriacetam 500 mg/Sodium Chloride 105 ml @ 420 mls/hr Q12HR IV Last administered on 11/21/17at 20:50; Start 11/20/17 at 21:00; Stop 11/22/17 at 17:22; Status DC Levetriacetam 500 mg/Sodium Chloride 105 ml @ 420 mls/hr BOLUS ONCE IV Last administered on 11/20/17at 15:00; Start 11/20/17 at 15:00; Stop 11/20/17 at 15:14 ; Status DC Morphine Sulfate (Morphine Inj) 2 mg Q2H PRN IV PUSH PAIN SCALE 6 TO 10; Start 11/20/17 at 20:15; Stop 11/21/17 at 07:28; Status DC Potassium Chloride 20 meq/ Sodium Chloride 110 ml @ 50 mls/hr Q2H PRN IV For Potassium 3.3 - 3.5 mEq/L Last administered on 11/21/17at 06:43; Start 11/21/17 at 05:30; Stop 11/30/17 at 13:19; Status DC Furosemide (Lasix Inj) 40 mg STK-MED ONCE .ROUTE ; Start 11/21/17 at 07:50; Stop 11/21/17 at 07:51; Status DC Furosemide (Lasix Inj) 40 mg NOW ONCE IV PUSH Last administered on 11/21/17at 08 :45; Start 11/21/17 at 08:45; Stop 11/21/17 at 08:46; Status DC Gadodiamide (Omniscan Pf Inj) 20 ml STK-MED ONCE IVCONTRAST ; Start 11/21/17 at 10:30; Stop 11/21/17 at 10:31; Status DC Gadodiamide (Omniscan Pf Inj) 12 ml STK-MED ONCE IVCONTRAST ; Start 11/21/17 at 10:31; Stop 11/21/17 at 10:32; Status DC Levothyroxine Sodium (Synthroid Inj) 25 mcg ONCE ONCE IV PUSH ; Start 11/21/17 at 10:45; Stop 11/21/17 at 11:54; Status DC Levothyroxine Sodium (Synthroid Inj) 25 mcg DAILY@06 IV PUSH Last administered on 11/30/17at 06:46; Start 11/22/17 at 06:00; Stop 12/01/17 at 08:24; Status DC Multivitamins 10 ml/Folic Acid 1 mg/Sodium Chloride 510.2 ml @ 125 mls/hr Q24H IV Last administered on 11/25/17at 13:59; Start 11/21/17 at 13:00; Stop 11/26/17 at 12:59; Status DC Thiamine HCl 100 mg/Sodium Chloride 101 ml @ 100 mls/hr Q24H IV Last administered on 11/23/17at 12:45; Start 11/21/17 at 12:00; Stop 11/24/17 at 11:59; Status DC Enalaprilat (Vasotec Inj) 1.25 mg Q6H PRN IV PUSH SEE LABEL COMMENTS; Start 11/21/17 at 10:45 Labetalol HCl (Trandate Inj) 10 mg Q6H PRN IV PUSH SEE LABEL COMMENTS; Start at 10:45 Hydralazine HCl (Apresoline Inj) 10 mg Q6H PRN IV PUSH SEE LABEL COMMENTS Last administered on 11/28/17at 13:31; Start 11/21/17 at 10:45 Mannitol 100 ml @ As Directed STK-MED ONCE .ROUTE ; Start 11/21/17 at 11:59; Stop 11/21/17 at 12:00; Status DC Etomidate (Amidate Inj) 40 mg STK-MED ONCE .ROUTE ; Start 11/21/17 at 11:59; Stop 11/21/17 at 12:00; Status DC Succinylcholine Chloride (Quelicin Inj) 200 mg STK-MED ONCE .ROUTE ; Start at 12:00; Stop 11/21/17 at 12:01; Status DC Etomidate (Amidate Inj) 20 mg ONCE ONCE IV PUSH Last administered on 11/21/17at 12:00; Start 11/21/17 at 12:00; Stop 11/21/17 at 13:00; Status DC Succinylcholine Chloride (Quelicin Inj) 120 mg ONCE ONCE IV PUSH ; Start at 12:00; Stop 11/21/17 at 12:01; Status Cancel Rocuronium [place] (Zemuron Inj) 50 mg BOLUS ONCE IV ; Start 11/21/17 at 12:00; Stop 11/21/17 at 13:00; Status DC Propofol 100 ml @ 1.815 mls/ hr TITRATE PRN IV SEDATION Last administered on at 03:11; Start 11/21/17 at 12:00; Stop 11/28/17 at 10:52; Status DC Mannitol (Mannitol Inj) 25 gm ONCE ONCE IV Last administered on 11/21/17at 12:30 ; Start 11/21/17 at 12:00; Stop 11/21/17 at 13:00; Status DC Fentanyl Citrate (fentaNYL INJ) 100 mcg ONCE ONCE IV PUSH Last administered on 11/21/17at 12:00; Start 11/21/17 at 12:00; Stop 11/21/17 at 13:00; Status DC Propofol 50 ml @ As Directed STK-MED ONCE .ROUTE ; Start 11/21/17 at 12:05; Stop 11/21/17 at 12:06; Status DC Fentanyl Citrate (fentaNYL INJ) 100 mcg STK-MED ONCE .ROUTE ; Start 11/21/17 at 12:09; Stop 11/21/17 at 12:10; Status DC Microfibriller Collagen Hemostat (Avitene Bandage) 1 bandage STK-MED ONCE .ROUTE Last administered on 11/21/17at 15:04; Start 11/21/17 at 12:27; Stop at 12:28; Status DC Lidocaine/ Epinephrine (Xylocaine-Epi 1%-1:100,000 Inj) 30 ml STK-MED ONCE .ROUTE Last administered on 11/21/17at 15:04; Start 11/21/17 at 12:28; Stop at 12:29; Status DC Cefazolin Sodium (Ancef Inj) 1,000 mg STK-MED ONCE .ROUTE ; Start 11/21/17 at 12: 28; Stop 11/21/17 at 12:29; Status DC Thrombin (Thrombin Top Soln) 10,000 units STK-MED ONCE .ROUTE Last administered on 11/21/17at 15:04; Start 11/21/17 at 12:28; Stop 11/21/17 at 12:29; Status DC Gelatin (Gelfoam 100 Top) 1 foam STK-MED ONCE .ROUTE Last administered on at 15:04; Start 11/21/17 at 12:28; Stop 11/21/17 at 12:29; Status DC Gentamicin Sulfate (Gentamicin Inj) 240 mg STK-MED ONCE .ROUTE Last administered on 11/21/17at 15:04; Start 11/21/17 at 12:29; Stop 11/21/17 at 12:30; Status DC Gelatin (Gelfoam 100 Top) 1 foam STK-MED ONCE .ROUTE ; Start 11/21/17 at 12:29; Stop 11/21/17 at 12:30; Status DC Vancomycin HCl (Vancomycin Inj) 1,000 mg STK-MED ONCE .ROUTE Last administered on 11/21/17at 14:55; Start 11/21/17 at 12:42; Stop 11/21/17 at 12:43; Status DC Cefazolin Sodium/ Dextrose 50 ml @ As Directed STK-MED ONCE .ROUTE ; Start at 12:42; Stop 11/21/17 at 12:43; Status DC Sodium Chloride 250 ml @ As Directed STK-MED ONCE .ROUTE ; Start 11/21/17 at 12: 42; Stop 11/21/17 at 12:43; Status DC Sodium Chloride 188 meq/Sodium Chloride 1,047 ml @ 20 mls/hr Q24H IV Last administered on 11/22/17at 12:43; Start 11/21/17 at 13:00; Stop 11/22/17 at 16:57; Status DC Fentanyl Citrate 250 ml @ 5 mls/hr TITRATE PRN IV SEDATION Last administered on 11/24/17at 19:54; Start 11/21/17 at 13:00; Stop 11/25/17 at 13:08; Status DC Artificial Tears (Tears Naturale Opth Soln) 1 drop TID EACH EYE Last administered on 12/10/17at 08:11; Start 11/21/17 at 13:00 Albuterol/ Ipratropium (Duoneb Neb) 1 ampule Q6HR NEB INH Last administered on 11/21/17at 16:00; Start 11/21/17 at 16:00; Stop 11/21/17 at 18:48; Status DC Albuterol/ Ipratropium (Duoneb Neb) 1 ampule Q2HR NEB PRN INH WHEEZING; Start 11/21/17 at 13:00; Stop 11/28/17 at 21:55; Status DC Senna/Docusate Sodium (Luisa-Colace) 1 tab BID PO Last administered on 11/24/17at 08:15; Start 11/21/17 at 21:00; Stop 11/24/17 at 15:12; Status DC Succinylcholine Chloride (Quelicin Inj) 120 mg ONCE ONCE IV PUSH Last administered on 11/21/17at 12:00; Start 11/21/17 at 13:15; Stop 11/21/17 at 13:19; Status DC Chlorhexidine Gluconate (Peridex 0.12% Liq) 15 ml BID@08,20 MT Last administered on 12/04/17at 08:00; Start 11/21/17 at 20:00; Stop 12/05/17 at 04:47 ; Status DC Levetriacetam (Keppra Inj) 1,000 mg STK-MED ONCE IV ; Start 11/21/17 at 13:15; Stop 11/21/17 at 13:16; Status DC Potassium Chloride/Sodium Chloride 1,000 ml @ 100 mls/hr Q10H IV Last administered on 11/25/17at 04:53; Start 11/21/17 at 15:00; Stop 11/25/17 at 13:08; Status DC Cefazolin Sodium/ Dextrose 50 ml @ 100 mls/hr Q8H IV ; Start 11/21/17 at 16:00; Stop 11/21/17 at 18:52; Status DC Levetriacetam 500 mg/Sodium Chloride 105 ml @ 400 mls/hr Q12H IV Last administered on 11/22/17at 06:29; Start 11/21/17 at 18:00; Stop 11/22/17 at 10:19; Status DC Bisacodyl (Dulcolax Supp) 10 mg DAILY PRN RECTAL CONSTIPATION; Start 11/21/17 at 15:00; Stop 11/22/17 at 10:19; Status DC Docusate Sodium (Colace) 100 mg BID PO Last administered on 12/09/17at 21:47; Start 11/21/17 at 21:00 Pantoprazole Sodium (Protonix) 40 mg DAILY PO ; Start 11/22/17 at 09:00; Stop 11/24/17 at 15:12; Status DC Pantoprazole Sodium (Protonix Inj) 40 mg DAILY IVP Last administered on at 08:12; Start 11/22/17 at 09:00 Ondansetron HCl (Zofran Inj) 4 mg Q6H PRN IV PUSH NAUSEA OR VOMITING; Start 11/21/17 at 15:00; Stop 11/22/17 at 10:19; Status DC Calcium Gluconate (Calcium Gluconate Inj) 1 gm UNSCH PRN IV SEE LABEL COMMENTS ; Start 11/21/17 at 15:00 Potassium Chloride 100 ml @ 50 mls/hr UNSCH PRN IV POTASSIUM LESS THAN 4; Start 11/21/17 at 15:00; Stop 11/30/17 at 13:19; Status DC Magnesium Sulfate 4 gm/Sodium Chloride 108 ml @ 108 mls/hr UNSCH PRN IV MAGNESIUM LESS THAN 2; Start 11/21/17 at 15:00; Stop 11/30/17 at 13:19; Status DC Acetaminophen/ Hydrocodone Bitart ([place]y 10-325 Mg) 1 tab Q4H PRN PO PAIN SCALE 1 TO 5 Last administered on 11/30/17at 00:12; Start 11/21/17 at 15:00 Acetaminophen/ Hydrocodone Bitart ([place]y 10-325 Mg) 2 tab Q4H PRN PO PAIN SCALE 6 TO 10 Last administered on 12/02/17at 20:24; Start 11/21/17 at 15:00 Morphine Sulfate (Morphine Inj) 2 mg Q2H PRN IV PUSH PAIN SCALE 1 TO 6; Start 11/21/17 at 15:00; Stop 11/29/17 at 08:55; Status DC Morphine Sulfate (Morphine Inj) 4 mg Q2H PRN IV PUSH PAIN SCALE 7 TO 10; Start 11/21/17 at 15:00; Stop 11/29/17 at 08:55; Status DC Acetaminophen (Tylenol) 650 mg Q4H PRN PO TEMPERATURE > 101.5 F; Start 11/21/17 at 15:00 Bacitracin (Baciguent Oint) 15 applic STK-MED ONCE .ROUTE ; Start 11/21/17 at 15: 56; Stop 11/21/17 at 15:57; Status DC Phenylephrine HCl (Neosynephrine Inj) 40 mg STK-MED ONCE .ROUTE Last administered on 11/21/17at 16:34; Start 11/21/17 at 16:34; Stop 11/21/17 at 16:35; Status DC Phenylephrine HCl (Neosynephrine Inj) 30 mg STK-MED ONCE .ROUTE Last administered on 11/21/17at 16:40; Start 11/21/17 at 16:40; Stop 11/21/17 at 16:41; Status DC Midazolam HCl (Versed Inj) 2 mg STK-MED ONCE .ROUTE ; Start 11/21/17 at 16:58; Stop 11/21/17 at 16:59; Status DC Fentanyl Citrate (fentaNYL INJ) 200 mcg STK-MED ONCE .ROUTE ; Start 11/21/17 at 16:58; Stop 11/21/17 at 16:59; Status DC Miscellaneous Information ([facility] Information) ALL NURSING DEPARTME... UNSCH PRN .XX SEE LABEL COMMENTS; Start 11/21/17 at 16:29; Stop 11/22/17 at 16:28 ; Status DC Cefepime HCl 2000 mg/Sodium Chloride 100 ml @ 200 mls/hr Q12H IV Last administered on 11/29/17at 07:35; Start 11/21/17 at 21:00; Stop 11/29/17 at 09:29; Status DC Albuterol/ Ipratropium (Duoneb Neb) 1 ampule Q6HR WHILE AWAKE NEB NEB Last administered on 11/25/17at 12:20; Start 11/21/17 at 20:00; Stop 11/25/17 at 17:15; Status DC Ceftriaxone Sodium 2000 mg/ Sodium Chloride 100 ml @ 200 mls/hr Q24H IV Last administered on 11/28/17at 20:18; Start 11/21/17 at 20:00; Stop 11/29/17 at 08:54; Status DC Levetriacetam 500 mg/Sodium Chloride 105 ml @ 420 mls/hr Q12H IV Last administered on 12/10/17at 06:11; Start 11/22/17 at 06:00 Adenosine (Adenocard Inj) 6 mg STK-MED ONCE .ROUTE ; Start 11/23/17 at 12:16; Stop 11/23/17 at 12:17; Status DC Amiodarone HCl (Cordarone Inj) 150 mg STK-MED ONCE .ROUTE ; Start 11/23/17 at 12: 25; Stop 11/23/17 at 12:26; Status DC Magnesium Sulfate/ Dextrose 100 ml @ As Directed STK-MED ONCE .ROUTE ; Start at 12:25; Stop 11/23/17 at 12:26; Status DC Calcium Chloride (Calcium Chloride Inj) 1 gm STK-MED ONCE .ROUTE ; Start at 12:25; Stop 11/23/17 at 12:26; Status DC Calcium Chloride (Calcium Chloride Inj) 1 gm STK-MED ONCE .ROUTE ; Start at 12:27; Stop 11/23/17 at 12:28; Status DC Phenylephrine HCl (Neosynephrine Inj) 40 mg STK-MED ONCE .ROUTE ; Start 11/23/17 at 12:32; Stop 11/23/17 at 12:33; Status DC Amiodarone HCl 150 mg/Dextrose 103 ml @ 600 mls/hr Q11M ONCE IV Last administered on 11/23/17at 12:30; Start 11/23/17 at 13:03; Stop 11/23/17 at 13:13; Status DC Amiodarone HCl 450 mg/Dextrose 250 ml @ 33.33 mls/ hr Q7H31M PRN IV Per Protocol; Start 11/23/17 at 13:13; Stop 11/23/17 at 13:15; Status DC Calcium Chloride (Calcium Chloride Inj) 1 gm ONCE ONCE IV PUSH ; Start 11/23/17 at 13:15; Stop 11/23/17 at 13:15; Status DC Magnesium Sulfate/ Dextrose 100 ml @ 100 mls/hr ONCE ONCE IV Last administered on 11/23/17at 12:30; Start 11/23/17 at 13:15; Stop 11/23/17 at 14:14; Status DC Adenosine (Adenocard Inj) 6 mg ONCE ONCE IV PUSH Last administered on at 12:20; Start 11/23/17 at 13:15; Stop 11/23/17 at 13:16; Status DC Phenylephrine HCl 40 mg/Dextrose 500 ml @ 30 mls/hr TITRATE PRN IV Blood pressure management; Start 11/23/17 at 13:15; Stop 11/28/17 at 10:52; Status DC Terbutaline Sulfate (Brethine Inj) 1 mg UNSCH PRN SQ For Extravasation; Start 11/23/17 at 13:15; Stop 12/09/17 at 03:54; Status DC Calcium Gluconate 1 gm/Sodium Chloride 110 ml @ 110 mls/hr ONCE ONCE IV ; Start 11/23/17 at 13:15; Stop 11/23/17 at 14:14; Status Cancel Calcium Chloride 1 gm/Sodium Chloride 110 ml @ 110 mls/hr ONCE ONCE IV ; Start 11/23/17 at 13:15; Stop 11/23/17 at 14:14; Status Cancel Amiodarone HCl 450 mg/Sodium Chloride 250 ml @ 33.33 mls/ hr Q7H31M PRN IV Per Protocol Last administered on 11/25/17at 20:11; Start 11/23/17 at 13:30; Stop at 15:31; Status DC Lactated Ringer's 1,000 ml @ As Directed STK-MED ONCE IV ; Start 11/21/17 at 12: 00; Stop 11/23/17 at 14:24; Status DC Sodium Chloride 250 ml @ As Directed STK-MED ONCE IV ; Start 11/21/17 at 12:00; Stop 11/23/17 at 14:24; Status DC Parenteral Electrolytes 1,000 ml @ As Directed STK-MED ONCE IV ; Start 11/21/17 at 12:00; Stop 11/23/17 at 14:24; Status DC Lidocaine HCl (Xylocaine-Mpf 1% Inj) 5 ml STK-MED ONCE OTHER ; Start 11/21/17 at 12:00; Stop 11/23/17 at 14:24; Status DC Rocuronium [place] (Zemuron Inj) 100 mg STK-MED ONCE IV PUSH ; Start 11/21/17 at 12:00; Stop 11/23/17 at 14:24; Status DC Phenylephrine HCl (Neosynephrine Inj) 10 mg STK-MED ONCE IV ; Start 11/21/17 at 12:00; Stop 11/23/17 at 14:24; Status DC Phenylephrine HCl (Neosynephrine/ NS 1000 Mcg/10ml Syr) 2,000 mcg STK-MED ONCE IV ; Start 11/21/17 at 12:00; Stop 11/23/17 at 14:24; Status DC Ephedrine Sulfate (ePHEDrine/NS 25 MG/5 ML SYR) 25 mg STK-MED ONCE IV ; Start at 12:00; Stop 11/23/17 at 14:24; Status DC Epinephrine HCl (Adrenalin (1:1000) Inj) 1 mg STK-MED ONCE IV ; Start 11/21/17 at 12:00; Stop 11/23/17 at 14:24; Status DC Dexamethasone Sodium Phosphate (Decadron Inj) 4 mg STK-MED ONCE IV ; Start at 12:00; Stop 11/23/17 at 14:24; Status DC Propofol (Diprivan 200 Mg/20 ml Inj) 200 mg STK-MED ONCE IV ; Start 11/21/17 at 12:00; Stop 11/23/17 at 14:24; Status DC Furosemide (Lasix Inj) 40 mg ONCE ONCE IV PUSH Last administered on 11/25/17at 14:00; Start 11/25/17 at 14:00; Stop 11/25/17 at 14:01; Status DC Dexmedetomidine HCl 200 mcg/ Sodium Chloride 52 ml @ 3.36 mls/hr TITRATE PRN IV SEDATION Last administered on 11/30/17at 07:16; Start 11/25/17 at 15:30; Stop 11/30/17 at 13:19; Status DC Fentanyl Citrate 250 ml @ 5 mls/hr TITRATE PRN IV SEDATION Last administered on 11/26/17at 09:12; Start 11/25/17 at 17:15; Stop 11/28/17 at 10:52; Status DC Albuterol/ Ipratropium (Duoneb Neb) 1 ampule Q6HR WHILE AWAKE NEB NEB Last administered on 11/28/17at 19:59; Start 11/25/17 at 20:00; Stop 11/28/17 at 21:55; Status DC Albumin Human 100 ml @ 60 mls/hr ONCE ONCE IV Last administered on 11/25/17at 17:15; Start 11/25/17 at 17:15; Stop 11/25/17 at 18:54; Status DC Norepinephrine Bitartrate 4 mg/ Sodium Chloride 250 ml @ 7.5 mls/hr TITRATE PRN IV Blood pressure management Last administered on 11/26/17at 17:28; Start 11/25 at 17:15; Stop 11/28/17 at 10:52; Status DC Terbutaline Sulfate (Brethine Inj) 1 mg UNSCH PRN SQ For Extravasation; Start 11/25/17 at 17:15 Amiodarone HCl (Cordarone) 400 mg DAILY OG-TUBE Last administered on 12/05/17at 08:59; Start 11/27/17 at 09:00; Stop 12/05/17 at 15:13; Status DC Norepinephrine Bitartrate 0 ml @ As Directed STK-MED ONCE IV ; Start 11/26/17 at 17:24; Stop 11/26/17 at 17:25; Status DC Albuterol/ Ipratropium (Duoneb Neb) 1 ampule Q6HR WHILE AWAKE NEB NEB Last administered on 12/02/17at 21:17; Start 11/29/17 at 08:00; Stop 12/03/17 at 07:59 ; Status DC Albuterol Sulfate (Albuterol Neb) 2.5 mg Q2HR NEB PRN NEB DYSPNEA; Start at 22:00 Ceftriaxone Sodium 2000 mg/ Sodium Chloride 100 ml @ 200 mls/hr Q24H IV Last administered on 12/09/17at 21:47; Start 11/29/17 at 20:00 Alprazolam (Xanax) 1 mg Q8H PRN PO ANXIETY Last administered on 12/01/17at 21:59 ; Start 11/30/17 at 13:15; Stop 12/02/17 at 10:16; Status DC Levothyroxine Sodium (Synthroid) 25 mcg DAILY@0600 PO Last administered on 12/10at 06:11; Start 12/01/17 at 06:00 Sildenafil Citrate (Revatio) 20 mg TID PO Last administered on 12/10/17at 08:11 ; Start 11/30/17 at 18:00 Tamsulosin HCl (Flomax) 0.4 mg HS PO Last administered on 12/09/17at 21:47; Start 11/30/17 at 21:00 Temazepam (Restoril) 30 mg HS PRN PO INSOMNIA Last administered on 12/09/17at 21 :47; Start 11/30/17 at 13:15 Enoxaparin Sodium (Lovenox Inj) 30 mg Q24H SQ Last administered on 12/09/17at 17 :11; Start 12/05/17 at 17:30 A/P Problem List: (1) History of CVA (cerebrovascular accident) ICD Code: Z86.73 - Personal history of transient ischemic attack (TIA), and cerebral infarction without residual deficits (2) Hepatitis C ICD Code: B19.20 - Unspecified viral hepatitis C without hepatic coma (3) COPD (chronic obstructive pulmonary disease) ICD Code: J44.9 - Chronic obstructive pulmonary disease, unspecified (4) Subdural hematoma ICD Code: I62.00 - Nontraumatic subdural hemorrhage, unspecified (5) Esophageal foreign body ICD Code: T18.108A - Unspecified foreign body in esophagus causing other injury , initial encounter Status: Acute (6) Pneumonia ICD Code: J18.9 - Pneumonia, unspecified organism Status: Acute (7) Tracheal foreign body ICD Code: T17.408A - Unspecified foreign body in trachea causing other injury, initial encounter Status: Acute (8) Rhabdomyolysis ICD Code: M62.82 - Rhabdomyolysis Status: Acute Assessment and Plan 1. Percocet overdose 2. Aspiration pneumonia 3. Acute respiratory failure, intubated for airway protection -tolerated CPAP trial 4. Foreign body in the esophagus -extracted A PING 5. Elevated CPK -resolving 6. Elevated liver enzymes -found to have hepatitis C 7. History of emphysema on home O2 SEIZURE- SEEN ON EEG ALSO- LOAD AND START KEPPRA- DW RN AND PT AND NEUROLOGY HYPOKALEMIA WILL REPLACE HYPOMAGNESIA WILL REPLACE Right subdural hematoma with 8 mm midline shift, acute left posterior cerebellar infarct: -Appreciate neurology, neurosurgery recommendations. Status post right frontotemporoparietal craniotomy with evacuation of subdural hygroma. -No mural thrombus noted on echocardiogram, intact EF. Repeat head ct stable. All drains have been removed. -on keppra per NSG for seizure prophylaxis Anxiety: improved, continue restoril per neurosx Tachyarrhythmia: No recurrence, has been on amiodarone per prior ordered by septic tank cleaner for suspected A. fib. Independent EKG reviews do not demonstrate A. fib to me at this time, may have been previously seen on a telemetry strip. I stopped amiodarone. Holter monitor ordered upon discharge. D/w NSG, clear to be placed on blood thinners per NSG as long as fall risk is thoroughly addressed. Hypokalemia: Likely due to poor nutrition, monitor and replace accordingly Aspiration pneumonia: continue Rocephin. procal still elevated. ST recommendations. Hep C: Likely cause of patient's transaminitis and coagulopathy with INR 1.2. No further intervention at this time. 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 chronic pulm arterial HTN: home sildenafil BPH: home Flomax DVT prophylaxis: heparin; cleared w/ NSG. PT AND OT AND [facility] NEEDS SNF [facility] PAPERWORK IS DONE AWAIT TRANSFER TO SNF Discharge Planning cleared for discharge; pending SNF. Holter monitor ordered upon discharge to pickup afib. Clear to be placed on blood thinners w/ NSG so long fall risk is addressed. Problem Qualifiers (1) Esophageal foreign body: Qualified Codes: T18.108A - Unspecified foreign body in esophagus causing other injury, initial encounter (2) Pneumonia: Qualified Codes: J18.9 - Pneumonia, unspecified organism (3) Tracheal foreign body: Qualified Codes: T17.408A - Unspecified foreign body in trachea causing other injury, initial encounter (4) Rhabdomyolysis: Qualified Codes: M62.82 - Rhabdomyolysis Ho Vargas DO December 10, 2017 11:51
[2017-12-10] MEDS: ENOXAPARIN SODIUM 30 MG/0.3 ML SYRINGE SQ SCH (17:39)
[2017-12-10] MEDS: levETIRAcetam 500 MG TAB PO SCH (20:47)
[2017-12-10] MEDS: TAMSULOSIN HCL 0.4 MG CAP PO SCH (20:47)
[2017-12-10] MEDS: cefTRIAXone INJ 2,000 MG in SODIUM CHLORIDE 0.9% INJ 100 ML IV SCH (20:47)
[2017-12-11] VITALS (9 sets, daily range): BP systolic 99–130; BP diastolic 57–72; PULSE 63–77; RESP 17–19; TEMP 98.4–98.9; O2SAT 93–96
[2017-12-11] MEDS: CHLORHEXIDINE GLUCONATE 2 % 1 PACK (2 CLOTHS) TOP SCH (04:00)
[2017-12-11] MEDS: LEVOTHYROXINE SODIUM 25 MCG TAB PO SCH (05:59)
[2017-12-11] MEDS: ARTIFICIAL TEARS OPTH SOLN 15 ML BTL EACH EYE SCH ×3 (08:19→17:49)
[2017-12-11] MEDS: SODIUM CHLORIDE 0.9% FLUSH 10 ML FLUSH IV FLUSH SCH (08:20)
[2017-12-11] MEDS: SILDENAFIL CITRATE 20 MG TAB PO SCH ×3 (08:20→17:49)
[2017-12-11] MEDS: THIAMINE HCL 100 MG TAB PO SCH (08:20)
[2017-12-11] MEDS: levETIRAcetam 500 MG TAB PO SCH (08:20)
[2017-12-11] MEDS: DOCUSATE SODIUM 100 MG CAP PO SCH (08:20)
[2017-12-11] MEDS ORDERED: PANTOPRAZOLE SOD 40 MG DELAYED RELEASE TAB PO SCH (09:00)
--- NOTE | 2017-12-11 11:19 | HHI.PR ---
Subjective Remarks resting comfortably with no distress. no pain or new complaints. Objective Vitals Vital Signs Date Time Temp Pulse Resp B/P (MAP) Pulse Ox O2 Delivery O2 Flow Rate FiO2 12/11/17 08:07 98.9 72 17 108/61 (77) 96 12/11/17 08:00 63 12/11/17 08:00 Room Air 12/11/17 04:00 Room Air 12/11/17 04:00 98.5 67 18 130/72 (91) 94 12/11/17 03:54 69 12/11/17 00:00 98.4 73 19 125/58 (80) 94 12/11/17 00:00 Room Air 12/10/17 23:55 72 12/10/17 20:01 80 12/10/17 20:00 98.7 75 16 139/67 (91) 96 12/10/17 20:00 Room Air 12/10/17 16:58 68 12/10/17 16:58 95 Room Air 12/10/17 16:00 98.5 71 18 120/66 (84) 95 12/10/17 12:37 73 12/10/17 12:37 94 Room Air 12/10/17 12:00 98.0 73 18 139/84 (102) 94 I/O 12/10/17 12/10/17 12/10/17 12/11/17 12/11/17 12/11/17 07:00 15:00 23:00 07:00 15:00 23:00 Intake Total 345 ml 480 ml 240 ml Output Total 800 ml 800 ml 950 ml Balance -455 ml -320 ml -710 ml Intake Oral 240 ml 480 ml 240 ml IV Total 105 ml Output Urine Total 800 ml 800 ml 950 ml # Bowel Movements 0 Result Diagram: 12/07/17 0437 12/07/17 0437 Imaging Last Impressions Elbow X-Ray 12/05/17 0000 Signed Impressions: Service Date/Time: Tuesday, December 05, 2017 02:09 - CONCLUSION: 1. Prior fractures of the proximal radius and ulna with hypertrophic bone formation around the distal humerus and proximal forearm. No acute fractures seen. Gio Israel MD Head CT 12/01/17 0000 Signed Impressions: Service Date/Time: Friday, December 01, 2017 16:57 - CONCLUSION: 1. Essentially stable head CT compared with November 26. Right subdural drain present with adjacent stable apparent hemorrhage measuring up to about 13 mm in diameter. Gio Israel MD Chest X-Ray 11/25/17 0000 Signed Impressions: Service Date/Time: Saturday, November 25, 2017 13:17 - CONCLUSION: 1. Persistent small left pneumothorax. 2. New left lung base consolidation and small pleural effusion. 3. Mild bilateral interstitial opacity indicating mild pulmonary edema. Adriano Blair MD Brain MRI 11/21/17 0727 Signed Impressions: Service Date/Time: Tuesday, November 21, 2017 10:11 - CONCLUSION: 1. 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 2. Scattered nonspecific white matter signal change. No focal abnormal areas of enhancement. 3. Small focal area of restricted diffusion in the left posterior medial cerebellar hemisphere suggesting an acute infarction; however, no signal abnormality is seen in this area on any of the other pulse sequences. Oswaldo Alicea MD Skull X-Ray 11/21/17 0000 Signed Impressions: Service Date/Time: Tuesday, November 21, 2017 09:47 - CONCLUSION: No contraindication to MRI seen. Oswaldo Alicea MD Abdomen X-Ray 11/21/17 0000 Signed Impressions: Service Date/Time: Tuesday, November 21, 2017 09:45 - CONCLUSION: No contraindication to MRI seen. Oswaldo Alicea MD Chest CT 11/17/17 0000 Signed Impressions: Service Date/Time: Friday, November 17, 2017 20:57 - CONCLUSION: 1. Foreign body at the level of the thoracic inlet, appears to be a coin within the esophagus. 2. Bilateral pneumonia. Please see above. Aman Bermeo MD Objective Remarks GENERAL: This is a well-nourished, well-developed patient, in no apparent distress. CARDIOVASCULAR: Regular rate and regular rhythm without murmurs, gallops, or rubs. RESPIRATORY: Clear to auscultation. Breath sounds equal bilaterally. No wheezes , rales, or rhonchi. GASTROINTESTINAL: Abdomen soft, non-tender, nondistended. Normal, active bowel sounds MUSCULOSKELETAL: Extremities without clubbing, cyanosis, or edema. NEURO: Alert & Oriented x4 to person, place, time, situation. Moves all ext x4 Procedures 11/21/17 endotracheal intubation 11/21/17 right frontal/temporal/parietal craniotomy with evacuation of subdural hematoma 11/21/17 left frontal ash hole with placement of an intracranial pressure monitor Medications and IVs Inpatient Medications Acetaminophen (Tylenol) 650 mg Q4H PRN PO TEMPERATURE > 101.5 F; Start 11/21/17 at 15:00 Acetaminophen/ Hydrocodone Bitart ([place] 10-325 Mg) 2 tab Q4H PRN PO PAIN SCALE 6 TO 10 Last administered on 12/02/17at 20:24; Start 11/21/17 at 15:00 Adenosine (Adenocard Inj) 6 mg ONCE ONCE IV PUSH Last administered on at 12:20; Start 11/23/17 at 13:15; Stop 11/23/17 at 13:16; Status DC Albumin Human 100 ml @ 60 mls/hr ONCE ONCE IV Last administered on 11/25/17at 17:15; Start 11/25/17 at 17:15; Stop 11/25/17 at 18:54; Status DC Albuterol Sulfate (Albuterol Neb) 2.5 mg Q2HR NEB PRN NEB DYSPNEA; Start at 22:00 Albuterol/ Ipratropium (Duoneb Neb) 1 ampule Q6HR WHILE AWAKE NEB NEB Last administered on 12/02/17at 21:17; Start 11/29/17 at 08:00; Stop 12/03/17 at 07:59 ; Status DC Alprazolam (Xanax) 1 mg Q8H PRN PO ANXIETY Last administered on 12/01/17at 21:59 ; Start 11/30/17 at 13:15; Stop 12/02/17 at 10:16; Status DC Amiodarone HCl (Cordarone) 400 mg DAILY OG-TUBE Last administered on 12/05/17at 08:59; Start 11/27/17 at 09:00; Stop 12/05/17 at 15:13; Status DC Amiodarone HCl 150 mg/Dextrose 103 ml @ 600 mls/hr Q11M ONCE IV Last administered on 11/23/17at 12:30; Start 11/23/17 at 13:03; Stop 11/23/17 at 13:13; Status DC Amiodarone HCl 450 mg/Dextrose 250 ml @ 33.33 mls/ hr Q7H31M PRN IV Per Protocol; Start 11/23/17 at 13:13; Stop 11/23/17 at 13:15; Status DC Amiodarone HCl 450 mg/Sodium Chloride 250 ml @ 33.33 mls/ hr Q7H31M PRN IV Per Protocol Last administered on 11/25/17at 20:11; Start 11/23/17 at 13:30; Stop at 15:31; Status DC Ampicillin Sodium/ Sulbactam Sodium 3 gm/Sodium Chloride 100 ml @ 200 mls/hr Q6H IV Last administered on 11/21/17at 13:27; Start 11/18/17 at 07:00; Stop at 17:59; Status DC Artificial Tears (Tears Naturale Opth Soln) 1 drop TID EACH EYE Last administered on 12/11/17at 08:19; Start 11/21/17 at 13:00 Aspirin (Aspirin Supp) 300 mg ONCE ONCE RECTAL Last administered on 11/17/17at 22:06; Start 11/17/17 at 21:45; Stop 11/17/17 at 21:46; Status DC Azithromycin 500 mg/Sodium Chloride 250 ml @ 250 mls/hr ONCE ONCE IV Last administered on 11/17/17at 22:13; Start 11/17/17 at 20:30; Stop 11/17/17 at 21:29 ; Status DC Bisacodyl (Dulcolax Supp) 10 mg DAILY PRN RECTAL CONSTIPATION; Start 11/21/17 at 15:00; Stop 11/22/17 at 10:19; Status DC Calcium Chloride (Calcium Chloride Inj) 1 gm ONCE ONCE IV PUSH ; Start 11/23/17 at 13:15; Stop 11/23/17 at 13:15; Status DC Calcium Gluconate (Calcium Gluconate Inj) 1 gm UNSCH PRN IV SEE LABEL COMMENTS ; Start 11/21/17 at 15:00 Cefazolin Sodium/ Dextrose 50 ml @ 100 mls/hr Q8H IV ; Start 11/21/17 at 16:00; Stop 11/21/17 at 18:52; Status DC Cefepime HCl 2000 mg/Sodium Chloride 100 ml @ 200 mls/hr Q12H IV Last administered on 11/29/17at 07:35; Start 11/21/17 at 21:00; Stop 11/29/17 at 09:29; Status DC Ceftriaxone Sodium 2000 mg/ Sodium Chloride 100 ml @ 200 mls/hr Q24H IV Last administered on 12/10/17at 20:47; Start 11/29/17 at 20:00 Chlorhexidine Gluconate (Chlorhexidine 2% Cloth) 3 pack UNSCH PRN TOP HYGIENIC CARE; Start 11/17/17 at 22:45 Chlorhexidine Gluconate (Peridex 0.12% Liq) 15 ml BID@08,20 MT Last administered on 12/04/17at 08:00; Start 11/21/17 at 20:00; Stop 12/05/17 at 04:47 ; Status DC Clonidine (Catapres) 0.1 mg Q6H PRN PO SEE LABEL COMMENTS; Start 11/20/17 at 13 :00 Dexmedetomidine HCl 200 mcg/ Sodium Chloride 52 ml @ 3.36 mls/hr TITRATE PRN IV SEDATION Last administered on 11/30/17at 07:16; Start 11/25/17 at 15:30; Stop 11/30/17 at 13:19; Status DC Docusate Sodium (Colace) 100 mg BID PO Last administered on 12/11/17at 08:20; Start 11/21/17 at 21:00 Enalaprilat (Vasotec Inj) 1.25 mg Q6H PRN IV PUSH SEE LABEL COMMENTS; Start 11/21/17 at 10:45 Enoxaparin Sodium (Lovenox Inj) 30 mg Q24H SQ Last administered on 12/10/17at 17 :39; Start 12/05/17 at 17:30 Etomidate (Amidate Inj) 20 mg ONCE ONCE IV PUSH Last administered on 11/21/17at 12:00; Start 11/21/17 at 12:00; Stop 11/21/17 at 13:00; Status DC Famotidine (Pepcid Inj) 20 mg Q12HR IV PUSH Last administered on 11/19/17at 09: 00; Start 11/18/17 at 09:00; Stop 11/19/17 at 12:14; Status DC Famotidine (Pepcid) 20 mg Q12HR PO ; Start 11/18/17 at 09:00; Stop 11/18/17 at 09:00; Status DC Fentanyl Citrate 250 ml @ 5 mls/hr TITRATE PRN IV SEDATION Last administered on 11/26/17at 09:12; Start 11/25/17 at 17:15; Stop 11/28/17 at 10:52; Status DC Fentanyl Citrate (fentaNYL INJ) 100 mcg ONCE ONCE IV PUSH Last administered on 11/21/17at 12:00; Start 11/21/17 at 12:00; Stop 11/21/17 at 13:00; Status DC Flumazenil (Romazicon Inj) 0.2 mg Q1M PRN IV PUSH SEE LABEL COMMENTS; Start at 13:00 Folic Acid (Folate) 1 mg DAILY PO Last administered on 11/25/17at 08:27; Start at 13:00; Stop 11/25/17 at 12:59; Status DC Furosemide (Lasix Inj) 40 mg ONCE ONCE IV PUSH Last administered on 11/25/17at 14:00; Start 11/25/17 at 14:00; Stop 11/25/17 at 14:01; Status DC Haloperidol Lactate (Haldol Inj) 2 mg Q15M PRN IM SEE LABEL COMMENTS; Start at 13:00; Stop 11/21/17 at 07:28; Status DC Hydralazine HCl (Apresoline Inj) 10 mg Q6H PRN IV PUSH SEE LABEL COMMENTS Last administered on 11/28/17at 13:31; Start 11/21/17 at 10:45 Labetalol HCl (Trandate Inj) 10 mg Q6H PRN IV PUSH SEE LABEL COMMENTS; Start at 10:45 Lactulose (Lactulose Liq) 30 ml DAILY PRN PO SEVERE CONSITIPATION/ IF PO; Start 11/17/17 at 22:45 Levetriacetam (Keppra) 500 mg Q12HR PO Last administered on 12/11/17at 08:20; Start 12/10/17 at 21:00 Levetriacetam 500 mg/Sodium Chloride 105 ml @ 420 mls/hr Q12H IV Last administered on 12/10/17at 06:11; Start 11/22/17 at 06:00; Stop 12/10/17 at 11:52 ; Status DC Levothyroxine Sodium (Synthroid Inj) 25 mcg DAILY@06 IV PUSH Last administered on 11/30/17at 06:46; Start 11/22/17 at 06:00; Stop 12/01/17 at 08:24; Status DC Levothyroxine Sodium (Synthroid) 25 mcg DAILY@0600 PO Last administered on 12/11at 05:59; Start 12/01/17 at 06:00 Lorazepam (Ativan Inj) 2 mg Q15M PRN IV PUSH CIWA > 20; Start 11/20/17 at 13:00 ; Stop 11/21/17 at 07:28; Status DC Lorazepam (Ativan) 2 mg Q2H PRN PO CIWA 11-14; Start 11/20/17 at 13:00; Stop at 07:28; Status DC Magnesium Hydroxide (Milk Of Magnesia Liq) 30 ml Q12H PRN PO Mild constipation ; Start 11/17/17 at 22:45 Magnesium Oxide (Mag-Ox) 800 mg UNSCH PRN PO For Magnesium 1.2 - 1.6 mg/dL; Start 11/17/17 at 23:30; Stop 11/30/17 at 13:19; Status DC Magnesium Sulfate 2 gm/Sodium Chloride 100 ml @ 50 mls/hr UNSCH PRN IV For Magnesium 1.2 - 1.6 mg/dL Last administered on 11/21/17at 11:54; Start 11/17/17 at 23:30; Stop 11/30/17 at 13:19; Status DC Magnesium Sulfate 4 gm/Sodium Chloride 108 ml @ 108 mls/hr UNSCH PRN IV MAGNESIUM LESS THAN 2; Start 11/21/17 at 15:00; Stop 11/30/17 at 13:19; Status DC Magnesium Sulfate/ Dextrose 100 ml @ 100 mls/hr ONCE ONCE IV Last administered on 11/23/17at 12:30; Start 11/23/17 at 13:15; Stop 11/23/17 at 14:14; Status DC Mannitol (Mannitol Inj) 25 gm ONCE ONCE IV Last administered on 11/21/17at 12:30 ; Start 11/21/17 at 12:00; Stop 11/21/17 at 13:00; Status DC Midazolam HCl (Versed Inj) 2 mg Q1H PRN IV PUSH SEDATION Last administered on at 23:17; Start 11/17/17 at 22:45; Stop 11/21/17 at 07:28; Status DC Miscellaneous Information ([facility] ALL NURSING DEPARTME... UNSCH PRN .XX SEE LABEL COMMENTS; Start 11/21/17 at 16:29; Stop 11/22/17 at 16:28 ; Status DC Morphine Sulfate (Morphine Inj) 4 mg Q2H PRN IV PUSH PAIN SCALE 7 TO 10; Start 11/21/17 at 15:00; Stop 11/29/17 at 08:55; Status DC Multivitamins 10 ml/Folic Acid 1 mg/Sodium Chloride 510.2 ml @ 125 mls/hr Q24H IV Last administered on 11/25/17at 13:59; Start 11/21/17 at 13:00; Stop 11/26/17 at 12:59; Status DC Multivitamins/ Minerals Therapeutic (Theragran M Tab) 1 tab DAILY PO Last administered on 11/25/17at 08:27; Start 11/20/17 at 13:00; Stop 11/25/17 at 12:59; Status DC Norepinephrine Bitartrate 4 mg/ Sodium Chloride 250 ml @ 7.5 mls/hr TITRATE PRN IV Blood pressure management Last administered on 11/26/17at 17:28; Start 11/25 at 17:15; Stop 11/28/17 at 10:52; Status DC Ondansetron HCl (Zofran Inj) 4 mg Q6H PRN IV PUSH NAUSEA OR VOMITING; Start 11/21/17 at 15:00; Stop 11/22/17 at 10:19; Status DC Pantoprazole Sodium (Protonix Inj) 40 mg DAILY IVP Last administered on at 08:12; Start 11/22/17 at 09:00; Stop 12/10/17 at 11:52; Status DC Pantoprazole Sodium (Protonix) 40 mg DAILY PO Last administered on 12/11/17at 08 :20; Start 12/11/17 at 09:00 Phenylephrine HCl 40 mg/Dextrose 500 ml @ 30 mls/hr TITRATE PRN IV Blood pressure management; Start 11/23/17 at 13:15; Stop 11/28/17 at 10:52; Status DC Potassium Chloride 20 meq/ Sodium Chloride 110 ml @ 50 mls/hr Q2H PRN IV For Potassium 3.3 - 3.5 mEq/L Last administered on 11/21/17at 06:43; Start 11/21/17 at 05:30; Stop 11/30/17 at 13:19; Status DC Potassium Chloride/Sodium Chloride 1,000 ml @ 100 mls/hr Q10H IV Last administered on 11/25/17at 04:53; Start 11/21/17 at 15:00; Stop 11/25/17 at 13:08; Status DC Potassium Phosphate (K-Phos) 2,000 mg UNSCH PRN PO/TUBE SEE LABEL COMMENTS; Start 11/17/17 at 23:30; Stop 11/30/17 at 13:19; Status DC Potassium Phosphate 30 mmol/ Sodium Chloride 260 ml @ 42 mls/hr UNSCH PRN IV SEE LABEL COMMENTS; Start 11/17/17 at 23:30; Stop 11/30/17 at 13:19; Status DC Potassium Bicarb/ Potassium Chloride (K-Lyte Cl Eff) 50 meq UNSCH PRN PO For Potassium 3.3 - 3.5 mEq/L; Start 11/17/17 at 23:30; Stop 11/30/17 at 13:19; Status DC Potassium Chloride 100 ml @ 50 mls/hr UNSCH PRN IV POTASSIUM LESS THAN 4; Start 11/21/17 at 15:00; Stop 11/30/17 at 13:19; Status DC Potassium Chloride (KCl) 80 meq ONCE ONCE PO ; Start 11/20/17 at 09:15; Stop at 09:16; Status DC Propofol 100 ml @ 1.815 mls/ hr TITRATE PRN IV SEDATION Last administered on at 03:11; Start 11/21/17 at 12:00; Stop 11/28/17 at 10:52; Status DC Rocuronium Brooten (Zemuron Inj) 50 mg BOLUS ONCE IV ; Start 11/21/17 at 12:00; Stop 11/21/17 at 13:00; Status DC Senna/Docusate Sodium (Luisa-Colace) 1 tab BID PO Last administered on 11/24/17at 08:15; Start 11/21/17 at 21:00; Stop 11/24/17 at 15:12; Status DC Sennosides (Senokot) 17.2 mg Q12H PRN PO Moderate constipation; Start 11/17/17 at 22:45 Sildenafil Citrate (Revatio) 20 mg TID PO Last administered on 12/11/17at 08:20 ; Start 11/30/17 at 18:00 Sodium Chloride (NS Flush) 2 ml BID IV FLUSH Last administered on 12/11/17at 08: 20; Start 11/18/17 at 09:00 Sodium Chloride 188 meq/Sodium Chloride 1,047 ml @ 20 mls/hr Q24H IV Last administered on 11/22/17at 12:43; Start 11/21/17 at 13:00; Stop 11/22/17 at 16:57; Status DC Sodium Phosphate 30 mmol/Sodium Chloride 250 ml @ 42 mls/hr UNSCH PRN IV For Phosphorus < 2.5 mg/dL Last administered on 11/20/17at 21:44; Start 11/17/17 at 23:30; Stop 11/30/17 at 13:19; Status DC Succinylcholine Chloride (Quelicin Inj) 120 mg ONCE ONCE IV PUSH Last administered on 11/21/17at 12:00; Start 11/21/17 at 13:15; Stop 11/21/17 at 13:19; Status DC Tamsulosin HCl (Flomax) 0.4 mg HS PO Last administered on 12/10/17at 20:47; Start 11/30/17 at 21:00 Temazepam (Restoril) 30 mg HS PRN PO INSOMNIA Last administered on 12/09/17at 21 :47; Start 11/30/17 at 13:15 Terbutaline Sulfate (Brethine Inj) 1 mg UNSCH PRN SQ For Extravasation; Start 11/25/17 at 17:15 Thiamine HCl (Vitamin B1) 100 mg DAILY PO Last administered on 12/11/17at 08:20 ; Start 11/20/17 at 13:00 Thiamine HCl 100 mg/Sodium Chloride 101 ml @ 100 mls/hr Q24H IV Last administered on 11/23/17at 12:45; Start 11/21/17 at 12:00; Stop 11/24/17 at 11:59; Status DC A/P Problem List: (1) History of CVA (cerebrovascular accident) ICD Code: Z86.73 - Personal history of transient ischemic attack (TIA), and cerebral infarction without residual deficits (2) Hepatitis C ICD Code: B19.20 - Unspecified viral hepatitis C without hepatic coma (3) COPD (chronic obstructive pulmonary disease) ICD Code: J44.9 - Chronic obstructive pulmonary disease, unspecified (4) Subdural hematoma ICD Code: I62.00 - Nontraumatic subdural hemorrhage, unspecified (5) Esophageal foreign body ICD Code: T18.108A - Unspecified foreign body in esophagus causing other injury , initial encounter Status: Acute (6) Pneumonia ICD Code: J18.9 - Pneumonia, unspecified organism Status: Acute (7) Tracheal foreign body ICD Code: T17.408A - Unspecified foreign body in trachea causing other injury, initial encounter Status: Acute (8) Rhabdomyolysis ICD Code: M62.82 - Rhabdomyolysis Status: Acute Assessment and Plan 1. Percocet overdose 2. Aspiration pneumonia 3. Acute respiratory failure, intubated for airway protection -tolerated CPAP trial 4. Foreign body in the esophagus -extracted A PING 5. Elevated CPK -resolving 6. Elevated liver enzymes -found to have hepatitis C 7. History of emphysema on home O2 Right subdural hematoma with 8 mm midline shift, acute left posterior cerebellar infarct: seizure -Appreciate neurology, neurosurgery recommendations. Status post right frontotemporoparietal craniotomy with evacuation of subdural hygroma. -No mural thrombus noted on echocardiogram, intact EF. Repeat head ct stable. All drains have been removed. -on keppra per NSG for seizure prophylaxis Anxiety: improved, continue restoril per neurosx Tachyarrhythmia: No recurrence- holter with sinus rhythm. Aspiration pneumonia: treated with IV antibiotic- will stop today. Hep C: Likely cause of patient's transaminitis and coagulopathy with INR 1.2. No further intervention at this time. 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 chronic pulm arterial HTN: home sildenafil BPH: home Flomax DVT prophylaxis: subq Lovenox.cleared by neurosurgery. Discharge Planning dc planning in progress. Problem Qualifiers (1) Esophageal foreign body: Qualified Codes: T18.108A - Unspecified foreign body in esophagus causing other injury, initial encounter (2) Pneumonia: Qualified Codes: J18.9 - Pneumonia, unspecified organism (3) Tracheal foreign body: Qualified Codes: T17.408A - Unspecified foreign body in trachea causing other injury, initial encounter (4) Rhabdomyolysis: Qualified Codes: M62.82 - Rhabdomyolysis Martín Duran MD December 11, 2017 11:19
[2017-12-11] MEDS: ENOXAPARIN SODIUM 30 MG/0.3 ML SYRINGE SQ SCH (17:49)
== END 2017-12-11 19:20 | DRG 907 ==
LOC: NEPC 19:54 → NEDA 21:41 → HIMW 11-18 00:10 → N03B 11-21 14:23 → N03A 11-21 17:16 → N04A 12-08 16:25 → N04B 12-11 08:58 → N04A 12-11 09:00
PROVIDERS: ADMIT Internal Medicine; ATTEND Internal Medicine
PROC: 5A1945Z Respiratory Ventilation, 24-96 Consecutive Hours (ICD-10-PCS; 2017-11-17)
PROC: 0BH17EZ Insertion of Endotracheal Airway into Trachea, Via Natural or Artificial Opening (ICD-10-PCS; 2017-11-17)
PROC: 0DC18ZZ Extirpation of Matter from Upper Esophagus, Via Natural or Artificial Opening Endoscopic (ICD-10-PCS; 2017-11-18)
PROC: 5A1955Z Respiratory Ventilation, Greater than 96 Consecutive Hours (ICD-10-PCS; 2017-11-21)
PROC: 00H032Z Insertion of Monitoring Device into Brain, Percutaneous Approach (ICD-10-PCS; 2017-11-21)
PROC: 0BH17EZ Insertion of Endotracheal Airway into Trachea, Via Natural or Artificial Opening (ICD-10-PCS; 2017-11-21)
PROC: 00C40ZZ Extirpation of Matter from Intracranial Subdural Space, Open Approach (ICD-10-PCS; principal; 2017-11-21 13:51)
DX: T39.1X1A Poisoning by 4-Aminophenol derivatives, accidental (unintentional), initial encounter (principal); J69.0 Pneumonitis due to inhalation of food and vomit; I63.532 Cerebral infarction due to unspecified occlusion or stenosis of left posterior cerebral artery; G93.5 Compression of brain; G93.40 Encephalopathy, unspecified; I62.03 Nontraumatic chronic subdural hemorrhage; J96.01 Acute respiratory failure with hypoxia; J96.02 Acute respiratory failure with hypercapnia; R64 Cachexia; K22.2 Esophageal obstruction; J44.0 Chronic obstructive pulmonary disease with (acute) lower respiratory infection; M62.82 Rhabdomyolysis; I69.354 Hemiplegia and hemiparesis following cerebral infarction affecting left non-dominant side; Z68.1 Body mass index [BMI] 19.9 or less, adult; D68.9 Coagulation defect, unspecified; Z99.81 Dependence on supplemental oxygen; F17.210 Nicotine dependence, cigarettes, uncomplicated; F43.21 Adjustment disorder with depressed mood; T18.198A Other foreign object in esophagus causing other injury, initial encounter; F11.10 Opioid abuse, uncomplicated; B19.20 Unspecified viral hepatitis C without hepatic coma; G40.409 Other generalized epilepsy and epileptic syndromes, not intractable, without status epilepticus; I48.91 Unspecified atrial fibrillation; E83.42 Hypomagnesemia; E87.6 Hypokalemia; F41.9 Anxiety disorder, unspecified; G47.00 Insomnia, unspecified; I27.21 Secondary pulmonary arterial hypertension; N40.0 Benign prostatic hyperplasia without lower urinary tract symptoms; Z92.21 Personal history of antineoplastic chemotherapy; Z92.3 Personal history of irradiation; Z85.819 Personal history of malignant neoplasm of unspecified site of lip, oral cavity, and pharynx
CPT/HCPCS: 31500; 36600; 70250; 70450; 70553; 71045; 71046; 71250; 73070; 74018; 80048; 80053; 80074; 80307; 81001; 82550; 82552; 82607; 82805; 82948; 83036; 83605; 83735; 83880; 84100; 84132; 84145; 84155; 84425; 84439; 84443; 84484; 85007; 85025; 85027; 85610; 85652; 85730; 86038; 86039; 86077; 86403; 86592; 86850; 86870; 86900; 86901; 86902; 86920; 86922; 87040; 87070; 87077; 87147; 87186; 87205; 87641; 88304; 93005; 93225; 93226; 93306; 94002; 94003; 94640; 94664; 94770; 95819; A9579; C9113; J0153; J0171; J0282; J0295; J0330; J0360; J0456; J0690; J0692; J0696; J1100; J1580; J1650; J1940; J1953; J2060; J2150; J2250; J2370; J3010; J3370; J3411; J3475; J3480; J7030; J7040; J7050; J7120; P9047